=== PATIENT | female | born 1950 | race Caucasian/White ===

== ENCOUNTER 2016-05-30 19:37 | Inpatient (IN) ==
[2016-05-30] MEDS ORDERED: Ketorolac 30 MG/ML VIAL IVP ONE (19:42)
--- NOTE | 2016-05-30 19:42 | Emergency Department Note ---
Disposition Clinical Impression: Tachycardia Sepsis Qualifiers: Sepsis type: sepsis due to unspecified organism Qualified Code(s): A41.9 - Sepsis, unspecified organism UTI (urinary tract infection) Qualifiers: Urinary tract infection type: site unspecified Hematuria presence: without hematuria Qualified Code(s): N39.0 - Urinary tract infection, site not specified Fall Qualifiers: Encounter type: initial encounter Qualified Code(s): W19.XXXA - Unspecified fall, initial encounter Headache Qualifiers: Headache type: unspecified Headache chronicity pattern: acute headache Intractability: not intractable Qualified Code(s): R51 - Headache Leukocytosis Qualifiers: Leukocytosis type: bandemia Qualified Code(s): D72.825 - Bandemia Disposition: Admitted As Inpatient Referrals: NO,PCP [Non-Partnered Physician] - Forms: ED Satisfaction Letter Time of Disposition: 22:00 Fall HPI - General Chief Complaint: ED Fall Stated Complaint: fall Time Seen by Provider: 05/30/16 19:41 Source: patient, EMS Mode of arrival: EMS Limitations: altered mental status, physical limitation Nursing Notes Reviewed: Yes Vital Signs Reviewed: Yes - History of Present Illness HPI Narrative: Patient is a 65-year-old female with past medical history of CHF, COPD, previous MA, hypertension, hyperlipidemia. She presents today from nursing facility via EMS (backboarded but no C collar) due to fall and concern for altered mental status. EMS states the patient was found down in her room, states staff was concerned for altered mental status. The patient is complaining of headache that would not answer any of the review of system questions. EMS does state that the patient was complaining of hip pain in the ambulance. Patient is currently only oriented to person. - Related Data Home Medications Medication Instructions Recorded Confirmed Amiodarone [Cordarone] 200 mg PO DAILY 12/12/14 10/16/15 Baclofen 10 mg PO QID 12/12/14 10/16/15 Budesonide/Formoterol Fumarate 2 puff IH BID 12/12/14 10/16/15 [Symbicort 160-4.5 Mcg Inhaler] Bumetanide 1 mg PO BID 12/12/14 10/16/15 Cholecalciferol (Vitamin D3) 2,000 unit PO DAILY 12/12/14 10/16/15 [Vitamin D3] Clopidogrel [Plavix] 75 mg PO QAM 12/12/14 10/16/15 Duloxetine HCl [Cymbalta] 60 mg PO DAILY 12/12/14 10/16/15 Ezetimibe [Zetia] 10 mg PO HS 12/12/14 10/16/15 Ferrous Sulfate 325 mg PO DAILY 12/12/14 10/16/15 Fluticasone Propionate Nasal 1 spray NS DAILY PRN 12/12/14 10/16/15 [Flonase] Folic Acid 1 mg PO QAM 12/12/14 10/16/15 Hydroxychloroquine Sulfate 200 mg PO BID 12/12/14 10/16/15 [Plaquenil] Insulin DETEMIR [Levemir Flextouch] 60 unit SQ BID 12/12/14 10/16/15 Insulin LISPRO [Humalog Kwikpen 0 unit SQ QID 12/12/14 10/16/15 U-200] Isosorbide MONOnitrate [Isosorbide 120 mg PO DAILY 12/12/14 10/16/15 Mononitrate ER] Loratadine [Loradamed] 10 mg PO DAILY 12/12/14 10/16/15 Metoprolol Succinate 50 mg PO DAILY 12/12/14 10/16/15 Montelukast Sodium [Singulair] 10 mg PO HS 12/12/14 10/16/15 Ranitidine HCl 300 mg PO HS 12/12/14 10/16/15 Ropinirole HCl [Requip] 2 mg PO HS 12/12/14 10/16/15 Sertraline HCl [Zoloft] 50 mg PO HS 12/12/14 10/16/15 Theophylline Anhydrous [Theodur] 300 mg PO BID 12/12/14 10/16/15 Tiotropium [place] [Spiriva] 18 mcg IH DAILY 12/12/14 10/16/15 Trazodone HCl 300 mg PO HS 12/12/14 10/16/15 Verapamil ER (24 HR) [Calan SR] 240 mg PO DAILY 12/12/14 10/16/15 Atropine 1% Opth Oint 2 drop BOTH EYES Q2H PRN 08/26/15 10/16/15 Bisacodyl [Dulcolax] 10 mg RC DAILY PRN 08/26/15 10/16/15 Docusate [Colace] 100 mg PO DAILY 08/26/15 10/16/15 Ipratropium/Albuterol Neb [Duoneb] 3 ml IH Q4HR PRN 08/26/15 10/16/15 Polyethylene Glycol 3350 [Gavilax] 17 gm PO DAILY 08/26/15 10/16/15 Scopolamine Patch [Transderm-Scop] 1.5 mg TD Q72H PRN 08/26/15 10/16/15 Acetaminophen [Tylenol] 650 mg PO Q4HR PRN 10/16/15 10/16/15 Nystatin Cream [Mycostatin Cream] 1 appl TP BID 10/16/15 10/16/15 Pantoprazole Sodium [Protonix] 40 mg PO DAILY 10/16/15 10/16/15 Previous Rx's Medication Instructions Recorded Losartan [Cozaar] 100 mg PO DAILY 28 Days 04/05/15 Meclizine [Antivert] 12.5 mg PO TID PRN 14 Days 04/05/15 Metoclopramide [Reglan] 10 mg PO Q8HR 7 Days 04/05/15 Aspirin Enteric Coated [Aspirin EC] 325 mg PO DAILY #21 tablet. 06/08/15 Alprazolam [Xanax 0.5 MG Tablet] 0.5 mg PO TID PRN 7 Days 10/17/15 FentaNYL PATCH [Duragesic] 50 mcg TD Q72H 7 Days 10/17/15 Gabapentin [Neurontin] 100 mg PO TID 14 Days 10/17/15 Naloxone [Narcan] 0.4 mg IV Q2MIN PRN #0 inj 10/17/15 OxyCODONE Immed Rel [Roxicodone 15 15 mg PO Q8HR PRN 7 Days 10/17/15 MG] OxyCODONE Immed Rel [Roxicodone 5 5 mg PO Q6H PRN 7 Days 10/17/15 MG] Allergies Allergy/AdvReac Type Severity Reaction Status Date / Time tuberculin, purified protein Allergy Mild Hives Verified 12/12/14 11:15 deriva [tuberculin,purif.prot.deriv.] carvedilol [From Coreg] AdvReac Intermediate Anxiety Verified 12/12/14 11:15 ranolazine [From Ranexa] AdvReac Intermediate nausea, Verified 12/12/14 11:15 vomiting Wblnher-Ija-Qmo Reductase AdvReac Intermediate muscle Verified 12/12/14 11:15 Inhibitor dysfunction [Statins] Limitations: ROS unobtainable due to patients medical condition Fall PMH - Past Medical History Medical history: Reports: CHF, COPD, DVT, diabetes, hyperlipidemia, hypertension , myocardial infarction, other Surgical history: Reports: angioplasty/stent, cholecystectomy, coronary bypass ( CABG), hysterectomy, other Psychiatric history: Reports: anxiety, depression 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 Backboarded but no c collar due to neck girth. - General Limitations: altered mental status General appearance: alert - Head Head exam: atraumatic, normocephalic, normal inspection, other (no tenderness to palpation) - Eye Eye exam: Present: normal appearance, PERRL, EOMI - ENT ENT exam: normal exam, normal oropharynx, mucous membranes moist - Neck Neck exam: Present: normal inspection, full ROM, trachea midline, tenderness ( Uncertain, patient would no answer if cervical spine was tender to palpation) - Chest Chest inspection: Present: normal inspection, symmetric chest wall rise - Respiratory Respiratory exam: Present: normal lung sounds bilaterally. Absent: respiratory distress, wheezes, stridor, accessory muscle use, prolonged expiratory phase - Cardiovascular Cardiovascular exam: Present: regular rate, normal rhythm, normal heart sounds - Abdominal Exam Abdominal exam: Present: soft, Non-Tender. Absent: tenderness, distention, guarding, rebound, rigidity - Extremities Exam Extremities exam: Present: pedal edema (Bilateral lower extremity erythema and pitting edema from mid calf down. ), other (Bilateral hips compressed and palpated but patient would not answer if painful) - Back Exam Back exam: Present: normal inspection, full ROM. Absent: tenderness - Neurological Exam Neurological exam: Present: alert, other (oriented x 1 to person) - Psychiatric Psychiatric exam: Present: normal affect, normal mood - Skin Skin exam: Present: warm, dry, intact, normal color Course Course Narrative: O2 low possible due to large abdominal mass effect, currently on venti mask. BP elevated on presentation, possibly due to pain. Will continue to monitor. Patient was complaining of headache but would not answer any other review of system questions. Cervical spine was palpated along with extremities and bilateral hips/pelvis. She denies answer whether or not any of these areas were tender to palpation. Due to concern for altered mental status, we will obtain basic labs, head CT, cervical spine CT. We will also obtain imaging of the pelvis and bilateral hips due to complaint of hip pain in the ambulance. Also obtain UTI, cardiac workup including EKG and troponin. 20:35 Patient positive for UTI, meets sepsis criteria because she had fever 102 prior to arrival at alf, has tachycardia, source of infection. Sepsis protocol ordered including lactic and blood cultures. Patient not given fluid boluses due to hypotension, no signs of hypovolemia, history of CHF. She will be started on ceftriaxone and admitted after imaging workup is complete. Hydralazine 10mg given due to BP 180/90s. 21:20 imaging negative for fracture. Patient was C-spine and backboard cleared. Patient was set up and oxygen saturation is now an upper 90s with 5L NC O2. Will admit for UTI sepsis, fall, headache. 21:59 Dr. Gutierrez accepts. Cervical Spine CT 05/30/16 19:42 IMPRESSION: 1. Suboptimal evaluation due to patient body habitus. 2. No evident acute osseous abnormality of the cervical spine. 3. Moderate multilevel degenerative changes. D/ / Escobar Godfrey MD / Escobar Godfrey MD Interpreting Provider: Escobar Godfrey MD Head CT 05/30/16 19:42 IMPRESSION: No acute intracranial abnormality. D/ / America Stafford MD / America Stafford MD Interpreting Provider: America Stafford MD Hip/Pelvis X-Ray 05/30/16 19:45 IMPRESSION: No acute osseous abnormality. D/ / Shawn Quigley MD / Shawn Quigley MD Interpreting Provider: Shawn Quigley MD Vital Signs Temperature 99.6 F 05/30/16 19:38 Pulse Rate 112 05/30/16 19:38 Respiratory Rate 20 05/30/16 19:38 Blood Pressure 188/163 05/30/16 19:38 O2 Sat by Pulse Oximetry 92 L 05/30/16 19:38 Temperature 99.6 F 05/30/16 19:38 Pulse Rate 95 05/30/16 21:12 Respiratory Rate 16 05/30/16 21:12 Blood Pressure 156/59 05/30/16 21:12 O2 Sat by Pulse Oximetry 91 L 05/30/16 21:12 Oxygen Delivery Oxygen Delivery Simple Mask Fall - MDM Narrative Medical decision making narrative: imaging negative for fracture. Patient was C-spine and backboard cleared. Patient was set up and oxygen saturation is now an upper 90s without oxygen. Will admit for UTI sepsis, fall, headache. - Medical Records Medical records reviewed: Yes I reviewed the patient's medical records. - Lab Data Lab results reviewed: Yes I reviewed the patient's lab results. Result diagrams: 05/30/16 20:47 05/30/16 20:47 Lab Results 05/30/16 05/30/16 05/30/16 Range/Units 19:58 20:47 20:47 WBC 16.8 H (4.3-11.1) K/mcL RBC 4.40 (3.82-4.97) M/mcL Hgb 12.2 (11.5-15.4) g/dL Hct 38.2 (35.3-44.9) % MCV 86.8 (83.0-100.0) fL MCH 27.7 L (28.0-33.3) pg MCHC 31.9 (31.6-35.5) g/dL RDW 16.0 H (11.5-14.5) % Plt Count 215 (140-400) K/mcL MPV 9.2 L (9.4-12.4) fL Immature Gran % 1.1 (0-4) % Seg Neutrophils % 87.5 % Lymphocytes % 2.7 % Monocytes % 8.2 % Eosinophils % 0.3 % Basophils % 0.2 % Neutrophils # 14.7 H (1.6-8.9) K/mcL Lymphocytes # 0.5 L (0.6-4.6) K/mcL Monocytes # 1.4 H (0.0-1.3) K/mcL Eosinophils # 0.1 (0.0-0.6) K/mcL Basophils # 0.0 (0.0-0.2) K/mcL Nucleated RBCs/100 WBC 0.2 H (0) /100 WBC PT (9.4-12.1) Seconds INR APTT (26.0-36.0) Seconds Sodium 135 L (136-145) mEq/L Potassium 4.2 (3.5-4.5) mEq/L Chloride 97 L (98-109) mEq/L Carbon Dioxide 25 (19-29) mEq/L BUN 17 (7-20) mg/dL Creatinine 1.02 (0.57-1.11) mg/dL Est GFR ( Amer) > 60 (> 60) Est GFR (Non-Af Amer) 54 L (> 60) BUN/Creatinine Ratio 17 (6-26) Glucose 260 H (70-99) mg/dL Calculated Osmolality 291 (280-300) Calcium 9.3 (8.6-10.8) mg/dL Total Bilirubin 0.5 (0.2-1.2) mg/dL Direct Bilirubin 0.2 (0.0-0.5) mg/dL Indirect Bilirubin 0.3 (0.0-1.2) mg/dL AST 14 (5-34) Units/L ALT 15 (0-55) Units/L Alkaline Phosphatase 101 (38-126) Units/L Troponin I (0-0.03) ng/mL Serum Total Protein 7.7 (6.0-8.3) g/dL Albumin 3.3 L (3.5-5.0) g/dL Globulin 4.4 H (2.4-3.5) g/dL Albumin/Globulin Ratio 0.8 L (1.1-2.2) Urine Color Yellow (Yellow) Urine Clarity Cloudy A (Clear) Urine pH 7.0 (5.0-8.0) pH Units Ur Specific [place] 1.020 (1.010-1.025) Urine Protein 100 H (Neg-Trace) mg/dL Urine Glucose (UA) Normal (Normal) mg/dL Urine Ketones Negative (Negative) mg/dL Urine Blood Moderate H (Negative) Urine Nitrite Positive A (Negative) Urine Bilirubin Negative (Negative) Urine Urobilinogen Normal (Normal) mg/dL Ur Leukocyte Esterase Large H (Negative) Urine Microscopic RBC Present (0-3) per hpf Urine Microscopic WBC TNTC H (0-3) per hpf Ur Squamous Epith Cells Many H (None-Few) per lpf Ur Renal Epithelial Cell Present (None-Few) per hpf Urine Bacteria Many H (None-Few) per hpf Hyaline Casts Test Not Performed Urine Yeast Test Not Performed Ur Culture Indicated? YES A (NO) Specimen Rejected 05/30/16 05/30/16 05/30/16 Range/Units 20:47 20:47 20:47 WBC (4.3-11.1) K/mcL RBC (3.82-4.97) M/mcL Hgb (11.5-15.4) g/dL Hct (35.3-44.9) % MCV (83.0-100.0) fL MCH (28.0-33.3) pg MCHC (31.6-35.5) g/dL RDW (11.5-14.5) % Plt Count (140-400) K/mcL MPV (9.4-12.4) fL Immature Gran % (0-4) % Seg Neutrophils % % Lymphocytes % % Monocytes % % Eosinophils % % Basophils % % Neutrophils # (1.6-8.9) K/mcL Lymphocytes # (0.6-4.6) K/mcL Monocytes # (0.0-1.3) K/mcL Eosinophils # (0.0-0.6) K/mcL Basophils # (0.0-0.2) K/mcL Nucleated RBCs/100 WBC (0) /100 WBC PT 11.7 (9.4-12.1) Seconds INR 1.1 APTT 20.1 L (26.0-36.0) Seconds Sodium (136-145) mEq/L Potassium (3.5-4.5) mEq/L Chloride (98-109) mEq/L Carbon Dioxide (19-29) mEq/L BUN (7-20) mg/dL Creatinine (0.57-1.11) mg/dL Est GFR ( Amer) (> 60) Est GFR (Non-Af Amer) (> 60) BUN/Creatinine Ratio (6-26) Glucose (70-99) mg/dL Calculated Osmolality (280-300) Calcium (8.6-10.8) mg/dL Total Bilirubin (0.2-1.2) mg/dL Direct Bilirubin (0.0-0.5) mg/dL Indirect Bilirubin (0.0-1.2) mg/dL AST (5-34) Units/L ALT (0-55) Units/L Alkaline Phosphatase (38-126) Units/L Troponin I 0.02 (0-0.03) ng/mL Serum Total Protein (6.0-8.3) g/dL Albumin (3.5-5.0) g/dL Globulin (2.4-3.5) g/dL Albumin/Globulin Ratio (1.1-2.2) Urine Color (Yellow) Urine Clarity (Clear) Urine pH (5.0-8.0) pH Units Ur Specific [place] (1.010-1.025) Urine Protein (Neg-Trace) mg/dL Urine Glucose (UA) (Normal) mg/dL Urine Ketones (Negative) mg/dL Urine Blood (Negative) Urine Nitrite (Negative) Urine Bilirubin (Negative) Urine Urobilinogen (Normal) mg/dL Ur Leukocyte Esterase (Negative) Urine Microscopic RBC (0-3) per hpf Urine Microscopic WBC (0-3) per hpf Ur Squamous Epith Cells (None-Few) per lpf Ur Renal Epithelial Cell (None-Few) per hpf Urine Bacteria (None-Few) per hpf Hyaline Casts Urine Yeast Ur Culture Indicated? (NO) Specimen Rejected Hemolyzed - Radiology Data Radiology results reviewed: Yes I reviewed the patient's radiology results. Cervical Spine CT 05/30/16 19:42 IMPRESSION: 1. Suboptimal evaluation due to patient body habitus. 2. No evident acute osseous abnormality of the cervical spine. 3. Moderate multilevel degenerative changes. D/ / Escobar Godfrey MD / Escobar Godfrey MD Interpreting Provider: Escobar Godfrey MD Head CT 05/30/16 19:42 IMPRESSION: No acute intracranial abnormality. D/ / America Stafford MD / America Stafford MD Interpreting Provider: America Stafford MD Hip/Pelvis X-Ray 05/30/16 19:45 IMPRESSION: No acute osseous abnormality. D/ / Shawn Quigley MD / Shawn Quigley MD Interpreting Provider: Shawn Quigley MD - EKG Data EKG attestation: Yes I reviewed and interpreted this EKG. EKG results narrative: 05/30/16. Sinus tach. Rate 108. QTC 410. No acute ST elevation or depression. Artifact present. Evin.Sachi - Josefina Situation: Demographics, MOA Background: Presenting Complaint, Relevant PMH, Meds, & Allergies Assessment: Vital Signs, Course and respsone to treatment, Exam Concerns, Patient/Family Expectation, Pertinant Lab Results, Outstanding Labs Recommendation: Barrier(s) to disposition, Recommendation based on pending studies, treatments, or consults Josefina Report Given to: Dr. Brenda Rocha Repor Time: 22:00
--- NOTE | 2016-05-30 19:43 | Emergency Department Note ---
Disposition Clinical Impression: Sepsis, UTI (urinary tract infection), Fall, Headache, Leukocytosis, Tachycardia Disposition: Admitted As Inpatient Referrals: NO,PCP [Non-Partnered Physician] - Forms: ED Satisfaction Letter General Adult HPI - General Chief complaint: ED Fall Stated complaint: fall Time Seen by Provider: 05/30/16 19:41 Source: patient, EMS Mode of arrival: EMS Limitations: altered mental status, physical limitation - Related Data Home Medications Medication Instructions Recorded Confirmed Amiodarone [Cordarone] 200 mg PO DAILY 12/12/14 10/16/15 Baclofen 10 mg PO QID 12/12/14 10/16/15 Budesonide/Formoterol Fumarate 2 puff IH BID 12/12/14 10/16/15 [Symbicort 160-4.5 Mcg Inhaler] Bumetanide 1 mg PO BID 12/12/14 10/16/15 Cholecalciferol (Vitamin D3) 2,000 unit PO DAILY 12/12/14 10/16/15 [Vitamin D3] Clopidogrel [Plavix] 75 mg PO QAM 12/12/14 10/16/15 Duloxetine HCl [Cymbalta] 60 mg PO DAILY 12/12/14 10/16/15 Ezetimibe [Zetia] 10 mg PO HS 12/12/14 10/16/15 Ferrous Sulfate 325 mg PO DAILY 12/12/14 10/16/15 Fluticasone Propionate Nasal 1 spray NS DAILY PRN 12/12/14 10/16/15 [Flonase] Folic Acid 1 mg PO QAM 12/12/14 10/16/15 Hydroxychloroquine Sulfate 200 mg PO BID 12/12/14 10/16/15 [Plaquenil] Insulin DETEMIR [Levemir Flextouch] 60 unit SQ BID 12/12/14 10/16/15 Insulin LISPRO [Humalog Kwikpen 0 unit SQ QID 12/12/14 10/16/15 U-200] Isosorbide MONOnitrate [Isosorbide 120 mg PO DAILY 12/12/14 10/16/15 Mononitrate ER] Loratadine [Loradamed] 10 mg PO DAILY 12/12/14 10/16/15 Metoprolol Succinate 50 mg PO DAILY 12/12/14 10/16/15 Montelukast Sodium [Singulair] 10 mg PO HS 12/12/14 10/16/15 Ranitidine HCl 300 mg PO HS 12/12/14 10/16/15 Ropinirole HCl [Requip] 2 mg PO HS 12/12/14 10/16/15 Sertraline HCl [Zoloft] 50 mg PO HS 12/12/14 10/16/15 Theophylline Anhydrous [Theodur] 300 mg PO BID 12/12/14 10/16/15 Tiotropium [place] [Spiriva] 18 mcg IH DAILY 12/12/14 10/16/15 Trazodone HCl 300 mg PO HS 12/12/14 10/16/15 Verapamil ER (24 HR) [Calan SR] 240 mg PO DAILY 12/12/14 10/16/15 Atropine 1% Opth Oint 2 drop BOTH EYES Q2H PRN 08/26/15 10/16/15 Bisacodyl [Dulcolax] 10 mg RC DAILY PRN 08/26/15 10/16/15 Docusate [Colace] 100 mg PO DAILY 08/26/15 10/16/15 Ipratropium/Albuterol Neb [Duoneb] 3 ml IH Q4HR PRN 08/26/15 10/16/15 Polyethylene Glycol 3350 [Gavilax] 17 gm PO DAILY 08/26/15 10/16/15 Scopolamine Patch [Transderm-Scop] 1.5 mg TD Q72H PRN 08/26/15 10/16/15 Acetaminophen [Tylenol] 650 mg PO Q4HR PRN 10/16/15 10/16/15 Nystatin Cream [Mycostatin Cream] 1 appl TP BID 10/16/15 10/16/15 Pantoprazole Sodium [Protonix] 40 mg PO DAILY 10/16/15 10/16/15 Previous Rx's Medication Instructions Recorded Losartan [Cozaar] 100 mg PO DAILY 28 Days 04/05/15 Meclizine [Antivert] 12.5 mg PO TID PRN 14 Days 04/05/15 Metoclopramide [Reglan] 10 mg PO Q8HR 7 Days 04/05/15 Aspirin Enteric Coated [Aspirin EC] 325 mg PO DAILY #21 tablet. 06/08/15 Alprazolam [Xanax 0.5 MG Tablet] 0.5 mg PO TID PRN 7 Days 10/17/15 FentaNYL PATCH [Duragesic] 50 mcg TD Q72H 7 Days 10/17/15 Gabapentin [Neurontin] 100 mg PO TID 14 Days 10/17/15 Naloxone [Narcan] 0.4 mg IV Q2MIN PRN #0 inj 10/17/15 OxyCODONE Immed Rel [Roxicodone 15 15 mg PO Q8HR PRN 7 Days 10/17/15 MG] OxyCODONE Immed Rel [Roxicodone 5 5 mg PO Q6H PRN 7 Days 10/17/15 MG] Allergies Allergy/AdvReac Type Severity Reaction Status Date / Time tuberculin, purified protein Allergy Mild Hives Verified 12/12/14 11:15 deriva [tuberculin,purif.prot.deriv.] carvedilol [From Coreg] AdvReac Intermediate Anxiety Verified 12/12/14 11:15 ranolazine [From Ranexa] AdvReac Intermediate nausea, Verified 12/12/14 11:15 vomiting [id number]-Hpc Reductase AdvReac Intermediate muscle Verified 12/12/14 11:15 Inhibitor dysfunction [Statins] Past Medical History - Past Medical History Medical history: Reports: CHF, COPD, DVT, diabetes, hyperlipidemia, hypertension , myocardial infarction, other Surgical history: Reports: angioplasty/stent, cholecystectomy, coronary bypass ( CABG), hysterectomy, other Psychiatric history: Reports: anxiety, depression 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 - Social History Smoking Status: Former smoker Smokeless Tobacco Status: No Alcohol use: Reports: none Drug use: Reports: none Physical Exam - General Limitations: altered mental status, physical limitation Course Vital Signs Temperature 99.6 F 05/30/16 19:38 Pulse Rate 112 05/30/16 19:38 Respiratory Rate 20 05/30/16 19:38 Blood Pressure 188/163 05/30/16 19:38 O2 Sat by Pulse Oximetry 92 L 05/30/16 19:38 Temperature 99.6 F 05/30/16 19:38 Pulse Rate 95 05/30/16 21:12 Respiratory Rate 16 05/30/16 21:12 Blood Pressure 156/59 05/30/16 21:12 O2 Sat by Pulse Oximetry 91 L 05/30/16 21:12 Oxygen Delivery Oxygen Delivery Simple Mask Medical Decision Making - Lab Data Result diagrams: 05/30/16 20:47 05/30/16 20:47 Lab Results 05/30/16 05/30/16 05/30/16 Range/Units 19:58 20:47 20:47 WBC 16.8 H (4.3-11.1) K/mcL RBC 4.40 (3.82-4.97) M/mcL Hgb 12.2 (11.5-15.4) g/dL Hct 38.2 (35.3-44.9) % MCV 86.8 (83.0-100.0) fL MCH 27.7 L (28.0-33.3) pg MCHC 31.9 (31.6-35.5) g/dL RDW 16.0 H (11.5-14.5) % Plt Count 215 (140-400) K/mcL MPV 9.2 L (9.4-12.4) fL Immature Gran % 1.1 (0-4) % Seg Neutrophils % 87.5 % Lymphocytes % 2.7 % Monocytes % 8.2 % Eosinophils % 0.3 % Basophils % 0.2 % Neutrophils # 14.7 H (1.6-8.9) K/mcL Lymphocytes # 0.5 L (0.6-4.6) K/mcL Monocytes # 1.4 H (0.0-1.3) K/mcL Eosinophils # 0.1 (0.0-0.6) K/mcL Basophils # 0.0 (0.0-0.2) K/mcL Nucleated RBCs/100 WBC 0.2 H (0) /100 WBC PT (9.4-12.1) Seconds INR APTT (26.0-36.0) Seconds Sodium 135 L (136-145) mEq/L Potassium 4.2 (3.5-4.5) mEq/L Chloride 97 L (98-109) mEq/L Carbon Dioxide 25 (19-29) mEq/L BUN 17 (7-20) mg/dL Creatinine 1.02 (0.57-1.11) mg/dL Est GFR ( Amer) > 60 (> 60) Est GFR (Non-Af Amer) 54 L (> 60) BUN/Creatinine Ratio 17 (6-26) Glucose 260 H (70-99) mg/dL Calculated Osmolality 291 (280-300) Calcium 9.3 (8.6-10.8) mg/dL Total Bilirubin 0.5 (0.2-1.2) mg/dL Direct Bilirubin 0.2 (0.0-0.5) mg/dL Indirect Bilirubin 0.3 (0.0-1.2) mg/dL AST 14 (5-34) Units/L ALT 15 (0-55) Units/L Alkaline Phosphatase 101 (38-126) Units/L Troponin I (0-0.03) ng/mL Serum Total Protein 7.7 (6.0-8.3) g/dL Albumin 3.3 L (3.5-5.0) g/dL Globulin 4.4 H (2.4-3.5) g/dL Albumin/Globulin Ratio 0.8 L (1.1-2.2) Urine Color Yellow (Yellow) Urine Clarity Cloudy A (Clear) Urine pH 7.0 (5.0-8.0) pH Units Ur Specific [place] 1.020 (1.010-1.025) Urine Protein 100 H (Neg-Trace) mg/dL Urine Glucose (UA) Normal (Normal) mg/dL Urine Ketones Negative (Negative) mg/dL Urine Blood Moderate H (Negative) Urine Nitrite Positive A (Negative) Urine Bilirubin Negative (Negative) Urine Urobilinogen Normal (Normal) mg/dL Ur Leukocyte Esterase Large H (Negative) Urine Microscopic RBC Present (0-3) per hpf Urine Microscopic WBC TNTC H (0-3) per hpf Ur Squamous Epith Cells Many H (None-Few) per lpf Ur Renal Epithelial Cell Present (None-Few) per hpf Urine Bacteria Many H (None-Few) per hpf Hyaline Casts Test Not Performed Urine Yeast Test Not Performed Ur Culture Indicated? YES A (NO) Specimen Rejected 05/30/16 05/30/16 05/30/16 Range/Units 20:47 20:47 20:47 WBC (4.3-11.1) K/mcL RBC (3.82-4.97) M/mcL Hgb (11.5-15.4) g/dL Hct (35.3-44.9) % MCV (83.0-100.0) fL MCH (28.0-33.3) pg MCHC (31.6-35.5) g/dL RDW (11.5-14.5) % Plt Count (140-400) K/mcL MPV (9.4-12.4) fL Immature Gran % (0-4) % Seg Neutrophils % % Lymphocytes % % Monocytes % % Eosinophils % % Basophils % % Neutrophils # (1.6-8.9) K/mcL Lymphocytes # (0.6-4.6) K/mcL Monocytes # (0.0-1.3) K/mcL Eosinophils # (0.0-0.6) K/mcL Basophils # (0.0-0.2) K/mcL Nucleated RBCs/100 WBC (0) /100 WBC PT 11.7 (9.4-12.1) Seconds INR 1.1 APTT 20.1 L (26.0-36.0) Seconds Sodium (136-145) mEq/L Potassium (3.5-4.5) mEq/L Chloride (98-109) mEq/L Carbon Dioxide (19-29) mEq/L BUN (7-20) mg/dL Creatinine (0.57-1.11) mg/dL Est GFR ( Amer) (> 60) Est GFR (Non-Af Amer) (> 60) BUN/Creatinine Ratio (6-26) Glucose (70-99) mg/dL Calculated Osmolality (280-300) Calcium (8.6-10.8) mg/dL Total Bilirubin (0.2-1.2) mg/dL Direct Bilirubin (0.0-0.5) mg/dL Indirect Bilirubin (0.0-1.2) mg/dL AST (5-34) Units/L ALT (0-55) Units/L Alkaline Phosphatase (38-126) Units/L Troponin I 0.02 (0-0.03) ng/mL Serum Total Protein (6.0-8.3) g/dL Albumin (3.5-5.0) g/dL Globulin (2.4-3.5) g/dL Albumin/Globulin Ratio (1.1-2.2) Urine Color (Yellow) Urine Clarity (Clear) Urine pH (5.0-8.0) pH Units Ur Specific [place] (1.010-1.025) Urine Protein (Neg-Trace) mg/dL Urine Glucose (UA) (Normal) mg/dL Urine Ketones (Negative) mg/dL Urine Blood (Negative) Urine Nitrite (Negative) Urine Bilirubin (Negative) Urine Urobilinogen (Normal) mg/dL Ur Leukocyte Esterase (Negative) Urine Microscopic RBC (0-3) per hpf Urine Microscopic WBC (0-3) per hpf Ur Squamous Epith Cells (None-Few) per lpf Ur Renal Epithelial Cell (None-Few) per hpf Urine Bacteria (None-Few) per hpf Hyaline Casts Urine Yeast Ur Culture Indicated? (NO) Specimen Rejected Hemolyzed Attestation Statement - Attestation Attestation: I examined this patient and my medical decision-making was reviewed with the PARAEDUCATOR/PA/Advanced Practice Nurse/Resident Physician. I agree with the documented findings, disposition and treatment plan as described except to the extent set forth below. [id number] time provided conjunction with the resident physician Patient [facility] via EMS after an unwitnessed fall. Patient found on the floor. She had complained of hip pain but complains of a headache to us. She is oriented to person only. Smells strongly of urine. Home medication list reviewed by me 21:54: Patient meets sepsis criteria. Lactate and cultures ordered. Patient not aggressively fluid resuscitated because she is not hypotensive. She also has a known history of peripheral edema.
[2016-05-30 20:09] LABS: Bilirubin,Urine Negative (Negative); Blood,Urine Moderate (Negative); Clarity,Urine Cloudy (Clear); Color,Urine Yellow (Yellow); Glucose,Urine (UA) Normal (Normal); Ketones,Urine Negative (Negative); Leukocyte Esterase,Urine Large (Negative); Nitrite,Urine Positive (Negative); Protein,Urine 100 mg/dL (Neg-Trace); Urobilinogen,Urine Normal (Normal)
[2016-05-30 20:15] LABS: Bacteria,Urine Many per hpf (None-Few); Squamous Epithelial Cell,Urine Many per lpf (None-Few); WBC,Urine TNTC per hpf (0-3)
[2016-05-30 20:28] LABS: RBC,Urine Present per hpf (0-3); Renal Epithelial Cells,Urine Present per hpf (None-Few)
[2016-05-30 20:59] LABS: Basophils % 0.2 %; Eosinophils # 0.1 K/mcL (0.0-0.6); Eosinophils % 0.3 %; Hematocrit 38.2 % (35.3-44.9); Hemoglobin 12.2 g/dL (11.5-15.4); Immature Granulocytes % 1.1 % (0-4); Lymphocytes # 0.5 K/mcL (0.6-4.6); Lymphocytes % 2.7 %; Mean Corpuscular HGB Conc 31.9 g/dL (31.6-35.5); Mean Corpuscular Hemoglobin 27.7 pg (28.0-33.3); Mean Corpuscular Volume 86.8 fL (83.0-100.0); Mean Platelet Volume 9.2 fL (9.4-12.4); Monocytes # 1.4 K/mcL (0.0-1.3); Monocytes % 8.2 %; Neutrophils # 14.7 K/mcL (1.6-8.9); Nucleated Red Blood Cells 0.2 /100 WBC (0); Platelet Count 215 K/mcL (140-400); Segmented Neutrophils % 87.5 %
[2016-05-30 21:14] LABS: Alanine Aminotransferase 15 Units/L (0-55); Albumin 3.3 g/dL (3.5-5.0); Albumin/Globulin Ratio 0.8 (1.1-2.2); Alkaline Phosphatase 101 Units/L (38-126); Aspartate Amino Transferase 14 Units/L (5-34); BUN/Creatinine Ratio 17 (6-26); Bilirubin,Direct 0.2 mg/dL (0.0-0.5); Bilirubin,Indirect 0.3 mg/dL (0.0-1.2); Bilirubin,Total 0.5 mg/dL (0.2-1.2); Blood Urea Nitrogen 17 mg/dL (7-20); Calcium 9.3 mg/dL (8.6-10.8); Carbon Dioxide 25 mEq/L (19-29); Chloride 97 mEq/L (98-109); Globulin 4.4 g/dL (2.4-3.5); Glucose 260 mg/dL (70-99); Osmolality,Calculated 291 (280-300); Potassium 4.2 mEq/L (3.5-4.5); Sodium 135 mEq/L (136-145); Total Protein 7.7 g/dL (6.0-8.3); eGFR For African Americans > 60 (> 60); eGFR For Non-African Americans 54 (> 60)
[2016-05-30 21:15] LABS: INR 1.1; Prothrombin Time 11.7 Seconds (9.4-12.1)
[2016-05-30 21:18] LABS: Activated Partial Thrombo Time 20.1 Seconds (26.0-36.0)
[2016-05-30] MEDS ORDERED: Naloxone 0.4 MG/ML INJ IVP PRN (23:23)
[2016-05-30] MEDS ORDERED: Fluticasone Propionate Nasal 50 MCG/SPRAY BOTTLE NS PRN (23:26)
[2016-05-30] MEDS ORDERED: Bisacodyl 10 MG RECTAL SUPPOSITORY RC PRN (23:26)
[2016-05-30] MEDS ORDERED: Acetaminophen 325 MG TABLET PO PRN (23:26)
[2016-05-30] MEDS ORDERED: *HR* Dextrose 50 % in Water (Syg) 50 ML SYRINGE IVP PRN (23:33)
[2016-05-30] MEDS ORDERED: Dextrose Gel 15 GM PO PRN ×2 (23:33)
[2016-05-30] MEDS ORDERED: D5% in Water 1,000 ML IV PRN (23:33)
--- NOTE | 2016-05-30 23:57 | Internal Med History&Physical ---
Date of Encounter: 05/31/16 Time of Encounter: 23:54 Assessment and Plan (1) Sepsis Current visit: Yes Status: Acute Patient with UTI (awaiting urine culture), Fever reported by SNF, tachycardia and elevated WBC of 16.8. Blood cultures drawn, awaiting results. Lactate 2.0 , recheck ordered. Antibiotics initiated in the ED with Rocephin, will switch to Cefepime until cultures come back. Patient not hypotensive so fluid boluses not initiated. Will gently hydrate with 0.9NS at 50mL/hr as patient has history of CHF. Will also get a CXR due to increased O2 requirements, history of COPD, HCAP in the past. Qualifiers: Sepsis type: sepsis due to unspecified organism Qualified Code(s): A41.9 - Sepsis, unspecified organism (2) UTI (urinary tract infection) Current visit: Yes Status: Acute Patient with fever, altered mental status and tachycardia. UA consistent with infection, awaiting cultures. Antibiotics initiated in the ED with Rocephin, will switch to Cefepime until cultures come back. Qualifiers: Urinary tract infection type: site unspecified Hematuria presence: without hematuria Qualified Code(s): N39.0 - Urinary tract infection, site not specified (3) DM (diabetes mellitus), type 2 Current visit: No Status: Acute diabetic diet check blood sugar ACHS Continue home dose of basal insulin at 70u BID High dose sliding scale insulin ACHS hypoglycemic protocol Qualifiers: Diabetes mellitus complication status: with unspecified complications Diabetes mellitus buttermaker continuous churn insulin use: with snf use Qualified Code(s) : E11.8 - Type 2 diabetes mellitus with unspecified complications (4) CHF (congestive heart failure) Current visit: No Status: Chronic Patient with history of chronic systolic CHF. Does not appear to have exacerbation at this time. Will use gentle fluid hydration overnight with 50mL/ hr. Qualifiers: Congestive heart failure type: systolic Congestive heart failure chronicity : chronic Qualified Code(s): I50.22 - Chronic systolic (congestive) heart failure (5) COPD (chronic obstructive pulmonary disease) Current visit: No Status: Chronic Patient with history of COPD. No reports or witnessed coughing. Lungs diminished but clear. Continue home doses of spiriva, budesonide/formotorol, theophylline. CXR ordered Duoneb treatments QIDR Titrate O2 to maintain O2 sat > 92% Bipap overnight. Qualifiers: COPD type: unspecified COPD Qualified Code(s): J44.9 - Chronic obstructive pulmonary disease, unspecified (6) Altered mental status Current visit: No Status: Acute Patient is oriented to person, place and year, but slow to respond, answers most questions with yes/no even though they are not yes or no questions. Per SNF staff report, she is altered from her baseline. She is found to have UTI which may be source of AMS. Will treat her infection and monitor for improvement in her mental status. Qualifiers: Altered mental status type: somnolence Qualified Code(s): R40.0 - Somnolence (7) DVT prophylaxis Current visit: No Status: Acute Up to chair BID as tolerated anti-embolic stockings Heparin 5,000u SQ BID Internal Medicine - H&P: HPI Chief complaint: AMS, UTI Admitted From: Emergency Dept Plans for Post Hospital Care: Transfer [facility] Facility History of present illness: Ms. Snyder is a 65 year old female with past medical history of CHF, COPD, previous MS, hypertension, hyperlipidemia, CAD s/p CABG and pacemaker/AICD who presented to the ED today from nursing facility via EMS due to an unwitnessed fall and concern for altered mental status. The patient was reportedly found down in her room and the SNF staff was concerned for altered mental status. The patient reported a headache in the ED and complained of hip pain to EMS, but was unable to complete review of systems otherwise. Evaluation in the ED showed head CT with no acute intracranial abnormality, Hip and pelvic xray showed no acute osseous abnormality, CT of cervical spine showed no evidence of acute osseous abnormality of the cervical spine. WBC was elevated to 16.8 and UA was positive for infection. She reportedly had a fever at the SNF prior to arrival, though she was afebrile here. She was tachycardic with HR in the 110s and meets criteria for sepsis. Blood cultures were drawn, lactate was 2.0. She was given Rocephin for the UTI. On my exam, she is alert and oriented x 3, but only answers the rest of my questions with yes or no answers and does not admit to any pain or symptoms. Lungs sound diminished due to body habitus, but clear. Heart has regular rate and rhythm. BLE are edematous and erythematous, though this appears to be chronic. Past Med Surg Social Fam HX - Past Medical History Source: old records reviewed Medical history: CHF, COPD, DVT, diabetes, hyperlipidemia, hypertension, myocardial infarction, other Psychiatric history: anxiety, depression - Past Surgical History Surgical History: angioplasty/stent, cholecystectomy, coronary bypass (CABG), hysterectomy, pacemaker/AICD, other - Social History Smoking Status: Former smoker Smokeless Tobacco Status: No Alcohol use: none Drug use: none - Family History Mother Adopted: No Living Status: Hx Family Cardiac Disorders: Yes Hx Family Respiratory Disorders: No Hx Family Cancer: No Hx Family GI Disorders: Yes Hx Family Endocrine Disorder: Yes Hx Family Neuromuscular Disorders: No Hx Family Neurologic Disorders: No Hx Family HEENT Disorders: No Hx Family Autoimmune Disorders: No Internal Medicine - H&P: Meds Amiodarone [Cordarone] 200 mg PO DAILY 12/12/14 [History] Baclofen 10 mg PO QID 12/12/14 [History] Budesonide/Formoterol Fumarate [Symbicort 160-4.5 Mcg Inhaler] 2 puff IH BID [History] Bumetanide 1 mg PO BID 12/12/14 [History] Cholecalciferol (Vitamin D3) [Vitamin D3] 2,000 unit PO DAILY 12/12/14 [History] Duloxetine HCl [Cymbalta] 60 mg PO DAILY 12/12/14 [History] Ezetimibe [Zetia] 10 mg PO HS 12/12/14 [History] Ferrous Sulfate 325 mg PO DAILY 12/12/14 [History] Fluticasone Propionate Nasal [Flonase] 1 spray NS DAILY PRN 12/12/14 [History] Folic Acid 1 mg PO QAM 12/12/14 [History] Hydroxychloroquine Sulfate [Plaquenil] 200 mg PO BID 12/12/14 [History] Insulin DETEMIR [Levemir Flextouch] 70 unit SQ BID 12/12/14 [History] Insulin LISPRO [Humalog Kwikpen U-200] 0 unit SQ QID 12/12/14 [History] Isosorbide MONOnitrate [Isosorbide Mononitrate ER] 120 mg PO DAILY 12/12/14 [ History] Loratadine [Loradamed] 10 mg PO DAILY 12/12/14 [History] Metoprolol Succinate 50 mg PO DAILY 12/12/14 [History] Montelukast Sodium [Singulair] 10 mg PO HS 12/12/14 [History] Ropinirole HCl [Requip] 2 mg PO HS 12/12/14 [History] Sertraline HCl [Zoloft] 50 mg PO HS 12/12/14 [History] Theophylline Anhydrous [Theodur] 300 mg PO BID 12/12/14 [History] Tiotropium [place] [Spiriva] 18 mcg IH DAILY 12/12/14 [History] Trazodone HCl 300 mg PO HS 12/12/14 [History] Verapamil ER (24 HR) [Calan SR] 240 mg PO DAILY 12/12/14 [History] Losartan [Cozaar] 100 mg PO DAILY 28 Days 04/05/15 [Rx] Meclizine [Antivert] 12.5 mg PO TID PRN 14 Days 04/05/15 [Rx] Metoclopramide [Reglan] 10 mg PO Q8HR 7 Days 04/05/15 [Rx] Aspirin Enteric Coated [Aspirin EC] 325 mg PO DAILY #21 tablet. 06/08/15 [Rx] Bisacodyl [Dulcolax] 10 mg RC DAILY PRN 08/26/15 [History] Docusate [Colace] 100 mg PO DAILY 08/26/15 [History] Ipratropium/Albuterol Neb [Duoneb] 3 ml IH Q4HR PRN 08/26/15 [History] Polyethylene Glycol 3350 [Gavilax] 17 gm PO DAILY 08/26/15 [History] Acetaminophen [Tylenol] 650 mg PO Q4HR PRN 10/16/15 [History] Nystatin Cream [Mycostatin Cream] 1 appl TP BID 10/16/15 [History] Alprazolam [Xanax 0.5 MG Tablet] 0.5 mg PO TID PRN 7 Days 10/17/15 [Rx] FentaNYL PATCH [Duragesic] 50 mcg TD Q72H 7 Days 10/17/15 [Rx] Gabapentin [Neurontin] 100 mg PO TID 14 Days 10/17/15 [Rx] Naloxone [Narcan] 0.4 mg IV Q2MIN PRN #0 inj 10/17/15 [Rx] Calcium Carbonate/Vitamin D3 [Calcium 600-Vit D3 400 Tablet] 1 each PO BID 05/30 [History] Ibuprofen 600 mg PO BID PRN 05/30/16 [History] Lactulose 20 gm PO DAILY PRN 05/30/16 [History] Menthol [Biofreeze] 118 ml TP BID 05/30/16 [History] Mineral Oil/Petrolatum,White [Hydrocerin Cream] 454 gm TP TID 05/30/16 [History] Omeprazole 20 mg PO DAILY 05/30/16 [History] OxyCODONE Immed Rel [Roxicodone 15 MG] 30 mg PO Q6H PRN 05/30/16 [History] Allergies tuberculin, purified protein deriva [tuberculin,purif.prot.deriv.] Allergy (Mild , Verified 12/12/14 11:15) Hives carvedilol [From Coreg] Adverse Reaction (Intermediate, Verified 12/12/14 11:15) Anxiety ranolazine [From Ranexa] Adverse Reaction (Intermediate, Verified 12/12/14 11:15 ) nausea, vomiting Jzjiewi-Fdc-Pmv Reductase Inhibitor [Statins] Adverse Reaction (Intermediate, Verified 12/12/14 11:15) muscle dysfunction ROS unobtainable: due to mental status All Systems PM: A 10-system review of systems was performed and is negative for pertinent findings except as documented above in the HPI. - Constitutional Vitals: Temp Pulse Resp BP Pulse Ox 99.1 F 81 16 102/59 93 L 05/30/16 23:36 05/30/16 23:36 05/30/16 23:36 05/30/16 23:36 05/30/16 23:36 General appearance: Present: A&O X 3, morbidly obese, no acute distress. Absent : answers questions appropriately - Head Head exam: Present: atraumatic, normocephalic - Eye Eye exam: Present: PERRL, conjuntiva pink, sclera anicteric Pupils: Present: PERRL - Expanded Eye Exam sclera: bilateral: exudate (green) - Neck Neck exam general surgery: Present: supple, trachea midline. Absent: lymphadenopathy - Respiratory Respiratory exam: Present: decreased breath sounds, CTAB. Absent: accessory muscle use, rales, rhonchi, wheezes - Cardiovascular Cardiovascular exam: Present: RRR, +S1, +S2, systolic murmur. Absent: diastolic murmur, gallop, rubs - GI/Abdominal GI/Abdominal exam: Present: normal bowel sounds, soft, no peritoneal signs. Absent: distended, tenderness - Extremities Exam Extremities exam: Present: calf tenderness, pedal edema, warm, radial pulses palpable and symetrical. Absent: cyanotic - Neurological Exam Neurological exam: Present: CN II-XII intact, oriented X3, no focal deficits. Absent: facial droop, speech deficit - Skin Skin exam: Present: dry, intact Internal Med - H&P Results - Labs CBC & Chem 7: 05/30/16 20:47 05/30/16 20:47 Labs: All Lab Results (24 Hours) 05/30/16 05/30/16 05/30/16 Range/Units 19:58 20:47 20:47 WBC 16.8 H (4.3-11.1) K/mcL RBC 4.40 (3.82-4.97) M/mcL Hgb 12.2 (11.5-15.4) g/dL Hct 38.2 (35.3-44.9) % MCV 86.8 (83.0-100.0) fL MCH 27.7 L (28.0-33.3) pg MCHC 31.9 (31.6-35.5) g/dL RDW 16.0 H (11.5-14.5) % Plt Count 215 (140-400) K/mcL MPV 9.2 L (9.4-12.4) fL Immature Gran % 1.1 (0-4) % Seg Neutrophils % 87.5 % Lymphocytes % 2.7 % Monocytes % 8.2 % Eosinophils % 0.3 % Basophils % 0.2 % Neutrophils # 14.7 H (1.6-8.9) K/mcL Lymphocytes # 0.5 L (0.6-4.6) K/mcL Monocytes # 1.4 H (0.0-1.3) K/mcL Eosinophils # 0.1 (0.0-0.6) K/mcL Basophils # 0.0 (0.0-0.2) K/mcL Nucleated RBCs/100 WBC 0.2 H (0) /100 WBC PT (9.4-12.1) Seconds INR APTT (26.0-36.0) Seconds Sodium 135 L (136-145) mEq/L Potassium 4.2 (3.5-4.5) mEq/L Chloride 97 L (98-109) mEq/L Carbon Dioxide 25 (19-29) mEq/L BUN 17 (7-20) mg/dL Creatinine 1.02 (0.57-1.11) mg/dL Est GFR ( Amer) > 60 (> 60) Est GFR (Non-Af Amer) 54 L (> 60) BUN/Creatinine Ratio 17 (6-26) Glucose 260 H (70-99) mg/dL POC Glucose (58-89) Calculated Osmolality 291 (280-300) Lactic Acid (0.5-2.2) mmol/L Calcium 9.3 (8.6-10.8) mg/dL Total Bilirubin 0.5 (0.2-1.2) mg/dL Direct Bilirubin 0.2 (0.0-0.5) mg/dL Indirect Bilirubin 0.3 (0.0-1.2) mg/dL AST 14 (5-34) Units/L ALT 15 (0-55) Units/L Alkaline Phosphatase 101 (38-126) Units/L Troponin I (0-0.03) ng/mL Serum Total Protein 7.7 (6.0-8.3) g/dL Albumin 3.3 L (3.5-5.0) g/dL Globulin 4.4 H (2.4-3.5) g/dL Albumin/Globulin Ratio 0.8 L (1.1-2.2) Urine Color Yellow (Yellow) Urine Clarity Cloudy A (Clear) Urine pH 7.0 (5.0-8.0) pH Units Ur Specific [place] 1.020 (1.010-1.025) Urine Protein 100 H (Neg-Trace) mg/dL Urine Glucose (UA) Normal (Normal) mg/dL Urine Ketones Negative (Negative) mg/dL Urine Blood Moderate H (Negative) Urine Nitrite Positive A (Negative) Urine Bilirubin Negative (Negative) Urine Urobilinogen Normal (Normal) mg/dL Ur Leukocyte Esterase Large H (Negative) Urine Microscopic RBC Present (0-3) per hpf Urine Microscopic WBC TNTC H (0-3) per hpf Ur Squamous Epith Cells Many H (None-Few) per lpf Ur Renal Epithelial Cell Present (None-Few) per hpf Urine Bacteria Many H (None-Few) per hpf Hyaline Casts Test Not Performed Urine Yeast Test Not Performed Ur Culture Indicated? YES A (NO) Specimen Rejected 05/30/16 05/30/16 05/30/16 Range/Units 20:47 20:47 20:47 WBC (4.3-11.1) K/mcL RBC (3.82-4.97) M/mcL Hgb (11.5-15.4) g/dL Hct (35.3-44.9) % MCV (83.0-100.0) fL MCH (28.0-33.3) pg MCHC (31.6-35.5) g/dL RDW (11.5-14.5) % Plt Count (140-400) K/mcL MPV (9.4-12.4) fL Immature Gran % (0-4) % Seg Neutrophils % % Lymphocytes % % Monocytes % % Eosinophils % % Basophils % % Neutrophils # (1.6-8.9) K/mcL Lymphocytes # (0.6-4.6) K/mcL Monocytes # (0.0-1.3) K/mcL Eosinophils # (0.0-0.6) K/mcL Basophils # (0.0-0.2) K/mcL Nucleated RBCs/100 WBC (0) /100 WBC PT 11.7 (9.4-12.1) Seconds INR 1.1 APTT 20.1 L (26.0-36.0) Seconds Sodium (136-145) mEq/L Potassium (3.5-4.5) mEq/L Chloride (98-109) mEq/L Carbon Dioxide (19-29) mEq/L BUN (7-20) mg/dL Creatinine (0.57-1.11) mg/dL Est GFR ( Amer) (> 60) Est GFR (Non-Af Amer) (> 60) BUN/Creatinine Ratio (6-26) Glucose (70-99) mg/dL POC Glucose (58-89) Calculated Osmolality (280-300) Lactic Acid (0.5-2.2) mmol/L Calcium (8.6-10.8) mg/dL Total Bilirubin (0.2-1.2) mg/dL Direct Bilirubin (0.0-0.5) mg/dL Indirect Bilirubin (0.0-1.2) mg/dL AST (5-34) Units/L ALT (0-55) Units/L Alkaline Phosphatase (38-126) Units/L Troponin I 0.02 (0-0.03) ng/mL Serum Total Protein (6.0-8.3) g/dL Albumin (3.5-5.0) g/dL Globulin (2.4-3.5) g/dL Albumin/Globulin Ratio (1.1-2.2) Urine Color (Yellow) Urine Clarity (Clear) Urine pH (5.0-8.0) pH Units Ur Specific [place] (1.010-1.025) Urine Protein (Neg-Trace) mg/dL Urine Glucose (UA) (Normal) mg/dL Urine Ketones (Negative) mg/dL Urine Blood (Negative) Urine Nitrite (Negative) Urine Bilirubin (Negative) Urine Urobilinogen (Normal) mg/dL Ur Leukocyte Esterase (Negative) Urine Microscopic RBC (0-3) per hpf Urine Microscopic WBC (0-3) per hpf Ur Squamous Epith Cells (None-Few) per lpf Ur Renal Epithelial Cell (None-Few) per hpf Urine Bacteria (None-Few) per hpf Hyaline Casts Urine Yeast Ur Culture Indicated? (NO) Specimen Rejected Hemolyzed 05/30/16 05/30/16 Range/Units 21:37 23:38 WBC (4.3-11.1) K/mcL RBC (3.82-4.97) M/mcL Hgb (11.5-15.4) g/dL Hct (35.3-44.9) % MCV (83.0-100.0) fL MCH (28.0-33.3) pg MCHC (31.6-35.5) g/dL RDW (11.5-14.5) % Plt Count (140-400) K/mcL MPV (9.4-12.4) fL Immature Gran % (0-4) % Seg Neutrophils % % Lymphocytes % % Monocytes % % Eosinophils % % Basophils % % Neutrophils # (1.6-8.9) K/mcL Lymphocytes # (0.6-4.6) K/mcL Monocytes # (0.0-1.3) K/mcL Eosinophils # (0.0-0.6) K/mcL Basophils # (0.0-0.2) K/mcL Nucleated RBCs/100 WBC (0) /100 WBC PT (9.4-12.1) Seconds INR APTT (26.0-36.0) Seconds Sodium (136-145) mEq/L Potassium (3.5-4.5) mEq/L Chloride (98-109) mEq/L Carbon Dioxide (19-29) mEq/L BUN (7-20) mg/dL Creatinine (0.57-1.11) mg/dL Est GFR ( Amer) (> 60) Est GFR (Non-Af Amer) (> 60) BUN/Creatinine Ratio (6-26) Glucose (70-99) mg/dL POC Glucose 279 H (58-89) Calculated Osmolality (280-300) Lactic Acid 2.0 (0.5-2.2) mmol/L Calcium (8.6-10.8) mg/dL Total Bilirubin (0.2-1.2) mg/dL Direct Bilirubin (0.0-0.5) mg/dL Indirect Bilirubin (0.0-1.2) mg/dL AST (5-34) Units/L ALT (0-55) Units/L Alkaline Phosphatase (38-126) Units/L Troponin I (0-0.03) ng/mL Serum Total Protein (6.0-8.3) g/dL Albumin (3.5-5.0) g/dL Globulin (2.4-3.5) g/dL Albumin/Globulin Ratio (1.1-2.2) Urine Color (Yellow) Urine Clarity (Clear) Urine pH (5.0-8.0) pH Units Ur Specific [place] (1.010-1.025) Urine Protein (Neg-Trace) mg/dL Urine Glucose (UA) (Normal) mg/dL Urine Ketones (Negative) mg/dL Urine Blood (Negative) Urine Nitrite (Negative) Urine Bilirubin (Negative) Urine Urobilinogen (Normal) mg/dL Ur Leukocyte Esterase (Negative) Urine Microscopic RBC (0-3) per hpf Urine Microscopic WBC (0-3) per hpf Ur Squamous Epith Cells (None-Few) per lpf Ur Renal Epithelial Cell (None-Few) per hpf Urine Bacteria (None-Few) per hpf Hyaline Casts Urine Yeast Ur Culture Indicated? (NO) Specimen Rejected
[2016-05-31] MEDS: Insulin DETEMIR 100 UNIT/ML X5UNITS SQ SCH ×3 (00:35→20:39)
[2016-05-31] MEDS: Insulin LISPRO 300 UNITS/3 ML VIAL SQ SCH ×5 (00:35→17:05)
[2016-05-31] MEDS: 0.9 % Sodium Chloride 1,000 ML IVC SCH ×2 (00:37→20:39)
[2016-05-31 00:45] LABS: Basophils # 0.1 K/mcL (0.0-0.2); Basophils % 0.3 %; Hematocrit 33.4 % (35.3-44.9); Hemoglobin 10.6 g/dL (11.5-15.4); Immature Granulocytes % 2.6 % (0-4); Immature Platelets 2.1 % (1.1-6.1); Lymphocytes # 0.8 K/mcL (0.6-4.6); Lymphocytes % 3.1 %; Mean Corpuscular HGB Conc 31.7 g/dL (31.6-35.5); Mean Corpuscular Hemoglobin 27.8 pg (28.0-33.3); Mean Corpuscular Volume 87.7 fL (83.0-100.0); Mean Platelet Volume 9.4 fL (9.4-12.4); Monocytes # 2.1 K/mcL (0.0-1.3); Monocytes % 8.8 %; Neutrophils # 20.6 K/mcL (1.6-8.9); Nucleated Red Blood Cells 0.1 /100 WBC (0); Platelet Count 254 K/mcL (140-400); Red Blood Count 3.81 M/mcL (3.82-4.97); Segmented Neutrophils % 85.2 %
[2016-05-31 01:44] LABS: Calcium 8.8 mg/dL (8.6-10.8); Potassium 4.6 mEq/L (3.5-4.5)
[2016-05-31] MEDS ORDERED: Ipratropium/Albuterol Neb 3 ML IH SCH (05:00)
[2016-05-31] MEDS: Cefepime HCl 2,000 MG in D5% in Water (Mini-Bag+) 100 ML IVPB SCH ×2 (06:11→16:45)
[2016-05-31 08:30] LABS: Acinetobacter baumannii by PCR Not Detected (Not Detect); Candida albicans by PCR Not Detected (Not Detect); Candida glabrata by PCR Not Detected (Not Detect); Candida krusei by PCR Not Detected (Not Detect); Candida parapsilosis by PCR Not Detected (Not Detect); Candida tropicalis by PCR Not Detected (Not Detect); Enterococcus by PCR Not Detected (Not Detect); Escherichia coli by PCR ***DETECTED*** (Not Detect); Klebsiella oxytoca by PCR Not Detected (Not Detect); Klebsiella pneumoniae by PCR Not Detected (Not Detect); Pseudomonas aeruginosa by PCR Not Detected (Not Detect); Serratia marcescens by PCR Not Detected (Not Detect); Staphylococcus aureus by PCR Not Detected (Not Detect); Streptococcus agalactiae(B)PCR Not Detected (Not Detect); Streptococcus by PCR Not Detected (Not Detect); Streptococcus pneumoniae PCR Not Detected (Not Detect); Streptococcus pyogenes (A) PCR Not Detected (Not Detect); blaKPC Carbapenem-Resist Gene Not Detected (Not Detect); mecA Methicillin-Resist Gene Not Detected (Not Detect); vanA/B Vancomycin-Resist Genes Not Detected (Not Detect)
[2016-05-31] MEDS: Metoprolol XL (24 HR) Succ 50 MG TAB.ER.24H PO SCH (08:48)
[2016-05-31] MEDS: Gabapentin 100 MG CAPSULE PO SCH ×3 (08:48→20:38)
[2016-05-31] MEDS: Loratadine 10 MG TABLET PO SCH (08:49)
[2016-05-31] MEDS: Aspirin Enteric Coated 325 MG Tablet PO SCH (08:49)
[2016-05-31] MEDS: Cholecalciferol (D-3) 1,000 UNIT TABLET PO SCH (08:49)
[2016-05-31] MEDS: Isosorbide MONOnitrate (24 HR) 60 MG TAB.ER.24H PO SCH (08:50)
[2016-05-31] MEDS: Folic Acid 1 MG TABLET PO SCH (08:50)
[2016-05-31] MEDS ORDERED: Tiotropium 18 MCG inhalation IH SCH (09:00)
[2016-05-31] MEDS ORDERED: Bumetanide 1 MG TABLET PO SCH (09:00)
[2016-05-31] MEDS ORDERED: Verapamil ER (24 HR) 240 MG TABLET.ER PO SCH ×2 (09:00)
[2016-05-31] MEDS: *HR* OxyCODONE Immed Rel 15 MG TABLET PO PRN ×2 (09:09→16:52)
[2016-05-31] MEDS: *HR* Amiodarone 200 MG TABLET PO SCH (09:10)
[2016-05-31] MEDS: Nystatin Cream 15 GM TUBE TP SCH ×2 (09:10→20:40)
[2016-05-31] MEDS: Baclofen 10 MG TABLET PO SCH ×4 (09:10→20:38)
[2016-05-31] MEDS: Budesonide/Formoterol 160/4.5 MDI IH SCH ×2 (10:24→22:30)
[2016-05-31] MEDS: Ipratropium/Albuterol Neb 3 ML IH SCH ×3 (10:24→22:30)
[2016-05-31] MEDS: Verapamil ER (24 HR) 240 MG TABLET.ER PO SCH (11:10)
--- NOTE | 2016-05-31 11:33 | Internal Med Progress Note ---
Date of Encounter: 05/31/16 Time of Encounter: 11:15 - Assessment and plan (1) Sepsis Current Visit: Yes Status: Acute Assessment and plan: secondary to GNR bacteremia and UTI 05/30 urine and 2/ blood cultures are growing GNR continue Cefepime for high risk resistant pseudomonas given patient comes from [place]. gentle IVF hydration. repeat blood cultures today. check echocardiogram due to bacteremia. Qualifiers: Sepsis type: sepsis due to unspecified organism Qualified Code(s): A41.9 - Sepsis, unspecified organism (2) UTI (urinary tract infection) Current Visit: Yes Status: Acute Assessment and plan: plan as above. Qualifiers: Urinary tract infection type: site unspecified Hematuria presence: without hematuria Qualified Code(s): N39.0 - Urinary tract infection, site not specified (3) Bacteremia due to Gram-negative bacteria Current Visit: Yes Status: Acute Assessment and plan: plan as above (4) Chronic respiratory failure Current Visit: No Status: Chronic Assessment and plan: multifactorial from COPD, RAZA/OHS, systolic heart failure. cxr showed no acute process. patient uses 4L of oxygen via NC and BIPAP at bedtime. continue nebs, singulair , theodur, and symbicort. Qualifiers: Respiratory failure complication: hypoxia Qualified Code(s): J96.11 - Chronic respiratory failure with hypoxia (5) Systolic heart failure, chronic Current Visit: Yes Status: Acute Assessment and plan: compensated. decrease home dose of bumex to half given sepsis. continue metoprolol. (6) Acute metabolic encephalopathy Current Visit: Yes Status: Acute Assessment and plan: resolved. due to sepsis. treat underlying etiology. (7) CAD (coronary artery disease) Current Visit: No Status: Chronic Assessment and plan: stable. continue aspirin, imdur. Qualifiers: Coronary Disease-Associated Artery/Lesion type: unspecified vessel or lesion type [place] vs. transplanted heart: [place] heart Associated angina: angina presence unspecified Qualified Code(s): I25.10 - Atherosclerotic heart disease of [place] coronary artery without angina pectoris (8) COPD (chronic obstructive pulmonary disease) Current Visit: No Status: Chronic Assessment and plan: continue nebs. at baseline Qualifiers: COPD type: unspecified COPD Qualified Code(s): J44.9 - Chronic obstructive pulmonary disease, unspecified (9) DM (diabetes mellitus), type 2 Current Visit: No Status: Acute Assessment and plan: not yet controlled due to sepsis. continue levemir and sliding scale insulin and diabetic diet. Qualifiers: Diabetes mellitus complication status: with unspecified complications Diabetes mellitus risk management consultant insulin use: with senior care use Qualified Code(s) : E11.8 - Type 2 diabetes mellitus with unspecified complications (10) Obstructive sleep apnea Current Visit: No Status: Chronic Assessment and plan: bipap at bedtime (11) BiPAP (biphasic positive airway pressure) dependence Current Visit: Yes Status: Acute (12) Morbid obesity with BMI of 50.0-59.9, adult Current Visit: Yes Status: Acute Assessment and plan: bmi 50. f/u as outpatient - Subjective Interval history: patient has no complaints. - Constitutional Vitals: Temp Pulse Resp BP Pulse Ox 99.3 F 88 18 148/73 93 L 05/31/16 10:39 05/31/16 10:39 05/31/16 10:39 05/31/16 10:39 05/31/16 10:39 General appearance: Present: cooperative, A&O X 3, morbidly obese, pleasant, no acute distress, answers questions appropriately - Eye Eye exam: Present: PERRL, sclera anicteric - Neck Neck exam general surgery: Present: supple, trachea midline. Absent: lymphadenopathy - Respiratory Respiratory exam: Present: decreased breath sounds. Absent: wheezes, tachypnea - Cardiovascular Cardiovascular exam: Present: RRR - GI/Abdominal GI/Abdominal exam: Present: normal bowel sounds, soft. Absent: distended, tenderness - Extremities Exam Extremities exam: Present: pedal edema - Neurological Exam Neurological exam: Present: alert, oriented X3. Absent: facial droop, speech deficit - Skin Skin exam: Present: dry Internal Medicine: Result - Labs CBC & Chem 7: 05/31/16 00:33 05/31/16 00:33 Labs: Short CBC 05/31/16 Range/Units 00:33 WBC 24.2 H (4.3-11.1) K/mcL Hgb 10.6 L D (11.5-15.4) g/dL Hct 33.4 L (35.3-44.9) % Plt Count 254 (140-400) K/mcL Neutrophils # 20.6 H (1.6-8.9) K/mcL BMP 05/31/16 00:33 Sodium 136 Potassium 4.6 H Chloride 98 Carbon Dioxide 26 BUN 21 H Creatinine 1.16 H Glucose 293 H Calcium 8.8 - ABG Interpretation ABG results: PT/INR, D-dimer PT 11.7 Seconds (9.4-12.1) 05/30/16 20:47 - Impressions Impressions Chest X-Ray 05/31/16 00:23 IMPRESSION: No evidence of acute cardiopulmonary disease. D/ / Deandre Bradford MD / Deandre Bradford MD Interpreting Provider: Deandre Bradford MD Consult Discharge Plan - Plan Referrals: Robb Perry MD [Primary Care Provider] -
--- NOTE | 2016-05-31 16:12 | Electrocardiograph Report ---
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
[2016-05-31] MEDS: Bumetanide 1 MG/4 ML VIAL IVP SCH (16:44)
[2016-05-31] MEDS: rOPINIRole 1 MG TABLET PO SCH (20:37)
[2016-05-31] MEDS: traZODone 50 MG TABLET PO SCH (20:38)
[2016-05-31] MEDS ORDERED: ZETIA 10MG PO SCH (21:00)
[2016-06-01] MEDS: *HR* OxyCODONE Immed Rel 15 MG TABLET PO PRN ×3 (00:11→21:04)
[2016-06-01] MEDS: Ipratropium/Albuterol Neb 3 ML IH SCH ×4 (03:10→21:46)
[2016-06-01 04:56] LABS: Hematocrit 29.2 % (35.3-44.9); Immature Granulocytes % 0.5 % (0-4); Lymphocytes % 14.9 %; Mean Corpuscular HGB Conc 30.1 g/dL (31.6-35.5); Mean Corpuscular Hemoglobin 27.4 pg (28.0-33.3); Mean Platelet Volume 9.5 fL (9.4-12.4); Monocytes % 10.7 %; Platelet Count 175 K/mcL (140-400); Red Blood Count 3.21 M/mcL (3.82-4.97); Red Cell Distribution Width 16.4 % (11.5-14.5); Segmented Neutrophils % 70.8 %
[2016-06-01 04:57] LABS: Basophils # 0.1 K/mcL (0.0-0.2); Basophils % 0.4 %; Eosinophils # 0.3 K/mcL (0.0-0.6); Eosinophils % 2.7 %; Lymphocytes # 1.7 K/mcL (0.6-4.6); Monocytes # 1.3 K/mcL (0.0-1.3); Neutrophils # 8.3 K/mcL (1.6-8.9)
[2016-06-01 05:01] LABS: Hemoglobin 8.8 g/dL (11.5-15.4)
[2016-06-01] MEDS: Cefepime HCl 2,000 MG in D5% in Water (Mini-Bag+) 100 ML IVPB SCH ×2 (05:17→17:25)
[2016-06-01 05:20] LABS: Albumin/Globulin Ratio 0.7 (1.1-2.2); Bilirubin,Total 0.3 mg/dL (0.2-1.2); Calcium 8.6 mg/dL (8.6-10.8); Globulin 3.7 g/dL (2.4-3.5); Magnesium 1.7 mg/dL (1.6-2.6); Potassium 3.8 mEq/L (3.5-4.5); Total Protein 6.3 g/dL (6.0-8.3)
[2016-06-01 05:22] LABS: Albumin 2.6 g/dL (3.5-5.0)
[2016-06-01] MEDS ORDERED: Perflutren Lipid Microsphere 1.3 ML in 0.9 % Sodium Chloride 8.7 ML IVP ONE (07:44)
[2016-06-01] MEDS: Bumetanide 1 MG/4 ML VIAL IVP SCH ×2 (09:41→17:27)
[2016-06-01] MEDS: Cholecalciferol (D-3) 1,000 UNIT TABLET PO SCH (09:42)
[2016-06-01] MEDS: Baclofen 10 MG TABLET PO SCH ×4 (09:42→21:04)
[2016-06-01] MEDS: Gabapentin 100 MG CAPSULE PO SCH ×3 (09:42→21:04)
[2016-06-01] MEDS: Metoprolol XL (24 HR) Succ 50 MG TAB.ER.24H PO SCH (09:43)
[2016-06-01] MEDS: Aspirin Enteric Coated 325 MG Tablet PO SCH (09:43)
[2016-06-01] MEDS: *HR* Amiodarone 200 MG TABLET PO SCH (09:43)
[2016-06-01] MEDS: Loratadine 10 MG TABLET PO SCH (09:43)
[2016-06-01] MEDS: Folic Acid 1 MG TABLET PO SCH (09:43)
[2016-06-01] MEDS: Verapamil ER (24 HR) 240 MG TABLET.ER PO SCH (09:43)
[2016-06-01] MEDS: Isosorbide MONOnitrate (24 HR) 60 MG TAB.ER.24H PO SCH (09:43)
[2016-06-01] MEDS: Insulin LISPRO 300 UNITS/3 ML VIAL SQ SCH ×6 (09:44→21:02)
[2016-06-01] MEDS: Insulin DETEMIR 100 UNIT/ML X5UNITS SQ SCH ×2 (09:47→21:03)
[2016-06-01] MEDS: Nystatin Cream 15 GM TUBE TP SCH ×2 (10:00→21:05)
--- NOTE | 2016-06-01 10:25 | Internal Med Progress Note ---
<Aren Rader - Last Filed: 06/01/16 17:12> Date of Encounter: 06/01/16 Time of Encounter: 10:25 - Assessment and plan (1) Bacteremia due to Gram-negative bacteria Current Visit: Yes Status: Acute Assessment and plan: Two blood culture + for gram negative vita, sensitivity pending, likely source is UTI, echo was suboptimal, sepsis resolved, 2nd set of bld culture pending, if negative for 48 hrs, will place PICC line for longterm IV abxs. (2) Sepsis Current Visit: Yes Status: Acute Assessment and plan: Resolved with iv abx, likely source is bacteremia and uti. Qualifiers: Sepsis type: sepsis due to unspecified organism Qualified Code(s): A41.9 - Sepsis, unspecified organism (3) UTI (urinary tract infection) Current Visit: Yes Status: Acute Assessment and plan: E.coli sensitive to cefepime IV, waiting for sensitivity of bactremia, then will deescalate abx. Qualifiers: Urinary tract infection type: site unspecified Hematuria presence: without hematuria Qualified Code(s): N39.0 - Urinary tract infection, site not specified (4) Morbid obesity with BMI of 50.0-59.9, adult Current Visit: Yes Status: Acute Assessment and plan: diet and lifestyle modifications. (5) DM (diabetes mellitus), type 2 Current Visit: No Status: Acute Assessment and plan: Con't basal and SSI. Qualifiers: Diabetes mellitus complication status: with unspecified complications Diabetes mellitus terminal supervisor insulin use: with terminal supervisor use Qualified Code(s) : E11.8 - Type 2 diabetes mellitus with unspecified complications (6) DVT prophylaxis Current Visit: No Status: Acute Assessment and plan: IPC. - Subjective Interval history: Pt seen and examined, A and Ox3, not confused, answers questions, no pain or complaints this AM. - Constitutional Vitals: Temp Pulse Resp BP Pulse Ox 98.1 F 79 20 142/80 94 L 06/01/16 09:35 06/01/16 09:35 06/01/16 09:35 06/01/16 09:35 06/01/16 09:45 General appearance: Present: cooperative, A&O X 3, morbidly obese, pleasant, no acute distress, answers questions appropriately - Head Head exam: Present: atraumatic, normocephalic - Eye Eye exam: Present: PERRL, conjuntiva pink, sclera anicteric Pupils: Present: PERRL - Neck Neck exam general surgery: Present: supple, trachea midline. Absent: lymphadenopathy - Respiratory Respiratory exam: Present: CTAB. Absent: accessory muscle use, rales, rhonchi, wheezes - Cardiovascular Cardiovascular exam: Present: RRR, +S1, +S2. Absent: diastolic murmur, gallop, rubs, systolic murmur - GI/Abdominal GI/Abdominal exam: Present: normal bowel sounds, soft, no peritoneal signs. Absent: distended, tenderness - Extremities Exam Extremities exam: Present: warm, radial pulses palpable and symetrical. Absent : calf tenderness, cyanotic, pedal edema - Neurological Exam Neurological exam: Present: CN II-XII intact, oriented X3, no focal deficits. Absent: pronater drift, facial droop, speech deficit - Skin Skin exam: Present: dry, intact Internal Medicine: Result - Labs CBC & Chem 7: 06/01/16 12:11 06/01/16 04:24 Labs: Short CBC 06/01/16 Range/Units 04:24 WBC 11.7 H D (4.3-11.1) K/mcL Hgb 8.8 L D (11.5-15.4) g/dL Hct 29.2 L (35.3-44.9) % Plt Count 175 (140-400) K/mcL Neutrophils # 8.3 (1.6-8.9) K/mcL BMP 06/01/16 04:24 Sodium 136 Potassium 3.8 Chloride 98 Carbon Dioxide 26 BUN 33 H D Creatinine 1.24 H Glucose 149 H Calcium 8.6 Liver Function 06/01/16 Range/Units 04:24 Total Bilirubin 0.3 (0.2-1.2) mg/dL AST 9 (5-34) Units/L ALT 9 (0-55) Units/L Alkaline Phosphatase 64 (38-126) Units/L Albumin 2.6 L D (3.5-5.0) g/dL - ABG Interpretation ABG results: PT/INR, D-dimer PT 11.7 Seconds (9.4-12.1) 05/30/16 20:47 Consult Discharge Plan - Plan Referrals: Robb Perry MD [Primary Care Provider] - <Kiet Coyle Lilliana - Last Filed: 06/01/16 17:39> Date of Encounter: 06/01/16 - Constitutional Vitals: Temp Pulse Resp BP Pulse Ox 98.1 F 73 18 103/62 91 L 06/01/16 17:03 06/01/16 17:03 06/01/16 17:03 06/01/16 17:03 06/01/16 17:03 Internal Medicine: Result - Labs CBC & Chem 7: 06/01/16 12:11 06/01/16 04:24 Labs: Short CBC 06/01/16 06/01/16 Range/Units 04:24 12:11 WBC 11.7 H D (4.3-11.1) K/mcL Hgb 8.8 L D 9.3 L (11.5-15.4) g/dL Hct 29.2 L 30.4 L (35.3-44.9) % Plt Count 175 (140-400) K/mcL Neutrophils # 8.3 (1.6-8.9) K/mcL BMP 06/01/16 04:24 Sodium 136 Potassium 3.8 Chloride 98 Carbon Dioxide 26 BUN 33 H D Creatinine 1.24 H Glucose 149 H Calcium 8.6 Liver Function 06/01/16 Range/Units 04:24 Total Bilirubin 0.3 (0.2-1.2) mg/dL AST 9 (5-34) Units/L ALT 9 (0-55) Units/L Alkaline Phosphatase 64 (38-126) Units/L Albumin 2.6 L D (3.5-5.0) g/dL - ABG Interpretation ABG results: PT/INR, D-dimer PT 11.7 Seconds (9.4-12.1) 05/30/16 20:47 - Attending Attestation Ms. Snyder was seen and examined during rounds. I agree with physical examination findings, assessment and plan as documented by the resident and Dr. Aren Rader. Patient with morbid obesity and underlying obstructive sleep apnea has been admitted with bacteremia secondary to a UTI. Blood culture positive for gram negative rods. Currently on IV Maxipime. Additionally there is jump in her kidney function tests, at this point we will stop the losartan and continue monitoring her kidney function tests. We will avoid nephrotoxic agents. Echo was obtained, there was no evidence of vegetations. The patient is afebrile and otherwise stable. We will reevaluate therapy when final results of culture if available. Repeated blood cultures sent, we will follow results. In the proximal dorsal treatment and evaluation has been requested. the patient has a history of obstructive sleep apnea however, is not using noninvasive mechanical ventilation as outpatient.
[2016-06-01] MEDS: Budesonide/Formoterol 160/4.5 MDI IH SCH ×2 (11:26→21:47)
[2016-06-01 12:25] LABS: Hematocrit 30.4 % (35.3-44.9); Hemoglobin 9.3 g/dL (11.5-15.4)
[2016-06-01 14:27] LABS: Hemoglobin A1C 7.8 %
--- NOTE | 2016-06-01 14:34 | ECHO - Doppler Report ---
Echo with Imaging Enhancement Agent Name: Dot Larson Zupp Date of Study: 06/01/2016 Date: 1950 Ht: 67.0 in Medical Record#: [id number] Age: 65 Wt: 321.0 lb Gender: Female BSA: 2.47 Order #: [id number] Location: [facility] Room #: [id number] Reading Physician: Leida Rocha DO Stage Producer: Laquita Ny RVT Ordering Physician: Isaura Mcdonald MD Primary Physician: Robb Perry MD Indications: E. coli bacteremia Impressions: Even with use of Definity, LV systolic function could not be well evaluated. RV is not well evaluated. Valves were not well visualized on this study. No Doppler evidence for abnormality. Increased RA pressure estimated at 15 mmHg. No pulmonary hypertension. Left Ventricular Wall Motion: Rest Echo Findings The basal anterior wall was hyperkinetic. The apex, apical inferior, mid inferior, basal inferior, apical anterior, mid anterior, apical septal, mid inferior septal, basal inferior septal, apical lateral, mid anterior lateral, basal anterior lateral, mid anterior septal, mid inferior lateral, basal anterior septal and basal inferior lateral garcia were not visualized. Findings: Study Quality * Technically sub-optimal due to body habitus. ECG Findings * Normal sinus rhythm. Aortic Valve * No aortic regurgitation. * Aortic valve not well visualized. * No aortic stenosis. Mitral Valve * Trace mitral regurgitation. * Mitral valve not well visualized. Tricuspid Valve * Tricuspid valve not well visualized. * Trace tricuspid regurgitation. * Estimated RA pressure is 15 mmHg. * Estimated RVSP is 31 mmHg. * No pulmonary hypertension. Pulmonic Valve * Pulmonic valve is not well visualized. * No pulmonic stenosis. * No pulmonic regurgitation. Pulmonary Artery * Pulmonary artery not well visualized. Left Ventricle * Unable to evaluate segmental wall motion due to technical quality. * Normal left ventricular diastolic function. Valsalva was not performed. * Definity echo contrast was used. * Even with use of Definity, LV systolic function could not be well evaluated. Right Ventricle * RV is not well visualized. Left Atrium * Left atrium is not well visualized. Right Atrium * Right atrium is not well visualized. Interatrial Septum * No evidence of PFO by color Doppler. IVC * The IVC is dilated. * < 50% respiratory change. Pericardium * There is no pericardial effusion present. Aorta * Not well visualized. History Hypertension Diabetes Hypercholesteremia Family History of CAD History of CAD/PTCA Myocardial Infarction Coronary Artery Bypass Graft Congestive Heart Failure Pacer/ICD Implant 10/10/2014 a Previous Echo was performed. Contrast: Definity 1.3 ml in 8.7 ml of saline 4 ml. Measurements: BP: 121/ 72 2D Normal Values LA volume: Mitral Valve Peak E:1.09 m/sec Peak A:.76 m/sec E/A Ratio:1.4 Peak E' Lat Ozzy:11.9 cm/s Peak E' Med Ozzy:8.1 cm/s E/E' Lat Ratio:9.2 E/E' Med Ratio:13.5 Tricuspid Valve TV Regurg Peak Grad: 16.00mmHg TV Regurg Peak Ozzy: 2.00m/sec Updated by Leida Rocha on 06/01/2016 2:28:40 PM electronically signed on 06/01/2016 2:29:41 PM with status of Final Wall Motion Uriostegui: 1=Normal, 2=Hypokinesis, 3=Akinesis, 4=Dyskinesis, 5=Aneurysmal, 6=Hyperkinetic, X=Not Visualized (Blank)=Missing
[2016-06-01] MEDS ORDERED: Insulin LISPRO 300 UNITS/3 ML VIAL SQ SCH (16:30)
[2016-06-01] MEDS: rOPINIRole 1 MG TABLET PO SCH (21:03)
[2016-06-01] MEDS: traZODone 50 MG TABLET PO SCH (21:04)
[2016-06-02] MEDS: Ipratropium/Albuterol Neb 3 ML IH SCH ×4 (03:51→21:49)
[2016-06-02 04:01] LABS: ABG Base Excess 6.7 mEq/L (-2.0 to 3.0); ABG HCO3 32.3 mEQ/L (21-27); ABG Oxygen Saturation 98 % (95-98); ABG PCO2 51 mmHg (35-45); ABG PH 7.41 pH Units (7.32-7.45); ABG PO2 101 mmHg (85-104); ABG TCO2 33.9 mEq/L (20-26); Blood Gas FiO2 36 %
[2016-06-02 05:30] LABS: Basophils % 0.4 %; Eosinophils # 0.4 K/mcL (0.0-0.6); Eosinophils % 4.8 %; Hemoglobin 9.3 g/dL (11.5-15.4); Immature Granulocytes % 0.5 % (0-4); Lymphocytes # 1.3 K/mcL (0.6-4.6); Lymphocytes % 15.9 %; Mean Corpuscular Hemoglobin 27.6 pg (28.0-33.3); Mean Platelet Volume 9.7 fL (9.4-12.4); Monocytes # 0.8 K/mcL (0.0-1.3); Monocytes % 9.5 %; Neutrophils # 5.7 K/mcL (1.6-8.9); Platelet Count 186 K/mcL (140-400); Red Blood Count 3.37 M/mcL (3.82-4.97); Red Cell Distribution Width 15.9 % (11.5-14.5); Segmented Neutrophils % 68.9 %
[2016-06-02 05:43] LABS: BUN/Creatinine Ratio 32 (6-26); Blood Urea Nitrogen 33 mg/dL (7-20); Carbon Dioxide 28 mEq/L (19-29); Chloride 102 mEq/L (98-109); Glucose 149 mg/dL (70-99); Osmolality,Calculated 298 (280-300); Potassium 4.3 mEq/L (3.5-4.5); Sodium 139 mEq/L (136-145); eGFR For African Americans > 60 (> 60); eGFR For Non-African Americans 54 (> 60)
[2016-06-02] MEDS: Cefepime HCl 2,000 MG in D5% in Water (Mini-Bag+) 100 ML IVPB SCH (05:50)
[2016-06-02] MEDS: Bumetanide 1 MG/4 ML VIAL IVP SCH (08:40)
[2016-06-02] MEDS: Verapamil ER (24 HR) 240 MG TABLET.ER PO SCH (08:41)
[2016-06-02] MEDS: Metoprolol XL (24 HR) Succ 50 MG TAB.ER.24H PO SCH (08:41)
[2016-06-02] MEDS: Gabapentin 100 MG CAPSULE PO SCH ×3 (08:42→20:47)
[2016-06-02] MEDS: *HR* Amiodarone 200 MG TABLET PO SCH (08:42)
[2016-06-02] MEDS: Baclofen 10 MG TABLET PO SCH ×4 (08:42→20:47)
[2016-06-02] MEDS: Isosorbide MONOnitrate (24 HR) 60 MG TAB.ER.24H PO SCH (08:42)
[2016-06-02] MEDS: Aspirin Enteric Coated 325 MG Tablet PO SCH (08:42)
[2016-06-02] MEDS: Cholecalciferol (D-3) 1,000 UNIT TABLET PO SCH (08:42)
[2016-06-02] MEDS: Folic Acid 1 MG TABLET PO SCH (08:43)
[2016-06-02] MEDS: Insulin LISPRO 300 UNITS/3 ML VIAL SQ SCH ×7 (08:44→20:49)
[2016-06-02] MEDS: Loratadine 10 MG TABLET PO SCH (08:44)
[2016-06-02] MEDS: *HR* OxyCODONE Immed Rel 15 MG TABLET PO PRN ×2 (08:47→18:03)
[2016-06-02] MEDS: Insulin DETEMIR 100 UNIT/ML X5UNITS SQ SCH ×2 (08:58→20:48)
[2016-06-02] MEDS ORDERED: *HR* FentaNYL PATCH 50 MCG PATCH TD SCH (09:00)
[2016-06-02] MEDS: Budesonide/Formoterol 160/4.5 MDI IH SCH ×2 (11:27→21:49)
--- NOTE | 2016-06-02 11:31 | Internal Med Progress Note ---
<Aren Rader - Last Filed: 06/02/16 15:14> Date of Encounter: 06/02/16 Time of Encounter: 11:31 - Assessment and plan (1) Bacteremia due to Gram-negative bacteria Current Visit: Yes Status: Acute Assessment and plan: Two blood culture + for e.coli, pansensitive, repeated cultures negative for 24 hrs, will consult PICC team to place powerglide after 48 hrs of negative cultures so she can be on senior living IV abx treatment, echo was suboptimal, sepsis resolved, switched to rocephin from cefepime, clinically improved, likely d/c tmw. (2) Sepsis Current Visit: Yes Status: Acute Assessment and plan: Resolved with iv abx, likely source is bacteremia and uti. Qualifiers: Sepsis type: sepsis due to unspecified organism Qualified Code(s): A41.9 - Sepsis, unspecified organism (3) UTI (urinary tract infection) Current Visit: Yes Status: Acute Assessment and plan: E.coli sensitive to rocephin IV, will con't it for total of two weeks of bacteremia. Qualifiers: Urinary tract infection type: site unspecified Hematuria presence: without hematuria Qualified Code(s): N39.0 - Urinary tract infection, site not specified (4) Morbid obesity with BMI of 50.0-59.9, adult Current Visit: Yes Status: Acute Assessment and plan: diet and lifestyle modifications. (5) DM (diabetes mellitus), type 2 Current Visit: No Status: Acute Assessment and plan: Con't basal, bolus before each meal and SSI. Qualifiers: Diabetes mellitus complication status: with unspecified complications Diabetes mellitus terminal carman insulin use: with terminal carman use Qualified Code(s) : E11.8 - Type 2 diabetes mellitus with unspecified complications (6) DVT prophylaxis Current Visit: No Status: Acute Assessment and plan: IPC. - Subjective Interval history: Pt seen and examined, A and Ox3, not confused, answers questions, no pain or complaints this AM. - Constitutional Vitals: Temp Pulse Resp BP Pulse Ox 98.3 F 76 16 134/62 98 06/02/16 10:48 06/02/16 10:48 06/02/16 11:25 06/02/16 10:48 06/02/16 11:25 General appearance: Present: cooperative, A&O X 3, morbidly obese, pleasant, no acute distress, answers questions appropriately - Head Head exam: Present: atraumatic, normocephalic - Eye Eye exam: Present: PERRL, conjuntiva pink, sclera anicteric Pupils: Present: PERRL - Neck Neck exam general surgery: Present: supple, trachea midline. Absent: lymphadenopathy - Respiratory Respiratory exam: Present: CTAB. Absent: accessory muscle use, rales, rhonchi, wheezes - Cardiovascular Cardiovascular exam: Present: RRR, +S1, +S2. Absent: diastolic murmur, gallop, rubs, systolic murmur - GI/Abdominal GI/Abdominal exam: Present: normal bowel sounds, soft, no peritoneal signs. Absent: distended, tenderness - Extremities Exam Extremities exam: Present: warm, radial pulses palpable and symetrical. Absent : calf tenderness, cyanotic, pedal edema - Neurological Exam Neurological exam: Present: CN II-XII intact, oriented X3, no focal deficits. Absent: pronater drift, facial droop, speech deficit - Skin Skin exam: Present: dry, intact Internal Medicine: Result - Labs CBC & Chem 7: 06/02/16 04:16 06/02/16 04:16 Labs: Short CBC 06/01/16 06/02/16 Range/Units 12:11 04:16 WBC 8.2 (4.3-11.1) K/mcL Hgb 9.3 L 9.3 L (11.5-15.4) g/dL Hct 30.4 L 31.0 L (35.3-44.9) % Plt Count 186 (140-400) K/mcL Neutrophils # 5.7 (1.6-8.9) K/mcL BMP 06/02/16 04:16 Sodium 139 Potassium 4.3 Chloride 102 Carbon Dioxide 28 BUN 33 H Creatinine 1.03 Glucose 149 H Calcium 9.0 - ABG Interpretation ABG results: ABG ABG pH 7.41 pH Units (7.32-7.45) 06/02/16 03:48 ABG pCO2 51 mmHg (35-45) H 06/02/16 03:48 ABG pO2 101 mmHg (85-104) 06/02/16 03:48 ABG O2 Saturation 98 % (95-98) 06/02/16 03:48 PT/INR, D-dimer PT 11.7 Seconds (9.4-12.1) 05/30/16 20:47 Consult Discharge Plan - Plan Referrals: Robb Perry MD [Primary Care Provider] - <Kiet Coyle - Last Filed: 06/02/16 16:36> Date of Encounter: 06/02/16 - Constitutional Vitals: Temp Pulse Resp BP Pulse Ox 98.2 F 72 16 140/60 99 06/02/16 15:39 06/02/16 15:39 06/02/16 15:39 06/02/16 15:39 06/02/16 15:39 Internal Medicine: Result - Labs CBC & Chem 7: 06/02/16 04:16 06/02/16 04:16 Labs: Short CBC 06/02/16 Range/Units 04:16 WBC 8.2 (4.3-11.1) K/mcL Hgb 9.3 L (11.5-15.4) g/dL Hct 31.0 L (35.3-44.9) % Plt Count 186 (140-400) K/mcL Neutrophils # 5.7 (1.6-8.9) K/mcL BMP 06/02/16 04:16 Sodium 139 Potassium 4.3 Chloride 102 Carbon Dioxide 28 BUN 33 H Creatinine 1.03 Glucose 149 H Calcium 9.0 - ABG Interpretation ABG results: ABG ABG pH 7.41 pH Units (7.32-7.45) 06/02/16 03:48 ABG pCO2 51 mmHg (35-45) H 06/02/16 03:48 ABG pO2 101 mmHg (85-104) 06/02/16 03:48 ABG O2 Saturation 98 % (95-98) 06/02/16 03:48 PT/INR, D-dimer PT 11.7 Seconds (9.4-12.1) 05/30/16 20:47 - Attending Attestation Ms. Snyder was seen and examined during rounds. I agree with physical examination findings, assessment and plan as documented by the resident and Dr. Aren Rader. Patient with morbid obesity and underlying obstructive sleep apnea has been admitted with bacteremia secondary to a UTI. Blood culture positive for gram negative rods. Currently on IV Maxipime, will switch to rocephin. Echo was obtained, there was no evidence of vegetations. The patient is afebrile and otherwise stable. Possible D/C tomorrow.
[2016-06-02] MEDS: Nystatin Cream 15 GM TUBE TP SCH ×2 (12:41→20:48)
[2016-06-02] MEDS: Bumetanide 1 MG TABLET PO SCH (17:49)
[2016-06-02] MEDS: traZODone 50 MG TABLET PO SCH (20:47)
[2016-06-02] MEDS: rOPINIRole 1 MG TABLET PO SCH (20:47)
[2016-06-03] MEDS: Ipratropium/Albuterol Neb 3 ML IH SCH ×2 (04:54→10:56)
[2016-06-03] MEDS: *HR* OxyCODONE Immed Rel 15 MG TABLET PO PRN ×2 (05:11→13:52)
--- NOTE | 2016-06-03 08:36 | Discharge Summary ---
<Aren Rader - Last Filed: 06/03/16 13:22> Date of Encounter: 06/03/16 Time of Encounter: 08:29 - Discharge Diagnosis (1) Bacteremia due to Gram-negative bacteria Priority: Primary Status: Acute (2) Sepsis Priority: Secondary Status: Acute Qualifiers: Sepsis type: sepsis due to unspecified organism Qualified Code(s): A41.9 - Sepsis, unspecified organism (3) UTI (urinary tract infection) Priority: Secondary Status: Acute Qualifiers: Urinary tract infection type: site unspecified Hematuria presence: without hematuria Qualified Code(s): N39.0 - Urinary tract infection, site not specified (4) Morbid obesity with BMI of 50.0-59.9, adult Priority: Secondary Status: Acute (5) DM (diabetes mellitus), type 2 Priority: Secondary Status: Acute Qualifiers: Diabetes mellitus complication status: with unspecified complications Diabetes mellitus metal hanging supervisor insulin use: with metal hanging supervisor use Qualified Code(s) : E11.8 - Type 2 diabetes mellitus with unspecified complications (6) DVT prophylaxis Priority: Secondary Status: Acute - Discharge Medications Prescriptions: Alprazolam [Xanax 0.5 MG Tablet] 0.5 mg PO TID PRN 7 Days PRN Reason: Anxiety CefTRIAXone [Rocephin] 1,000 mg IVPB DAILY 10 Days FentaNYL PATCH [Duragesic] 50 mcg TD Q72H 7 Days OxyCODONE Immed Rel [Roxicodone 15 MG] 30 mg PO Q6H PRN #20 tablet PRN Reason: Pain Home Medications: Amiodarone [Cordarone] 200 mg PO DAILY 12/12/14 [History] Baclofen 10 mg PO QID 12/12/14 [History] Budesonide/Formoterol Fumarate [Symbicort 160-4.5 Mcg Inhaler] 2 puff IH BID [History] Bumetanide 1 mg PO BID 12/12/14 [History] Cholecalciferol (Vitamin D3) [Vitamin D3] 2,000 unit PO DAILY 12/12/14 [History] Duloxetine HCl [Cymbalta] 60 mg PO DAILY 12/12/14 [History] Ezetimibe [Zetia] 10 mg PO HS 12/12/14 [History] Ferrous Sulfate 325 mg PO DAILY 12/12/14 [History] Fluticasone Propionate Nasal [Flonase] 50 mcg NS DAILY PRN 12/12/14 [History] Folic Acid 1 mg PO QAM 12/12/14 [History] Hydroxychloroquine Sulfate [Plaquenil] 200 mg PO BID 12/12/14 [History] Insulin DETEMIR [Levemir Flextouch] 70 unit SQ BID 12/12/14 [History] Insulin LISPRO [Humalog Kwikpen U-200] 2 - 12 unit SQ QID 12/12/14 [History] Isosorbide MONOnitrate [Isosorbide Mononitrate ER] 120 mg PO DAILY 12/12/14 [ History] Loratadine [Loradamed] 10 mg PO DAILY 12/12/14 [History] Metoprolol Succinate 50 mg PO DAILY 12/12/14 [History] Montelukast Sodium [Singulair] 10 mg PO HS 12/12/14 [History] Ropinirole HCl [Requip] 2 mg PO HS 12/12/14 [History] Sertraline HCl [Zoloft] 50 mg PO HS 12/12/14 [History] Theophylline Anhydrous [Theodur] 300 mg PO BID 12/12/14 [History] Tiotropium [place] [Spiriva] 18 mcg IH DAILY 12/12/14 [History] Trazodone HCl 300 mg PO HS 12/12/14 [History] Verapamil ER (24 HR) [Calan SR] 240 mg PO DAILY 12/12/14 [History] Losartan [Cozaar] 100 mg PO DAILY 28 Days 04/05/15 [Rx] Meclizine [Antivert] 12.5 mg PO TID PRN 14 Days 04/05/15 [Rx] Metoclopramide [Reglan] 10 mg PO Q8HR 7 Days 04/05/15 [Rx] Aspirin Enteric Coated [Aspirin EC] 325 mg PO DAILY #21 tablet. 06/08/15 [Rx] Bisacodyl [Dulcolax] 10 mg RC DAILY PRN 08/26/15 [History] Docusate [Colace] 100 mg PO DAILY 08/26/15 [History] Ipratropium/Albuterol Neb [Duoneb] 3 ml IH Q4HR PRN 08/26/15 [History] Polyethylene Glycol 3350 [Gavilax] 17 gm PO DAILY 08/26/15 [History] Acetaminophen [Tylenol] 650 mg PO Q4HR PRN 10/16/15 [History] Nystatin Cream [Mycostatin Cream] 1 appl TP BID 10/16/15 [History] Gabapentin [Neurontin] 100 mg PO TID 14 Days 10/17/15 [Rx] Naloxone [Narcan] 0.4 mg IV Q2MIN PRN #0 inj 10/17/15 [Rx] Calcium Carbonate/Vitamin D3 [Calcium 600-Vit D3 400 Tablet] 1 tab PO BID [History] Ibuprofen 600 mg PO BID PRN 05/30/16 [History] Lactulose 20 gm PO DAILY PRN 05/30/16 [History] Menthol [Biofreeze] 1 appl TP BID 05/30/16 [History] Mineral Oil/Petrolatum,White [Hydrocerin Cream] 1 appl TP TID 05/30/16 [History] Omeprazole 20 mg PO DAILY 05/30/16 [History] Alprazolam [Xanax 0.5 MG Tablet] 0.5 mg PO TID PRN 7 Days 06/03/16 [Rx] CefTRIAXone [Rocephin] 1,000 mg IVPB DAILY 10 Days 06/03/16 [Rx] FentaNYL PATCH [Duragesic] 50 mcg TD Q72H 7 Days 06/03/16 [Rx] OxyCODONE Immed Rel [Roxicodone 15 MG] 30 mg PO Q6H PRN #20 tablet 06/03/16 [Rx] Allergies/Adverse Reactions: Allergies tuberculin, purified protein deriva [tuberculin,purif.prot.deriv.] Allergy (Mild , Verified 12/12/14 11:15) Hives carvedilol [From Coreg] Adverse Reaction (Intermediate, Verified 12/12/14 11:15) Anxiety ranolazine [From Ranexa] Adverse Reaction (Intermediate, Verified 12/12/14 11:15 ) nausea, vomiting Dkuvjyi-Rvt-Vfg Reductase Inhibitor [Statins] Adverse Reaction (Intermediate, Verified 12/12/14 11:15) muscle dysfunction Date of admission: 05/31/16 14:28 Primary care physician: Robb Perry MD Consults: 06/01/16 11:42 Consult to Respiratory Therapy [CONS] Routine Reason for Consult: cpap Call Completed: No 06/02/16 12:30 Consult to Invasive Line Access Team [CONS] Routine Reason for Consult: D/C with IV rocephin Line Type: EPIV Discharging clinician: Aren Rader Anticipated date of discharge: 06/03/16 - Patient Status Disposition: Transfer SNF Condition: Fair Functional capacity at discharge: uses cane/walker Overall status at discharge: patient is progressing back to baseline - Discharge Instructions Instructions: Urinary Tract Infection in Women (DC), Sepsis (DC), Fall Prevention (DC) Follow Up With: Robb Perry MD [Primary Care Provider] - (F/u with her PCP in a week for hospital d/c f/u.) - Diet and Activity Activity: resume usual activities as tolerated, wear oxygen at night Diet: diabetic diet Hospital course: Ms. Snyder is a 65 year old female from detention, had unwitnessed fall and came in with change in mental status from her baseline, workup revealed that she has UTI and blood culture came back positive for pansensitive e.coli, she was initially on cefepime and it was subsequently switched to rocephin, repeated bld culture was negative for 2 days and PICC team placed powerglide, plan is to give her rocephin IV for total of 2 weeks, her mental status improved , sepsis resolved, therefore she is stable to be d/c to [facility] today. - Time Spent with Patient Total time spent providing and/or coordinating discharge services: - Constitutional Vitals: Temp Pulse Resp BP Pulse Ox 98.7 F 77 16 173/84 98 06/03/16 05:09 06/03/16 05:09 06/03/16 05:09 06/03/16 05:09 06/03/16 05:09 General appearance: Present: cooperative, A&O X 3, morbidly obese, pleasant, no acute distress, answers questions appropriately - Head Head exam: Present: atraumatic, normocephalic - Eye Eye exam: Present: PERRL, conjuntiva pink, sclera anicteric Pupils: Present: PERRL - Neck Neck exam general surgery: Present: supple, trachea midline. Absent: lymphadenopathy - Respiratory Respiratory exam: Present: CTAB. Absent: accessory muscle use, rales, rhonchi, wheezes - Cardiovascular Cardiovascular exam: Present: RRR, +S1, +S2. Absent: diastolic murmur, gallop, rubs, systolic murmur - GI/Abdominal GI/Abdominal exam: Present: normal bowel sounds, soft, no peritoneal signs. Absent: distended, tenderness - Extremities Exam Extremities exam: Present: warm, radial pulses palpable and symetrical. Absent : calf tenderness, cyanotic, pedal edema - Neurological Exam Neurological exam: Present: CN II-XII intact, oriented X3, no focal deficits. Absent: pronater drift, facial droop, speech deficit - Skin Skin exam: Present: dry, intact <Kiet Coyle R - Last Filed: 06/03/16 16:02> Date of Encounter: 06/03/16 Date of admission: 05/31/16 14:28 Primary care physician: Robb Perry MD Consults: 06/01/16 11:42 Consult to Respiratory Therapy [CONS] Routine Reason for Consult: cpap Call Completed: No 06/02/16 12:30 Consult to Invasive Line Access Team [CONS] Routine Reason for Consult: D/C with IV rocephin Line Type: EPIV Hospital course: Ms. Snyder is a 65 year old female - Time Spent with Patient Total time spent providing and/or coordinating discharge services: - Constitutional Vitals: Temp Pulse Resp BP Pulse Ox 98.1 F 80 12 149/68 95 06/03/16 11:37 06/03/16 11:37 06/03/16 11:37 06/03/16 11:37 06/03/16 11:37 - Attending Attestation I examined this patient and my medical decision-making was reviewed with the SUPERVISOR DEHYDROGENATION/PA/Advanced Practice Nurse/Resident Physician. I agree with the documented findings, disposition and treatment plan as described except to the extent set forth below. The patient was seen and examined in rounds, I agree with the physical examination findings, assessment and plan as documented by the resident Dr. Aren Rader. Briefly, patient with bacteremia due to Escherichia coli pansensitive to antibiotics, we will discharge the patient with IV Rocephin. Plan of care was discussed in detail with the patient, she expresses understanding. Patient will be discharged to SNF.
[2016-06-03] MEDS: Bumetanide 1 MG TABLET PO SCH (08:50)
[2016-06-03] MEDS: *HR* Amiodarone 200 MG TABLET PO SCH (08:51)
[2016-06-03] MEDS: Verapamil ER (24 HR) 240 MG TABLET.ER PO SCH (08:51)
[2016-06-03] MEDS: Isosorbide MONOnitrate (24 HR) 60 MG TAB.ER.24H PO SCH (08:51)
[2016-06-03] MEDS: Metoprolol XL (24 HR) Succ 50 MG TAB.ER.24H PO SCH (08:51)
[2016-06-03] MEDS: Aspirin Enteric Coated 325 MG Tablet PO SCH (08:52)
[2016-06-03] MEDS: Gabapentin 100 MG CAPSULE PO SCH ×2 (08:53→13:53)
[2016-06-03] MEDS: Folic Acid 1 MG TABLET PO SCH (08:53)
[2016-06-03] MEDS: Loratadine 10 MG TABLET PO SCH (08:54)
[2016-06-03] MEDS: Baclofen 10 MG TABLET PO SCH ×2 (08:54→13:52)
[2016-06-03] MEDS: Cholecalciferol (D-3) 1,000 UNIT TABLET PO SCH (08:54)
[2016-06-03] MEDS: Nystatin Cream 15 GM TUBE TP SCH (08:55)
[2016-06-03] MEDS: Insulin LISPRO 300 UNITS/3 ML VIAL SQ SCH ×3 (08:57→13:54)
[2016-06-03] MEDS: Insulin DETEMIR 100 UNIT/ML X5UNITS SQ SCH (09:03)
[2016-06-03] MEDS: Budesonide/Formoterol 160/4.5 MDI IH SCH (10:56)
[2016-06-03 11:38] VITALS: BP 149/68
--- NOTE | 2016-06-03 13:41 | Physician Discharge Referral ---
ExtendedCare Referral Info Transfer To: SNF Provider in Charge: Dr. Coyle Provider in Charge after Transfer: PCP Institutional Level of Care: Skilled - Diagnosis (1) Bacteremia due to Gram-negative bacteria Priority: Primary Status: Acute (2) Sepsis Status: Acute (3) UTI (urinary tract infection) Status: Acute (4) Morbid obesity with BMI of 50.0-59.9, adult Status: Acute (5) DM (diabetes mellitus), type 2 Status: Acute (6) DVT prophylaxis Status: Acute - Transfer Medications Prescriptions: Alprazolam [Xanax 0.5 MG Tablet] 0.5 mg PO TID PRN 7 Days PRN Reason: Anxiety CefTRIAXone [Rocephin] 1,000 mg IVPB DAILY 10 Days FentaNYL PATCH [Duragesic] 50 mcg TD Q72H 7 Days OxyCODONE Immed Rel [Roxicodone 15 MG] 30 mg PO Q6H PRN #20 tablet PRN Reason: Pain Home Medications: Amiodarone [Cordarone] 200 mg PO DAILY 12/12/14 [History] Baclofen 10 mg PO QID 12/12/14 [History] Budesonide/Formoterol Fumarate [Symbicort 160-4.5 Mcg Inhaler] 2 puff IH BID [History] Bumetanide 1 mg PO BID 12/12/14 [History] Cholecalciferol (Vitamin D3) [Vitamin D3] 2,000 unit PO DAILY 12/12/14 [History] Duloxetine HCl [Cymbalta] 60 mg PO DAILY 12/12/14 [History] Ezetimibe [Zetia] 10 mg PO HS 12/12/14 [History] Ferrous Sulfate 325 mg PO DAILY 12/12/14 [History] Fluticasone Propionate Nasal [Flonase] 50 mcg NS DAILY PRN 12/12/14 [History] Folic Acid 1 mg PO QAM 12/12/14 [History] Hydroxychloroquine Sulfate [Plaquenil] 200 mg PO BID 12/12/14 [History] Insulin DETEMIR [Levemir Flextouch] 70 unit SQ BID 12/12/14 [History] Insulin LISPRO [Humalog Kwikpen U-200] 2 - 12 unit SQ QID 12/12/14 [History] Isosorbide MONOnitrate [Isosorbide Mononitrate ER] 120 mg PO DAILY 12/12/14 [ History] Loratadine [Loradamed] 10 mg PO DAILY 12/12/14 [History] Metoprolol Succinate 50 mg PO DAILY 12/12/14 [History] Montelukast Sodium [Singulair] 10 mg PO HS 12/12/14 [History] Ropinirole HCl [Requip] 2 mg PO HS 12/12/14 [History] Sertraline HCl [Zoloft] 50 mg PO HS 12/12/14 [History] Theophylline Anhydrous [Theodur] 300 mg PO BID 12/12/14 [History] Tiotropium [place] [Spiriva] 18 mcg IH DAILY 12/12/14 [History] Trazodone HCl 300 mg PO HS 12/12/14 [History] Verapamil ER (24 HR) [Calan SR] 240 mg PO DAILY 12/12/14 [History] Losartan [Cozaar] 100 mg PO DAILY 28 Days 04/05/15 [Rx] Meclizine [Antivert] 12.5 mg PO TID PRN 14 Days 04/05/15 [Rx] Metoclopramide [Reglan] 10 mg PO Q8HR 7 Days 04/05/15 [Rx] Aspirin Enteric Coated [Aspirin EC] 325 mg PO DAILY #21 tablet. 06/08/15 [Rx] Bisacodyl [Dulcolax] 10 mg RC DAILY PRN 08/26/15 [History] Docusate [Colace] 100 mg PO DAILY 08/26/15 [History] Ipratropium/Albuterol Neb [Duoneb] 3 ml IH Q4HR PRN 08/26/15 [History] Polyethylene Glycol 3350 [Gavilax] 17 gm PO DAILY 08/26/15 [History] Acetaminophen [Tylenol] 650 mg PO Q4HR PRN 10/16/15 [History] Nystatin Cream [Mycostatin Cream] 1 appl TP BID 10/16/15 [History] Gabapentin [Neurontin] 100 mg PO TID 14 Days 10/17/15 [Rx] Naloxone [Narcan] 0.4 mg IV Q2MIN PRN #0 inj 10/17/15 [Rx] Calcium Carbonate/Vitamin D3 [Calcium 600-Vit D3 400 Tablet] 1 tab PO BID [History] Ibuprofen 600 mg PO BID PRN 05/30/16 [History] Lactulose 20 gm PO DAILY PRN 05/30/16 [History] Menthol [Biofreeze] 1 appl TP BID 05/30/16 [History] Mineral Oil/Petrolatum,White [Hydrocerin Cream] 1 appl TP TID 05/30/16 [History] Omeprazole 20 mg PO DAILY 05/30/16 [History] Alprazolam [Xanax 0.5 MG Tablet] 0.5 mg PO TID PRN 7 Days 06/03/16 [Rx] CefTRIAXone [Rocephin] 1,000 mg IVPB DAILY 10 Days 06/03/16 [Rx] FentaNYL PATCH [Duragesic] 50 mcg TD Q72H 7 Days 06/03/16 [Rx] OxyCODONE Immed Rel [Roxicodone 15 MG] 30 mg PO Q6H PRN #20 tablet 06/03/16 [Rx] Allergies/Adverse Reactions: Allergies tuberculin, purified protein deriva [tuberculin,purif.prot.deriv.] Allergy (Mild , Verified 12/12/14 11:15) Hives carvedilol [From Coreg] Adverse Reaction (Intermediate, Verified 12/12/14 11:15) Anxiety ranolazine [From Ranexa] Adverse Reaction (Intermediate, Verified 12/12/14 11:15 ) nausea, vomiting Ejlxnkh-Kiq-Odf Reductase Inhibitor [Statins] Adverse Reaction (Intermediate, Verified 12/12/14 11:15) muscle dysfunction - Respiratory Orders Oxygen / L per min (3) Smoking Cessation: Smoking cessation has been advised. For more information, call the [place] Tobacco Quit Line at 3-371-BBAQ-NOW. - Ancillary Orders May use pressure relief devices daily prn, May go on ANASTASIA w/family/respon libertarian w /meds at nurse discretion PRN, May consult with Dentist, Garden Center Manager, Women'S Studies Lecturer PRN - Advance Directives Code Status: DNR-Comfort Care - Mobility Orders Chair (up with assistance, fall precaution) - Rehabiliation Orders Rehab Potential: Fair Rehab Orders: ROM Exercises, Evaluation for Physical Therapy, Evaluation for Occupational Therapy - Treatments Skin tear care topically daily PRN per policy, May check for fecal impaction rectally daily PRN, Fleet enema rectally every other day PRN cleansing purposes - Diet Orders No Added Salt (GABINO) (diabetic) CERTIFICATION: I certify that the transfer of the above named patient to an Extended Care Facility is necessary for the continuing treatment of the diagnosis listed. The above information is true and accurate reflection of patient's current condition. Confidential - Redisclosure prohibited without a patient's written consent.
== END 2016-06-03 15:10 | DRG 871 ==
LOC: 3ANU 19:37 → EMEROO 19:37 → SUATTDRO 22:05 → 3ANU 23:11 → SUATTDRO 05-31 14:28
PROVIDERS: ADMIT Internal Medicine; ATTEND Internal Medicine

== ENCOUNTER 2016-06-08 10:52 | Observation (INO) ==
--- NOTE | 2016-06-08 10:57 | Emergency Department Note ---
Disposition Clinical Impression: Congestive heart failure Qualifiers: Congestive heart failure type: unspecified congestive heart failure type Congestive heart failure chronicity: acute on chronic Qualified Code(s): I50.9 - Heart failure, unspecified Obesity Qualifiers: Obesity type: due to excess calories Obesity severity: morbid Qualified Code(s) : E66.01 - Morbid (severe) obesity due to excess calories Dyspnea Qualifiers: Dyspnea type: other forms of dyspnea Qualified Code(s): R06.09 - Other forms of dyspnea Disposition: Admitted As Inpatient Referrals: Nir Fraga MD [Primary Care Provider] - Forms: ED Satisfaction Letter SOB HPI - General Chief Complaint: ED Shortness of Breath/Dyspnea Stated Complaint: shortness of breath Time Seen by Provider: 06/08/16 10:54 Source: patient, EMS Mode of arrival: EMS Limitations: no limitations Nursing Notes Reviewed: Yes Vital Signs Reviewed: Yes - History of Present Illness Pt Subjective Complaint: shortness of breath Onset (ago): day(s) (2) Severity: mild Consistency/Duration: constant, gradually worsening Improves with: oxygen Worsens with: nothing Known history of: congestive heart failure Associated symptoms: Reports: other (She states she is unable to ambulate due to shortness of breath). Denies: chest pain, pain with inspiration Treatment prior to arrival: oxygen (Running 2 L nasal cannula) Cough present: No - Related Data Home Medications Medication Instructions Recorded Confirmed Amiodarone [Cordarone] 200 mg PO DAILY 12/12/14 05/31/16 Baclofen 10 mg PO QID 12/12/14 05/31/16 Budesonide/Formoterol Fumarate 2 puff IH BID 12/12/14 05/31/16 [Symbicort 160-4.5 Mcg Inhaler] Bumetanide 1 mg PO BID 12/12/14 05/31/16 Cholecalciferol (Vitamin D3) 2,000 unit PO DAILY 12/12/14 05/31/16 [Vitamin D3] Duloxetine HCl [Cymbalta] 60 mg PO DAILY 12/12/14 05/31/16 Ezetimibe [Zetia] 10 mg PO HS 12/12/14 05/31/16 Ferrous Sulfate 325 mg PO DAILY 12/12/14 05/31/16 Fluticasone Propionate Nasal 50 mcg NS DAILY PRN 12/12/14 05/31/16 [Flonase] Folic Acid 1 mg PO QAM 12/12/14 05/31/16 Hydroxychloroquine Sulfate 200 mg PO BID 12/12/14 05/31/16 [Plaquenil] Insulin DETEMIR [Levemir Flextouch] 70 unit SQ BID 12/12/14 05/31/16 Insulin LISPRO [Humalog Kwikpen 2 - 12 unit SQ QID 12/12/14 05/31/16 U-200] Isosorbide MONOnitrate [Isosorbide 120 mg PO DAILY 12/12/14 05/31/16 Mononitrate ER] Loratadine [Loradamed] 10 mg PO DAILY 12/12/14 05/31/16 Metoprolol Succinate 50 mg PO DAILY 12/12/14 05/31/16 Montelukast Sodium [Singulair] 10 mg PO HS 12/12/14 05/31/16 Ropinirole HCl [Requip] 2 mg PO HS 12/12/14 05/31/16 Sertraline HCl [Zoloft] 50 mg PO HS 12/12/14 05/31/16 Theophylline Anhydrous [Theodur] 300 mg PO BID 12/12/14 05/31/16 Tiotropium [place] [Spiriva] 18 mcg IH DAILY 12/12/14 05/31/16 Trazodone HCl 300 mg PO HS 12/12/14 05/31/16 Verapamil ER (24 HR) [Calan SR] 240 mg PO DAILY 12/12/14 05/31/16 Bisacodyl [Dulcolax] 10 mg RC DAILY PRN 08/26/15 05/31/16 Docusate [Colace] 100 mg PO DAILY 08/26/15 05/31/16 Ipratropium/Albuterol Neb [Duoneb] 3 ml IH Q4HR PRN 08/26/15 05/31/16 Polyethylene Glycol 3350 [Gavilax] 17 gm PO DAILY 08/26/15 05/31/16 Acetaminophen [Tylenol] 650 mg PO Q4HR PRN 10/16/15 05/31/16 Nystatin Cream [Mycostatin Cream] 1 appl TP BID 10/16/15 05/31/16 Calcium Carbonate/Vitamin D3 1 tab PO BID 05/30/16 05/31/16 [Calcium 600-Vit D3 400 Tablet] Ibuprofen 600 mg PO BID PRN 05/30/16 05/31/16 Lactulose 20 gm PO DAILY PRN 05/30/16 05/31/16 Menthol [Biofreeze] 1 appl TP BID 05/30/16 05/31/16 Mineral Oil/Petrolatum,White 1 appl TP TID 05/30/16 05/31/16 [Hydrocerin Cream] Omeprazole 20 mg PO DAILY 05/30/16 05/31/16 Previous Rx's Medication Instructions Recorded Losartan [Cozaar] 100 mg PO DAILY 28 Days 04/05/15 Meclizine [Antivert] 12.5 mg PO TID PRN 14 Days 04/05/15 Metoclopramide [Reglan] 10 mg PO Q8HR 7 Days 04/05/15 Aspirin Enteric Coated [Aspirin EC] 325 mg PO DAILY #21 tablet. 06/08/15 Gabapentin [Neurontin] 100 mg PO TID 14 Days 10/17/15 Naloxone [Narcan] 0.4 mg IV Q2MIN PRN #0 inj 10/17/15 Alprazolam [Xanax 0.5 MG Tablet] 0.5 mg PO TID PRN 7 Days 06/03/16 CefTRIAXone [Rocephin] 1,000 mg IVPB DAILY 10 Days 06/03/16 FentaNYL PATCH [Duragesic] 50 mcg TD Q72H 7 Days 06/03/16 OxyCODONE Immed Rel [Roxicodone 15 30 mg PO Q6H PRN #20 tablet 06/03/16 MG] Allergies Allergy/AdvReac Type Severity Reaction Status Date / Time tuberculin, purified protein Allergy Mild Hives Verified 12/12/14 11:15 deriva [tuberculin,purif.prot.deriv.] carvedilol [From Coreg] AdvReac Intermediate Anxiety Verified 12/12/14 11:15 ranolazine [From Ranexa] AdvReac Intermediate nausea, Verified 12/12/14 11:15 vomiting Hqagpep-Til-Has Reductase AdvReac Intermediate muscle Verified 12/12/14 11:15 Inhibitor dysfunction [Statins] All systems ED: reviewed and negative except as stated. Constitutional: Denies: fever, chills, weakness Cardiovascular: Denies: chest pain, palpitations Gastrointestinal: Denies: nausea, vomiting Past Medical History - Past Medical History Source: patient, old records reviewed, nursing notes reviewed Medical history: Reports: CHF, COPD, DVT, diabetes, hyperlipidemia, hypertension , myocardial infarction, other Surgical history: Reports: angioplasty/stent, cholecystectomy, coronary bypass ( CABG), hysterectomy, pacemaker/AICD, other Psychiatric history: Reports: anxiety, depression MACHINE ICER history: Reports: no MACHINE ICER history - Social History Smoking Status: Former smoker Smokeless Tobacco Status: No Alcohol use: Reports: none Drug use: Reports: none Physical Exam - General Limitations: no limitations General appearance: alert, in no apparent distress - Head Head exam: atraumatic, normocephalic, normal inspection - Eye Eye exam: Present: normal appearance, PERRL, EOMI - ENT ENT exam: normal exam, normal oropharynx, mucous membranes moist - Neck Neck exam: Present: normal inspection, full ROM, trachea midline - Chest Chest inspection: Present: normal inspection, symmetric chest wall rise - Respiratory Respiratory exam: Present: normal lung sounds bilaterally - Cardiovascular Cardiovascular exam: Present: regular rate, normal rhythm, normal heart sounds - Abdominal Exam Abdominal exam: Present: soft, Non-Tender. Absent: tenderness, distention, guarding, rebound, rigidity - Expanded Lower Extremity Exam Ankle exam: Present: other (BILAT PITTING EDEMA) - Neurological Exam Neurological exam: Present: alert, oriented X3 - Psychiatric Psychiatric exam: Present: normal affect, normal mood - Skin Skin exam: Present: warm, dry, intact, normal color Course Vital Signs Temperature 99.2 F 06/08/16 10:54 Pulse Rate 79 06/08/16 10:54 Respiratory Rate 14 06/08/16 10:54 Blood Pressure 145/61 06/08/16 10:54 O2 Sat by Pulse Oximetry 94 L 06/08/16 10:54 Temperature 99.2 F 06/08/16 10:54 Pulse Rate 78 06/08/16 14:51 Respiratory Rate 20 06/08/16 14:51 Blood Pressure 163/66 06/08/16 14:51 O2 Sat by Pulse Oximetry 93 L 06/08/16 14:51 Oxygen Delivery Oxygen Delivery Nasal Cannula Shortness of Breath/Dyspnea - MDM Narrative Medical decision making narrative: Patient states she is too short of breath and is unable to walk she feels she is unable to go back to the alf. - Differential Diagnosis Likely: acute exacerbation of chronic obstructive airways disease, congestive heart failure, pneumonia, asthma with exacerbation, pulmonary embolism, pneumothorax, arrhythmia - Medical Records Medical records reviewed: Yes I reviewed the patient's medical records. - Lab Data Lab results reviewed: Yes I reviewed the patient's lab results. Result diagrams: 06/08/16 12:17 06/08/16 12:17 Lab Results 06/08/16 06/08/16 06/08/16 Range/Units 12:17 12:17 12:17 WBC 6.0 (4.3-11.1) K/mcL RBC 3.81 L (3.82-4.97) M/mcL Hgb 10.5 L (11.5-15.4) g/dL Hct 34.3 L (35.3-44.9) % MCV 90.0 (83.0-100.0) fL MCH 27.6 L (28.0-33.3) pg MCHC 30.6 L (31.6-35.5) g/dL RDW 15.9 H (11.5-14.5) % Plt Count 167 (140-400) K/mcL MPV 9.4 (9.4-12.4) fL Immature Gran % 1.8 (0-4) % Seg Neutrophils % 66.7 % Lymphocytes % 15.1 % Monocytes % 12.2 % Eosinophils % 3.7 % Basophils % 0.5 % Neutrophils # 4.0 (1.6-8.9) K/mcL Lymphocytes # 0.9 (0.6-4.6) K/mcL Monocytes # 0.7 (0.0-1.3) K/mcL Eosinophils # 0.2 (0.0-0.6) K/mcL Basophils # 0.0 (0.0-0.2) K/mcL Platelet Estimate Normal (Normal) PT 12.1 (9.4-12.1) Seconds INR 1.1 APTT 30.2 (26.0-36.0) Seconds Sodium 134 L (136-145) mEq/L Potassium 4.5 (3.5-4.5) mEq/L Chloride 97 L (98-109) mEq/L Carbon Dioxide 28 (19-29) mEq/L BUN 12 (7-20) mg/dL Creatinine 0.85 (0.57-1.11) mg/dL Est GFR ( Amer) > 60 (> 60) Est GFR (Non-Af Amer) > 60 (> 60) BUN/Creatinine Ratio 14 (6-26) Glucose 196 H (70-99) mg/dL Calculated Osmolality 283 (280-300) Calcium 9.1 (8.6-10.8) mg/dL Troponin I (0-0.03) ng/mL B-Natriuretic Peptide (0-100) pg/mL 06/08/16 06/08/16 Range/Units 12:17 12:17 WBC (4.3-11.1) K/mcL RBC (3.82-4.97) M/mcL Hgb (11.5-15.4) g/dL Hct (35.3-44.9) % MCV (83.0-100.0) fL MCH (28.0-33.3) pg MCHC (31.6-35.5) g/dL RDW (11.5-14.5) % Plt Count (140-400) K/mcL MPV (9.4-12.4) fL Immature Gran % (0-4) % Seg Neutrophils % % Lymphocytes % % Monocytes % % Eosinophils % % Basophils % % Neutrophils # (1.6-8.9) K/mcL Lymphocytes # (0.6-4.6) K/mcL Monocytes # (0.0-1.3) K/mcL Eosinophils # (0.0-0.6) K/mcL Basophils # (0.0-0.2) K/mcL Platelet Estimate (Normal) PT (9.4-12.1) Seconds INR APTT (26.0-36.0) Seconds Sodium (136-145) mEq/L Potassium (3.5-4.5) mEq/L Chloride (98-109) mEq/L Carbon Dioxide (19-29) mEq/L BUN (7-20) mg/dL Creatinine (0.57-1.11) mg/dL Est GFR ( Amer) (> 60) Est GFR (Non-Af Amer) (> 60) BUN/Creatinine Ratio (6-26) Glucose (70-99) mg/dL Calculated Osmolality (280-300) Calcium (8.6-10.8) mg/dL Troponin I 0.01 (0-0.03) ng/mL B-Natriuretic Peptide 159 H (0-100) pg/mL - Radiology Data Radiology results reviewed: Yes I reviewed the patient's radiology results. - EKG Data EKG attestation: Yes I reviewed and interpreted this EKG. EKG shows normal: Reports: sinus rhythm Rate: Reports: normal (74) Rhythm: Reports: NSR [place]/QRS: Reports: normal Interpretation: Reports: nonspecific ST-T wave changes
[2016-06-08] MEDS ORDERED: *HR* HYDROcodone/Acet 5/325 mg TABLET PO ONE (12:21)
[2016-06-08 12:24] LABS: Basophils % 0.5 %; Eosinophils # 0.2 K/mcL (0.0-0.6); Eosinophils % 3.7 %; Hematocrit 34.3 % (35.3-44.9); Hemoglobin 10.5 g/dL (11.5-15.4); Immature Granulocytes % 1.8 % (0-4); Lymphocytes # 0.9 K/mcL (0.6-4.6); Lymphocytes % 15.1 %; Mean Corpuscular HGB Conc 30.6 g/dL (31.6-35.5); Mean Corpuscular Hemoglobin 27.6 pg (28.0-33.3); Mean Platelet Volume 9.4 fL (9.4-12.4); Monocytes # 0.7 K/mcL (0.0-1.3); Monocytes % 12.2 %; Platelet Count 167 K/mcL (140-400); Red Blood Count 3.81 M/mcL (3.82-4.97); Red Cell Distribution Width 15.9 % (11.5-14.5); Segmented Neutrophils % 66.7 %
[2016-06-08 12:28] LABS: INR 1.1; Prothrombin Time 12.1 Seconds (9.4-12.1)
[2016-06-08 12:31] LABS: Activated Partial Thrombo Time 30.2 Seconds (26.0-36.0)
[2016-06-08 12:37] LABS: BUN/Creatinine Ratio 14 (6-26); Blood Urea Nitrogen 12 mg/dL (7-20); Calcium 9.1 mg/dL (8.6-10.8); Carbon Dioxide 28 mEq/L (19-29); Chloride 97 mEq/L (98-109); Glucose 196 mg/dL (70-99); Osmolality,Calculated 283 (280-300); Sodium 134 mEq/L (136-145); eGFR For African Americans > 60 (> 60); eGFR For Non-African Americans > 60 (> 60)
[2016-06-08 12:38] LABS: Potassium 4.5 mEq/L (3.5-4.5)
[2016-06-08 12:48] LABS: Platelet Estimate Normal (Normal)
[2016-06-08] MEDS ORDERED: Furosemide 40 MG/4 ML VIAL IVP ONE (15:27)
[2016-06-08] MEDS ORDERED: *HR* OxyCODONE Immed Rel 5 MG TABLET PO ONE (15:51)
[2016-06-08] MEDS ORDERED: Acetaminophen 325 MG TABLET PO PRN (18:09)
--- NOTE | 2016-06-08 18:29 | Internal Med History&Physical ---
Date of Encounter: 06/08/16 Time of Encounter: 18:00 Assessment and Plan (1) Acute and chronic respiratory failure with hypoxia Current visit: No Status: Acute 1 patient is on chronic oxygen use at 3 L nasal cannula requiring increased oxygen at 4 L nasal cannula-SPO2 is 94% on presentation. She was given breathing treatments as well as Lasix SPO2 improved. We will continue with breathing treatments will continue home dose of bumex as IV . Will titrate oxygen back down to home level maintain SPO2 greater than 92% (2) Congestive heart failure Current visit: Yes Status: Acute 1 patient has hx of CHF unknown EF at this time . BNP is 159 chest x-ray is clear at this time. She is on bumex at home will continue as IV and switch back to oral upon discharge 2 Will monitor intake and output daily weights 3 fluid restrictions 1500 mL daily Qualifiers: Congestive heart failure type: unspecified congestive heart failure type Congestive heart failure chronicity: acute on chronic Qualified Code(s): I50.9 - Heart failure, unspecified (3) COPD (chronic obstructive pulmonary disease) Current visit: No Status: Acute 1 presently no wheezing noted to continue with breathing treatments and oxygen titrated to maintain SPO2 greater 92% Qualifiers: COPD type: chronic bronchitis Chronic bronchitis type: simple Qualified Code(s): J41.0 - Simple chronic bronchitis (4) DM (diabetes mellitus), type 2 Current visit: Yes Status: Chronic 1 Accu-Cheks before meals and at bedtime with sliding scale as well as basal insulin goal is postprandial less than 180 2 diabetic diet Qualifiers: Diabetes mellitus complication status: with unspecified complications Diabetes mellitus snf insulin use: with long term care phlebotomist use Qualified Code(s) : E11.8 - Type 2 diabetes mellitus with unspecified complications (5) DVT prophylaxis Current visit: No Status: Acute 1 heparin subcutaneous (6) Hypertension Current visit: No Status: Acute 1 presently controlled we will continue with home medications Qualifiers: Hypertension type: essential hypertension Qualified Code(s): I10 - Essential (primary) hypertension Internal Medicine - H&P: HPI Chief complaint: SOB Admitted From: Emergency Dept Plans for Post Hospital Care: [facility] History of present illness: Ms. Snyder is a 65 year old female with past history of CHF COPD DVT diabetes hyperlipidemia hypertension and [place] ICD placement. According to the patient she has been experiencing increasing shortness of breath fullness in her chest with a productive cough with yellow sputum since yesterday. She has felt weak and not been able participate in her normal ADLs. She denies any fevers chills nausea vomiting diarrhea abdominal pain or chest pain. She resides at a long-term and she has been requiring increased use of her oxygen. She was transferred to the emergency department for further evaluation. According to ER notes upon arrival patient's SPO2 94%. Chest x-ray revealed no acute process CTA was obtained which was negative for PE lab work was unremarkable with no leukocytosis and troponin was 0.01 BNP was 159. She was given breathing treatments as well IV Lasix. She was admitted for further workup and evaluation. Upon assessment patient appears to be in no respiratory distress she denies any chest pain or shortness of breath at this time. She is hemodynamically stable at this time. I reviewed the case with Dr Gutierrez who agrees with the plan Past Med Surg Social Fam HX - Past Medical History Medical history: CHF, COPD, DVT, diabetes, hyperlipidemia, hypertension, myocardial infarction, other Psychiatric history: anxiety, depression - Past Surgical History Surgical History: angioplasty/stent, cholecystectomy, coronary bypass (CABG), hysterectomy, pacemaker/AICD, other - Social History Smoking Status: Former smoker Smokeless Tobacco Status: No Alcohol use: none Drug use: none - Family History Mother Adopted: No Living Status: Hx Family Cardiac Disorders: Yes Hx Family Respiratory Disorders: No Hx Family Cancer: No Hx Family GI Disorders: Yes Hx Family Endocrine Disorder: Yes Hx Family Neuromuscular Disorders: No Hx Family Neurologic Disorders: No Hx Family HEENT Disorders: No Hx Family Autoimmune Disorders: No Internal Medicine - H&P: Meds Amiodarone [Cordarone] 200 mg PO DAILY 12/12/14 [History] Baclofen 10 mg PO QID 12/12/14 [History] Budesonide/Formoterol Fumarate [Symbicort 160-4.5 Mcg Inhaler] 2 puff IH BID [History] Bumetanide 1 mg PO BID 12/12/14 [History] Cholecalciferol (Vitamin D3) [Vitamin D3] 2,000 unit PO DAILY 12/12/14 [History] Duloxetine HCl [Cymbalta] 60 mg PO DAILY 12/12/14 [History] Ezetimibe [Zetia] 10 mg PO DAILY 12/12/14 [History] Ferrous Sulfate 325 mg PO DAILY 12/12/14 [History] Fluticasone Propionate Nasal [Flonase] 50 mcg NS DAILY PRN 12/12/14 [History] Folic Acid 1 mg PO QAM 12/12/14 [History] Hydroxychloroquine Sulfate [Plaquenil] 200 mg PO BID 12/12/14 [History] Insulin DETEMIR [Levemir Flextouch] 70 unit SQ BID 12/12/14 [History] Isosorbide MONOnitrate [Isosorbide Mononitrate ER] 120 mg PO DAILY 12/12/14 [ History] Loratadine [Loradamed] 10 mg PO DAILY 12/12/14 [History] Metoprolol Succinate 50 mg PO DAILY 12/12/14 [History] Montelukast Sodium [Singulair] 10 mg PO DAILY 12/12/14 [History] Sertraline HCl [Zoloft] 50 mg PO HS 12/12/14 [History] Theophylline Anhydrous [Theodur] 300 mg PO BID 12/12/14 [History] Tiotropium [place] [Spiriva] 18 mcg IH DAILY 12/12/14 [History] Trazodone HCl 300 mg PO HS 12/12/14 [History] Verapamil ER (24 HR) [Calan SR] 240 mg PO DAILY 12/12/14 [History] Meclizine [Antivert] 12.5 mg PO TID PRN 14 Days 04/05/15 [Rx] Metoclopramide [Reglan] 10 mg PO Q8HR 7 Days 04/05/15 [Rx] Aspirin Enteric Coated [Aspirin EC] 325 mg PO DAILY #21 tablet. 06/08/15 [Rx] Bisacodyl [Dulcolax] 10 mg RC DAILY PRN 08/26/15 [History] Docusate [Colace] 100 mg PO DAILY 08/26/15 [History] Ipratropium/Albuterol Neb [Duoneb] 3 ml IH Q4HR PRN 08/26/15 [History] Polyethylene Glycol 3350 [Gavilax] 17 gm PO DAILY 08/26/15 [History] Acetaminophen [Tylenol] 650 mg PO Q4HR PRN 10/16/15 [History] Gabapentin [Neurontin] 100 mg PO TID 14 Days 10/17/15 [Rx] Naloxone [Narcan] 0.4 mg IV Q2MIN PRN #0 inj 10/17/15 [Rx] Calcium Carbonate/Vitamin D3 [Calcium 600-Vit D3 400 Tablet] 1 tab PO BID [History] Omeprazole 20 mg PO DAILY 05/30/16 [History] Alprazolam [Xanax 0.5 MG Tablet] 0.5 mg PO TID PRN 7 Days 06/03/16 [Rx] FentaNYL PATCH [Duragesic] 50 mcg TD Q72H 7 Days 06/03/16 [Rx] Ibuprofen [Motrin] 600 mg PO BID PRN 06/08/16 [History] Insulin LISPRO [HumaLOG] 0 units SQ TIDWM 06/08/16 [History] Lactulose 20 gm PO DAILY PRN 06/08/16 [History] Losartan Potassium [Cozaar] 100 mg PO DAILY 06/08/16 [History] Morphine Sulfate SR (12 HR) [MS Contin] 60 mg PO Q12HR 06/08/16 [History] OxyCODONE Immed Rel [Roxicodone 15 MG] 30 mg PO Q6H 06/08/16 [History] OxyCODONE Immed Rel [Roxicodone 15 MG] 30 mg PO Q6HR PRN 06/08/16 [History] Ropinirole HCl [Requip] 2 mg PO HS 06/08/16 [History] Allergies tuberculin, purified protein deriva [tuberculin,purif.prot.deriv.] Allergy (Mild , Verified 12/12/14 11:15) Hives carvedilol [From Coreg] Adverse Reaction (Intermediate, Verified 12/12/14 11:15) Anxiety ranolazine [From Ranexa] Adverse Reaction (Intermediate, Verified 12/12/14 11:15 ) nausea, vomiting Lqnymqu-Iai-Bcc Reductase Inhibitor [Statins] Adverse Reaction (Intermediate, Verified 12/12/14 11:15) muscle dysfunction All Systems PM: A 10-system review of systems was performed and is negative for pertinent findings except as documented above in the HPI. - Constitutional Constitutional: weakness, no chills, no fever(s), no night sweats - Cardiovascular Cardiovascular ROS IM: edema, no chest pain, no diaphoresis, no dyspnea, no lightheadedness, no palpitations, no syncope - Respiratory Respiratory: cough, dyspnea, chest congestion - Gastrointestinal Gastrointestinal: no abdominal pain, no diarrhea, no hematemesis, no hematochezia, no melena, no nausea, no vomiting - Genitourinary Genitourinary: no change in urinary stream, no dysuria, no flank pain, no hematuria - Musculoskeletal Musculoskeletal ROS IM: no numbness, no tingling - Neurological Neurological ROS: no confusion, no convulsions, no focal weakness, no numbness, no tingling, no tremor(s) - Constitutional Vitals: Temp Pulse Resp BP Pulse Ox 97.9 F 69 15 168/68 94 L 06/08/16 17:05 06/08/16 17:05 06/08/16 17:05 06/08/16 17:05 06/08/16 17:05 General appearance: Present: A&O X 3, morbidly obese - Head Head exam: Present: atraumatic, normocephalic - Neck Neck exam general surgery: Present: supple, trachea midline. Absent: lymphadenopathy - Respiratory Respiratory exam: Present: rhonchi. Absent: accessory muscle use, rales, wheezes Additional comments: Faint scattered rhonchi which cleared with cough - Cardiovascular Cardiovascular exam: Present: RRR, +S1, +S2. Absent: diastolic murmur, gallop, rubs, systolic murmur - GI/Abdominal GI/Abdominal exam: Present: normal bowel sounds, soft, no peritoneal signs. Absent: distended, tenderness - Extremities Exam Extremities exam: Present: pedal edema, warm, radial pulses palpable and symetrical. Absent: calf tenderness, cyanotic Additional comments: +1 pitting edema bilaterally - Neurological Exam Neurological exam: Present: CN II-XII intact, oriented X3, no focal deficits. Absent: pronater drift, facial droop, speech deficit - Skin Skin exam: Present: dry, intact Internal Med - H&P Results - Labs CBC & Chem 7: 06/08/16 12:17 06/08/16 12:17 - Diagnostic Studies Chest x-ray Additional comments: Her radiology read no acute process CT scan - chest Additional comments: CTA chest per radiology read no PE
[2016-06-08] MEDS ORDERED: D5% in Water 1,000 ML IV PRN (18:47)
[2016-06-08] MEDS ORDERED: *HR* Dextrose 50 % in Water (Syg) 50 ML SYRINGE IVP PRN (18:47)
[2016-06-08] MEDS ORDERED: Dextrose Gel 15 GM PO PRN ×2 (18:47)
[2016-06-08] MEDS ORDERED: ALPRAZolam 0.5 MG TABLET PO PRN (19:08)
[2016-06-08] MEDS ORDERED: Bisacodyl 10 MG RECTAL SUPPOSITORY RC PRN (19:08)
[2016-06-08] MEDS ORDERED: Fluticasone Propionate Nasal 50 MCG/SPRAY BOTTLE NS PRN (19:08)
[2016-06-08] MEDS ORDERED: Ipratropium/Albuterol Neb 3 ML IH PRN (19:08)
[2016-06-08] MEDS: traZODone 50 MG TABLET PO SCH (20:36)
[2016-06-08] MEDS: Gabapentin 100 MG CAPSULE PO SCH (20:36)
[2016-06-08] MEDS: Baclofen 10 MG TABLET PO SCH (20:36)
[2016-06-08] MEDS: rOPINIRole 1 MG TABLET PO SCH (20:36)
[2016-06-08] MEDS: CALCIUM CARBONATE PO SCH (20:37)
[2016-06-08] MEDS: VITAMIN D3 PO SCH (20:37)
[2016-06-08] MEDS: Insulin DETEMIR 100 UNIT/ML X5UNITS SQ SCH (20:37)
[2016-06-08] MEDS: Insulin LISPRO 300 UNITS/3 ML VIAL SQ SCH (20:46)
[2016-06-08] MEDS: Budesonide/Formoterol 160/4.5 MDI IH SCH (21:31)
[2016-06-09] MEDS ORDERED: *HR* Morphine Sulfate SR (12 HR) 30 MG TABLET.ER PO SCH (06:00)
[2016-06-09 06:03] LABS: Basophils % 0.6 %; Eosinophils # 0.3 K/mcL (0.0-0.6); Eosinophils % 4.3 %; Hematocrit 34.4 % (35.3-44.9); Hemoglobin 10.5 g/dL (11.5-15.4); Immature Granulocytes % 1.8 % (0-4); Lymphocytes # 0.7 K/mcL (0.6-4.6); Lymphocytes % 11.9 %; Mean Corpuscular HGB Conc 30.5 g/dL (31.6-35.5); Mean Corpuscular Hemoglobin 27.3 pg (28.0-33.3); Mean Corpuscular Volume 89.4 fL (83.0-100.0); Mean Platelet Volume 9.1 fL (9.4-12.4); Monocytes # 0.6 K/mcL (0.0-1.3); Monocytes % 9.1 %; Neutrophils # 4.5 K/mcL (1.6-8.9); Platelet Count 204 K/mcL (140-400); Red Blood Count 3.85 M/mcL (3.82-4.97); Segmented Neutrophils % 72.3 %
[2016-06-09 06:16] LABS: BUN/Creatinine Ratio 18 (6-26); Blood Urea Nitrogen 14 mg/dL (7-20); Calcium 9.3 mg/dL (8.6-10.8); Carbon Dioxide 32 mEq/L (19-29); Chloride 98 mEq/L (98-109); Glucose 181 mg/dL (70-99); Osmolality,Calculated 295 (280-300); Potassium 4.1 mEq/L (3.5-4.5); Sodium 140 mEq/L (136-145); eGFR For African Americans > 60 (> 60); eGFR For Non-African Americans > 60 (> 60)
[2016-06-09] MEDS: Ipratropium/Albuterol Neb 3 ML IH SCH ×5 (08:12→23:54)
[2016-06-09] MEDS: Tiotropium 18 MCG inhalation IH SCH (08:13)
[2016-06-09] MEDS: Budesonide/Formoterol 160/4.5 MDI IH SCH ×2 (08:13→20:05)
[2016-06-09] MEDS: Aspirin Enteric Coated 325 MG Tablet PO SCH (10:28)
[2016-06-09] MEDS: Verapamil ER (24 HR) 240 MG TABLET.ER PO SCH (10:29)
[2016-06-09] MEDS: Loratadine 10 MG TABLET PO SCH (10:29)
[2016-06-09] MEDS: *HR* Amiodarone 200 MG TABLET PO SCH (10:29)
[2016-06-09] MEDS: Bumetanide 1 MG/4 ML VIAL IVP SCH ×2 (10:31→17:33)
[2016-06-09] MEDS: Folic Acid 1 MG TABLET PO SCH (10:32)
[2016-06-09] MEDS: Gabapentin 100 MG CAPSULE PO SCH ×3 (10:32→21:21)
[2016-06-09] MEDS: Baclofen 10 MG TABLET PO SCH ×4 (10:32→21:21)
[2016-06-09] MEDS: Isosorbide MONOnitrate (24 HR) 60 MG TAB.ER.24H PO SCH (10:32)
[2016-06-09] MEDS: Cholecalciferol (D-3) 1,000 UNIT TABLET PO SCH (10:33)
[2016-06-09] MEDS: Metoprolol XL (24 HR) Succ 50 MG TAB.ER.24H PO SCH (10:33)
[2016-06-09] MEDS: Insulin LISPRO 300 UNITS/3 ML VIAL SQ SCH ×4 (10:34→21:22)
[2016-06-09] MEDS: Insulin DETEMIR 100 UNIT/ML X5UNITS SQ SCH ×2 (10:35→21:22)
[2016-06-09] MEDS: CALCIUM CARBONATE PO SCH ×2 (10:35→21:34)
[2016-06-09] MEDS: ZETIA 10 MG PO SCH (10:35)
[2016-06-09] MEDS: VITAMIN D3 PO SCH ×2 (10:35→21:34)
--- NOTE | 2016-06-09 10:45 | Internal Med Progress Note ---
Date of Encounter: 06/09/16 Time of Encounter: 09:00 - Assessment and plan (1) Pneumonia due to Pseudomonas Current Visit: Yes Status: Acute Assessment and plan: Chest CT consistent with left lower lobe pneumonia. Patient is a skilled nursing resident with a recent admission last week. Treating for pseudomonal etiology- Vanc and Zosyn added. Sputum culture pending. In review of her chart, patient has been admitted for sepsis several times. No indication of sepsis at this time thus far. No leukocytosis. Vital signs are stable, we will continue to trend. We will de-escalate antibiotics as indicated. ITS Impressions Chest CTA 06/08/16 13:00 IMPRESSION: No evidence of pulmonary embolism on limited exam. Mild airspace disease within the left lung which may be related to atelectasis versus pneumonia. D/ / Libby Infante MD / Libby Infante MD Interpreting Provider: Libby Infante MD (2) Congestive heart failure Current Visit: Yes Status: Chronic Assessment and plan: Pacemaker placed 08/26/15. Cardiology attempted to obtain an echocardiogram on but were unable to obtain LV systolic function estimated even with Definity use due to body habitus. Unclear as to the type of her heart failure however strongly suspect combined systolic and diastolic. Pacemaker placement and on Bumex at home. No overt signs of fluid overload on imaging or on examination of difficult to ascertain given her body habitus. She denies swelling in her legs more than usual. She states her shortness of breath is improving. Qualifiers: Congestive heart failure type: combined Congestive heart failure chronicity : acute on chronic Qualified Code(s): I50.43 - Acute on chronic combined systolic (congestive) and diastolic (congestive) heart failure (3) DM (diabetes mellitus), type 2 Current Visit: Yes Status: Chronic Assessment and plan: Moderately controlled at home with an A1c of 7.8%, continue sliding scale while admitted Qualifiers: Diabetes mellitus complication status: with unspecified complications Diabetes mellitus exterminator insulin use: with exterminator use Qualified Code(s) : E11.8 - Type 2 diabetes mellitus with unspecified complications (4) AICD (automatic cardioverter/defibrillator) present Current Visit: No Status: Chronic (5) Acute and chronic respiratory failure with hypoxia Current Visit: No Status: Chronic Assessment and plan: Patient stating she is on 3.5 L normally, she is currently tolerating 3 L and states her shortness of breath has improved. (6) Anemia Current Visit: No Status: Chronic Assessment and plan: Stable and consistent with her baseline. No signs of active bleeding, we will continue to trend. Qualifiers: Anemia type: unspecified type Qualified Code(s): D64.9 - Anemia, unspecified (7) BiPAP (biphasic positive airway pressure) dependence Current Visit: No Status: Chronic (8) COPD (chronic obstructive pulmonary disease) Current Visit: No Status: Chronic Assessment and plan: No acute exacerbation. Clinical picture more consistent with pneumonia. Qualifiers: COPD type: unspecified COPD Qualified Code(s): J44.9 - Chronic obstructive pulmonary disease, unspecified (9) DVT prophylaxis Current Visit: No Status: Acute Assessment and plan: Subcutaneous heparin (10) Hypertension Current Visit: No Status: Chronic Assessment and plan: Borderline hypertensive at times, will continue to trend and adjust medications as indicated. Qualifiers: Hypertension type: essential hypertension Qualified Code(s): I10 - Essential (primary) hypertension (11) Polypharmacy Current Visit: No Status: Chronic (12) CAD (coronary artery disease) Current Visit: No Status: Chronic Assessment and plan: Patient denies chest pain, troponin negative Qualifiers: Coronary Disease-Associated Artery/Lesion type: unspecified vessel or lesion type [place] vs. transplanted heart: [place] heart Associated angina: angina presence unspecified Qualified Code(s): I25.10 - Atherosclerotic heart disease of [place] coronary artery without angina pectoris (13) Generalized weakness Current Visit: No Status: Chronic Assessment and plan: Patient is a long-term resident at [facility], will likely return upon disposition (14) Obstructive sleep apnea Current Visit: No Status: Chronic (15) Morbid obesity with BMI of 45.0-49.9, adult Current Visit: No Status: Chronic - Subjective Interval history: Patient seen and examined. On examination, patient sitting upright in bed eating her breakfast. Patient stating her shortness of breath is improving. She complains of her normal chronic pain that has not changed. She is also endorsing a productive cough. - Constitutional Vitals: Temp Pulse Resp BP Pulse Ox 98.0 F 87 17 164/69 93 L 06/09/16 07:35 06/09/16 07:35 06/09/16 07:35 06/09/16 07:35 06/09/16 07:35 General appearance: Present: A&O X 3, morbidly obese, pleasant, no acute distress, answers questions appropriately - Head Head exam: Present: atraumatic, normocephalic - Eye Eye exam: Present: PERRL, conjuntiva pink, sclera anicteric Pupils: Present: PERRL - Neck Neck exam general surgery: Present: supple, trachea midline. Absent: lymphadenopathy - Respiratory Respiratory exam: Present: decreased breath sounds, prolonged expiratory phase, rhonchi, wheezes. Absent: accessory muscle use, rales, respiratory distress - Cardiovascular Cardiovascular exam: Present: RRR, +S1, +S2. Absent: diastolic murmur, gallop, rubs, systolic murmur - GI/Abdominal GI/Abdominal exam: Present: distended, normal bowel sounds, soft, no peritoneal signs. Absent: tenderness - Extremities Exam Extremities exam: Present: warm, radial pulses palpable and symetrical. Absent : calf tenderness, cyanotic, pedal edema - Neurological Exam Neurological exam: Present: alert, CN II-XII intact, oriented X3, no focal deficits, strengths equal and symetr throughout. Absent: pronater drift, facial droop, speech deficit - Skin Skin exam: Present: dry, intact, normal color, warm Internal Medicine: Result - Labs CBC & Chem 7: 06/09/16 05:45 06/09/16 05:45 Labs: Short CBC 06/09/16 Range/Units 05:45 WBC 6.2 (4.3-11.1) K/mcL Hgb 10.5 L (11.5-15.4) g/dL Hct 34.4 L (35.3-44.9) % Plt Count 204 (140-400) K/mcL Neutrophils # 4.5 (1.6-8.9) K/mcL BMP 06/09/16 05:45 Sodium 140 Potassium 4.1 Chloride 98 Carbon Dioxide 32 H BUN 14 Creatinine 0.77 Glucose 181 H Calcium 9.3 - ABG Interpretation ABG results: PT/INR, D-dimer PT 12.1 Seconds (9.4-12.1) 06/08/16 12:17 Consult Discharge Plan - Plan Referrals: Nir Fraga MD [Primary Care Provider] -
[2016-06-09] MEDS ORDERED: Vancomycin 2,000 MG in D5% in Water 250 ML IVPB SCH (12:00)
[2016-06-09] MEDS: Vancomycin 2,000 MG in D5% in Water 500 ML IVPB SCH (12:41)
[2016-06-09] MEDS: Piperacillin/Tazobactam 3.375 GM in D5% in Water (Mini-Bag+) 100 ML IVPB SCH ×2 (12:42→21:23)
[2016-06-09] MEDS ORDERED: *HR* OxyCODONE Immed Rel 15 MG TABLET PO PRN (14:41)
[2016-06-09] MEDS ORDERED: Lactulose Oral Soln 20 GM/30 ML UDC RC PRN (14:41)
[2016-06-09] MEDS ORDERED: *HR* FentaNYL PATCH 50 MCG PATCH TD SCH (14:45)
--- NOTE | 2016-06-09 15:12 | Electrocardiograph Report ---
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
[2016-06-09] MEDS: *HR* OxyCODONE Immed Rel 15 MG TABLET PO SCH ×2 (16:01→21:22)
[2016-06-09] MEDS: *HR* Heparin 5,000 UNIT/ML VIAL SQ SCH ×2 (17:34→18:05)
[2016-06-09] MEDS: rOPINIRole 1 MG TABLET PO SCH (21:21)
[2016-06-09] MEDS: traZODone 50 MG TABLET PO SCH (21:21)
[2016-06-10] MEDS: Vancomycin 2,000 MG in D5% in Water 500 ML IVPB SCH (00:08)
[2016-06-10] MEDS: *HR* OxyCODONE Immed Rel 15 MG TABLET PO SCH ×2 (02:57→08:55)
[2016-06-10 03:55] LABS: Basophils % 0.4 %; Eosinophils # 0.4 K/mcL (0.0-0.6); Eosinophils % 7.6 %; Hematocrit 31.5 % (35.3-44.9); Hemoglobin 9.4 g/dL (11.5-15.4); Immature Granulocytes % 1.1 % (0-4); Lymphocytes # 0.9 K/mcL (0.6-4.6); Lymphocytes % 15.4 %; Mean Corpuscular HGB Conc 29.8 g/dL (31.6-35.5); Mean Corpuscular Hemoglobin 27.3 pg (28.0-33.3); Mean Corpuscular Volume 91.6 fL (83.0-100.0); Mean Platelet Volume 8.7 fL (9.4-12.4); Monocytes # 0.6 K/mcL (0.0-1.3); Monocytes % 10.5 %; Neutrophils # 3.7 K/mcL (1.6-8.9); Platelet Count 157 K/mcL (140-400); Red Blood Count 3.44 M/mcL (3.82-4.97); Red Cell Distribution Width 16.4 % (11.5-14.5)
[2016-06-10] MEDS: Piperacillin/Tazobactam 3.375 GM in D5% in Water (Mini-Bag+) 100 ML IVPB SCH (04:04)
[2016-06-10 04:05] LABS: Calcium 8.6 mg/dL (8.6-10.8); Potassium 4.3 mEq/L (3.5-4.5)
[2016-06-10] MEDS ORDERED: D5% in Water (Mini-Bag+) 100 ML IVPB ONE (04:07)
[2016-06-10] MEDS: Ipratropium/Albuterol Neb 3 ML IH SCH ×3 (04:14→11:16)
[2016-06-10] MEDS: *HR* Heparin 5,000 UNIT/ML VIAL SQ SCH (06:29)
[2016-06-10] MEDS: Budesonide/Formoterol 160/4.5 MDI IH SCH (07:53)
[2016-06-10] MEDS: Tiotropium 18 MCG inhalation IH SCH (07:53)
[2016-06-10] MEDS: Verapamil ER (24 HR) 240 MG TABLET.ER PO SCH (08:57)
[2016-06-10] MEDS: Aspirin Enteric Coated 325 MG Tablet PO SCH (08:57)
[2016-06-10] MEDS: Loratadine 10 MG TABLET PO SCH (08:57)
[2016-06-10] MEDS: *HR* Amiodarone 200 MG TABLET PO SCH (08:58)
[2016-06-10] MEDS: Bumetanide 1 MG/4 ML VIAL IVP SCH (08:59)
[2016-06-10] MEDS: Isosorbide MONOnitrate (24 HR) 60 MG TAB.ER.24H PO SCH (09:00)
[2016-06-10] MEDS: Gabapentin 100 MG CAPSULE PO SCH (09:00)
[2016-06-10] MEDS: Folic Acid 1 MG TABLET PO SCH (09:00)
[2016-06-10] MEDS: Cholecalciferol (D-3) 1,000 UNIT TABLET PO SCH (09:01)
[2016-06-10] MEDS: Metoprolol XL (24 HR) Succ 50 MG TAB.ER.24H PO SCH (09:01)
[2016-06-10] MEDS: Baclofen 10 MG TABLET PO SCH ×2 (09:01→11:51)
[2016-06-10] MEDS: Insulin DETEMIR 100 UNIT/ML X5UNITS SQ SCH (09:02)
[2016-06-10] MEDS: Insulin LISPRO 300 UNITS/3 ML VIAL SQ SCH ×2 (09:02→11:52)
[2016-06-10] MEDS: VITAMIN D3 PO SCH (09:03)
[2016-06-10] MEDS: ZETIA 10 MG PO SCH (09:03)
[2016-06-10] MEDS: CALCIUM CARBONATE PO SCH (09:03)
[2016-06-10] MEDS ORDERED: Linezolid 600 MG TABLET PO SCH (10:00)
[2016-06-10] MEDS ORDERED: levoFLOXacin 750 MG TABLET PO SCH ×2 (10:00→10:30)
[2016-06-10 11:34] VITALS: BP 137/70
[2016-06-10] MEDS ORDERED: Vancomycin 1,500 MG in D5% in Water 250 ML IVPB SCH (12:00)
--- NOTE | 2016-06-10 12:30 | Discharge Summary ---
Date of Encounter: 06/10/16 Time of Encounter: 10:30 - Discharge Diagnosis (1) Pneumonia due to Pseudomonas Priority: Primary Status: Acute Comments: Suspected as she is a snf resident and has been admitted recently. Chest CT consistent with left lower lobe pneumonia. Treated for pseudomonal etiology with Vanc and Zosyn while admitted. Sending back to [facility] on PO Zyvox and Levofloxacin. Sputum culture pending at time of discharge. In review of her chart, patient has been admitted for sepsis several times. No indication of sepsis during this admission. No leukocytosis. Vital signs remained stable. Patient denied shortness of breath above her normal day of discharge, no increased need for oxygen. ITS Impressions Chest CTA 06/08/16 13:00 IMPRESSION: No evidence of pulmonary embolism on limited exam. Mild airspace disease within the left lung which may be related to atelectasis versus pneumonia. D/ / Libby Infante MD / Libby Infante MD Interpreting Provider: Libby Infante MD (2) Congestive heart failure Priority: Secondary Status: Chronic Comments: Pacemaker placed 08/26/15. Cardiology attempted to obtain an echocardiogram on but were unable to obtain LV systolic function estimation even with Definity use due to body habitus. Unclear as to the type of her heart failure however strongly suspect combined systolic and diastolic. Pacemaker placement and on Bumex at home. No overt signs of fluid overload on imaging or on examination of difficult to ascertain given her body habitus. She denies swelling in her legs more than usual. She states her shortness of breath is now back to her baseline. Follow-up outpatient (3) DM (diabetes mellitus), type 2 Priority: Secondary Status: Chronic Comments: Moderately controlled at home with an A1c of 7.8%, recommend continued follow- up outpatient Qualifiers: Diabetes mellitus complication status: with unspecified complications Diabetes mellitus custodial insulin use: with custodial use Qualified Code(s) : E11.8 - Type 2 diabetes mellitus with unspecified complications (4) AICD (automatic cardioverter/defibrillator) present Priority: Secondary Status: Chronic (5) Acute and chronic respiratory failure with hypoxia Priority: Secondary Status: Chronic (6) Anemia Priority: Secondary Status: Chronic Comments: Stable and consistent with her baseline. No signs of active bleeding. Follow up outpatient (7) BiPAP (biphasic positive airway pressure) dependence Priority: Secondary Status: Chronic (8) COPD (chronic obstructive pulmonary disease) Priority: Secondary Status: Chronic (9) DVT prophylaxis Priority: Primary Status: Acute Comments: Subcutaneous heparin while admitted (10) Hypertension Priority: Secondary Status: Chronic Comments: Borderline hypertensive at times during this admission however normotensive at time of discharge, recommend continued follow-up outpatient Qualifiers: Hypertension type: essential hypertension Qualified Code(s): I10 - Essential (primary) hypertension (11) Polypharmacy Priority: Secondary Status: Chronic Comments: Patient attempted to tell [facility] staff that she was on MS Contin, 30 mg of OxyContin every 3 hours, and fentanyl patch. This was not corroborated by the snf. (12) CAD (coronary artery disease) Priority: Secondary Status: Chronic Qualifiers: Coronary Disease-Associated Artery/Lesion type: unspecified vessel or lesion type [place] vs. transplanted heart: [place] heart Associated angina: angina presence unspecified Qualified Code(s): I25.10 - Atherosclerotic heart disease of [place] coronary artery without angina pectoris (13) Generalized weakness Priority: Secondary Status: Chronic Comments: Sending back to [facility]. Recommend daily physical therapy. Patient highly unmotivated to improve her strength or to get out of bed. (14) Obstructive sleep apnea Priority: Secondary Status: Chronic Comments: Noncompliant with CPAP (15) Morbid obesity with BMI of 45.0-49.9, adult Priority: Secondary Status: Chronic - Discharge Medications Prescriptions: Oxycodone HCl [Roxicodone 30 MG Immed Release] 30 mg PO Q6HR #25 tab Alprazolam [Xanax 0.5 MG Tablet] 0.5 mg PO TID PRN #15 tablet PRN Reason: Anxiety FentaNYL PATCH [Duragesic] 50 mcg TD Q72H #1 patch.td72 Levofloxacin 750 mg PO Q24H #6 tablet Linezolid [Zyvox] 600 mg PO BID #12 tablet Home Medications: Amiodarone [Cordarone] 200 mg PO DAILY 12/12/14 [History] Baclofen 10 mg PO QID 12/12/14 [History] Budesonide/Formoterol Fumarate [Symbicort 160-4.5 Mcg Inhaler] 2 puff IH BID [History] Bumetanide 1 mg PO BID 12/12/14 [History] Cholecalciferol (Vitamin D3) [Vitamin D3] 2,000 unit PO DAILY 12/12/14 [History] Duloxetine HCl [Cymbalta] 60 mg PO DAILY 12/12/14 [History] Ezetimibe [Zetia] 10 mg PO DAILY 12/12/14 [History] Ferrous Sulfate 325 mg PO DAILY 12/12/14 [History] Fluticasone Propionate Nasal [Flonase] 50 mcg NS DAILY PRN 12/12/14 [History] Folic Acid 1 mg PO QAM 12/12/14 [History] Hydroxychloroquine Sulfate [Plaquenil] 200 mg PO BID 12/12/14 [History] Insulin DETEMIR [Levemir Flextouch] 70 unit SQ BID 12/12/14 [History] Isosorbide MONOnitrate [Isosorbide Mononitrate ER] 120 mg PO DAILY 12/12/14 [ History] Loratadine [Loradamed] 10 mg PO DAILY 12/12/14 [History] Metoprolol Succinate 50 mg PO DAILY 12/12/14 [History] Montelukast Sodium [Singulair] 10 mg PO DAILY 12/12/14 [History] Sertraline HCl [Zoloft] 50 mg PO HS 12/12/14 [History] Theophylline Anhydrous [Theodur] 300 mg PO BID 12/12/14 [History] Tiotropium [place] [Spiriva] 18 mcg IH DAILY 12/12/14 [History] Trazodone HCl 300 mg PO HS 12/12/14 [History] Verapamil ER (24 HR) [Calan SR] 240 mg PO DAILY 12/12/14 [History] Meclizine [Antivert] 12.5 mg PO TID PRN 14 Days 04/05/15 [Rx] Metoclopramide [Reglan] 10 mg PO Q8HR 7 Days 04/05/15 [Rx] Aspirin Enteric Coated [Aspirin EC] 325 mg PO DAILY #21 tablet. 06/08/15 [Rx] Bisacodyl [Dulcolax] 10 mg RC DAILY PRN 08/26/15 [History] Docusate [Colace] 100 mg PO DAILY 08/26/15 [History] Ipratropium/Albuterol Neb [Duoneb] 3 ml IH Q4HR PRN 08/26/15 [History] Polyethylene Glycol 3350 [Gavilax] 17 gm PO DAILY 08/26/15 [History] Acetaminophen [Tylenol] 650 mg PO Q4HR PRN 10/16/15 [History] Gabapentin [Neurontin] 100 mg PO TID 14 Days 10/17/15 [Rx] Naloxone [Narcan] 0.4 mg IV Q2MIN PRN #0 inj 10/17/15 [Rx] Calcium Carbonate/Vitamin D3 [Calcium 600-Vit D3 400 Tablet] 1 tab PO BID [History] Omeprazole 20 mg PO DAILY 05/30/16 [History] Ibuprofen [Motrin] 600 mg PO BID PRN 06/08/16 [History] Insulin LISPRO [HumaLOG] 0 units SQ TIDWM 06/08/16 [History] Lactulose 20 gm PO DAILY PRN 06/08/16 [History] Losartan Potassium [Cozaar] 100 mg PO DAILY 06/08/16 [History] Ropinirole HCl [Requip] 2 mg PO HS 06/08/16 [History] Alprazolam [Xanax 0.5 MG Tablet] 0.5 mg PO TID PRN #15 tablet 06/10/16 [Rx] FentaNYL PATCH [Duragesic] 50 mcg TD Q72H #1 patch.td72 06/10/16 [Rx] Levofloxacin 750 mg PO Q24H #6 tablet 06/10/16 [Rx] Linezolid [Zyvox] 600 mg PO BID #12 tablet 06/10/16 [Rx] Oxycodone HCl [Roxicodone 30 MG Immed Release] 30 mg PO Q6HR #25 tab 06/10/16 [ Rx] Allergies/Adverse Reactions: Allergies tuberculin, purified protein deriva [tuberculin,purif.prot.deriv.] Allergy (Mild , Verified 12/12/14 11:15) Hives carvedilol [From Coreg] Adverse Reaction (Intermediate, Verified 12/12/14 11:15) Anxiety ranolazine [From Ranexa] Adverse Reaction (Intermediate, Verified 12/12/14 11:15 ) nausea, vomiting Slobcwl-Aud-Uoz Reductase Inhibitor [Statins] Adverse Reaction (Intermediate, Verified 12/12/14 11:15) muscle dysfunction Date of admission: 06/08/16 16:06 Primary care physician: Nir Fraga MD Discharging clinician: Jo Pink Anticipated date of discharge: 06/10/16 (bedhold at [facility]) - Patient Status Disposition: Transfer SNF Condition: Fair Functional capacity at discharge: uses cane/walker Overall status at discharge: patient is back to baseline - Discharge Instructions Follow Up With: Nir Fraga MD [Primary Care Provider] - Additional Instructions: Follow-up with primary care provider in one to 2 weeks - Diet and Activity Activity: as per physical therapy, increase activity as tolerated, wear oxygen at all times Diet: diabetic diet, low fat, low cholesterol, low salt diet, other (fluid restriction 1500ml/day) Hospital course: Ms. Snyder is a 65 year old female with extensive past medical history including combined heart failure, COPD, chronic respiratory failure on oxygen, DVT, diabetes, hyperlipidemia, hypertension, pacemaker placement, morbid obesity, CAD status post CABG and stent. Patient was sent to the emergency department from her long-term nursing care facility with a chief complaint of increasing shortness of breath and fullness in her chest associated with a productive cough 1 day. Patient also endorsing generalized weakness and stating that she was not able to participate in her normal ADLs. Patient denied any fever, chills, nausea vomiting or diarrhea. She denied any chest pain. Workup in the emergency department unremarkable. Chest x-ray negative. Chest CTA ruled out a PE. Chest CTA also revealed possible pneumonia to left lower lobe. The patient was then admitted to the hospitalist service for further evaluation and management. Given that she is a snf resident and has had recent admissions, she was treated for pseudomonal pneumonia. No leukocytosis or signs of sepsis during this admission. No increased need for oxygen. Vital signs remained stable. Patient was treated with vancomycin and Zosyn while admitted and sent back to the snf on Zyvox and levofloxacin. She remained euvolemic on examination and that she stated her pedal edema was consistent with her baseline. Regarding her generalized weakness, she is a long -term resident at [facility], recommended daily physical therapy. Of note, during this admission, patient was extremely unmotivated to get out of bed or participate or to increase her strength. She did attempt to tell staff that she is on MS Contin twice a day, oxycodone 30 mg every 3 hours as well as a fentanyl patch. This was not verified by the snf as she is not on MS Contin and she takes oxycodone every 6 hours. Unable to check OARRS report due to her being a resident. She remained hemodynamically stable. She did not have increased need for oxygen. She was back to her baseline and she was discharged back to [facility] in stable condition with close outpatient follow- up recommended. As far as the risk of readmission is concerned, the patient was completely unwilling to get out of bed and participate in her care. Thus, the patient continues to become more weak, risk of readmission unfortunately would be elevated. ITS Impressions Chest X-Ray 06/08/16 11:04 IMPRESSION: No acute abnormality. D/ / 06/08/2016 11:59:14 Bello Kirk MD / wily Interpreting Provider: Bello Kirk MD Chest CTA 06/08/16 13:00 IMPRESSION: No evidence of pulmonary embolism on limited exam. Mild airspace disease within the left lung which may be related to atelectasis versus pneumonia. D/ / Libby Infante MD / Libby Infante MD Interpreting Provider: Libby Infante MD - Time Spent with Patient Total time spent providing and/or coordinating discharge services: - Constitutional Vitals: Temp Pulse Resp BP Pulse Ox 97.9 F 68 15 137/70 96 06/10/16 11:33 06/10/16 11:33 06/10/16 11:33 06/10/16 11:33 06/10/16 11:33 General appearance: Present: A&O X 3, morbidly obese, pleasant, no acute distress, answers questions appropriately - Head Head exam: Present: atraumatic, normocephalic - Eye Eye exam: Present: PERRL, conjuntiva pink, sclera anicteric Pupils: Present: PERRL - Neck Neck exam general surgery: Present: supple, trachea midline. Absent: lymphadenopathy - Respiratory Respiratory exam: Present: accessory muscle use, decreased breath sounds, prolonged expiratory phase, rhonchi, wheezes. Absent: rales, respiratory distress - Cardiovascular Cardiovascular exam: Present: distant heart sounds (2/2 body habitus), RRR, +S1 , +S2. Absent: diastolic murmur, gallop, rubs, systolic murmur - GI/Abdominal GI/Abdominal exam: Present: normal bowel sounds, soft, no peritoneal signs. Absent: distended, tenderness - Extremities Exam Extremities exam: Present: pedal edema, warm, radial pulses palpable and symetrical. Absent: calf tenderness, cyanotic - Neurological Exam Neurological exam: Present: alert, CN II-XII intact, oriented X3, no focal deficits, strengths equal and symetr throughout. Absent: pronater drift, facial droop, speech deficit - Skin Skin exam: Present: dry, intact, pallor, warm
--- NOTE | 2016-06-10 13:03 | Physician Discharge Referral ---
ExtendedCare Referral Info Transfer To: [facility] Provider in Charge: Victor Manuel Pink CNP Provider in Charge after Transfer: PCP Institutional Level of Care: Skilled - Diagnosis (1) Pneumonia due to Pseudomonas Priority: Primary Status: Acute (2) Congestive heart failure Priority: Secondary Status: Chronic (3) DM (diabetes mellitus), type 2 Priority: Secondary Status: Chronic (4) AICD (automatic cardioverter/defibrillator) present Priority: Secondary Status: Chronic (5) Acute and chronic respiratory failure with hypoxia Priority: Secondary Status: Chronic (6) Anemia Priority: Secondary Status: Chronic (7) BiPAP (biphasic positive airway pressure) dependence Priority: Secondary Status: Chronic (8) COPD (chronic obstructive pulmonary disease) Priority: Secondary Status: Chronic (9) DVT prophylaxis Priority: Primary Status: Acute (10) Hypertension Priority: Secondary Status: Chronic (11) Polypharmacy Priority: Secondary Status: Chronic (12) CAD (coronary artery disease) Priority: Secondary Status: Chronic (13) Generalized weakness Priority: Secondary Status: Chronic (14) Obstructive sleep apnea Priority: Secondary Status: Chronic (15) Morbid obesity with BMI of 45.0-49.9, adult Priority: Secondary Status: Chronic Prognosis: Fair Aware of Diagnosis: Patient Aware of Prognosis: Patient - Transfer Medications Prescriptions: Oxycodone HCl [Roxicodone 30 MG Immed Release] 30 mg PO Q6HR #25 tab Alprazolam [Xanax 0.5 MG Tablet] 0.5 mg PO TID PRN #15 tablet PRN Reason: Anxiety FentaNYL PATCH [Duragesic] 50 mcg TD Q72H #1 patch.td72 Levofloxacin 750 mg PO Q24H #6 tablet Linezolid [Zyvox] 600 mg PO BID #12 tablet Home Medications: Amiodarone [Cordarone] 200 mg PO DAILY 12/12/14 [History] Baclofen 10 mg PO QID 12/12/14 [History] Budesonide/Formoterol Fumarate [Symbicort 160-4.5 Mcg Inhaler] 2 puff IH BID [History] Bumetanide 1 mg PO BID 12/12/14 [History] Cholecalciferol (Vitamin D3) [Vitamin D3] 2,000 unit PO DAILY 12/12/14 [History] Duloxetine HCl [Cymbalta] 60 mg PO DAILY 12/12/14 [History] Ezetimibe [Zetia] 10 mg PO DAILY 12/12/14 [History] Ferrous Sulfate 325 mg PO DAILY 12/12/14 [History] Fluticasone Propionate Nasal [Flonase] 50 mcg NS DAILY PRN 12/12/14 [History] Folic Acid 1 mg PO QAM 12/12/14 [History] Hydroxychloroquine Sulfate [Plaquenil] 200 mg PO BID 12/12/14 [History] Insulin DETEMIR [Levemir Flextouch] 70 unit SQ BID 12/12/14 [History] Isosorbide MONOnitrate [Isosorbide Mononitrate ER] 120 mg PO DAILY 12/12/14 [ History] Loratadine [Loradamed] 10 mg PO DAILY 12/12/14 [History] Metoprolol Succinate 50 mg PO DAILY 12/12/14 [History] Montelukast Sodium [Singulair] 10 mg PO DAILY 12/12/14 [History] Sertraline HCl [Zoloft] 50 mg PO HS 12/12/14 [History] Theophylline Anhydrous [Theodur] 300 mg PO BID 12/12/14 [History] Tiotropium [place] [Spiriva] 18 mcg IH DAILY 12/12/14 [History] Trazodone HCl 300 mg PO HS 12/12/14 [History] Verapamil ER (24 HR) [Calan SR] 240 mg PO DAILY 12/12/14 [History] Meclizine [Antivert] 12.5 mg PO TID PRN 14 Days 04/05/15 [Rx] Metoclopramide [Reglan] 10 mg PO Q8HR 7 Days 04/05/15 [Rx] Aspirin Enteric Coated [Aspirin EC] 325 mg PO DAILY #21 tablet. 06/08/15 [Rx] Bisacodyl [Dulcolax] 10 mg RC DAILY PRN 08/26/15 [History] Docusate [Colace] 100 mg PO DAILY 08/26/15 [History] Ipratropium/Albuterol Neb [Duoneb] 3 ml IH Q4HR PRN 08/26/15 [History] Polyethylene Glycol 3350 [Gavilax] 17 gm PO DAILY 08/26/15 [History] Acetaminophen [Tylenol] 650 mg PO Q4HR PRN 10/16/15 [History] Gabapentin [Neurontin] 100 mg PO TID 14 Days 10/17/15 [Rx] Naloxone [Narcan] 0.4 mg IV Q2MIN PRN #0 inj 10/17/15 [Rx] Calcium Carbonate/Vitamin D3 [Calcium 600-Vit D3 400 Tablet] 1 tab PO BID [History] Omeprazole 20 mg PO DAILY 05/30/16 [History] Ibuprofen [Motrin] 600 mg PO BID PRN 06/08/16 [History] Insulin LISPRO [HumaLOG] 0 units SQ TIDWM 06/08/16 [History] Lactulose 20 gm PO DAILY PRN 06/08/16 [History] Losartan Potassium [Cozaar] 100 mg PO DAILY 06/08/16 [History] Ropinirole HCl [Requip] 2 mg PO HS 06/08/16 [History] Alprazolam [Xanax 0.5 MG Tablet] 0.5 mg PO TID PRN #15 tablet 06/10/16 [Rx] FentaNYL PATCH [Duragesic] 50 mcg TD Q72H #1 patch.td72 06/10/16 [Rx] Levofloxacin 750 mg PO Q24H #6 tablet 06/10/16 [Rx] Linezolid [Zyvox] 600 mg PO BID #12 tablet 06/10/16 [Rx] Oxycodone HCl [Roxicodone 30 MG Immed Release] 30 mg PO Q6HR #25 tab 06/10/16 [ Rx] Allergies/Adverse Reactions: Allergies tuberculin, purified protein deriva [tuberculin,purif.prot.deriv.] Allergy (Mild , Verified 12/12/14 11:15) Hives carvedilol [From Coreg] Adverse Reaction (Intermediate, Verified 12/12/14 11:15) Anxiety ranolazine [From Ranexa] Adverse Reaction (Intermediate, Verified 12/12/14 11:15 ) nausea, vomiting Ujmzvsx-Fwr-Qbm Reductase Inhibitor [Statins] Adverse Reaction (Intermediate, Verified 12/12/14 11:15) muscle dysfunction - Respiratory Orders Oxygen / L per min (3-4) Smoking Cessation: Smoking cessation has been advised. For more information, call the [place] Tobacco Quit Line at 2-452-HEDP-NOW. - Ancillary Orders May use pressure relief devices daily prn, May go on ANASTASIA w/family/respon constitution party w /meds at nurse discretion PRN, May have alcoholic beverages, May consult with Dentist, Handle Bender, Sales Research Analyst PRN - Advance Directives Living Will: Yes Power of Lithostripper: Yes Code Status: Full Code - Mobility Orders Ambulate (per PT) - Rehabiliation Orders Rehab Potential: Fair Rehab Orders: ROM Exercises, Evaluation for Physical Therapy, Evaluation for Occupational Therapy - Treatments Skin tear care topically daily PRN per policy, May check for fecal impaction rectally daily PRN, Fleet enema rectally every other day PRN cleansing purposes - Diet Orders No Added Salt (GABINO), No Concentrated Sweets, Cardiac (fluid [id number]/ day) CERTIFICATION: I certify that the transfer of the above named patient to an Extended Care Facility is necessary for the continuing treatment of the diagnosis listed. The above information is true and accurate reflection of patient's current condition. Confidential - Redisclosure prohibited without a patient's written consent.
[2016-06-10] MEDS ORDERED: Aminoglycoside Consult 1 EACH MC ONE (13:54)
[2016-06-10] MEDS ORDERED: Bumetanide 1 MG TABLET PO SCH (17:00)
== END 2016-06-10 13:55 ==
LOC: 3BNU 10:52 → EMEROO 10:52 → 3BNU 16:42
PROVIDERS: ADMIT Family Medicine; ATTEND Nurse Practitioner Family

== ENCOUNTER 2017-08-01 22:32 | Inpatient (IN) ==
--- NOTE | 2017-08-01 22:54 | Emergency Department Note ---
Disposition Clinical Impression: HCAP (healthcare-associated pneumonia), Hypoxia UTI (urinary tract infection) Qualifiers: Urinary tract infection type: site unspecified Hematuria presence: without hematuria Qualified Code(s): N39.0 - Urinary tract infection, site not specified Cellulitis Qualifiers: Site of cellulitis: trunk Site of cellulitis of trunk: abdominal wall Qualified Code(s): L03.311 - Cellulitis of abdominal wall Sepsis Qualifiers: Sepsis type: sepsis due to unspecified organism Qualified Code(s): A41.9 - Sepsis, unspecified organism Disposition: Admitted As Inpatient Condition: Fair General Adult HPI - General Stated complaint: fever, SOB Time Seen by Provider: 08/01/17 22:35 Source: patient, EMS Mode of arrival: EMS Nursing Notes Reviewed: Yes Vital Signs Reviewed: Yes - History of Present Illness HPI Narrative: 66-year-old female with significant past medical history of CAD, COPD and diabetes presenting to the emergency Department chief complaint of hypoxia and fever. Patient is a [facility] at a [facility]. According to the nursing facility the patient has not been feeling well for approximately one week. Today when they checked on her she was hypoxic in the low 80s and called EMS. Patient is a and O 2 in the room. She responds to questions but minimally. Majority of the history of present illness obtained from EMS and nursing Notes. Upon presentation patient states her only complaint is pain in her bottom. Patient denies chest pain or shortness of breath. - Related Data Home Medications Medication Instructions Recorded Confirmed Amiodarone [Cordarone] 200 mg PO DAILY 12/12/14 08/02/17 Baclofen 10 mg PO QID 12/12/14 08/02/17 Budesonide/Formoterol Fumarate 2 puff IH BID 12/12/14 08/02/17 [Symbicort 160-4.5 Mcg Inhaler] Bumetanide 1 mg PO BID 12/12/14 08/02/17 Cholecalciferol (Vitamin D3) 2,000 unit PO DAILY 12/12/14 08/02/17 [Vitamin D3] Duloxetine HCl [Cymbalta] 60 mg PO DAILY 12/12/14 08/02/17 Ezetimibe [Zetia] 10 mg PO DAILY 12/12/14 08/02/17 Ferrous Sulfate 325 mg PO DAILY 12/12/14 08/02/17 Fluticasone Propionate Nasal 50 mcg NS DAILY PRN 12/12/14 08/02/17 [Flonase] Folic Acid 1 mg PO QAM 12/12/14 08/02/17 Hydroxychloroquine Sulfate 200 mg PO BID 12/12/14 08/02/17 [Plaquenil] Insulin DETEMIR [Levemir Flextouch] 70 unit SQ BID 12/12/14 08/02/17 Isosorbide MONOnitrate [Isosorbide 120 mg PO DAILY 12/12/14 08/02/17 Mononitrate ER] Loratadine [Loradamed] 10 mg PO DAILY 12/12/14 08/02/17 Metoprolol Succinate 50 mg PO DAILY 12/12/14 08/02/17 Montelukast Sodium [Singulair] 10 mg PO DAILY 12/12/14 08/02/17 Sertraline HCl [Zoloft] 50 mg PO HS 12/12/14 08/02/17 Theophylline Anhydrous [Theodur] 300 mg PO BID 12/12/14 08/02/17 Trazodone HCl 300 mg PO HS 12/12/14 08/02/17 Verapamil ER (24 HR) [Calan SR] 240 mg PO DAILY 12/12/14 08/02/17 Bisacodyl [Dulcolax] 10 mg RC DAILY PRN 08/26/15 08/02/17 Docusate [Colace] 100 mg PO DAILY 08/26/15 08/02/17 Ipratropium/Albuterol Neb [Duoneb] 3 ml IH Q4HR PRN 08/26/15 08/02/17 Polyethylene Glycol 3350 [Gavilax] 17 gm PO DAILY 08/26/15 08/02/17 Acetaminophen [Tylenol] 650 mg PO Q4HR PRN 10/16/15 08/02/17 Calcium Carbonate/Vitamin D3 1 tab PO BID 05/30/16 08/02/17 [Calcium 600-Vit D3 400 Tablet] Omeprazole 20 mg PO DAILY 05/30/16 08/02/17 Ibuprofen [Motrin] 600 mg PO BID PRN 06/08/16 08/02/17 Losartan Potassium [Cozaar] 100 mg PO DAILY 06/08/16 08/02/17 Ropinirole HCl [Requip] 2 mg PO HS 06/08/16 08/02/17 Previous Rx's Medication Instructions Recorded Meclizine [Antivert] 12.5 mg PO TID PRN 14 Days tablet 04/05/15 Aspirin Enteric Coated [Aspirin EC] 325 mg PO DAILY #21 tablet. 06/08/15 Naloxone [Narcan] 0.4 mg IV Q2MIN PRN #0 inj 10/17/15 FentaNYL PATCH [Duragesic] 50 mcg TD Q72H #1 patch.td72 06/10/16 Oxycodone HCl [Roxicodone 30] 30 mg PO Q6HR #25 tab 06/10/16 Allergies Allergy/AdvReac Type Severity Reaction Status Date / Time tuberculin, purified protein Allergy Mild Hives Verified 12/12/14 11:15 deriva [tuberculin,purif.prot.deriv.] carvedilol [From Coreg] AdvReac Intermediate Anxiety Verified 12/12/14 11:15 ranolazine [From Ranexa] AdvReac Intermediate nausea, Verified 12/12/14 11:15 vomiting [id number] Reductase AdvReac Intermediate muscle Verified 12/12/14 11:15 Inhibitor dysfunction [Statins] All systems ED: reviewed and negative except as stated. Constitutional: Reports: fever Musculoskeletal: Reports: arthralgia Past Medical History - Past Medical History Attestation: Yes The following information was validated with the patient. Medical history: Reports: CHF, COPD, DVT, diabetes, hyperlipidemia, hypertension , myocardial infarction, other Surgical history: Reports: angioplasty/stent, cholecystectomy, coronary bypass ( CABG), hysterectomy, pacemaker/AICD, other Psychiatric history: Reports: anxiety, depression [employer] history: Reports: no [employer] history - Social History Smoking Status: Former smoker Smokeless Tobacco Status: No Alcohol use: Reports: none Drug use: Reports: none Physical Exam - General General appearance: alert - Head Head exam: atraumatic, normocephalic, normal inspection - Eye Eye exam: Present: normal appearance. Absent: scleral icterus, conjunctival injection - ENT ENT exam: mucous membranes dry - Neck Neck exam: Present: normal inspection, full ROM. Absent: tenderness, meningismus - Chest Chest inspection: Present: normal inspection, symmetric chest wall rise. Absent : tenderness, rash - Respiratory Respiratory exam: Present: other (Decreased breath sounds throughout) - Cardiovascular Cardiovascular exam: Present: normal rhythm, tachycardia - Abdominal Exam Abdominal exam: Present: soft, Non-Tender. Absent: distention, guarding, rebound - Extremities Exam Extremities exam: Present: normal inspection, full ROM - Neurological Exam Neurological exam: Present: alert - Psychiatric Psychiatric exam: Present: normal affect, normal mood - Skin Skin exam: Present: warm, intact Course Course Narrative: 66-year-old female presenting to the emergency department for fever and hypoxia. Upon presentation patient's oxygen saturation 80% on room air. Patient was placed on 6 L nasal cannula and oxygen saturation elevated to upper 90s. During examination patient has coarse breath sounds throughout. Patient also has pus filled urine coming out of her Cristobal. Patient is alert in the room. Patient also tachycardic on exam. We will obtain a sepsis workup at this time. We will also had a CT of the chest and abdomen. Disposition most likely admission but pending results. - Reevaluation(s) Reevaluation #1: Patient's laboratory analysis shows a elevated white blood cell count at 38.7. Also has elevated troponin at 1.65. Patient denies chest pain. Urine analysis shows urinary tract infection. CT of the chest shows pneumonia. CT of the abdomen shows abdominal wall cellulitis. At this time we we will provide the patient will 4 L of fluid per sepsis protocol. We will also provide her with vanc, Levaquin and Zosyn. We will also provide the patient with aspirin and ACS dosing heparin for her elevated troponin. Patient is alert in the room. Vital signs stable. I spoke with the hospitalist on-call Dr. Kearns who agrees to accept the patient at this time. Vital Signs Temperature 98.7 F 08/01/17 22:47 Pulse Rate 118 08/01/17 22:47 Respiratory Rate 20 08/01/17 22:47 Blood Pressure 134/73 08/01/17 22:47 O2 Sat by Pulse Oximetry 93 08/01/17 22:47 Temperature 99.8 F H 08/02/17 04:15 Pulse Rate 112 08/02/17 04:15 Respiratory Rate 20 08/02/17 04:15 Blood Pressure 129/70 08/02/17 04:15 O2 Sat by Pulse Oximetry 93 08/02/17 04:25 Oxygen Delivery Oxygen Delivery Nasal Cannula Medical Decision Making - Lab Data Result diagrams: 08/01/17 23:39 08/01/17 23:39 Lab Results 08/01/17 08/01/17 08/01/17 Range/Units 23:39 23:39 23:39 WBC 38.7 H* (4.3-11.1) K/mcL RBC 4.51 (3.82-4.97) M/mcL Hgb 10.9 L (11.5-15.4) g/dL Hct 34.3 L (35.3-44.9) % MCV 76.1 L (83.0-100.0) fL MCH 24.2 L (28.0-33.3) pg MCHC 31.8 (31.6-35.5) g/dL RDW 17.4 H (11.5-14.5) % Plt Count 296 (140-400) K/mcL MPV 8.4 L (9.4-12.4) fL Immature Gran % 8.7 H (0-4) % Seg Neutrophils % 87.7 % Lymphocytes % 1.5 % Monocytes % 1.9 % Eosinophils % 0.0 % Basophils % 0.2 % Neutrophils # 33.9 H (1.6-8.9) K/mcL Lymphocytes # 0.6 (0.6-4.6) K/mcL Monocytes # 0.7 (0.0-1.3) K/mcL Eosinophils # 0.0 (0.0-0.6) K/mcL Basophils # 0.1 (0.0-0.2) K/mcL Platelet Estimate Normal (Normal) PT 16.7 H (9.4-12.1) Seconds INR 1.5 APTT 33.0 (26.0-36.0) Seconds Sample Site ABG pH (7.32-7.45) pH Units ABG pCO2 (35-45) mmHg ABG pO2 (85-104) mmHg ABG HCO3 (21-27) mEq/L ABG Total CO2 (20-26) mEq/L ABG O2 Saturation (95-98) % ABG Base Excess (-2 to 3) mEq/L Maged Test O2 Delivery Device Inspired O2 (1-15=lpm [id number]=%) Sodium 134 L (136-145) mEq/L Potassium 3.0 L (3.5-5.1) mEq/L Chloride 97 L (98-107) mEq/L Carbon Dioxide 27 (23-29) mEq/L BUN 20 (8-23) mg/dL Creatinine 0.78 (0.60-1.20) mg/dL Est GFR ( Amer) > 60 (> 60) Est GFR (Non-Af Amer) > 60 (> 60) BUN/Creatinine Ratio 26 (6-26) Glucose 124 H (70-105) mg/dL Calculated Osmolality 282 (280-300) Lactic Acid (0.5-2.2) mmol/L Calcium 8.9 (8.6-10.3) mg/dL Total Bilirubin 0.9 (0.3-1.0) mg/dL Direct Bilirubin 0.5 H (0.0-0.2) mg/dL Indirect Bilirubin 0.4 (0.0-1.2) mg/dL AST 15 (13-39) Units/L ALT 7 (7-52) Units/L Alkaline Phosphatase 118 H (34-104) Units/L Troponin I 1.65 H* (< 0.04) ng/mL Serum Total Protein 6.3 L (6.4-8.9) g/dL Albumin 2.9 L (3.5-5.7) g/dL Globulin 3.4 (2.4-3.5) g/dL Albumin/Globulin Ratio 0.9 L (1.1-2.2) Urine Color (Yellow) Urine Clarity (Clear) Urine pH (5.0-8.0) pH Units Ur Specific [place] (1.010-1.025) Urine Protein (Neg-Trace) mg/dL Urine Glucose (UA) (Normal) mg/dL Urine Ketones (Negative) mg/dL Urine Blood (Negative) Urine Nitrite (Negative) Urine Bilirubin (Negative) Urine Urobilinogen (Normal) mg/dL Ur Leukocyte Esterase (Negative) Urine Microscopic RBC (0-3) per hpf Urine Microscopic WBC (0-3) per hpf Ur Squamous Epith Cells (None-Few) per lpf Urine Bacteria (None-Few) per hpf Hyaline Casts (None-Few) per lpf Ur Culture Indicated? (NO) 08/01/17 08/02/17 08/02/17 Range/Units 23:39 00:32 02:39 WBC (4.3-11.1) K/mcL RBC (3.82-4.97) M/mcL Hgb (11.5-15.4) g/dL Hct (35.3-44.9) % MCV (83.0-100.0) fL MCH (28.0-33.3) pg MCHC (31.6-35.5) g/dL RDW (11.5-14.5) % Plt Count (140-400) K/mcL MPV (9.4-12.4) fL Immature Gran % (0-4) % Seg Neutrophils % % Lymphocytes % % Monocytes % % Eosinophils % % Basophils % % Neutrophils # (1.6-8.9) K/mcL Lymphocytes # (0.6-4.6) K/mcL Monocytes # (0.0-1.3) K/mcL Eosinophils # (0.0-0.6) K/mcL Basophils # (0.0-0.2) K/mcL Platelet Estimate (Normal) PT (9.4-12.1) Seconds INR APTT (26.0-36.0) Seconds Sample Site R Radial ABG pH 7.50 H (7.32-7.45) pH Units ABG pCO2 35 (35-45) mmHg ABG pO2 72 L (85-104) mmHg ABG HCO3 27 (21-27) mEq/L ABG Total CO2 28 H (20-26) mEq/L ABG O2 Saturation 96 (95-98) % ABG Base Excess 4 H (-2 to 3) mEq/L Maged Test Positive O2 Delivery Device Cannula Inspired O2 5.0 (1-15=lpm [id number]=%) Sodium (136-145) mEq/L Potassium (3.5-5.1) mEq/L Chloride (98-107) mEq/L Carbon Dioxide (23-29) mEq/L BUN (8-23) mg/dL Creatinine (0.60-1.20) mg/dL Est GFR ( Amer) (> 60) Est GFR (Non-Af Amer) (> 60) BUN/Creatinine Ratio (6-26) Glucose (70-105) mg/dL Calculated Osmolality (280-300) Lactic Acid 1.2 (0.5-2.2) mmol/L Calcium (8.6-10.3) mg/dL Total Bilirubin (0.3-1.0) mg/dL Direct Bilirubin (0.0-0.2) mg/dL Indirect Bilirubin (0.0-1.2) mg/dL AST (13-39) Units/L ALT (7-52) Units/L Alkaline Phosphatase (34-104) Units/L Troponin I (< 0.04) ng/mL Serum Total Protein (6.4-8.9) g/dL Albumin (3.5-5.7) g/dL Globulin (2.4-3.5) g/dL Albumin/Globulin Ratio (1.1-2.2) Urine Color Dark Yellow (Yellow) Urine Clarity Cloudy A (Clear) Urine pH 5.5 (5.0-8.0) pH Units Ur Specific [place] 1.024 (1.010-1.025) Urine Protein 100 H (Neg-Trace) mg/dL Urine Glucose (UA) Normal (Normal) mg/dL Urine Ketones 15 H (Negative) mg/dL Urine Blood Moderate H (Negative) Urine Nitrite Positive A (Negative) Urine Bilirubin Small H (Negative) Urine Urobilinogen Normal (Normal) mg/dL Ur Leukocyte Esterase Moderate H (Negative) Urine Microscopic RBC 5-15 H (0-3) per hpf Urine Microscopic WBC TNTC H (0-3) per hpf Ur Squamous Epith Cells Many H (None-Few) per lpf Urine Bacteria Many H (None-Few) per hpf Hyaline Casts None Seen (None-Few) per lpf Ur Culture Indicated? NO. (NO) - EKG Data EKG #1 EKG attestation: Yes I reviewed and interpreted this EKG. EKG results narrative: Sinus tachycardia with PVCs. 120 beats for minute. WI interval 155, QRS 117, QTc 386. No signs of acute ST segment elevation or ischemia. Attestation Statement - Attestation Attestation: I examined this patient and my medical decision-making was reviewed with the Resident Physician. I agree with the documented findings, disposition and treatment plan as described except to the extent set forth below. Findings consistent with sepsis from various sources including abdominal cellulitis, urinary tract infection, pneumonia. There is possible lung mass. The patient has a baseline confusion which is intermittent. She arrives with systemic inflammatory response syndrome. She was responsive to a 30 mL per kilogram fluid bolus. She was covered with broad-spectrum antibiotics. CT scan confirms pneumonia and urinalysis is still suggesting underlying urinary tract infection which is consistent with physical examination's with a pus coming from the Cristobal catheter. The patient will be admitted to the intensive care unit due to ongoing hypoxia and for treatment of sepsis. I spent greater than 60 minutes of critical care time resuscitating this acutely ill patient suffering from sepsis requiring multiple antibiotics and hemodynamic support. This is excluding billable procedures.
[2017-08-01 23:58] LABS: Basophils # 0.1 K/mcL (0.0-0.2); Basophils % 0.2 %; Hematocrit 34.3 % (35.3-44.9); Hemoglobin 10.9 g/dL (11.5-15.4); Immature Granulocytes % 8.7 % (0-4); Lymphocytes # 0.6 K/mcL (0.6-4.6); Lymphocytes % 1.5 %; Mean Corpuscular HGB Conc 31.8 g/dL (31.6-35.5); Mean Corpuscular Hemoglobin 24.2 pg (28.0-33.3); Mean Corpuscular Volume 76.1 fL (83.0-100.0); Mean Platelet Volume 8.4 fL (9.4-12.4); Monocytes # 0.7 K/mcL (0.0-1.3); Monocytes % 1.9 %; Neutrophils # 33.9 K/mcL (1.6-8.9); Platelet Count 296 K/mcL (140-400); Red Blood Count 4.51 M/mcL (3.82-4.97); Red Cell Distribution Width 17.4 % (11.5-14.5); Segmented Neutrophils % 87.7 %
[2017-08-02 00:03] LABS: INR 1.5; Prothrombin Time 16.7 Seconds (9.4-12.1)
[2017-08-02 00:20] LABS: Alanine Aminotransferase 7 Units/L (7-52); Albumin 2.9 g/dL (3.5-5.7); Albumin/Globulin Ratio 0.9 (1.1-2.2); Alkaline Phosphatase 118 Units/L (34-104); Aspartate Amino Transferase 15 Units/L (13-39); BUN/Creatinine Ratio 26 (6-26); Bilirubin,Direct 0.5 mg/dL (0.0-0.2); Bilirubin,Indirect 0.4 mg/dL (0.0-1.2); Bilirubin,Total 0.9 mg/dL (0.3-1.0); Blood Urea Nitrogen 20 mg/dL (8-23); Calcium 8.9 mg/dL (8.6-10.3); Carbon Dioxide 27 mEq/L (23-29); Chloride 97 mEq/L (98-107); Globulin 3.4 g/dL (2.4-3.5); Glucose 124 mg/dL (70-105); Osmolality,Calculated 282 (280-300); Sodium 134 mEq/L (136-145); Total Protein 6.3 g/dL (6.4-8.9); eGFR For African Americans > 60 (> 60); eGFR For Non-African Americans > 60 (> 60)
[2017-08-02 00:29] LABS: Troponin I 1.65 ng/mL (< 0.04)
[2017-08-02 00:30] LABS: Platelet Estimate Normal (Normal)
[2017-08-02 00:39] LABS: Bilirubin,Urine Small (Negative); Blood,Urine Moderate (Negative); Clarity,Urine Cloudy (Clear); Color,Urine Dark Yellow (Yellow); Glucose,Urine (UA) Normal (Normal); Ketones,Urine 15 mg/dL (Negative); Leukocyte Esterase,Urine Moderate (Negative); Nitrite,Urine Positive (Negative); PH,Urine 5.5 pH Units (5.0-8.0); Protein,Urine 100 mg/dL (Neg-Trace); Specific Gravity,Urine 1.024 (1.010-1.025); Urobilinogen,Urine Normal (Normal)
[2017-08-02 00:41] LABS: Bacteria,Urine Many per hpf (None-Few); Squamous Epithelial Cell,Urine Many per lpf (None-Few); WBC,Urine TNTC per hpf (0-3)
[2017-08-02 00:55] LABS: Hyaline Casts,Urine None Seen per lpf (None-Few)
[2017-08-02] MEDS: 0.9 % Sodium Chloride 1,000 ML IVC SCH ×5 (01:13→07:45)
[2017-08-02] MEDS ORDERED: Piperacillin/Tazobactam 3.375 GM in 0.9 % Sodium Chloride Mini Bag 100 ML IVPB ONE (01:31)
[2017-08-02] MEDS ORDERED: Levofloxacin 750 MG/150 ML 750 MG/150 ML BAG IVPB ONE (01:31)
[2017-08-02] MEDS ORDERED: *HR* Heparin 5,000 UNIT/ML VIAL IVP PRN ×2 (01:32)
[2017-08-02] MEDS ORDERED: *HR* Heparin 5,000 UNIT/ML VIAL IVP ONE (01:32)
[2017-08-02] MEDS ORDERED: Aspirin 81 MG TAB.CHEW PO ONE (01:34)
[2017-08-02] MEDS ORDERED: Naloxone 0.4 MG/ML INJ IVP PRN (01:57)
[2017-08-02] MEDS ORDERED: Acetaminophen 325 MG TABLET PO PRN (01:57)
[2017-08-02] MEDS ORDERED: Fluticasone Propionate Nasal 50 MCG/SPRAY BOTTLE NS PRN (02:03)
--- NOTE | 2017-08-02 02:09 | Internal Med History&Physical ---
Date of Encounter: 08/02/17 Time of Encounter: 02:06 Assessment and Plan (1) Sepsis Current visit: Yes Status: Acute Meets criteria with leukocytosis, tachycardia, tachypnea and a source of pneumonia and urinary tract infection. Normal lactic acid. Follow up on blood cultures. Was given IV fluids per sepsis protocol. Was given about 4 L. We will have to be careful with IV fluids given history of CHF. Treat underlying sources as below. Qualifiers: Sepsis type: sepsis due to unspecified organism Qualified Code(s): A41.9 - Sepsis, unspecified organism (2) HCAP (healthcare-associated pneumonia) Current visit: Yes Status: Acute Patient was given vancomycin, Zosyn, vancomycin. We will continue vancomycin and Zosyn. Follow up on culture. Check sputum cultures. Check urine strep and Legionella. Continue nebs. O2 support and wean down as tolerated. (3) UTI (urinary tract infection) Current visit: Yes Status: Acute Follow up on cultures. Zosyn should cover. Qualifiers: Urinary tract infection type: site unspecified Hematuria presence: without hematuria Qualified Code(s): N39.0 - Urinary tract infection, site not specified (4) NSTEMI (non-ST elevated myocardial infarction) Current visit: Yes Status: Acute Possibly demand ischemia. We will trend cardiac enzymes. EKG with no ST or T- wave changes. Started on a heparin drip which I will continue. Check echocardiogram. Consult cardiology. Resume previous cardiac meds. Telemetry (5) Abnormal CT of the chest Current visit: Yes Status: Acute Ms. a mention of a possible underlying obstructing mass on the CT chest. The CAT scan may just need to be repeated down the road after treatment for pneumonia. We will have pulmonary evaluate the patient. (6) Liver lesion Current visit: Yes Status: Acute Multiple foci noted on the CT abdomen and pelvis. With findings noted on the CT of suspected mass, this could be metastasis. Would recommend an MRI liver protocol once patient acute illness is resolved. (7) Transaminitis Current visit: Yes Status: Acute Alkaline phosphatase and direct bilirubin are elevated area and likely from sepsis. But also there is a few lesions noted on the liver. (8) Abdominal wall cellulitis Current visit: Yes Status: Acute This was commented on on the CT abdomen and pelvis. Not really very impressive on exam. Zosyn and vancomycin should cover. Continue to monitor. (9) CAD (coronary artery disease) Current visit: No Status: Chronic Resume home cardiac meds. Qualifiers: Coronary Disease-Associated Artery/Lesion type: bypass graft [place] vs. transplanted heart: [place] heart Associated angina: without angina Qualified Code(s): I25.810 - Atherosclerosis of coronary artery bypass graft(s) without angina pectoris (10) CKD (chronic kidney disease), stage III Current visit: No Status: Chronic Kidney function is stable. Continue to monitor. (11) COPD (chronic obstructive pulmonary disease) Current visit: No Status: Chronic Is not in exacerbation. No wheezes on exam. Resume previous inhalers. Qualifiers: COPD type: emphysema Emphysema type: unspecified Qualified Code(s): J43.9 - Emphysema, unspecified (12) History of atrial fibrillation Current visit: No Status: Chronic Not on anticoagulation. Continue beta clarissa and amiodarone. Continue aspirin. (13) Insulin dependent diabetes mellitus Current visit: No Status: Chronic We will put the patient on insulin sliding scale for now. Patient is going to be nothing by mouth for now until evaluated by cardiology and pulmonary. Patient is on basal insulin from the nursing facility. Monitor glucose with Accu-Cheks. (14) Hypertension Current visit: No Status: Chronic Resume previous antihypertensives Qualifiers: Hypertension type: essential hypertension Qualified Code(s): I10 - Essential (primary) hypertension (15) DVT prophylaxis Current visit: Yes Status: Acute The patient is started on heparin drip. Internal Medicine - H&P: HPI Chief complaint: Shortness of breath Admitted From: Emergency Dept Plans for Post Hospital Care: Transfer [facility] History of present illness: Ms. Snyder is a 66 year old female with extensive past medical history including combined heart failure, COPD, chronic respiratory failure on oxygen, DVT, diabetes, hyperlipidemia, hypertension, pacemaker placement, morbid obesity, CAD status post CABG and stent was sent from her nursing facility with shortness of breath, decreased responsiveness, lethargy, fever. Apparently the patient was 82% on room air upon arrival and was put on about 5 L of nasal cannula oxygen with a sats coming up to the mid 90s. The patient does not really answer much of any questions other than yes and no questions. She is able to say her name and knows that she is in [facility]. According to the ED staff this is her baseline. On initial presentation as mentioned above the patient was hypoxic. She was tachycardic. She was afebrile. Initial workup in the ED showed a white count of 38,000's. Hemoglobin of 10.9 consistent with baseline. Potassium was 3.0 with normal kidney function. Troponin I was checked and was 1.65. EKG with sinus tachycardia with no ST or T-wave abnormalities. Alkaline phosphatase was elevated at 2018 and previously normal. Direct bilirubin was elevated at 0.5 with previous to be normal. Normal AST and ALT. UA was positive. Lactic acid was 1.2. A CT abdomen and pelvis was done as well as a CT chest. CT abdomen and pelvis showed right lateral abdominal wall cellulitis. There was an indeterminate low attenuation foci throughout the liver and a CT scan or MRI liver protocol was recommended. A CT chest showed right lower lobe pneumonia with underlying obstructing mass unable to be excluded. Past Med Surg Social Fam HX - Past Medical History Medical history: CHF, COPD, DVT, diabetes, hyperlipidemia, hypertension, myocardial infarction, other Psychiatric history: anxiety, depression - Past Surgical History Surgical History: angioplasty/stent, cholecystectomy, coronary bypass (CABG), hysterectomy, pacemaker/AICD, other - Social History Smoking Status: Former smoker Smokeless Tobacco Status: No Alcohol use: none Drug use: none - Family History Mother Adopted: No Living Status: Hx Family Cardiac Disorders: Yes Hx Family Respiratory Disorders: No Hx Family Cancer: No Hx Family GI Disorders: Yes Hx Family Endocrine Disorder: Yes Hx Family Neuromuscular Disorders: No Hx Family Neurologic Disorders: No Hx Family HEENT Disorders: No Hx Family Autoimmune Disorders: No Internal Medicine - H&P: Meds Amiodarone [Cordarone] 200 mg PO DAILY 12/12/14 [History] Baclofen 10 mg PO QID 12/12/14 [History] Budesonide/Formoterol Fumarate [Symbicort 160-4.5 Mcg Inhaler] 2 puff IH BID [History] Bumetanide 1 mg PO BID 12/12/14 [History] Cholecalciferol (Vitamin D3) [Vitamin D3] 2,000 unit PO DAILY 12/12/14 [History] Duloxetine HCl [Cymbalta] 60 mg PO DAILY 12/12/14 [History] Ezetimibe [Zetia] 10 mg PO DAILY 12/12/14 [History] Ferrous Sulfate 325 mg PO DAILY 12/12/14 [History] Fluticasone Propionate Nasal [Flonase] 50 mcg NS DAILY PRN 12/12/14 [History] Folic Acid 1 mg PO QAM 12/12/14 [History] Hydroxychloroquine Sulfate [Plaquenil] 200 mg PO BID 12/12/14 [History] Insulin DETEMIR [Levemir Flextouch] 70 unit SQ BID 12/12/14 [History] Isosorbide MONOnitrate [Isosorbide Mononitrate ER] 120 mg PO DAILY 12/12/14 [ History] Loratadine [Loradamed] 10 mg PO DAILY 12/12/14 [History] Metoprolol Succinate 50 mg PO DAILY 12/12/14 [History] Montelukast Sodium [Singulair] 10 mg PO DAILY 12/12/14 [History] Sertraline HCl [Zoloft] 50 mg PO HS 12/12/14 [History] Theophylline Anhydrous [Theodur] 300 mg PO BID 12/12/14 [History] Trazodone HCl 300 mg PO HS 12/12/14 [History] Verapamil ER (24 HR) [Calan SR] 240 mg PO DAILY 12/12/14 [History] Meclizine [Antivert] 12.5 mg PO TID PRN 14 Days tablet 04/05/15 [Rx] Aspirin Enteric Coated [Aspirin EC] 325 mg PO DAILY #21 tablet. 06/08/15 [Rx] Bisacodyl [Dulcolax] 10 mg RC DAILY PRN 08/26/15 [History] Docusate [Colace] 100 mg PO DAILY 08/26/15 [History] Ipratropium/Albuterol Neb [Duoneb] 3 ml IH Q4HR PRN 08/26/15 [History] Polyethylene Glycol 3350 [Gavilax] 17 gm PO DAILY 08/26/15 [History] Acetaminophen [Tylenol] 650 mg PO Q4HR PRN 10/16/15 [History] Naloxone [Narcan] 0.4 mg IV Q2MIN PRN #0 inj 10/17/15 [Rx] Calcium Carbonate/Vitamin D3 [Calcium 600-Vit D3 400 Tablet] 1 tab PO BID [History] Omeprazole 20 mg PO DAILY 05/30/16 [History] Ibuprofen [Motrin] 600 mg PO BID PRN 06/08/16 [History] Losartan Potassium [Cozaar] 100 mg PO DAILY 06/08/16 [History] Ropinirole HCl [Requip] 2 mg PO HS 06/08/16 [History] FentaNYL PATCH [Duragesic] 50 mcg TD Q72H #1 patch.td72 06/10/16 [Rx] Oxycodone HCl [Roxicodone 30] 30 mg PO Q6HR #25 tab 06/10/16 [Rx] 3 Allergy/AdvReac Type Severity Reaction Status Date / Time tuberculin, purified protein Allergy Mild Hives Verified 12/12/14 11:15 deriva [tuberculin,purif.prot.deriv.] carvedilol [From Coreg] AdvReac Intermediate Anxiety Verified 12/12/14 11:15 ranolazine [From Ranexa] AdvReac Intermediate nausea, Verified 12/12/14 11:15 vomiting [id number] Reductase AdvReac Intermediate muscle Verified 12/12/14 11:15 Inhibitor dysfunction [Statins] ROS unobtainable: due to mental status All Systems PM: A 10-system review of systems was performed and is negative for pertinent findings except as documented above in the HPI. - Constitutional Vitals: Temp Pulse Resp BP Pulse Ox 98.7 F 119 20 113/71 95 08/01/17 22:47 08/01/17 23:55 08/01/17 23:55 08/01/17 23:55 08/02/17 00:02 Exam: GEN: NAD, lethargic HEENT: AT, NC, No cyanosis, oral mucosa is moist, No JVD Lymphatics: No lymphadenoapthy Eyes: Extrocular muscles intact, anicteric CVS: Tachycardic. S1, S2, No m/r/g RESP: Diminished at the bases with coarse breath sounds bilaterally ABD: Soft, NT, ND, +BS, obese EXT: No edema, No rashes, 2+ DP NEURO: Nonfocal, CN II-XII intact, No focal motor or sensory deficits Psych: Cooperative, Not anxious or depressed Internal Med - H&P Results - Labs CBC & Chem 7: 08/01/17 23:39 08/01/17 23:39 Labs: Short CBC 08/01/17 Range/Units 23:39 WBC 38.7 H* (4.3-11.1) K/mcL Hgb 10.9 L (11.5-15.4) g/dL Hct 34.3 L (35.3-44.9) % Plt Count 296 (140-400) K/mcL Neutrophils # 33.9 H (1.6-8.9) K/mcL BMP 08/01/17 23:39 Sodium 134 L Potassium 3.0 L Chloride 97 L Carbon Dioxide 27 BUN 20 Creatinine 0.78 Glucose 124 H Calcium 8.9 Cardiac Enzymes 08/01/17 Range/Units 23:39 Troponin I 1.65 H* (< 0.04) ng/mL Liver Function 08/01/17 Range/Units 23:39 Total Bilirubin 0.9 (0.3-1.0) mg/dL Direct Bilirubin 0.5 H (0.0-0.2) mg/dL AST 15 (13-39) Units/L ALT 7 (7-52) Units/L Alkaline Phosphatase 118 H (34-104) Units/L Albumin 2.9 L (3.5-5.7) g/dL Urine 08/02/17 Range/Units 00:32 Urine Color Dark Yellow (Yellow) Urine Clarity Cloudy A (Clear) Urine pH 5.5 (5.0-8.0) pH Units Ur Specific [place] 1.024 (1.010-1.025) Urine Protein 100 H (Neg-Trace) mg/dL Urine Glucose (UA) Normal (Normal) mg/dL - Impressions ITS Impressions Chest X-Ray 08/01/17 22:51 IMPRESSION: 1. No acute cardiopulmonary abnormality. 2. Stable cardiomegaly. D/ / Escobar Godfrey / Escobar Godfrey Interpreting Provider: Escobar Godfrye Abdomen/Pelvis CT 08/02/17 00:13 IMPRESSION: 1. Right lateral abdominal wall cellulitis. 2. Indeterminate low-attenuation foci throughout the liver. Liver protocol CT scan or MRI is recommended for further evaluation. Given the interval change metastatic disease should be considered. D/ / Cristhian Herrera MD / Cristhian Herrera MD Interpreting Provider: Cristhian Herrera MD Chest CT 08/02/17 00:13 IMPRESSION: 1. Right lower lobe pneumonia. Underlying obstructing mass cannot be excluded. 2. Persistent mediastinal adenopathy. D/ / Cristhian Herrera MD / Cristhian Herrera MD Interpreting Provider: Cristhian Herrera MD
[2017-08-02] MEDS ORDERED: *HR* Dextrose 50 % in Water (Syg) 50 ML SYRINGE IVP PRN (02:14)
[2017-08-02] MEDS ORDERED: Dextrose Gel 15 GM/37.5 ML TUBE PO PRN ×2 (02:14)
[2017-08-02] MEDS ORDERED: D5% in Water 1,000 ML IVC PRN ×2 (02:14→18:58)
[2017-08-02] MEDS: Heparin 25,000 UNIT/500 ML D5W 25,000 UNIT/500 ML BAG IVC SCH ×3 (02:32→21:15)
[2017-08-02 02:44] LABS: ABG Base Excess 4 mEq/L (-2 to 3); ABG HCO3 27 mEq/L (21-27); ABG Oxygen Saturation 96 % (95-98); ABG PCO2 35 mmHg (35-45); ABG PO2 72 mmHg (85-104); ABG TCO2 28 mEq/L (20-26)
[2017-08-02] MEDS: Ipratropium/Albuterol Neb 3 ML IH SCH ×4 (03:37→21:06)
[2017-08-02] MEDS: *HR* OxyCODONE Immed Rel 15 MG TABLET PO SCH ×4 (05:28→23:28)
[2017-08-02] MEDS: Insulin LISPRO 300 UNITS/3 ML VIAL SQ SCH ×3 (06:04→17:34)
[2017-08-02 06:21] LABS: Basophils % 0.2 %; Monocytes % 1.6 %
[2017-08-02 06:22] LABS: Basophils # 0.1 K/mcL (0.0-0.2); Hematocrit 32.7 % (35.3-44.9); Hemoglobin 10.2 g/dL (11.5-15.4); Immature Granulocytes % 12.9 % (0-4); Lymphocytes % 1.6 %; Mean Corpuscular HGB Conc 31.2 g/dL (31.6-35.5); Mean Corpuscular Volume 76.9 fL (83.0-100.0); Mean Platelet Volume 8.5 fL (9.4-12.4); Neutrophils # 28.6 K/mcL (1.6-8.9); Platelet Count 266 K/mcL (140-400); Red Blood Count 4.25 M/mcL (3.82-4.97); Red Cell Distribution Width 17.5 % (11.5-14.5); Segmented Neutrophils % 83.7 %
[2017-08-02 06:38] LABS: BUN/Creatinine Ratio 25 (6-26); Blood Urea Nitrogen 18 mg/dL (8-23); Calcium 8.1 mg/dL (8.6-10.3); Carbon Dioxide 24 mEq/L (23-29); Chloride 100 mEq/L (98-107); Glucose 185 mg/dL (70-105); Magnesium 1.4 mg/dL (1.6-2.6); Osmolality,Calculated 287 (280-300); Potassium 2.8 mEq/L (3.5-5.1); Sodium 135 mEq/L (136-145); eGFR For African Americans > 60 (> 60); eGFR For Non-African Americans > 60 (> 60)
[2017-08-02 06:41] LABS: Lymphocytes # 0.6 K/mcL (0.6-4.6); Monocytes # 0.6 K/mcL (0.0-1.3)
[2017-08-02] MEDS ORDERED: Potassium Phosphate 44 MEQ in 0.9 % Sodium Chloride 250 ML IVPB PRN (06:45)
[2017-08-02 07:03] LABS: Chol/HDL Ratio 3.8 (0-4.9); Cholesterol 68 mg/dL (< 200); HDL Cholesterol 18 mg/dL (40-59); LDL Cholesterol,Calculated 34 mg/dL (0-99); Triglycerides 81 mg/dL (< 150)
[2017-08-02 07:41] LABS: Anisocytosis 1+ (Not Present); Platelet Estimate Normal (Normal)
--- NOTE | 2017-08-02 07:41 | Pulmonology Consult Note ---
<George Garcia - Last Filed: 08/02/17 11:50> Date of Encounter: 08/02/17 Time of Encounter: 07:34 Assessment and Plan (1) HCAP (healthcare-associated pneumonia) Current Visit: Yes Status: Acute COPD with baseline O2 dependence and worsening respiratory status -- RLL consolidation on CT; possible underlying obstructive mass which will require follow up CT in 4-6 weeks -- positive urine Strep. pneumo -- On Vanco and Cefepime; will discontinue Vanco as of 08/03/17 -- Continuing bronchodilators -- Added 5-day course of prednisone PO 40mg -- Respiratory infection panel negative; negative for Legionella antigen -- BiPAP at night and as needed during daytime (2) NSTEMI (non-ST elevated myocardial infarction) Current Visit: Yes Status: Acute Elevated troponins noted on initial labs with EKG absent ischemic findings; cardiology consulted on case -- patient does not have any ACS equivalent symptoms apart from shortness of air; denies chest pain, nausea, vomiting, diaphoresis, syncope -- more likely demand ischemia -- On heparin infusion; APTT 40.5 this AM -- cont daily ASA and heparin infusion per cardiology -- initial tropoins 1.65 --> 2.70; will continue to trend troponin until we can demonstrate static or decreasing trend -- cardio does not recommend cath at this point in time -- ECHO pending; most recent ECHO was habitus-limited failing to demonstrate EF -- needs to stay on telemetry (3) Altered mental state Current Visit: No Status: Resolved Qualifiers: Altered mental status type: disorientation Qualified Code(s): R41.0 - Disorientation, unspecified (4) COPD (chronic obstructive pulmonary disease) Current Visit: Yes Status: Acute As above Qualifiers: COPD type: unspecified COPD Qualified Code(s): J44.9 - Chronic obstructive pulmonary disease, unspecified (5) UTI (urinary tract infection) Current Visit: No Status: Acute Initial specimen contaminated; does have indwelling chronic Cristobal catheter -- cont on Cefepime for now -- will recollect specimen from Cristobal port for C&S Qualifiers: Urinary tract infection type: acute cystitis Hematuria presence: without hematuria Qualified Code(s): N30.00 - Acute cystitis without hematuria (6) Abdominal wall cellulitis Current Visit: Yes Status: Acute antibiotic coverage as above -- exam fails to reveal superficial signs of infection or any tenderness (7) CHF (congestive heart failure) Current Visit: Yes Status: Acute Pt does have rhonchi on exam and acute respiratory failure; previous ECHO limited due to habitus -- new ECHO pending, BNP elevated -- giving interval IV Lasix and will closely monitor volume/respiratory status (8) DM (diabetes mellitus), type 2 Current Visit: No Status: Chronic We are beginning ADA/Cardiac diet and will need to monitor FSBG closely -- of note, patient does have high basal insulin -- adjust hospital insulins as warranted Qualifiers: Diabetes mellitus usp insulin use: with usp use Diabetes mellitus complication status: with unspecified complications Qualified Code(s) : E11.8 - Type 2 diabetes mellitus with unspecified complications (9) Liver lesion Current Visit: Yes Status: Acute (10) DVT prophylaxis Current Visit: No Status: Acute History of Present Illness Consult date: 08/02/17 Reason for consult: dyspnea, COPD, pneumonia Chief complaint: AMS, shortness of breath History of present illness: History obtained by chart review and from patient. This is is a 66-year-old female from [facility] who was transported to [place] for altered mentation. Notable medical history includes combined heart failure, COPD, oxygen dependence, diabetes, history of DVT, hypertension, pacemaker placement, obesity, coronary artery disease S/P CABG. Patient centered for usp for shortness of breath, lethargy, stated fever, and decreased responsiveness. Patient was noted throughout transport and arrival to have increased oxygen demand. On initial evaluation here, patient was poorly responsive with a normal baseline mentation. Patient has been tachycardic throughout. Patient was found to have a leukocytosis of 38,000 , baseline hemoglobin, normal renal function, mild hypokalemia, elevated troponin's (1.65, then 1.70), EKG without any acute ischemic changes, contaminated UA which was still quite concerning for UTI, CT abdomen demonstrating right abdominal wall cellulitis as well as multiple intrahepatic nodules, CTA of the chest without any evidence of PE but positive indications of right lower lobe pneumonia (mass could not be excluded underlying consolidated process), head CT without any intracranial abnormalities. Patient admitted to ICU via hospital service with heat treat operator consult for diagnosis of sepsis due to pneumonia/COPD exacerbation/UTI, NSTEMI/troponin elevation, and altered mentation. M labs demonstrated improving leukocytosis at 34.2 thousand, a PTT of 40.5 ( slightly sub therapeutic for heparin infusion for instantly), mildly alkaline ionic ABG, slightly worse hypokalemia and hypomanic glycemia, and elevated BNP. Repeat troponin pending, re-collected urine from Cristobal port for culture, and respiratory panel resulted as negative. Of note, patient did have positive strep urine antigen. This AM, patient appears to be and states she is much more comfortable than yesterday. She does not elaborate much beyond stating she just didn't feel well. Patient is fully alert and oriented able to describe identity, place, situational context, and time. Denies any overt symptoms at this time including chest pain, shortness of breath, nausea, vomiting, subjective fever, or any other sources of pain/discomfort. Patient did later become dyspneic. Reinstated home meds, gave patient 1 time dose of IV Lasix, placed patient on BiPAP with head of bed reclined resolving patient's shortness of air. Pt does not seem to have a critical care need, so will sign off to hospitalist service and seek transfer to telemetry unit. Past Med Surg Social Fam HX - Past Medical History Attestation: Yes The following information was validated with the patient. Source: patient, old records reviewed Medical history: CHF, COPD, DVT, diabetes, hyperlipidemia, hypertension, myocardial infarction, other Psychiatric history: anxiety, depression - Past Surgical History Surgical History: angioplasty/stent, cholecystectomy, coronary bypass (CABG), hysterectomy, pacemaker/AICD, other - Social History Smoking Status: Former smoker Smokeless Tobacco Status: No Alcohol use: none Drug use: none - Family History Mother Adopted: No Living Status: Hx Family Cardiac Disorders: Yes Hx Family Respiratory Disorders: No Hx Family Cancer: No Hx Family GI Disorders: Yes Hx Family Endocrine Disorder: Yes Hx Family Neuromuscular Disorders: No Hx Family Neurologic Disorders: No Hx Family HEENT Disorders: No Hx Family Autoimmune Disorders: No Medications and Allergies Baclofen 10 mg PO QID 12/12/14 [History] Budesonide/Formoterol Fumarate [Symbicort 160-4.5 Mcg Inhaler] 2 puff IH BID [History] Cholecalciferol (Vitamin D3) [Vitamin D3] 2,000 unit PO DAILY 12/12/14 [History] Duloxetine HCl [Cymbalta] 60 mg PO DAILY 12/12/14 [History] Ferrous Sulfate 325 mg PO DAILY 12/12/14 [History] Fluticasone Propionate Nasal [Flonase] 1 spr NS DAILY PRN 12/12/14 [History] Folic Acid 1 mg PO QAM 12/12/14 [History] Isosorbide MONOnitrate [Isosorbide Mononitrate ER] 120 mg PO DAILY 12/12/14 [ History] Loratadine [Loradamed] 10 mg PO DAILY 12/12/14 [History] Montelukast Sodium [Singulair] 10 mg PO DAILY 12/12/14 [History] Sertraline HCl [Zoloft] 50 mg PO HS 12/12/14 [History] Theophylline Anhydrous [Theodur] 300 mg PO BID 12/12/14 [History] Trazodone HCl 300 mg PO HS 12/12/14 [History] Verapamil ER (24 HR) [Calan SR] 240 mg PO DAILY 12/12/14 [History] Meclizine [Antivert] 12.5 mg PO TID PRN 14 Days tablet 04/05/15 [Rx] Aspirin Enteric Coated [Aspirin EC] 325 mg PO DAILY #21 tablet. 06/08/15 [Rx] Bisacodyl [Dulcolax] 10 mg RC DAILY PRN 08/26/15 [History] Docusate [Colace] 100 mg PO DAILY 08/26/15 [History] Ipratropium/Albuterol Neb [Duoneb] 3 ml IH Q4HR PRN 08/26/15 [History] Polyethylene Glycol 3350 [Gavilax] 17 gm PO DAILY 08/26/15 [History] Acetaminophen [Tylenol] 650 mg PO Q4HR PRN 10/16/15 [History] Naloxone [Narcan] 0.4 mg IV Q2MIN PRN #0 inj 10/17/15 [Rx] Calcium Carbonate/Vitamin D3 [Calcium 600-Vit D3 400 Tablet] 1 tab PO BID [History] Losartan Potassium [Cozaar] 100 mg PO DAILY 06/08/16 [History] Ropinirole HCl [Requip] 2 mg PO HS 06/08/16 [History] 3 Allergy/AdvReac Type Severity Reaction Status Date / Time tuberculin, purified protein Allergy Mild Hives Verified 12/12/14 11:15 deriva [tuberculin,purif.prot.deriv.] carvedilol [From Coreg] AdvReac Intermediate Anxiety Verified 12/12/14 11:15 ranolazine [From Ranexa] AdvReac Intermediate nausea, Verified 12/12/14 11:15 vomiting [id number]-[id number]-Gfv Reductase AdvReac Intermediate muscle Verified 12/12/14 11:15 Inhibitor dysfunction [Statins] All Systems: The remainder of the systems were reviewed and are negative Physical Examination Vital Signs: Vital Signs, Last 4 Hours Temp Pulse Resp BP Pulse Ox 08/02/17 06:00 112 22 160/76 95 08/02/17 05:00 112 23 151/69 94 08/02/17 04:40 115 08/02/17 04:25 93 08/02/17 04:15 99.8 F H 112 20 129/70 94 08/02/17 04:00 99.8 F H 112 25 129/70 93 General appearance: alert Eyes: nonicteric ENT: oropharynx moist Neck: supple, no JVD Effort: normal Auscultation: bilateral: rhonchi Cardiovascular: other (regular & tachycardic without murmurs or gallops) Gastrointestinal: normoactive bowel sounds, soft, non-tender, non-distended Integumentary: normal Extremities: no cyanosis, pulses normal, other (1+ pitting edema bilaterally) normal mental status, non-focal exam mood appropriate, affect normal Results - Laboratory Findings CBC and BMP: 08/02/17 05:59 08/02/17 05:59 ABG ABG pH 7.50 pH Units (7.32-7.45) H 08/02/17 02:39 ABG pCO2 35 mmHg (35-45) 08/02/17 02:39 ABG pO2 72 mmHg (85-104) L 08/02/17 02:39 ABG O2 Saturation 96 % (95-98) 08/02/17 02:39 PT/INR, D-dimer PT 16.7 Seconds (9.4-12.1) H 08/01/17 23:39 Abnormal lab findings: Abnormal lab results WBC 34.2 K/mcL (4.3-11.1) H* 08/02/17 05:59 Hgb 10.2 g/dL (11.5-15.4) L 08/02/17 05:59 Hct 32.7 % (35.3-44.9) L 08/02/17 05:59 MCV 76.9 fL (83.0-100.0) L 08/02/17 05:59 MCH 24.0 pg (28.0-33.3) L 08/02/17 05:59 MCHC 31.2 g/dL (31.6-35.5) L 08/02/17 05:59 RDW 17.5 % (11.5-14.5) H 08/02/17 05:59 MPV 8.5 fL (9.4-12.4) L 08/02/17 05:59 Immature Gran % 8.7 % (0-4) H 08/01/17 23:39 Neutrophils # 33.9 K/mcL (1.6-8.9) H 08/01/17 23:39 PT 16.7 Seconds (9.4-12.1) H 08/01/17 23:39 ABG pH 7.50 pH Units (7.32-7.45) H 08/02/17 02:39 ABG pO2 72 mmHg (85-104) L 08/02/17 02:39 ABG Total CO2 28 mEq/L (20-26) H 08/02/17 02:39 ABG Base Excess 4 mEq/L (-2 to 3) H 08/02/17 02:39 Sodium 135 mEq/L (136-145) L 08/02/17 05:59 Potassium 2.8 mEq/L (3.5-5.1) L 08/02/17 05:59 Glucose 185 mg/dL (70-105) H 08/02/17 05:59 POC Glucose 188 mg/dL (58-89) H 08/02/17 06:00 Calcium 8.1 mg/dL (8.6-10.3) L 08/02/17 05:59 Magnesium 1.4 mg/dL (1.6-2.6) L 08/02/17 05:59 Direct Bilirubin 0.5 mg/dL (0.0-0.2) H 08/01/17 23:39 Alkaline Phosphatase 118 Units/L (34-104) H 08/01/17 23:39 Troponin I 2.70 ng/mL (< 0.04) H* 08/02/17 05:59 Serum Total Protein 6.3 g/dL (6.4-8.9) L 08/01/17 23:39 Albumin 2.9 g/dL (3.5-5.7) L 08/01/17 23:39 Albumin/Globulin Ratio 0.9 (1.1-2.2) L 08/01/17 23:39 HDL Cholesterol 18 mg/dL (40-59) L 08/02/17 05:59 Urine Clarity Cloudy (Clear) A 08/02/17 00:32 Urine Protein 100 mg/dL (Neg-Trace) H 08/02/17 00:32 Urine Ketones 15 mg/dL (Negative) H 08/02/17 00:32 Urine Blood Moderate (Negative) H 08/02/17 00:32 Urine Nitrite Positive (Negative) A 08/02/17 00:32 Urine Bilirubin Small (Negative) H 08/02/17 00:32 Ur Leukocyte Esterase Moderate (Negative) H 08/02/17 00:32 Urine Microscopic RBC 5-15 per hpf (0-3) H 08/02/17 00:32 Urine Microscopic WBC TNTC per hpf (0-3) H 08/02/17 00:32 Ur Squamous Epith Cells Many per lpf (None-Few) H 08/02/17 00:32 Urine Bacteria Many per hpf (None-Few) H 08/02/17 00:32 - Microbiology Findings Microbiology Findings: Microbiology, Last 48 Hours 08/02/17 04:56 Legionella Antigen - Final Urine,Clean Catch Streptococcus pneumoniae Antigen (M - Final - Clinical Findings Intake & Output: Intake & Output 08/01/17 08/01/17 08/02/17 15:59 23:59 07:59 Intake Total 1650 / 3650 Output Total 205 / 205 Balance 1445 / 3445 Weight 131.1 kg Consult Discharge Plan - Plan Referrals: Robb Perry MD [Primary Care Provider] - <Jese Ashley - Last Filed: 08/02/17 14:38> Date of Encounter: 08/02/17 All Systems: The remainder of the systems were reviewed and are negative Physical Examination Vital Signs: Vital Signs, Last 4 Hours Temp Pulse Resp BP Pulse Ox 08/02/17 09:00 110 25 189/92 94 08/02/17 08:14 107 08/02/17 08:00 112 19 167/83 96 08/02/17 07:10 98.8 F 08/02/17 07:00 114 23 154/94 95 08/02/17 06:00 112 22 160/76 95 Results - Laboratory Findings CBC and BMP: 08/02/17 05:59 08/02/17 05:59 ABG ABG pH 7.50 pH Units (7.32-7.45) H 08/02/17 02:39 ABG pCO2 35 mmHg (35-45) 08/02/17 02:39 ABG pO2 72 mmHg (85-104) L 08/02/17 02:39 ABG O2 Saturation 96 % (95-98) 08/02/17 02:39 PT/INR, D-dimer PT 16.7 Seconds (9.4-12.1) H 08/01/17 23:39 Abnormal lab findings: Abnormal lab results WBC 34.2 K/mcL (4.3-11.1) H* 08/02/17 05:59 Hgb 10.2 g/dL (11.5-15.4) L 08/02/17 05:59 Hct 32.7 % (35.3-44.9) L 08/02/17 05:59 MCV 76.9 fL (83.0-100.0) L 08/02/17 05:59 MCH 24.0 pg (28.0-33.3) L 08/02/17 05:59 MCHC 31.2 g/dL (31.6-35.5) L 08/02/17 05:59 RDW 17.5 % (11.5-14.5) H 08/02/17 05:59 MPV 8.5 fL (9.4-12.4) L 08/02/17 05:59 Immature Gran % 12.9 % (0-4) H 08/02/17 05:59 Neutrophils # 28.6 K/mcL (1.6-8.9) H 08/02/17 05:59 Polychromasia 1+ (Not Present) A 08/02/17 05:59 Poikilocytosis 1+ (Not Present) A 08/02/17 05:59 Anisocytosis 1+ (Not Present) A 08/02/17 05:59 PT 16.7 Seconds (9.4-12.1) H 08/01/17 23:39 ABG pH 7.50 pH Units (7.32-7.45) H 08/02/17 02:39 ABG pO2 72 mmHg (85-104) L 08/02/17 02:39 ABG Total CO2 28 mEq/L (20-26) H 08/02/17 02:39 ABG Base Excess 4 mEq/L (-2 to 3) H 08/02/17 02:39 Sodium 135 mEq/L (136-145) L 08/02/17 05:59 Potassium 2.8 mEq/L (3.5-5.1) L 08/02/17 05:59 Glucose 185 mg/dL (70-105) H 08/02/17 05:59 POC Glucose 176 mg/dL (58-89) H 08/02/17 09:40 Hemoglobin A1c 7.1 % (-5.6) H 08/02/17 05:59 Calcium 8.1 mg/dL (8.6-10.3) L 08/02/17 05:59 Magnesium 1.4 mg/dL (1.6-2.6) L 08/02/17 05:59 Direct Bilirubin 0.5 mg/dL (0.0-0.2) H 08/01/17 23:39 Alkaline Phosphatase 118 Units/L (34-104) H 08/01/17 23:39 Troponin I 2.70 ng/mL (< 0.04) H* 08/02/17 05:59 B-Natriuretic Peptide 762 pg/mL (Less than 100) H 08/02/17 09:06 Serum Total Protein 6.3 g/dL (6.4-8.9) L 08/01/17 23:39 Albumin 2.9 g/dL (3.5-5.7) L 08/01/17 23:39 Albumin/Globulin Ratio 0.9 (1.1-2.2) L 08/01/17 23:39 HDL Cholesterol 18 mg/dL (40-59) L 08/02/17 05:59 Urine Clarity Cloudy (Clear) A 08/02/17 00:32 Urine Protein 100 mg/dL (Neg-Trace) H 08/02/17 00:32 Urine Ketones 15 mg/dL (Negative) H 08/02/17 00:32 Urine Blood Moderate (Negative) H 08/02/17 00:32 Urine Nitrite Positive (Negative) A 08/02/17 00:32 Urine Bilirubin Small (Negative) H 08/02/17 00:32 Ur Leukocyte Esterase Moderate (Negative) H 08/02/17 00:32 Urine Microscopic RBC 5-15 per hpf (0-3) H 08/02/17 00:32 Urine Microscopic WBC TNTC per hpf (0-3) H 08/02/17 00:32 Ur Squamous Epith Cells Many per lpf (None-Few) H 08/02/17 00:32 Urine Bacteria Many per hpf (None-Few) H 08/02/17 00:32 - Microbiology Findings Microbiology Findings: Microbiology, Last 48 Hours 08/02/17 04:56 Legionella Antigen - Final Urine,Clean Catch Streptococcus pneumoniae Antigen (M - Final - Clinical Findings Intake & Output: Intake & Output 08/01/17 08/02/17 08/02/17 23:59 07:59 15:59 Intake Total 1650 / 3650 Output Total 505 / 505 Balance 1145 / 3145 Weight 131.1 kg - Attending Attestation I examined this patient and my medical decision-making was reviewed with the Resident Physician. I agree with the documented findings, disposition and treatment plan as described except to the extent set forth below. We independently had [id number] contact with the patient Patient seen and examined at bedside Labs, radiology, chart personally reviewed. Management was reviewed during multidisciplinary critical care rounds. 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 high risk for delirium which we will monitor Pulm: Acute on chronic respiratory failure s/t to PNA with underlying COPD. start BDs and Steroids for 5 days. Morbidly obese With history of RAZA ok for PAP at night here in house with pulmonary f/u. Needs f/u CT in 4-6 weeks for RLL opacity (likely PNA) Cards: NSTEMI on ACS protocl Cardiology consulted ECHO pending. Restart Home BP meds and Diuretic for CHF. FEN-GI: ADAT after cleared by cardiology Renal: UOP monitored along with electrolytes ID: Strep PNA + on cefepime deescalate VANCO in 24 hours for possible cellulitis of abdominal wall.. Heme/Onc: on Heparin for ACS. Monitor H/H Endo: Glucose Monitored Integ/MSK: Skin Care per routine ICU Nursing Protocol to prevent ulcers. Lines: All lines examined without evidence of infection : Dispo: Stable for transfer to [facility]. CODE: Full Code
[2017-08-02 07:42] LABS: Poikilocytosis 1+ (Not Present); Polychromasia 1+ (Not Present)
[2017-08-02 07:55] LABS: Adenovirus Not Detected (Not Detect); Bordetella Pertussis Not Detected (Not Detect); Chlamydophila pneumoniae Not Detected (Not Detect); Coronavirus 229E Not Detected (Not Detect); Coronavirus HKU1 Not Detected (Not Detect); Coronavirus NL63 Not Detected (Not Detect); Coronavirus OC43 Not Detected (Not Detect); Human Metapneumovirus Not Detected (Not Detect); Human Rhinovirus/Enterovirus Not Detected (Not Detect); Influenza A Subtype 2009 H1 Not Detected (Not Detect); Influenza A Untypeable Not Detected (Not Detect); Influenza B Not Detected (Not Detect); Mycoplasma pneumoniae Not Detected (Not Detect); Parainfluenza Virus 1 Not Detected (Not Detect); Parainfluenza Virus 2 Not Detected (Not Detect); Parainfluenza Virus 3 Not Detected (Not Detect); Parainfluenza Virus 4 Not Detected (Not Detect); Respiratory Syncytial Virus Not Detected (Not Detect)
[2017-08-02] MEDS ORDERED: Piperacillin/Tazobactam 3.375 GM in 0.9 % Sodium Chloride Mini Bag 100 ML IVPB SCH (08:00)
[2017-08-02] MEDS ORDERED: Aminoglycoside Consult 1 EACH MC ONE (08:51)
--- NOTE | 2017-08-02 08:53 | Cardiology Consult Note ---
Date of Encounter: 08/02/17 Time of Encounter: 08:47 Assessment and Plan (1) NSTEMI (non-ST elevated myocardial infarction) Current Visit: Yes Status: Acute 66-year-old female presents due to sepsis with multiple sources including abdominal cellulitis and pneumonia found to have metastases in the liver potentially. Possible demand ischemia due to the above recommend ACS IV heparin and aspirin daily. Would also continue to trend cardiac enzymes until they downtrend. Echo also to evaluate for regional wall motion abnormalities and to guide further recommendations in regards to invasive versus noninvasive risk stratification Discussion w patient/family: The assessment and plan as outlined above was discussed with the patient and/or family members who expressed understanding and agreement. All questions were answered. Thank you for involving us in the care of your patient. Please call with any questions. History of Present Illness Consult date: 08/02/17 Consult reason: NSTEMI Chief complaint: Weakness History of present illness: Ms. Snyder is a 66 year old female with extensive history of cardiac risk factors including diabetes, hypertension, hyperlipidemia, status post permanent pacemaker, coronary artery disease status post CABG and PCI remotely presents from a nursing facility with shortness of breath and lethargy. She is noted to have abdominal cellulitis a UTI sepsis with community-acquired pneumonia and an elevated white blood count of 38,000. Her last echo May 2016 was not well visualized due to poor image quality and hence no ejection fraction was documented. Her hemoglobin is 10.9 and she currently has a troponin peak of 2.7 up from 1.6. She denies any chest pain, dyspnea on exertion [not physically active], orthopnea, PND, presyncope or syncope. Her symptoms are likely related to her underlying sepsis with multiple possible sources. She is also a poor historian at this time. EKG is unremarkable with no significant ischemic changes at this time. She is mildly tachycardic on initial presentation currently on antibiotics. Incidentally a CT of the abdomen and pelvis revealed possible metastases in the liver and right lower lobe pneumonia. Medical management at this time seems ideal with heparin IV and aspirin daily. An echocardiogram is pending to rule out regional wall motion abnormalities and guide further management. Although her troponins are elevated she is asymptomatic and with her significant comorbidities I do believe conservative medical management is best. Further recommendations pending her echocardiogram. Past Med Surg Social Fam HX - Past Medical History Medical history: CHF, COPD, DVT, diabetes, hyperlipidemia, hypertension, myocardial infarction, other Psychiatric history: anxiety, depression - Past Surgical History Surgical History: angioplasty/stent, cholecystectomy, coronary bypass (CABG), hysterectomy, pacemaker/AICD, other - Social History Smoking Status: Former smoker Smokeless Tobacco Status: No Alcohol use: none Drug use: none - Family History Mother Adopted: No Living Status: Hx Family Cardiac Disorders: Yes Hx Family Respiratory Disorders: No Hx Family Cancer: No Hx Family GI Disorders: Yes Hx Family Endocrine Disorder: Yes Hx Family Neuromuscular Disorders: No Hx Family Neurologic Disorders: No Hx Family HEENT Disorders: No Hx Family Autoimmune Disorders: No Medications and Allergies Amiodarone [Cordarone] 200 mg PO DAILY 12/12/14 [History] Baclofen 10 mg PO QID 12/12/14 [History] Budesonide/Formoterol Fumarate [Symbicort 160-4.5 Mcg Inhaler] 2 puff IH BID [History] Bumetanide 1 mg PO BID 12/12/14 [History] Cholecalciferol (Vitamin D3) [Vitamin D3] 2,000 unit PO DAILY 12/12/14 [History] Duloxetine HCl [Cymbalta] 60 mg PO DAILY 12/12/14 [History] Ezetimibe [Zetia] 10 mg PO DAILY 12/12/14 [History] Ferrous Sulfate 325 mg PO DAILY 12/12/14 [History] Fluticasone Propionate Nasal [Flonase] 50 mcg NS DAILY PRN 12/12/14 [History] Folic Acid 1 mg PO QAM 12/12/14 [History] Hydroxychloroquine Sulfate [Plaquenil] 200 mg PO BID 12/12/14 [History] Insulin DETEMIR [Levemir Flextouch] 70 unit SQ BID 12/12/14 [History] Isosorbide MONOnitrate [Isosorbide Mononitrate ER] 120 mg PO DAILY 12/12/14 [ History] Loratadine [Loradamed] 10 mg PO DAILY 12/12/14 [History] Metoprolol Succinate 50 mg PO DAILY 12/12/14 [History] Montelukast Sodium [Singulair] 10 mg PO DAILY 12/12/14 [History] Sertraline HCl [Zoloft] 50 mg PO HS 12/12/14 [History] Theophylline Anhydrous [Theodur] 300 mg PO BID 12/12/14 [History] Trazodone HCl 300 mg PO HS 12/12/14 [History] Verapamil ER (24 HR) [Calan SR] 240 mg PO DAILY 12/12/14 [History] Meclizine [Antivert] 12.5 mg PO TID PRN 14 Days tablet 04/05/15 [Rx] Aspirin Enteric Coated [Aspirin EC] 325 mg PO DAILY #21 tablet. 06/08/15 [Rx] Bisacodyl [Dulcolax] 10 mg RC DAILY PRN 08/26/15 [History] Docusate [Colace] 100 mg PO DAILY 08/26/15 [History] Ipratropium/Albuterol Neb [Duoneb] 3 ml IH Q4HR PRN 08/26/15 [History] Polyethylene Glycol 3350 [Gavilax] 17 gm PO DAILY 08/26/15 [History] Acetaminophen [Tylenol] 650 mg PO Q4HR PRN 10/16/15 [History] Naloxone [Narcan] 0.4 mg IV Q2MIN PRN #0 inj 10/17/15 [Rx] Calcium Carbonate/Vitamin D3 [Calcium 600-Vit D3 400 Tablet] 1 tab PO BID [History] Omeprazole 20 mg PO DAILY 05/30/16 [History] Ibuprofen [Motrin] 600 mg PO BID PRN 06/08/16 [History] Losartan Potassium [Cozaar] 100 mg PO DAILY 06/08/16 [History] Ropinirole HCl [Requip] 2 mg PO HS 06/08/16 [History] FentaNYL PATCH [Duragesic] 50 mcg TD Q72H #1 patch.td72 06/10/16 [Rx] Oxycodone HCl [Roxicodone 30] 30 mg PO Q6HR #25 tab 06/10/16 [Rx] 3 Allergy/AdvReac Type Severity Reaction Status Date / Time tuberculin, purified protein Allergy Mild Hives Verified 12/12/14 11:15 deriva [tuberculin,purif.prot.deriv.] carvedilol [From Coreg] AdvReac Intermediate Anxiety Verified 12/12/14 11:15 ranolazine [From Ranexa] AdvReac Intermediate nausea, Verified 12/12/14 11:15 vomiting Mcyumgu-Jab-Sry Reductase AdvReac Intermediate muscle Verified 12/12/14 11:15 Inhibitor dysfunction [Statins] All Systems Review: The remainder of the systems were reviewed and are negative Physical Examination Vital Signs, Last 4 Hours Temp Pulse Resp BP Pulse Ox 08/02/17 07:10 98.8 F 08/02/17 07:00 114 23 154/94 95 08/02/17 06:00 112 22 160/76 95 08/02/17 05:00 112 23 151/69 94 General: Conversant, No Apparent Distress HEENT: Atraumatic, Normocephaly, Mucus Membranes Moist Neck: No JVD, Normal carotid pulses Cardiac: Reg Rate and Rhythm, Normal S1 and S2, No Murmur Lungs: Normal Breath Sounds, No Wheeze, Rales, Rhonchi Neuro: Alert and responsive, No focal deficits noted Abdomen: Soft, Non-Tender Skin: No rashes noted on visualized skin Musculoskeletal: No Chest Wall Tenderness Extremities: No Clubbing, No Cyanosis, No Edema, Normal Pulses Results 08/02/17 05:59 08/02/17 05:59 Lab Results 08/02/17 08/02/17 05:59 05:59 WBC 34.2 H* Hgb 10.2 L Hct 32.7 L Plt Count 266 Sodium 135 L Potassium 2.8 L Chloride 100 Carbon Dioxide 24 BUN 18 Creatinine 0.71 Glucose 185 H Calcium 8.1 L Magnesium 1.4 L Troponin I 2.70 H* Consult Discharge Plan - Plan Referrals: Robb Perry MD [Primary Care Provider] -
[2017-08-02] MEDS ORDERED: (Ezetimibe [Zetia] 10 MG) PO SCH (09:00)
[2017-08-02] MEDS ORDERED: Isosorbide MONOnitrate (24 HR) 60 MG TAB.ER.24H PO SCH ×2 (09:00)
[2017-08-02] MEDS ORDERED: Bumetanide 1 MG TABLET PO SCH (09:00)
[2017-08-02] MEDS ORDERED: Verapamil ER (24 HR) 240 MG TABLET.ER PO SCH (09:00)
[2017-08-02 09:09] LABS: Estimated Average Glucose 157 mg/dl; Hemoglobin A1C 7.1 %
[2017-08-02] MEDS ORDERED: Albuterol 2.5 MG/3 ML NEBULIZER IH PRN (09:13)
[2017-08-02] MEDS: Baclofen 10 MG TABLET PO SCH ×4 (09:42→20:47)
[2017-08-02] MEDS: Folic Acid 1 MG TABLET PO SCH (09:42)
[2017-08-02] MEDS: Cholecalciferol (D-3) 1,000 UNIT TABLET PO SCH (09:43)
[2017-08-02] MEDS: Aspirin Enteric Coated 325 MG Tablet PO SCH (09:43)
[2017-08-02] MEDS: *HR* Amiodarone 200 MG TABLET PO SCH (09:43)
[2017-08-02] MEDS: Metoprolol XL (24 HR) Succ 50 MG TAB.ER.24H PO SCH (09:43)
[2017-08-02] MEDS: Loratadine 10 MG TABLET PO SCH (09:44)
[2017-08-02] MEDS: Budesonide/Formoterol 160/4.5 MDI IH SCH ×2 (11:04→21:06)
[2017-08-02] MEDS ORDERED: Furosemide 40 MG/4 ML VIAL IVP ONE (11:10)
[2017-08-02] MEDS ORDERED: *HR* Labetalol 20 MG/4 ML SYRINGE IVP ONE (11:11)
[2017-08-02] MEDS ORDERED: Isosorbide MONOnitrate (24 HR) 60 MG TAB.ER.24H PO ONE (11:15)
[2017-08-02] MEDS: Furosemide 40 MG/4 ML VIAL IVP ONE (11:23)
[2017-08-02] MEDS: Verapamil ER (24 HR) 240 MG TABLET.ER PO SCH (11:34)
[2017-08-02] MEDS ORDERED: Perflutren Lipid Microsphere 1.3 ML in 0.9 % Sodium Chloride 8.7 ML IVP ONE (12:17)
[2017-08-02 16:39] LABS: Acinetobacter baumannii by PCR Not Detected (Not Detect); Candida albicans by PCR Not Detected (Not Detect); Candida glabrata by PCR Not Detected (Not Detect); Candida krusei by PCR Not Detected (Not Detect); Candida parapsilosis by PCR Not Detected (Not Detect); Candida tropicalis by PCR Not Detected (Not Detect); Enterococcus by PCR Not Detected (Not Detect); Escherichia coli by PCR Not Detected (Not Detect); Klebsiella oxytoca by PCR Not Detected (Not Detect); Klebsiella pneumoniae by PCR Not Detected (Not Detect); Pseudomonas aeruginosa by PCR Not Detected (Not Detect); Serratia marcescens by PCR Not Detected (Not Detect); Staphylococcus aureus by PCR Not Detected (Not Detect); Streptococcus agalactiae(B)PCR Not Detected (Not Detect); Streptococcus by PCR ***DETECTED*** (Not Detect); Streptococcus pneumoniae PCR ***DETECTED*** (Not Detect); Streptococcus pyogenes (A) PCR Not Detected (Not Detect); blaKPC Carbapenem-Resist Gene Not Detected (Not Detect); mecA Methicillin-Resist Gene Not Detected (Not Detect); vanA/B Vancomycin-Resist Genes Not Detected (Not Detect)
[2017-08-02] MEDS: Bumetanide 1 MG TABLET PO SCH (17:24)
[2017-08-02] MEDS: Cefepime HCl 1,000 MG in Water for inj. (sterile) 20 ML 10 ML IVP SCH (17:48)
--- NOTE | 2017-08-02 19:42 | Electrocardiograph Report ---
[place] [id number] Test Date: 2017-08-01 Pat Name: Dot Snyder Department: 103 Room: 2A Gender: F [employer]: [place] : 1950 Requested By: Augusta Garcia Order Number: [id number] Reading MD: Deniz Collins Measurements Intervals [place] Rate: 120 P: 34 NH: 155 QRS: 75 QRSD: 117 T: 51 QT: 315 QTc: 386 Interpretive Statements SINUS TACHYCARDIA WITH OCCASIONAL SUPRAVENTRICULAR PREMATURE COMPLEXES BASELINE ARTIFACT Electronically Signed On 08-02-2017 19:40:54 EDT by Deniz Collins
[2017-08-02] MEDS: rOPINIRole 1 MG TABLET PO SCH (20:46)
[2017-08-02] MEDS: traZODone 50 MG TABLET PO SCH (20:56)
[2017-08-02] MEDS ORDERED: Insulin LISPRO 300 UNITS/3 ML VIAL SQ SCH (21:00)
[2017-08-02] MEDS ORDERED: traZODone 50 MG TABLET PO SCH (21:00)
[2017-08-03 00:30] LABS: Basophils % 0.2 %; Mean Platelet Volume 8.9 fL (9.4-12.4); Red Blood Count 4.04 M/mcL (3.82-4.97)
[2017-08-03 00:31] LABS: Basophils # 0.1 K/mcL (0.0-0.2); Hemoglobin 9.6 g/dL (11.5-15.4); Immature Granulocytes % 1.8 % (0-4); Lymphocytes # 0.9 K/mcL (0.6-4.6); Mean Corpuscular Hemoglobin 23.8 pg (28.0-33.3); Mean Corpuscular Volume 76.7 fL (83.0-100.0); Monocytes # 0.6 K/mcL (0.0-1.3); Monocytes % 1.9 %; Neutrophils # 27.8 K/mcL (1.6-8.9); Platelet Count 262 K/mcL (140-400); Red Cell Distribution Width 17.6 % (11.5-14.5); Segmented Neutrophils % 93.1 %
[2017-08-03] MEDS: Insulin LISPRO 300 UNITS/3 ML VIAL SQ SCH ×4 (00:33→16:35)
[2017-08-03 00:51] LABS: BUN/Creatinine Ratio 25 (6-26); Blood Urea Nitrogen 18 mg/dL (8-23); Calcium 8.1 mg/dL (8.6-10.3); Carbon Dioxide 27 mEq/L (23-29); Chloride 94 mEq/L (98-107); Glucose 331 mg/dL (70-105); Osmolality,Calculated 287 (280-300); Potassium 2.5 mEq/L (3.5-5.1); Sodium 131 mEq/L (136-145); eGFR For African Americans > 60 (> 60); eGFR For Non-African Americans > 60 (> 60)
[2017-08-03 01:10] LABS: Activated Partial Thrombo Time > 360.0 Seconds (26.0-36.0)
[2017-08-03 01:15] LABS: Platelet Estimate Normal (Normal); Reactive Lymphocytes Present (Not Present); Toxic Granulation Present (Not Present)
[2017-08-03 01:16] LABS: Anisocytosis 1+ (Not Present); Heparin anti-factor XA UFH 0.95 IU/mL (0.30-0.70); Hypochromasia Present (Not Present); Microcytosis Present (Not Present)
[2017-08-03 01:46] LABS: Magnesium 1.6 mg/dL (1.6-2.6)
[2017-08-03] MEDS: Ipratropium/Albuterol Neb 3 ML IH SCH ×4 (04:09→22:21)
[2017-08-03] MEDS: *HR* OxyCODONE Immed Rel 15 MG TABLET PO SCH ×3 (05:35→17:50)
[2017-08-03] MEDS: Cefepime HCl 1,000 MG in Water for inj. (sterile) 20 ML 10 ML IVP SCH (05:35)
[2017-08-03 08:33] LABS: Basophils % 0.1 %; Eosinophils % 0.1 %; Hematocrit 31.4 % (35.3-44.9); Hemoglobin 9.7 g/dL (11.5-15.4); Immature Granulocytes % 0.5 % (0-4); Lymphocytes # 0.8 K/mcL (0.6-4.6); Lymphocytes % 3.5 %; Mean Corpuscular HGB Conc 30.9 g/dL (31.6-35.5); Mean Corpuscular Volume 77.7 fL (83.0-100.0); Mean Platelet Volume 8.6 fL (9.4-12.4); Monocytes # 0.6 K/mcL (0.0-1.3); Monocytes % 2.5 %; Neutrophils # 22.3 K/mcL (1.6-8.9); Platelet Count 254 K/mcL (140-400); Red Blood Count 4.04 M/mcL (3.82-4.97); Red Cell Distribution Width 17.4 % (11.5-14.5); Segmented Neutrophils % 93.3 %
[2017-08-03] MEDS: Bumetanide 1 MG TABLET PO SCH ×2 (08:41→16:34)
[2017-08-03] MEDS: Baclofen 10 MG TABLET PO SCH ×4 (08:42→21:03)
[2017-08-03] MEDS: Loratadine 10 MG TABLET PO SCH (08:42)
[2017-08-03] MEDS: *HR* Amiodarone 200 MG TABLET PO SCH (08:42)
[2017-08-03] MEDS: predniSONE 20 MG TABLET PO SCH (08:42)
[2017-08-03] MEDS: Metoprolol XL (24 HR) Succ 50 MG TAB.ER.24H PO SCH (08:42)
[2017-08-03] MEDS: Folic Acid 1 MG TABLET PO SCH (08:42)
[2017-08-03] MEDS: Isosorbide MONOnitrate (24 HR) 60 MG TAB.ER.24H PO SCH (08:42)
[2017-08-03] MEDS: Cholecalciferol (D-3) 1,000 UNIT TABLET PO SCH (08:43)
[2017-08-03] MEDS: Verapamil ER (24 HR) 240 MG TABLET.ER PO SCH (08:46)
[2017-08-03] MEDS: Aspirin Enteric Coated 325 MG Tablet PO SCH (08:46)
[2017-08-03] MEDS ORDERED: Cefepime HCl 2,000 MG in Water for inj. (sterile) 20 ML IVP SCH (09:00)
[2017-08-03 09:22] LABS: BUN/Creatinine Ratio 29 (6-26); Blood Urea Nitrogen 20 mg/dL (8-23); Calcium 8.3 mg/dL (8.6-10.3); Carbon Dioxide 27 mEq/L (23-29); Chloride 98 mEq/L (98-107); Glucose 212 mg/dL (70-105); Magnesium 1.6 mg/dL (1.6-2.6); Osmolality,Calculated 285 (280-300); Phosphorous 3.3 mg/dL (2.7-4.5); Potassium 3.1 mEq/L (3.5-5.1); Sodium 133 mEq/L (136-145); eGFR For African Americans > 60 (> 60); eGFR For Non-African Americans > 60 (> 60)
[2017-08-03] MEDS: 0.9 % Sodium Chloride 1,000 ML IVC SCH (10:23)
[2017-08-03] MEDS: Heparin 25,000 UNIT/500 ML D5W 25,000 UNIT/500 ML BAG IVC SCH ×2 (10:24→22:19)
[2017-08-03] MEDS: Cefepime HCl 2,000 MG in Water for inj. (sterile) 20 ML 20 ML IVP SCH ×2 (10:25→21:02)
[2017-08-03] MEDS: Budesonide/Formoterol 160/4.5 MDI IH SCH ×2 (10:57→22:22)
--- NOTE | 2017-08-03 11:12 | Cardiology Progress Note ---
Date of Encounter: 08/03/17 Time of Encounter: 11:11 Assessment and Plan (1) NSTEMI (non-ST elevated myocardial infarction) Current Visit: Yes Status: Acute Troponins 1.65, 2.70, 1.74 in setting of sepsis with multiple sources including abdominal cellulitis and pneumonia, found to have metastases in the liver potentially. Demand ischemia vs. NSTEMI. Troponin now downtrending. Pt denies chest pain. Endorses intermittent dyspnea, but in setting of PNA. Given the above ongoing issues, recommend medical management, not a candidate for cardiac rehab--continue heparin gtt x 24-48 hours. Continue ASA, BB. Intolerant to statins. TTE EF is preserved--55-60%. Not all garcia visualized. Cardiology signing off. Reconsult PRN. Please reconsult if pt begins experiencing chest pain. Otherwise, will coordinate close outpt follow-up in 2 weeks. (2) CAD (coronary artery disease) Current Visit: Yes Status: Chronic Hx CABG. Continue ASA, BB. Intolerant to statin drugs. Qualifiers: Coronary Disease-Associated Artery/Lesion type: bypass graft [place] vs. transplanted heart: [place] heart Associated angina: without angina Qualified Code(s): I25.810 - Atherosclerosis of coronary artery bypass graft(s) without angina pectoris Discussion w patient/family: The assessment and plan as outlined above was discussed with the patient and/or family members who expressed understanding and agreement. All questions were answered. Thank you for involving us in the care of your patient. Please call with any questions. I will discuss all the above with Dr. Vaz and make changes as necessary. Subjective Principal diagnosis: elevated troponin Interval history: Pt denies chest pain, reports intermittent dyspnea. TTE resulted--EF 55-60%. Objective Vital Signs, Last 4 Hours Temp Pulse Resp BP Pulse Ox 08/03/17 09:03 94 08/03/17 07:28 98.0 F 98 15 137/75 94 Vital Signs Temp Pulse Resp BP Pulse Ox 08/03/17 09:03 94 08/03/17 07:28 98.0 F 98 15 137/75 94 08/03/17 04:10 20 08/03/17 03:37 98.2 F 93 17 127/73 93 08/02/17 22:53 98.4 F 96 17 138/77 93 08/02/17 21:06 16 94 08/02/17 20:38 98.5 F 68 17 146/82 94 08/02/17 20:04 98.8 F 91 16 146/69 93 08/02/17 16:31 16 94 08/02/17 14:26 98.6 F 79 17 119/58 92 Intake and Output 08/02/17 08/03/17 08/03/17 23:59 07:59 15:59 Intake Total 370 / 370 489 / 489 481.9 / 481.9 Output Total 1875 / 1875 300 / 300 300 / 300 Balance -1505 / -1505 189 / 189 181.9 / 181.9 Intake: IV Fluids 370 / 370 489 / 489 321.9 / 321.9 Heparin 25,000 UNIT/500 ML D5W 360 / 360 189 / 189 301.9 / 301.9 25,000 unit In 500 ml @ 6.9 UNIT/KG/HR 20.031 mls/hr IVC . Q24H RYDER Rx#:[id number] Maxipime 1,000 MG In Water for 10 / 10 inj. (sterile) 10 ML @ 150 mls/ hr IVP Q12HR RYDER Rx#:[id number] Maxipime 2,000 MG In Water for 20 / 20 inj. (sterile) 20 ML @ 300 mls/ hr IVP Q12H RYDER Rx#:[id number] Potassium Chloride 10 mEq/100mL 300 / 300 10 meq In 100 ml @ 100 mls/hr IVPB Q1H RYDER Rx#:[id number] Oral 160 / 160 Output: Catheter 1875 / 1875 300 / 300 300 / 300 Other: Meal Breakfast Percent of Meal Consumed 10% Weight 132.5 kg Blood Glucose* 224 212 Patient Weight 08/03/17 23:59 Weight 132.5 kg General: Conversant, No Apparent Distress HEENT: Atraumatic, Normocephaly, Mucus Membranes Moist Neck: No JVD, Normal carotid pulses Cardiac: Reg Rate and Rhythm, Normal S1 and S2, No Murmur Lungs: Other (rhonchi) Neuro: Alert and responsive, No focal deficits noted Abdomen: Soft, Non-Tender Skin: No rashes noted on visualized skin Musculoskeletal: No Chest Wall Tenderness Extremities: Other (mild LE edema) Results 08/03/17 08:16 08/03/17 08:16 Lab Results 08/02/17 08/02/17 08/02/17 12:48 12:48 16:10 WBC Hgb Hct Plt Count APTT 51.5 H Sodium Potassium Chloride Carbon Dioxide BUN Creatinine Glucose Calcium Magnesium 1.9 Troponin I 1.74 H* 08/03/17 08/03/17 08/03/17 00:08 00:08 00:08 WBC 29.9 H Hgb 9.6 L Hct 31.0 L Plt Count 262 APTT > 360.0 H* D Sodium 131 L Potassium 2.5 L* Chloride 94 L Carbon Dioxide 27 BUN 18 Creatinine 0.71 Glucose 331 H Calcium 8.1 L Magnesium 1.6 Troponin I 08/03/17 08/03/17 08/03/17 01:26 06:34 07:59 WBC Hgb Hct Plt Count APTT 62.1 H D 33.2 Sodium Potassium Chloride Carbon Dioxide BUN Creatinine Glucose Calcium Magnesium Troponin I 1.01 H* 08/03/17 08/03/17 08:16 08:16 WBC 23.9 H Hgb 9.7 L Hct 31.4 L Plt Count 254 APTT Sodium 133 L Potassium 3.1 L Chloride 98 Carbon Dioxide 27 BUN 20 Creatinine 0.69 Glucose 212 H Calcium 8.3 L Magnesium 1.6 Troponin I Short CBC 08/03/17 08/03/17 Range/Units 08:16 00:08 WBC 23.9 H 29.9 H (4.3-11.1) K/mcL Hgb 9.7 L 9.6 L (11.5-15.4) g/dL Hct 31.4 L 31.0 L (35.3-44.9) % Plt Count 254 262 (140-400) K/mcL Neutrophils # 22.3 H 27.8 H (1.6-8.9) K/mcL BMP 08/03/17 08/03/17 Range/Units 08:16 00:08 Sodium 133 L 131 L (136-145) mEq/L Potassium 3.1 L 2.5 L* (3.5-5.1) mEq/L Chloride 98 94 L (98-107) mEq/L Carbon Dioxide 27 27 (23-29) mEq/L BUN 20 18 (8-23) mg/dL Creatinine 0.69 0.71 (0.60-1.20) mg/dL Glucose 212 H 331 H (70-105) mg/dL Calcium 8.3 L 8.1 L (8.6-10.3) mg/dL Cardiac Enzymes 08/03/17 08/02/17 Range/Units 06:34 12:48 Troponin I 1.01 H* 1.74 H* (< 0.04) ng/mL Impressions Echocardiogram 08/02/17 02:03 Impressions: Technically challenging due to body habitus and clinical status. LVEF 55-60%. Despite use of Definity, not all LV wall segments were well visualized. Indeterminate diastolic function. RV is not well evaluated. Mild tricuspid regurgitation. No pulmonary hypertension by TR gradient. IVC is not well visualized. Left Ventricular Wall Motion: Rest Echo Findings The mid inferior, basal inferior, mid anterior and basal anterior garcia were not visualized. All other wall segments showed normal motion. Findings: Study Quality * Technically sub-optimal due to body habitus and clinical status. ECG Findings * Normal sinus rhythm. Left Ventricle * LVEF 55-60%. * Despite use of Definity, not all LV wall segments were well visualized. * Indeterminate diastolic function. Right Ventricle * RV is not well evaluated. Left Atrium * Normal left atrial size. Right Atrium * Normal right atrial size. Aortic Valve * Aortic valve not well visualized. * No aortic regurgitation. * Doppler not optimal. Mitral Valve * Mitral valve not optimally visualized. * Trace mitral regurgitation. * No mitral stenosis. Pulmonic Valve * Pulmonic valve is not well visualized. * No pulmonic stenosis. * No pulmonic regurgitation. Pulmonary Artery * Pulmonary artery not well visualized. Tricuspid Valve * Tricuspid valve not well visualized. * Mild tricuspid regurgitation. Aorta * Not well visualized. Interatrial Septum * Interatrial septum not well evaluated. Pericardium * There is no pericardial effusion present. IVC * The IVC is not well evaluated. Active Medications Acetaminophen (Tylenol) 650 mg PO Q6HR PRN PRN Reason: Mild Pain/Fever Stop: 02/01/18 01:58 Last Admin: 08/02/17 09:42 Dose: 650 mg Albuterol Sulfate (Proventil Neb) 2.5 mg IH Q2H PRN; Protocol PRN Reason: Shortness Of Breath/Wheezing Stop: 02/01/18 09:14 Albuterol/Ipratropium (Duoneb) 3 ml IH [id number] RYDER Stop: 02/01/18 04:01 Last Admin: 08/03/17 10:57 Dose: 3 ml Amiodarone HCl (Cordarone) 200 mg PO DAILY RYDER Stop: 02/01/18 09:01 Last Admin: 08/03/17 08:42 Dose: 200 mg Aspirin (Aspirin Ec) 325 mg PO DAILY RYDER Stop: 02/01/18 09:01 Last Admin: 08/03/17 08:46 Dose: 325 mg Baclofen (Lioresal) 10 mg PO QID RYDER Stop: 02/01/18 09:01 Last Admin: 08/03/17 08:42 Dose: 10 mg Budesonide/Formoterol Fumarate (Symbicort) 2 puff IH BIDRESP RYDER PRN Reason: Protocol Stop: 02/01/18 10:01 Last Admin: 08/03/17 10:57 Dose: Not Given Bumetanide (Bumex) 1 mg PO BIDDIURETIC RYDER Stop: 02/01/18 17:01 Last Admin: 08/03/17 08:41 Dose: 1 mg Calcium Carbonate (Tums) 500 mg PO BID RYDER Stop: 02/01/18 09:01 Last Admin: 08/03/17 08:42 Dose: 500 mg Dextrose/Water (Dextrose 50% (Syg)) 25 ml IVP AD PRN PRN Reason: Hypoglycemia Stop: 02/01/18 02:15 Docusate Sodium (Colace) 100 mg PO DAILY RYDER PRN Reason: Protocol Stop: 02/01/18 09:01 Last Admin: 08/03/17 08:43 Dose: 100 mg Duloxetine HCl (Cymbalta) 60 mg PO DAILY RYDER Stop: 02/01/18 09:01 Last Admin: 08/03/17 08:43 Dose: 60 mg Ferrous Sulfate (Ferrous Sulfate) 325 mg PO DAILY RYDER Stop: 02/01/18 09:01 Last Admin: 08/03/17 08:42 Dose: 325 mg Fluticasone Propionate (Flonase) 50 mcg NS DAILY PRN; Protocol PRN Reason: Allergic Symptoms Stop: 02/01/18 02:04 Folic Acid (Folic Acid) 1 mg PO QAM RYDER Stop: 02/01/18 09:01 Last Admin: 08/03/17 08:42 Dose: 1 mg Glucagon (Glucagen) 1 mg IM ONCE PRN PRN Reason: Hypoglycemia Stop: 02/01/18 02:15 Glucose (Gluctose) 15 gm PO ONCE PRN PRN Reason: Hypoglycemia Stop: 02/01/18 02:15 Glucose (Gluctose) 30 gm PO ONCE PRN PRN Reason: Hypoglycemia Stop: 02/01/18 02:15 Guaifenesin (Mucinex) 600 mg PO BID RYDER Stop: 02/01/18 09:16 Last Admin: 08/03/17 08:43 Dose: 600 mg Heparin Sodium (Porcine) (Heparin) 4,000 unit IVP Q6HR PRN PRN Reason: SEE COMMENTS Stop: 02/01/18 01:33 Last Admin: 08/03/17 08:47 Dose: 4,000 unit Heparin Sodium (Porcine) (Heparin) 2,000 unit IVP Q6H PRN PRN Reason: SEE COMMENTS Stop: 02/01/18 01:33 Last Admin: 08/02/17 18:11 Dose: 2,000 unit Hydroxychloroquine Sulfate (Plaquenuil) 200 mg PO BID RYDER Stop: 02/01/18 09:01 Last Admin: 08/03/17 08:43 Dose: 200 mg Heparin Sodium/Dextrose (Heparin 25,000 Unit/500 Ml D5w) 25,000 unit in 500 mls @ 20.031 mls/hr IVC .Q24H RYDER; 6.9 UNIT/KG/HR PRN Reason: Protocol Stop: 02/01/18 01:46 Last Admin: 08/03/17 10:24 Dose: 16.9 unit/kg/hr, 49.061 mls/hr Dextrose (Dextrose 5%) 1,000 mls @ 100 mls/hr IVC .Q10H PRN PRN Reason: HYPOGLYCEMIA Stop: 02/01/18 18:59 Cefepime HCl 2,000 mg/ Sterile (Water) 20 mls @ 300 mls/hr IVP Q12H RYDER Stop: 02/02/18 09:01 Last Infusion: 08/03/17 10:36 Dose: Infused Insulin Human Lispro (Humalog) 0 units SQ TIDAC RYDER PRN Reason: Protocol Stop: 02/02/18 07:31 Last Admin: 08/03/17 08:44 Dose: 4 units Insulin Human Lispro (Humalog) 0 units SQ HS RYDER PRN Reason: Protocol Stop: 02/01/18 21:01 Last Admin: 08/02/17 20:47 Dose: 5 units Isosorbide Mononitrate (Imdur) 120 mg PO DAILY RYDER Stop: 02/02/18 09:01 Last Admin: 08/03/17 08:42 Dose: 120 mg Loratadine (Claritin) 10 mg PO DAILY RYDER PRN Reason: Protocol Stop: 02/01/18 09:01 Last Admin: 08/03/17 08:42 Dose: 10 mg Meclizine HCl (Antivert) 12.5 mg PO TID PRN PRN Reason: DIZZINESS Stop: 02/01/18 02:04 Metoprolol Succinate (Toprol Xl) 50 mg PO DAILY RYDER Stop: 02/01/18 09:01 Last Admin: 08/03/17 08:42 Dose: 50 mg Montelukast Sodium (Singulair) 10 mg PO DAILY RYDER Stop: 02/01/18 09:01 Last Admin: 08/03/17 08:43 Dose: 10 mg Naloxone HCl (Narcan) 0.4 mg IVP Q2MIN PRN PRN Reason: SEE COMMENTS Stop: 02/01/18 01:58 Omeprazole (Prilosec) 20 mg PO DAILY RYDER Stop: 02/01/18 09:01 Last Admin: 08/03/17 08:42 Dose: 20 mg Oxycodone HCl (Roxicodone) 30 mg PO Q6HR RYDER Stop: 02/01/18 06:01 Last Admin: 08/03/17 05:35 Dose: 30 mg Prednisone (Prednisone) 40 mg PO DAILY RYDER Stop: 08/08/17 09:01 Last Admin: 08/03/17 08:42 Dose: 40 mg Ropinirole HCl (Requip) 2 mg PO HS RYDER Stop: 02/01/18 21:01 Last Admin: 08/02/17 20:46 Dose: 2 mg Sertraline HCl (Zoloft) 50 mg PO HS [facility] Stop: 02/01/18 21:01 Last Admin: 08/02/17 20:47 Dose: 50 mg Trazodone HCl (Trazodone) 300 mg PO HS RYDER Stop: 02/01/18 21:01 Last Admin: 08/02/17 20:56 Dose: 300 mg Verapamil HCl (Calan Sr) 240 mg PO DAILY RYDER Stop: 02/01/18 11:16 Last Admin: 08/03/17 08:46 Dose: 240 mg Vitamin D (Vitamin D) 1,000 unit PO DAILY RYDER Stop: 02/01/18 09:01 Last Admin: 08/03/17 08:43 Dose: 1,000 unit - Imaging and Cardiology Echo: report reviewed - EKG Interpretation EKG results cardiology: other (12 hr tele AVG HR 94, SR, no significant pauses or arrhythmias) Consult Discharge Plan - Plan Referrals: Robb Perry MD [Primary Care Provider] -
[2017-08-03] MEDS ORDERED: Potassium Chloride Elixir 20 MEQ/15 ML UDC PO ONE (12:49)
[2017-08-03] MEDS ORDERED: Insulin LISPRO 300 UNITS/3 ML VIAL SQ SCH ×2 (16:48→16:49)
--- NOTE | 2017-08-03 16:52 | Internal Med Progress Note ---
Date of Encounter: 08/03/17 Time of Encounter: 13:15 - Assessment and plan (1) CAD (coronary artery disease) Current Visit: Yes Status: Chronic Qualifiers: Coronary Disease-Associated Artery/Lesion type: bypass graft [place] vs. transplanted heart: [place] heart Associated angina: without angina Qualified Code(s): I25.810 - Atherosclerosis of coronary artery bypass graft(s) without angina pectoris (2) Insulin dependent diabetes mellitus Current Visit: No Status: Chronic (3) History of atrial fibrillation Current Visit: No Status: Chronic (4) CKD (chronic kidney disease), stage III Current Visit: No Status: Chronic (5) Hypertension Current Visit: No Status: Chronic Qualifiers: Hypertension type: essential hypertension Qualified Code(s): I10 - Essential (primary) hypertension (6) COPD (chronic obstructive pulmonary disease) Current Visit: No Status: Chronic Qualifiers: COPD type: emphysema Emphysema type: unspecified Qualified Code(s): J43.9 - Emphysema, unspecified (7) Sepsis Current Visit: Yes Status: Acute Qualifiers: Sepsis type: sepsis due to unspecified organism Qualified Code(s): A41.9 - Sepsis, unspecified organism (8) HCAP (healthcare-associated pneumonia) Current Visit: Yes Status: Acute (9) NSTEMI (non-ST elevated myocardial infarction) Current Visit: Yes Status: Acute (10) UTI (urinary tract infection) Current Visit: Yes Status: Acute Qualifiers: Urinary tract infection type: site unspecified Hematuria presence: without hematuria Qualified Code(s): N39.0 - Urinary tract infection, site not specified (11) Abnormal CT of the chest Current Visit: Yes Status: Acute (12) DVT prophylaxis Current Visit: Yes Status: Acute (13) Liver lesion Current Visit: Yes Status: Acute (14) Transaminitis Current Visit: Yes Status: Acute (15) Abdominal wall cellulitis Current Visit: Yes Status: Acute - Time Spent With Patient Total time spent is greater than 50% in coordination of care (as documented) at patient's floor/unit and/or counseling patient: - Subjective Interval history: Patient seen and examined at bedside. Resting comfortably in bed and eating lunch, does not appear to be in any distress. Denies any chest pain at this time. Assessment and Plan (1) HCAP (healthcare-associated pneumonia) Current Visit: Yes Status: Acute clinically improving will continue Cefepime, dose adjusted continue systemic steroids and bronchodilator support for underlying COPD exacerbation bipap at bedtime and during naps in the day will closely monitor respiratory status blood cultures positive for Strep Pneumo (2) NSTEMI (non-ST elevated myocardial infarction) Current Visit: Yes Status: Acute Cardiology evaluation appreciated, cardiology signed off Troponins trending down, likely demand ischemia vs. NSTEMI continue heparin gtt for 48 hours continue ASA, BB Echo reviewed no chest pain reported at this time will closely monitor (3) Altered mental state Current Visit: No Status: Resolved Qualifiers: Altered mental status type: disorientation Qualified Code(s): R41.0 - Disorientation, unspecified (4) COPD (chronic obstructive pulmonary disease) Current Visit: Yes Status: Acute As above Qualifiers: COPD type: unspecified COPD Qualified Code(s): J44.9 - Chronic obstructive pulmonary disease, unspecified (5) UTI (urinary tract infection) Current Visit: No Status: Acute continue abx as listed above f/u urine cultures Qualifiers: Urinary tract infection type: acute cystitis Hematuria presence: without hematuria Qualified Code(s): N30.00 - Acute cystitis without hematuria (6) Abdominal wall cellulitis Current Visit: Yes Status: Acute antibiotic coverage as above Exam fails to reveal superficial signs of infection or any tenderness, pt remains clinically asymptomatic (7) CHF (congestive heart failure) Current Visit: Yes Status: Acute continue home medications (8) DM (diabetes mellitus), type 2 Current Visit: No Status: Chronic increased to medium dose insulin algorithm monitor FS and BG ADA diet will adjust insulin dosing as per insulin requirements Qualifiers: Diabetes 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 Diabetes mellitus complication status: with unspecified complications Qualified Code(s) : E11.8 - Type 2 diabetes mellitus with unspecified complications (9) Liver lesion Current Visit: Yes Status: Acute f/u liver protocol MRI abd (10) DVT prophylaxis Current Visit: No Status: Acute on heparin gtt - Constitutional Vitals: Temp Pulse Resp BP Pulse Ox 98.0 F 90 16 107/66 94 08/03/17 15:15 08/03/17 15:15 08/03/17 15:15 08/03/17 15:15 08/03/17 15:15 General appearance: Present: A&O X 3, morbidly obese, no acute distress - Head Head exam: Present: atraumatic, normocephalic - Eye Eye exam: Present: conjuntiva pink, sclera anicteric - Respiratory Respiratory exam: Present: decreased breath sounds. Absent: respiratory distress, wheezes - Cardiovascular Cardiovascular exam: Present: RRR, +S1, +S2. Absent: diastolic murmur, gallop, rubs, systolic murmur - GI/Abdominal GI/Abdominal exam: Present: distended (abd pannus), normal bowel sounds, soft, no peritoneal signs. Absent: tenderness - Extremities Exam Extremities exam: Present: warm, radial pulses palpable and symmetrical. Absent : calf tenderness - Neurological Exam Neurological exam: Present: oriented X3 Internal Medicine: Result - Labs CBC & Chem 7: 08/03/17 08:16 08/03/17 08:16 Labs: Short CBC 08/03/17 08/03/17 Range/Units 00:08 08:16 WBC 29.9 H 23.9 H (4.3-11.1) K/mcL Hgb 9.6 L 9.7 L (11.5-15.4) g/dL Hct 31.0 L 31.4 L (35.3-44.9) % Plt Count 262 254 (140-400) K/mcL Neutrophils # 27.8 H 22.3 H (1.6-8.9) K/mcL BMP 08/03/17 08/03/17 00:08 08:16 Sodium 131 L 133 L Potassium 2.5 L* 3.1 L Chloride 94 L 98 Carbon Dioxide 27 27 BUN 18 20 Creatinine 0.71 0.69 Glucose 331 H 212 H Calcium 8.1 L 8.3 L Cardiac Enzymes 08/03/17 Range/Units 06:34 Troponin I 1.01 H* (< 0.04) ng/mL - ABG Interpretation ABG results: ABG ABG pH 7.50 pH Units (7.32-7.45) H 08/02/17 02:39 ABG pCO2 35 mmHg (35-45) 08/02/17 02:39 ABG pO2 72 mmHg (85-104) L 08/02/17 02:39 ABG O2 Saturation 96 % (95-98) 08/02/17 02:39 PT/INR, D-dimer PT 16.7 Seconds (9.4-12.1) H 08/01/17 23:39 Consult Discharge Plan - Plan Referrals: Robb Perry MD [Primary Care Provider] -
[2017-08-03] MEDS: rOPINIRole 1 MG TABLET PO SCH (21:02)
[2017-08-03] MEDS: traZODone 50 MG TABLET PO SCH (21:03)
[2017-08-04] MEDS: *HR* OxyCODONE Immed Rel 15 MG TABLET PO SCH ×2 (01:11→06:26)
[2017-08-04] MEDS: Ipratropium/Albuterol Neb 3 ML IH SCH ×4 (03:37→22:51)
[2017-08-04 07:27] LABS: BUN/Creatinine Ratio 36 (6-26); Blood Urea Nitrogen 23 mg/dL (8-23); Calcium 8.9 mg/dL (8.6-10.3); Carbon Dioxide 27 mEq/L (23-29); Chloride 98 mEq/L (98-107); Glucose 339 mg/dL (70-105); Magnesium 1.7 mg/dL (1.6-2.6); Osmolality,Calculated 291 (280-300); Phosphorous 3.9 mg/dL (2.7-4.5); Potassium 3.2 mEq/L (3.5-5.1); Sodium 132 mEq/L (136-145); eGFR For African Americans > 60 (> 60); eGFR For Non-African Americans > 60 (> 60)
[2017-08-04 07:53] LABS: Basophils % 0.1 %; Eosinophils % 0.2 %; Hematocrit 29.5 % (35.3-44.9); Hemoglobin 9.1 g/dL (11.5-15.4); Lymphocytes # 1.1 K/mcL (0.6-4.6); Lymphocytes % 7.4 %; Mean Corpuscular HGB Conc 30.8 g/dL (31.6-35.5); Mean Corpuscular Hemoglobin 23.9 pg (28.0-33.3); Mean Corpuscular Volume 77.6 fL (83.0-100.0); Mean Platelet Volume 8.9 fL (9.4-12.4); Monocytes # 0.6 K/mcL (0.0-1.3); Monocytes % 4.4 %; Neutrophils # 12.8 K/mcL (1.6-8.9); Platelet Count 225 K/mcL (140-400); Red Cell Distribution Width 17.7 % (11.5-14.5); Segmented Neutrophils % 86.9 %
[2017-08-04] MEDS: predniSONE 20 MG TABLET PO SCH (07:57)
[2017-08-04] MEDS: Loratadine 10 MG TABLET PO SCH (07:57)
[2017-08-04] MEDS: Bumetanide 1 MG TABLET PO SCH ×2 (07:57→16:57)
[2017-08-04] MEDS: Aspirin 81 MG TAB.CHEW PO SCH (07:59)
[2017-08-04] MEDS: Baclofen 10 MG TABLET PO SCH ×4 (07:59→21:37)
[2017-08-04] MEDS: Folic Acid 1 MG TABLET PO SCH (07:59)
[2017-08-04] MEDS: Cholecalciferol (D-3) 1,000 UNIT TABLET PO SCH (07:59)
[2017-08-04] MEDS: Isosorbide MONOnitrate (24 HR) 60 MG TAB.ER.24H PO SCH (07:59)
[2017-08-04] MEDS: Metoprolol XL (24 HR) Succ 50 MG TAB.ER.24H PO SCH (07:59)
[2017-08-04] MEDS: *HR* Amiodarone 200 MG TABLET PO SCH (07:59)
[2017-08-04] MEDS: Cefepime HCl 2,000 MG in Water for inj. (sterile) 20 ML 20 ML IVP SCH ×2 (07:59→21:38)
[2017-08-04] MEDS: Verapamil ER (24 HR) 240 MG TABLET.ER PO SCH (08:18)
[2017-08-04] MEDS: Budesonide/Formoterol 160/4.5 MDI IH SCH ×2 (10:59→22:51)
[2017-08-04] MEDS ORDERED: *HR* OxyCODONE Immed Rel 15 MG TABLET PO PRN (11:07)
[2017-08-04] MEDS: Insulin LISPRO 300 UNITS/3 ML VIAL SQ SCH ×2 (11:46→16:57)
[2017-08-04] MEDS: Insulin DETEMIR 100 UNIT/ML X5UNITS SQ SCH (12:05)
--- NOTE | 2017-08-04 16:33 | Internal Med Progress Note ---
Date of Encounter: 08/04/17 Time of Encounter: 16:27 - Assessment and plan (1) CAD (coronary artery disease) Current Visit: Yes Status: Chronic Qualifiers: Coronary Disease-Associated Artery/Lesion type: bypass graft [place] vs. transplanted heart: [place] heart Associated angina: without angina Qualified Code(s): I25.810 - Atherosclerosis of coronary artery bypass graft(s) without angina pectoris (2) Insulin dependent diabetes mellitus Current Visit: No Status: Chronic (3) History of atrial fibrillation Current Visit: No Status: Chronic (4) CKD (chronic kidney disease), stage III Current Visit: No Status: Chronic (5) Hypertension Current Visit: No Status: Chronic Qualifiers: Hypertension type: essential hypertension Qualified Code(s): I10 - Essential (primary) hypertension (6) COPD (chronic obstructive pulmonary disease) Current Visit: No Status: Chronic Qualifiers: COPD type: emphysema Emphysema type: unspecified Qualified Code(s): J43.9 - Emphysema, unspecified (7) Sepsis Current Visit: Yes Status: Acute Qualifiers: Sepsis type: sepsis due to unspecified organism Qualified Code(s): A41.9 - Sepsis, unspecified organism (8) HCAP (healthcare-associated pneumonia) Current Visit: Yes Status: Acute (9) NSTEMI (non-ST elevated myocardial infarction) Current Visit: Yes Status: Acute (10) UTI (urinary tract infection) Current Visit: Yes Status: Acute Qualifiers: Urinary tract infection type: site unspecified Hematuria presence: without hematuria Qualified Code(s): N39.0 - Urinary tract infection, site not specified (11) Abnormal CT of the chest Current Visit: Yes Status: Acute (12) DVT prophylaxis Current Visit: Yes Status: Acute (13) Liver lesion Current Visit: Yes Status: Acute (14) Transaminitis Current Visit: Yes Status: Acute (15) Abdominal wall cellulitis Current Visit: Yes Status: Acute - Time Spent With Patient Total time spent is greater than 50% in coordination of care (as documented) at patient's floor/unit and/or counseling patient: - Subjective Interval history: Patient seen and examined at bedside. Resting comfortably in bed and denies any discomfort at this time. MR abd results noted, oncology evaluation requested Assessment and Plan (1) HCAP (healthcare-associated pneumonia) Current Visit: Yes Status: Acute clinically improving will continue Cefepime continue systemic steroids and bronchodilator support for underlying COPD exacerbation bipap at bedtime and during naps in the day will closely monitor respiratory status blood cultures positive for Strep Pneumo (2) NSTEMI (non-ST elevated myocardial infarction) Current Visit: Yes Status: Acute Cardiology evaluation appreciated, cardiology signed off Troponins trending down, likely demand ischemia vs. NSTEMI discontinued heparin gtt continue ASA, BB Echo reviewed no chest pain reported at this time will closely monitor (3) Altered mental state Current Visit: No Status: Resolved Qualifiers: Altered mental status type: disorientation Qualified Code(s): R41.0 - Disorientation, unspecified (4) COPD (chronic obstructive pulmonary disease) Current Visit: Yes Status: Acute As above Qualifiers: COPD type: unspecified COPD Qualified Code(s): J44.9 - Chronic obstructive pulmonary disease, unspecified (5) UTI (urinary tract infection) Current Visit: No Status: Acute continue abx as listed above urine cultures noted Qualifiers: Urinary tract infection type: acute cystitis Hematuria presence: without hematuria Qualified Code(s): N30.00 - Acute cystitis without hematuria (6) Abdominal wall cellulitis Current Visit: Yes Status: Acute antibiotic coverage as above Exam fails to reveal superficial signs of infection or any tenderness, pt remains clinically asymptomatic (7) CHF (congestive heart failure) Current Visit: Yes Status: Acute continue home medications (8) DM (diabetes mellitus), type 2 Current Visit: No Status: Chronic medium dose insulin algorithm monitor FS and BG ADA diet will adjust insulin dosing as per insulin requirements Qualifiers: 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 Diabetes mellitus complication status: with unspecified complications Qualified Code(s) : E11.8 - Type 2 diabetes mellitus with unspecified complications (9) Liver lesion Current Visit: Yes Status: Acute MRI abd reported findings suspicious for infiltrative hepatic malignancy, either cholangiocarcinoma or hepatocellular carcinoma Oncology evaluation requested (10) DVT prophylaxis Current Visit: No Status: Acute heparin SQ (11) Hypertension Current Visit: No Status: Chronic continue home meds hydralazine 10mg IV q6h prn SBP>160 - Constitutional Vitals: Temp Pulse Resp BP Pulse Ox 98.5 F 86 18 181/97 94 08/04/17 15:44 08/04/17 15:44 08/04/17 16:15 08/04/17 15:44 08/04/17 16:15 General appearance: Present: A&O X 3, morbidly obese, no acute distress - Head Head exam: Present: atraumatic, normocephalic - Eye Eye exam: Present: conjuntiva pink, sclera anicteric - Respiratory Respiratory exam: Absent: rales, respiratory distress, wheezes - Cardiovascular Cardiovascular exam: Present: RRR, +S1, +S2. Absent: diastolic murmur, gallop, rubs, systolic murmur - GI/Abdominal GI/Abdominal exam: Present: distended (abd pannus), normal bowel sounds, soft. Absent: tenderness - Extremities Exam Extremities exam: Present: warm, radial pulses palpable and symmetrical. Absent : calf tenderness - Neurological Exam Neurological exam: Present: oriented X3 Internal Medicine: Result - Labs CBC & Chem 7: 08/04/17 06:23 08/04/17 06:23 Labs: Short CBC 08/04/17 Range/Units 06:23 WBC 14.7 H (4.3-11.1) K/mcL Hgb 9.1 L (11.5-15.4) g/dL Hct 29.5 L (35.3-44.9) % Plt Count 225 (140-400) K/mcL Neutrophils # 12.8 H (1.6-8.9) K/mcL BMP 08/04/17 06:23 Sodium 132 L Potassium 3.2 L Chloride 98 Carbon Dioxide 27 BUN 23 Creatinine 0.64 Glucose 339 H Calcium 8.9 - ABG Interpretation ABG results: ABG ABG pH 7.50 pH Units (7.32-7.45) H 08/02/17 02:39 ABG pCO2 35 mmHg (35-45) 08/02/17 02:39 ABG pO2 72 mmHg (85-104) L 08/02/17 02:39 ABG O2 Saturation 96 % (95-98) 08/02/17 02:39 PT/INR, D-dimer PT 16.7 Seconds (9.4-12.1) H 08/01/17 23:39 - Impressions Impressions Abdomen MRI 08/04/17 11:07 IMPRESSION: Extensive signal abnormality and enhancement and probable restricted diffusion within the liver predominantly involving the left hepatic lobe but also within the posterior right hepatic lobe. Marked motion artifact limits evaluation. However findings are suspicious for infiltrative hepatic malignancy, either cholangiocarcinoma or hepatocellular carcinoma. Please correlate with tumor markers and biopsy. The findings were sent to the Radiology Results [facility] at 2:25 pm on 08/04/2017 to be communicated to a licensed caregiver. D/ / Martinez Bush MD / Martinez Bush MD Interpreting Provider: Martinez Bush MD Consult Discharge Plan - Plan Referrals: Robb Perry MD [Primary Care Provider] - ([facility])
[2017-08-04] MEDS: *HR* Heparin 5,000 UNIT/ML VIAL SQ SCH (16:56)
[2017-08-04] MEDS ORDERED: *HR* LORazepam 2 MG/ML VIAL IVP ONE (18:53)
[2017-08-04] MEDS ORDERED: *HR* LORazepam 2 MG/ML VIAL ONE (18:55)
[2017-08-04] MEDS ORDERED: *HR* FentaNYL PATCH 50 MCG PATCH TD SCH (19:00)
[2017-08-04] MEDS ORDERED: Insulin LISPRO 300 UNITS/3 ML VIAL SQ SCH (21:00)
[2017-08-04] MEDS ORDERED: ALPRAZolam 0.5 MG TABLET PO SCH (21:15)
[2017-08-04] MEDS: traZODone 50 MG TABLET PO SCH (21:37)
[2017-08-04] MEDS: rOPINIRole 1 MG TABLET PO SCH (21:37)
[2017-08-04] MEDS: *HR* LORazepam 2 MG/ML VIAL IVP PRN (22:37)
[2017-08-05] MEDS ORDERED: Ipratropium/Albuterol Neb 3 ML IH ONE (00:36)
[2017-08-05] MEDS ORDERED: Furosemide 40 MG/4 ML VIAL IVP ONE (01:11)
[2017-08-05] MEDS ORDERED: *HR* LORazepam 2 MG/ML VIAL IVP ONE ×4 (01:11→11:55)
[2017-08-05] MEDS ORDERED: *HR* LORazepam 2 MG/ML VIAL ONE ×2 (01:20→10:52)
[2017-08-05] MEDS ORDERED: Furosemide 40 MG/4 ML VIAL ONE ×2 (01:20→10:11)
[2017-08-05] MEDS ORDERED: methylPREDNISolone 125 MG/2 ML VIAL IVP ONE (01:39)
--- NOTE | 2017-08-05 01:51 | Event Note ---
Date of Encounter: 08/05/17 Time of Encounter: 00:30 Notified by RN the patient has been anxious all night and stating that she felt like she cannot breathe. Also reporting concerning vitals with BP 164/95, HR 108, RR 28-38, and O2 is 91% on 5 L. Earlier she had been given both Xanax and Ativan with very short-term relief. RN reports that she felt like her lungs were sounding more coarse. I went to evaluate the patient, who is reporting that she feels short of breath and is having some right-sided chest pain. Pain is nonradiating, not associated with diaphoresis, nausea, or vomiting. Lung exam does reveal rhonchi. There is bilateral pitting edema. EKG obtained concerning for A. fib/flutter (hx of a. fib), as there appears to be P waves present. There is a conduction delay, consistent with prior EKG. No acute ST abnormalities. Chest x-ray shows diffuse multifocal bilateral airspace disease and right pleural effusion, with the airspace disease increasing in density and extent compared to chest x-ray upon admission. Concerning for edema or worsening pneumonia. BMP shows mild K 3.4, CO2 19, and normal renal function. Troponin 0.40, which continues to decrease (last was 1.01 two days ago). Patient was placed on BiPAP. Given Lasix 40 IV for worsening pulmonary edema. Likely will need further diuresis. Also given Ativan 1 mg IV to decrease work of breathing and allow for tolerance of BiPAP. Upon repeat evaluation the patient's RR remains in 20-30's and O2 sat is 95-100%.
[2017-08-05 01:58] LABS: BUN/Creatinine Ratio 30 (6-26); Blood Urea Nitrogen 19 mg/dL (8-23); Calcium 8.9 mg/dL (8.6-10.3); Carbon Dioxide 27 mEq/L (23-29); Chloride 94 mEq/L (98-107); Glucose 338 mg/dL (70-105); Osmolality,Calculated 294 (280-300); Potassium 3.4 mEq/L (3.5-5.1); Sodium 134 mEq/L (136-145); eGFR For African Americans > 60 (> 60); eGFR For Non-African Americans > 60 (> 60)
[2017-08-05] MEDS: Ipratropium/Albuterol Neb 3 ML IH SCH ×5 (04:45→23:41)
[2017-08-05 05:51] LABS: Basophils # 0.1 K/mcL (0.0-0.2); Basophils % 0.4 %; Hematocrit 31.8 % (35.3-44.9); Hemoglobin 10.1 g/dL (11.5-15.4); Immature Granulocytes % 3.5 % (0-4); Lymphocytes # 0.6 K/mcL (0.6-4.6); Lymphocytes % 4.5 %; Mean Corpuscular HGB Conc 31.8 g/dL (31.6-35.5); Mean Corpuscular Hemoglobin 24.1 pg (28.0-33.3); Mean Corpuscular Volume 75.9 fL (83.0-100.0); Mean Platelet Volume 8.9 fL (9.4-12.4); Monocytes # 0.7 K/mcL (0.0-1.3); Monocytes % 5.3 %; Neutrophils # 11.3 K/mcL (1.6-8.9); Platelet Count 261 K/mcL (140-400); Red Blood Count 4.19 M/mcL (3.82-4.97); Red Cell Distribution Width 17.7 % (11.5-14.5); Segmented Neutrophils % 86.3 %
[2017-08-05 06:03] LABS: BUN/Creatinine Ratio 34 (6-26); Blood Urea Nitrogen 19 mg/dL (8-23); Calcium 8.8 mg/dL (8.6-10.3); Carbon Dioxide 30 mEq/L (23-29); Chloride 93 mEq/L (98-107); Glucose 328 mg/dL (70-105); Magnesium 1.5 mg/dL (1.6-2.6); Osmolality,Calculated 299 (280-300); Phosphorous 2.6 mg/dL (2.7-4.5); Potassium 3.1 mEq/L (3.5-5.1); Sodium 137 mEq/L (136-145); eGFR For African Americans > 60 (> 60); eGFR For Non-African Americans > 60 (> 60)
[2017-08-05] MEDS: *HR* Heparin 5,000 UNIT/ML VIAL SQ SCH ×2 (06:43→18:00)
[2017-08-05] MEDS: *HR* LORazepam 2 MG/ML VIAL IVP PRN ×2 (07:52→10:06)
[2017-08-05] MEDS: Cefepime HCl 2,000 MG in Water for inj. (sterile) 20 ML 20 ML IVP SCH ×2 (07:53→16:01)
[2017-08-05] MEDS: Verapamil ER (24 HR) 240 MG TABLET.ER PO SCH (07:54)
[2017-08-05] MEDS: predniSONE 20 MG TABLET PO SCH (07:54)
[2017-08-05] MEDS: Cholecalciferol (D-3) 1,000 UNIT TABLET PO SCH (07:55)
[2017-08-05] MEDS: Bumetanide 1 MG TABLET PO SCH (07:55)
[2017-08-05] MEDS: Loratadine 10 MG TABLET PO SCH (07:55)
[2017-08-05] MEDS: *HR* Amiodarone 200 MG TABLET PO SCH (07:55)
[2017-08-05] MEDS: Metoprolol XL (24 HR) Succ 50 MG TAB.ER.24H PO SCH (07:55)
[2017-08-05] MEDS: Folic Acid 1 MG TABLET PO SCH (07:55)
[2017-08-05] MEDS: Baclofen 10 MG TABLET PO SCH ×5 (07:55→20:57)
[2017-08-05] MEDS: Isosorbide MONOnitrate (24 HR) 60 MG TAB.ER.24H PO SCH (07:56)
[2017-08-05] MEDS: Aspirin 81 MG TAB.CHEW PO SCH (07:56)
[2017-08-05] MEDS: Insulin LISPRO 300 UNITS/3 ML VIAL SQ SCH ×4 (08:04→21:34)
[2017-08-05] MEDS: Insulin DETEMIR 100 UNIT/ML X5UNITS SQ SCH (08:09)
[2017-08-05] MEDS ORDERED: Metoprolol XL (24 HR) Succ 50 MG TAB.ER.24H PO ONE (09:03)
[2017-08-05] MEDS: Budesonide/Formoterol 160/4.5 MDI IH SCH ×2 (09:55→21:28)
[2017-08-05 10:06] LABS: ABG Base Excess 5 mEq/L (-2 to 3); ABG HCO3 28 mEq/L (21-27); ABG Oxygen Saturation 98 % (95-98); ABG PCO2 35 mmHg (35-45); ABG PH 7.52 pH Units (7.32-7.45); ABG PO2 101 mmHg (85-104); ABG TCO2 29 mEq/L (20-26); Blood Gas PEEP 6 cm H2O; Blood Gas Pressure Support 12 cm H2O
[2017-08-05] MEDS ORDERED: *HR* LORazepam 2 MG/ML VIAL IVP PRN (10:09)
[2017-08-05] MEDS ORDERED: Furosemide 40 MG/4 ML VIAL IVP SCH (10:15)
[2017-08-05] MEDS ORDERED: *HR* Morphine 2 MG/ML SYRINGE IVP ONE (10:46)
[2017-08-05] MEDS ORDERED: Bumetanide 1 MG/4 ML VIAL IVP ONE (11:06)
[2017-08-05] MEDS ORDERED: Ringers Solution, Lactated 1,000 ML ONE (11:18)
[2017-08-05] MEDS ORDERED: *HR* FentaNYL (PF) 100 MCG/2 ML VIAL ONE (11:24)
[2017-08-05 11:29] LABS: BUN/Creatinine Ratio 31 (6-26); Blood Urea Nitrogen 23 mg/dL (8-23); Calcium 9.2 mg/dL (8.6-10.3); Carbon Dioxide 29 mEq/L (23-29); Chloride 94 mEq/L (98-107); Glucose 364 mg/dL (70-105); Osmolality,Calculated 300 (280-300); Potassium 3.7 mEq/L (3.5-5.1); Sodium 136 mEq/L (136-145); eGFR For African Americans > 60 (> 60); eGFR For Non-African Americans > 60 (> 60)
[2017-08-05] MEDS ORDERED: Albuterol 2.5 MG/3 ML NEBULIZER IH PRN (11:55)
[2017-08-05] MEDS ORDERED: *HR* Dextrose 50 % in Water (Syg) 50 ML SYRINGE IVP PRN (11:55)
[2017-08-05] MEDS ORDERED: *HR* OxyCODONE Immed Rel 15 MG TABLET PO PRN (11:55)
[2017-08-05] MEDS ORDERED: Naloxone 0.4 MG/ML INJ IVP PRN (11:55)
[2017-08-05] MEDS ORDERED: Dextrose Gel 15 GM/37.5 ML TUBE PO PRN ×2 (11:55)
[2017-08-05] MEDS ORDERED: D5% in Water 1,000 ML IVC PRN (11:55)
[2017-08-05] MEDS ORDERED: Fluticasone Propionate Nasal 50 MCG/SPRAY BOTTLE NS PRN (11:55)
--- NOTE | 2017-08-05 11:57 | Internal Med Progress Note ---
Date of Encounter: 08/05/17 Time of Encounter: 10:55 - Assessment and plan (1) CAD (coronary artery disease) Current Visit: Yes Status: Chronic Qualifiers: Coronary Disease-Associated Artery/Lesion type: bypass graft [place] vs. transplanted heart: [place] heart Associated angina: without angina Qualified Code(s): I25.810 - Atherosclerosis of coronary artery bypass graft(s) without angina pectoris (2) Insulin dependent diabetes mellitus Current Visit: No Status: Chronic (3) History of atrial fibrillation Current Visit: No Status: Chronic (4) CKD (chronic kidney disease), stage III Current Visit: No Status: Chronic (5) Hypertension Current Visit: No Status: Chronic Qualifiers: Hypertension type: essential hypertension Qualified Code(s): I10 - Essential (primary) hypertension (6) COPD (chronic obstructive pulmonary disease) Current Visit: No Status: Chronic Qualifiers: COPD type: emphysema Emphysema type: unspecified Qualified Code(s): J43.9 - Emphysema, unspecified (7) Sepsis Current Visit: Yes Status: Acute Qualifiers: Sepsis type: sepsis due to unspecified organism Qualified Code(s): A41.9 - Sepsis, unspecified organism (8) HCAP (healthcare-associated pneumonia) Current Visit: Yes Status: Acute (9) NSTEMI (non-ST elevated myocardial infarction) Current Visit: Yes Status: Acute (10) UTI (urinary tract infection) Current Visit: Yes Status: Acute Qualifiers: Urinary tract infection type: site unspecified Hematuria presence: without hematuria Qualified Code(s): N39.0 - Urinary tract infection, site not specified (11) Abnormal CT of the chest Current Visit: Yes Status: Acute (12) DVT prophylaxis Current Visit: Yes Status: Acute (13) Liver lesion Current Visit: Yes Status: Acute (14) Transaminitis Current Visit: Yes Status: Acute (15) Abdominal wall cellulitis Current Visit: Yes Status: Acute (16) Acute respiratory failure Current Visit: Yes Status: Acute Qualifiers: Respiratory failure complication: unspecified whether with hypoxia or hypercapnia Qualified Code(s): J96.00 - Acute respiratory failure, unspecified whether with hypoxia or hypercapnia - Time Spent With Patient Total time spent is greater than 50% in coordination of care (as documented) at patient's floor/unit and/or counseling patient: - Subjective Interval history: Patient seen and examined at bedside. Pt was noted to be in acute respiratory distress with increased work of breathing and tachypneia, respiratory rate in 40-50s. Overnight pt reported to be anxious and reported of difficulty breathing, CXR concerning for pulmonary congestion. She received Lasix overnight with good urine output and ativan for anxiety. This morning pt received another dose of IV lasix with no urine output, breath sounds diminished. received ativan for anxiety without any relief. Repeat Xray consistent with pulmonary edema. Given worsening respiratory status, critical care evaluation was called. Pt was evaluated by wallpaper scraper and decision to transfer the patient to the ICU was made followed by intubation. Oncology was consulted yesterday for new findings of liver mass concerning for hepatocellular carcinoma. Pt transferred to the ICU under critical care service. - Constitutional Vitals: Temp Pulse Resp BP Pulse Ox 99.4 F 123 45 161/90 98 08/05/17 08:27 08/05/17 08:27 08/05/17 11:05 08/05/17 08:27 08/05/17 11:05 General appearance: Present: A&O X 3, morbidly obese, severe distress ( respiratory distress) - Respiratory Respiratory exam: Present: decreased breath sounds, rales, tachypnea - Cardiovascular Cardiovascular exam: Present: +S1, +S2, tachycardia - GI/Abdominal GI/Abdominal exam: Present: normal bowel sounds, soft. Absent: tenderness - Extremities Exam Extremities exam: Present: pedal edema, warm, radial pulses palpable and symmetrical. Absent: calf tenderness Internal Medicine: Result - Labs CBC & Chem 7: 08/05/17 05:29 08/05/17 10:58 Labs: Short CBC 08/05/17 Range/Units 05:29 WBC 13.0 H (4.3-11.1) K/mcL Hgb 10.1 L (11.5-15.4) g/dL Hct 31.8 L (35.3-44.9) % Plt Count 261 (140-400) K/mcL Neutrophils # 11.3 H (1.6-8.9) K/mcL BMP 08/05/17 08/05/17 08/05/17 01:09 05:29 10:58 Sodium 134 L 137 136 Potassium 3.4 L 3.1 L 3.7 Chloride 94 L 93 L 94 L Carbon Dioxide 27 30 H 29 BUN 19 19 23 Creatinine 0.64 0.56 L 0.74 Glucose 338 H 328 H 364 H Calcium 8.9 8.8 9.2 Cardiac Enzymes 08/05/17 Range/Units 01:09 Troponin I 0.40 H* (< 0.04) ng/mL - ABG Interpretation ABG results: ABG ABG pH 7.52 pH Units (7.32-7.45) H 08/05/17 09:57 ABG pCO2 35 mmHg (35-45) 08/05/17 09:57 ABG pO2 101 mmHg (85-104) 08/05/17 09:57 ABG O2 Saturation 98 % (95-98) 08/05/17 09:57 PT/INR, D-dimer PT 16.7 Seconds (9.4-12.1) H 08/01/17 23:39 - Impressions Impressions Abdomen MRI 08/04/17 11:07 IMPRESSION: Extensive signal abnormality and enhancement and probable restricted diffusion within the liver predominantly involving the left hepatic lobe but also within the posterior right hepatic lobe. Marked motion artifact limits evaluation. However findings are suspicious for infiltrative hepatic malignancy, either cholangiocarcinoma or hepatocellular carcinoma. Please correlate with tumor markers and biopsy. The findings were sent to the Radiology Results Communication Center at 2:25 pm on 08/04/2017 to be communicated to a licensed caregiver. D/ / Martinez Bush MD / Martinez Bush MD Interpreting Provider: Martinez Bush MD Chest X-Ray 08/05/17 00:35 IMPRESSION: Diffuse multifocal bilateral airspace disease and right pleural effusion. Airspace disease has increased in density and extent since the prior studies. Findings could represent edema and/or pneumonia. D/ / Mary Ruiz Cha, MD / Mary Ruiz Cha, MD Interpreting Provider: Mary Ruiz Cha, MD Chest X-Ray 08/05/17 10:43 IMPRESSION: No interval change of bilateral multifocal airspace opacities. D/ / Mamie German MD / Mamie German MD Interpreting Provider: Mamie German MD Consult Discharge Plan - Plan Referrals: Robb Perry MD [Primary Care Provider] - ([facility])
--- NOTE | 2017-08-05 12:10 | Pulmonology Progress Note ---
<GabiJese W - Last Filed: 08/05/17 13:46> Date of Encounter: 08/05/17 Objective PUL Vital signs: Last Vital Signs Temp 99.4 F 08/05/17 08:27 Pulse 105 08/05/17 12:00 Resp 45 08/05/17 11:05 BP 161/90 08/05/17 08:27 Pulse Ox 98 08/05/17 11:05 Results - Laboratory Findings CBC and BMP: 08/05/17 12:32 08/05/17 10:58 ABG ABG pH 7.51 pH Units (7.32-7.45) H 08/05/17 13:31 ABG pCO2 43 mmHg (35-45) 08/05/17 13:31 ABG pO2 97 mmHg (85-104) 08/05/17 13:31 ABG O2 Saturation 98 % (95-98) 08/05/17 13:31 PT/INR, D-dimer PT 16.7 Seconds (9.4-12.1) H 08/01/17 23:39 Abnormal lab findings: Abnormal lab results WBC 14.9 K/mcL (4.3-11.1) H 08/05/17 12:32 Hgb 9.9 g/dL (11.5-15.4) L 08/05/17 12:32 Hct 31.4 % (35.3-44.9) L 08/05/17 12:32 MCV 76.2 fL (83.0-100.0) L 08/05/17 12:32 MCH 24.0 pg (28.0-33.3) L 08/05/17 12:32 MCHC 31.5 g/dL (31.6-35.5) L 08/05/17 12:32 RDW 17.8 % (11.5-14.5) H 08/05/17 12:32 MPV 9.1 fL (9.4-12.4) L 08/05/17 12:32 Neutrophils # 13.9 K/mcL (1.6-8.9) H 08/05/17 12:32 Reactive Lymphocytes Present (Not Present) A 08/03/17 00:08 Toxic Granulation Present (Not Present) A 08/03/17 00:08 Polychromasia 1+ (Not Present) A 08/02/17 05:59 Hypochromasia Present (Not Present) A 08/05/17 12:32 Poikilocytosis 1+ (Not Present) A 08/02/17 05:59 Anisocytosis 1+ (Not Present) A 08/05/17 12:32 Microcytosis Present (Not Present) A 08/03/17 00:08 PT 16.7 Seconds (9.4-12.1) H 08/01/17 23:39 APTT 88.5 Seconds (26.0-36.0) H 08/03/17 21:01 Heparin Anti-Xa, Unfract 0.95 IU/mL (0.30-0.70) H 08/03/17 00:08 ABG pH 7.51 pH Units (7.32-7.45) H 08/05/17 13:31 ABG HCO3 34 mEq/L (21-27) H 08/05/17 13:31 ABG Total CO2 35 mEq/L (20-26) H 08/05/17 13:31 ABG Base Excess 10 mEq/L (-2 to 3) H 08/05/17 13:31 Chloride 94 mEq/L (98-107) L 08/05/17 10:58 BUN/Creatinine Ratio 31 (6-26) H 08/05/17 10:58 Glucose 364 mg/dL (70-105) H 08/05/17 10:58 POC Glucose 358 mg/dL (70-99) H 08/05/17 11:24 Hemoglobin A1c 7.1 % (-5.6) H 08/02/17 05:59 Lactic Acid 4.4 mmol/L (0.5-2.2) H* 08/05/17 10:58 Phosphorus 2.6 mg/dL (2.7-4.5) L 08/05/17 05:29 Magnesium 1.5 mg/dL (1.6-2.6) L 08/05/17 05:29 Direct Bilirubin 0.5 mg/dL (0.0-0.2) H 08/01/17 23:39 Alkaline Phosphatase 118 Units/L (34-104) H 08/01/17 23:39 Troponin I 0.40 ng/mL (< 0.04) H* 08/05/17 01:09 B-Natriuretic Peptide 1560 pg/mL (Less than 100) H 08/05/17 10:58 Serum Total Protein 6.3 g/dL (6.4-8.9) L 08/01/17 23:39 Albumin 2.9 g/dL (3.5-5.7) L 08/01/17 23:39 Albumin/Globulin Ratio 0.9 (1.1-2.2) L 08/01/17 23:39 HDL Cholesterol 18 mg/dL (40-59) L 08/02/17 05:59 Urine Clarity Cloudy (Clear) A 08/02/17 00:32 Urine Protein 100 mg/dL (Neg-Trace) H 08/02/17 00:32 Urine Ketones 15 mg/dL (Negative) H 08/02/17 00:32 Urine Blood Moderate (Negative) H 08/02/17 00:32 Urine Nitrite Positive (Negative) A 08/02/17 00:32 Urine Bilirubin Small (Negative) H 08/02/17 00:32 Ur Leukocyte Esterase Moderate (Negative) H 08/02/17 00:32 Urine Microscopic RBC 5-15 per hpf (0-3) H 08/02/17 00:32 Urine Microscopic WBC TNTC per hpf (0-3) H 08/02/17 00:32 Ur Squamous Epith Cells Many per lpf (None-Few) H 08/02/17 00:32 Urine Bacteria Many per hpf (None-Few) H 08/02/17 00:32 Streptococcus sp PCR DETECTED (Not Detect) A 08/02/17 00:08 Strep pneumoniae (PCR) DETECTED (Not Detect) A 08/02/17 00:08 - Microbiology Findings Microbiology Findings: Microbiology, Last 48 Hours 08/02/17 09:07 Urine Culture - Final Urine,[place] Culture is grossly mixed, unable to properly interpret. Please repeat if indicated. - Clinical Findings Intake & Output: Intake & Output 08/04/17 08/05/17 08/05/17 23:59 07:59 15:59 Intake Total 20 / 20 0 / 0 Output Total 850 / 850 2800 / 2800 500 / 500 Balance -830 / -830 -2800 / -2800 -500 / -500 Weight 135.6 kg Consult Discharge Plan - Plan Referrals: Robb Perry MD [Primary Care Provider] - ([facility]) - Attending Attestation I examined this patient and my medical decision-making was reviewed with the Resident Physician. I agree with the documented findings, disposition and treatment plan as described except to the extent set forth below. We independently had [id number] contact with the patient I spent 36min of Critical Care time with this patient. It involved decision making of high complexity to assess, manipulate, and support vital organ system failure and/or to prevent further life threatening deterioration of the patient' s condition. The time involved in the performance of separately reportable procedures was not counted toward critical care time. Patient seen and examined at bedside Labs, radiology, chart personally reviewed. SAWMILL HAND: Worsening encephalopathy likely related benzodiazepine use given for increased work of breathing. Continue sedation for ventilator very patient able to move all extremities although not to command without clear focal deficit Pulm: Acute hypoxic respiratory failure requiring emergent intubation. This is secondary to hydrostatic pulmonary edema from heart failure. She is now on the ventilator using low tidal volume ventilatory strategy repeat ABG notable for worsening respiratory alkalosis that was further adjusted including decreasing minute ventilation and increasing sedation to treat this. Cards: Patient has worsening evidence of hydrostatic pulmonary edema secondary to decompensated heart failure. Cardiology been following the patient she had troponin elevation on admission which was thought secondary to demand ischemia and they have signed off may need reconsultation for heart failure based upon clinical course. Continue diuresis and will institute strict blood pressure control. EKG pending troponin will be resent FEN-GI: Nothing by mouth for now GI prophylaxis given Renal: Urine output monitored no evidence of a chaotic continue diuresis with monitoring of serum creatinine and electrolytes ID: Patient has been treated for community acquired pneumonia secondary to strep pneumoniae on presentation. White count has been trending down since her hospitalization and she has been on broad-spectrum antibiotics. I do not feel that her current decompensation is necessarily related to a new infection and white count has remained stable no fever etc. Although her lactate is elevated I suspect this is more related to heart failure then infection. Clearly aggressive fluid resuscitation in this patient with known heart failure and evidence of volume overload on chest x-ray would be deleterious. She remains on cefepime for treatment of strep pneumoniae pneumonia. We have recultured the patient Heme/Onc: DVT prophylaxis given Endo: Glucose Monitored Integ/MSK: Skin Care per routine ICU Nursing Protocol to prevent ulcers. Lines: All lines examined without evidence of infection : Dispo: Primary ICU for critical illness CODE: Full family notified of emergent intubation <Berenice Cordon - Last Filed: 08/05/17 15:40> Date of Encounter: 08/05/17 Time of Encounter: 12:00 Assessment and Plan (1) Acute respiratory failure with hypoxia and hypercapnia Current Visit: Yes Status: Acute Acute respiratory failure secondary to worsening decompensation of systolic and diastolic CHF with coexisting bacteremia 2/2 to strep pneumonia, HCAP, COPD. Patient was in the ICU previously this admission but did not require intubation. Patient was transferred to the floor on 08/02 and was tolerating NC and BIPAP well until this morning when patient's mental status declined as her respiratory distress increased. BMP= 1650. Therefore most likely primariliy due to secondary to CHF exacerbation. CXR shows stable right pleural effusion and multifocial consolidation. Echo on 08/04 showed EF 50-60%, indeterminate diastolic function and wall segments unable to be visualized. Plan: - Continue respiratory support with ventilation - Sedation: Fentanyl, Precedex -Continue cefepime day 3 -Prednisone 40 daily scheduled - ABG in the AM - Bumex given once (2) Diastolic congestive heart failure Current Visit: Yes Status: Acute Acute diastolic congestive heart failure . Echo on 08/04 showed EF 55-60%, unable to see diastolic function or wall segments due to body habitus. BNP 1650. Will continue to diereses. Most likely primary cause of Acute respiratory failure. See plan above. Qualifiers: Heart failure chronicity: acute Qualified Code(s): I50.31 - Acute diastolic (congestive) heart failure (3) COPD (chronic obstructive pulmonary disease) Current Visit: Yes Status: Acute See plan above. Continue duo nebs and prednisone treatment. Qualifiers: COPD type: unspecified COPD Qualified Code(s): J44.9 - Chronic obstructive pulmonary disease, unspecified (4) Liver lesion Current Visit: Yes Status: Acute MRI of abdomen shows predominantly involving the left hepatic lobe, there is extensive abnormal T2 signal and enhancement with suspected restricted diffusionsuspicious for infiltrative hepatic malignancy, either cholangiocarcinoma or hepatocellular carcinoma. Oncology was consulted, appreciate recommendations. (5) CKD (chronic kidney disease), stage III Current Visit: Yes Status: Acute Currently creatinine is within normal limits. We will continue to hold nephrotoxic medications. (6) Elevated lactic acid level Current Visit: Yes Status: Acute After rapid response lactic acid elevated to 4.4. Will trend and repeat every 6 hrs. Currently patient is treated on cefepime for bacteremia and pneumonia. Do not believe this is severe sepsis currently and attribute vitals to CHF exacerbation. (7) Elevated troponin Current Visit: Yes Status: Acute TTE EF is preserved--55-60%. Cardiology was consulted and recommended medical management, not a candidate for cardiac rehab--continue heparin gtt x 24-48 hours. Continue ASA, BB. Intolerant to statins. Cardiology signed off. New event will begin to trend Troponin again. (8) CAD (coronary artery disease) Current Visit: Yes Status: Chronic Status post CABG. Continue calcium channel clarissa, aspirin. Troponin trending. Qualifiers: Coronary Disease-Associated Artery/Lesion type: bypass graft [place] vs. transplanted heart: [place] heart Associated angina: without angina Qualified Code(s): I25.810 - Atherosclerosis of coronary artery bypass graft(s) without angina pectoris (9) HCAP (healthcare-associated pneumonia) Current Visit: No Status: Suspected Continue cefepime. (10) Insulin dependent diabetes mellitus Current Visit: No Status: Chronic Patient has had elevated glucoses for the last 24 it is in the 300s. Patient is currently in metabolic alkalosis with respiratory compensation. Plan: - High SSI - Levemine 10 units daily, will need to consider increasing tomorrow (11) UTI (urinary tract infection) Current Visit: No Status: Acute culture unable to be interpreted. Continuing to treat with cefepime. Qualifiers: Urinary tract infection type: acute cystitis Hematuria presence: without hematuria Qualified Code(s): N30.00 - Acute cystitis without hematuria (12) DVT prophylaxis Current Visit: No Status: Acute Heparin subcutaneous Subjective Principal diagnosis: acute respiratory failure Interval history: This is is a 66-year-old female from [facility] with a past medical history of systolic and diastolic congestive heart failure, COPD, diabetes, history of DVT, CAD status post CABG, hypertension and pacemaker who presented to the ED for altered mental status. Rapid response was called on patient today around noon as she has AMS and increase work of breathing on BiPAP. Patient was originally admitted to the ICU with the diagnosis of sepsis 2/2 pneumonia and UTI. Patient was transferred out of the ICU on 4/3. Currently patient is intubated and sedated on Fentanyl. Unable to obtain ROS as patient is intubated. Objective PUL Vital signs: Last Vital Signs Temp 99.4 F 08/05/17 08:27 Pulse 123 08/05/17 08:27 Resp 45 08/05/17 11:05 BP 161/90 08/05/17 08:27 Pulse Ox 98 08/05/17 11:05 Constitutional: intubated resting calmly Head: Normocephalic, atraumatic Heart: Normal, regular rate and rhythm, no murmurs Lungs: rhonchi and rales, on mechanical ventilation Abdomen: Soft, nondistended, nontender, bowel sounds present, no guarding or rigidity. Extremities: LE skin dry with venous stasis changes, +2pitting edema, No clubbing capillary refill <2sec. Skin: Skin warm and dry,, no jaundice Neurologic: unable to follow commands, not withdrawling from painful stimuli lines: PIV x 2 Results - Laboratory Findings CBC and BMP: 08/05/17 12:32 08/05/17 14:08 ABG ABG pH 7.52 pH Units (7.32-7.45) H 08/05/17 09:57 ABG pCO2 35 mmHg (35-45) 08/05/17 09:57 ABG pO2 101 mmHg (85-104) 08/05/17 09:57 ABG O2 Saturation 98 % (95-98) 08/05/17 09:57 PT/INR, D-dimer PT 16.7 Seconds (9.4-12.1) H 08/01/17 23:39 Abnormal lab findings: Abnormal lab results WBC 13.0 K/mcL (4.3-11.1) H 08/05/17 05:29 Hgb 10.1 g/dL (11.5-15.4) L 08/05/17 05:29 Hct 31.8 % (35.3-44.9) L 08/05/17 05:29 MCV 75.9 fL (83.0-100.0) L 08/05/17 05:29 MCH 24.1 pg (28.0-33.3) L 08/05/17 05:29 RDW 17.7 % (11.5-14.5) H 08/05/17 05:29 MPV 8.9 fL (9.4-12.4) L 08/05/17 05:29 Neutrophils # 11.3 K/mcL (1.6-8.9) H 08/05/17 05:29 Reactive Lymphocytes Present (Not Present) A 08/03/17 00:08 Toxic Granulation Present (Not Present) A 08/03/17 00:08 Polychromasia 1+ (Not Present) A 08/02/17 05:59 Hypochromasia Present (Not Present) A 08/03/17 00:08 Poikilocytosis 1+ (Not Present) A 08/02/17 05:59 Anisocytosis 1+ (Not Present) A 08/03/17 00:08 Microcytosis Present (Not Present) A 08/03/17 00:08 PT 16.7 Seconds (9.4-12.1) H 08/01/17 23:39 APTT 88.5 Seconds (26.0-36.0) H 08/03/17 21:01 Heparin Anti-Xa, Unfract 0.95 IU/mL (0.30-0.70) H 08/03/17 00:08 ABG pH 7.52 pH Units (7.32-7.45) H 08/05/17 09:57 ABG HCO3 28 mEq/L (21-27) H 08/05/17 09:57 ABG Total CO2 29 mEq/L (20-26) H 08/05/17 09:57 ABG Base Excess 5 mEq/L (-2 to 3) H 08/05/17 09:57 Chloride 94 mEq/L (98-107) L 08/05/17 10:58 BUN/Creatinine Ratio 31 (6-26) H 08/05/17 10:58 Glucose 364 mg/dL (70-105) H 08/05/17 10:58 POC Glucose 358 mg/dL (70-99) H 08/05/17 11:24 Hemoglobin A1c 7.1 % (-5.6) H 08/02/17 05:59 Lactic Acid 4.4 mmol/L (0.5-2.2) H* 08/05/17 10:58 Phosphorus 2.6 mg/dL (2.7-4.5) L 08/05/17 05:29 Magnesium 1.5 mg/dL (1.6-2.6) L 08/05/17 05:29 Direct Bilirubin 0.5 mg/dL (0.0-0.2) H 08/01/17 23:39 Alkaline Phosphatase 118 Units/L (34-104) H 08/01/17 23:39 Troponin I 0.40 ng/mL (< 0.04) H* 08/05/17 01:09 B-Natriuretic Peptide 1560 pg/mL (Less than 100) H 08/05/17 10:58 Serum Total Protein 6.3 g/dL (6.4-8.9) L 08/01/17 23:39 Albumin 2.9 g/dL (3.5-5.7) L 08/01/17 23:39 Albumin/Globulin Ratio 0.9 (1.1-2.2) L 08/01/17 23:39 HDL Cholesterol 18 mg/dL (40-59) L 08/02/17 05:59 Urine Clarity Cloudy (Clear) A 08/02/17 00:32 Urine Protein 100 mg/dL (Neg-Trace) H 08/02/17 00:32 Urine Ketones 15 mg/dL (Negative) H 08/02/17 00:32 Urine Blood Moderate (Negative) H 08/02/17 00:32 Urine Nitrite Positive (Negative) A 08/02/17 00:32 Urine Bilirubin Small (Negative) H 08/02/17 00:32 Ur Leukocyte Esterase Moderate (Negative) H 08/02/17 00:32 Urine Microscopic RBC 5-15 per hpf (0-3) H 08/02/17 00:32 Urine Microscopic WBC TNTC per hpf (0-3) H 08/02/17 00:32 Ur Squamous Epith Cells Many per lpf (None-Few) H 08/02/17 00:32 Urine Bacteria Many per hpf (None-Few) H 08/02/17 00:32 Streptococcus sp PCR DETECTED (Not Detect) A 08/02/17 00:08 Strep pneumoniae (PCR) DETECTED (Not Detect) A 08/02/17 00:08 - Microbiology Findings Microbiology Findings: Microbiology, Last 48 Hours 08/02/17 09:07 Urine Culture - Final Urine,[place] Culture is grossly mixed, unable to properly interpret. Please repeat if indicated. - Clinical Findings Intake & Output: Intake & Output 08/04/17 08/05/17 08/05/17 23:59 07:59 15:59 Intake Total 0 / 0 Output Total 850 / 850 2800 / 2800 500 / 500 Balance -830 / -830 -2800 / -2800 -500 / -500 Weight 135.6 kg
[2017-08-05] MEDS ORDERED: Lacri-Lube 3.5 GM TUBE BOTH EYES PRN (12:40)
--- NOTE | 2017-08-05 12:46 | Procedure Note ---
Date of procedure: 08/05/17 Pre-op diagnosis: Respiratory Failure Post-op diagnosis: same Procedure: Endotracheal Intubation Was there an employment assistant present: No Estimated blood loss (cc): 0 Specimen: None Disposition: no change (ICU) Procedures: Internal Med - Intubation Time out performed: No (emergent procecure consent was implied patient was encephalopathic) Sedative: propofol (75) Laryngoscope: glidescope ET tube size: 7.5 Tube secured depth (cm): 20 Tube secured location: lips Tube placement confirmation: visualized tube passing through cords, equal breath sounds bilaterally, no breath sounds over epigastrium, confirmation by capnometry Patient tolerated procedure: well Intubation complications: none
[2017-08-05 12:50] LABS: Hematocrit 31.4 % (35.3-44.9); Hemoglobin 9.9 g/dL (11.5-15.4); Mean Corpuscular HGB Conc 31.5 g/dL (31.6-35.5); Mean Corpuscular Volume 76.2 fL (83.0-100.0); Mean Platelet Volume 9.1 fL (9.4-12.4); Platelet Count 277 K/mcL (140-400); Red Blood Count 4.12 M/mcL (3.82-4.97); Red Cell Distribution Width 17.8 % (11.5-14.5)
[2017-08-05] MEDS: FentaNYL (PF) 1,000 MCG in 0.9 % Sodium Chloride 80 ML IVC SCH (13:11)
[2017-08-05 13:14] LABS: Lymphocytes # 0.6 K/mcL (0.6-4.6); Monocytes # 0.5 K/mcL (0.0-1.3); Neutrophils # 13.9 K/mcL (1.6-8.9)
[2017-08-05 13:15] LABS: Anisocytosis 1+ (Not Present); Hypochromasia Present (Not Present); Platelet Estimate Normal (Normal)
[2017-08-05 13:34] LABS: ABG Base Excess 10 mEq/L (-2 to 3); ABG HCO3 34 mEq/L (21-27); ABG Oxygen Saturation 98 % (95-98); ABG PCO2 43 mmHg (35-45); ABG PH 7.51 pH Units (7.32-7.45); ABG PO2 97 mmHg (85-104); ABG TCO2 35 mEq/L (20-26); Blood Gas Modality PRVC; Blood Gas PEEP 5 cm H2O; Blood Gas Respiration Rate 14; Blood Gas VT 400 cc
[2017-08-05] MEDS ORDERED: Dexmedetomidine HCl 400 MCG/100 ML MLS IVC SCH (14:15)
--- NOTE | 2017-08-05 14:33 | Oncology Inp Consult Note ---
<Annette Colon L - Last Filed: 08/08/17 10:11> Date of Encounter: 08/05/17 Time of Encounter: 10:30 Assessment and Plan (1) Liver lesion Status: Acute Assessment and plan: MRI abdomen reveals extensive signal abnormality and enhancement and probable restricted diffusion within the liver predominantly involving the left hepatic lobe but also within the posterior right hepatic lobe. Serology from 2015 nonreactive for hepatitis B/C. PT 16.7, INR 1.5, Direct bili 0.5, AST 15, ALT 7. Check AFP, along with updated iron, B12 and folate studies. Microytic, hypochromic anemia with hgb 9.9, WBC 14, platelet count 277. Given patients rapid respiratory decline over the night will hold off on further workup or potential biopsy for now, pending AFP. Differentials may include cholangiocarcinoma or hepatocellular carcinoma, or metastatic lesion from potential GI primary given her anemia pending updated iron studies. Please refer to Dr. Villegas's attestation below - Data of Consult Patient: new to practice Consult date: 08/05/17 Requesting Physician: Wilder Kearns Primary Care Provider: Robb Perry MD - Consult Narrative Reason for consult: Hepatic lesions History of present illness: Ms. Snyder is a 66 year old female with past medical history significant for combined heart failure, COPD, chronic respiratory failure on oxygen, DVT, diabetes, hyperlipidemia, hypertension, pacemaker placement, morbid obesity, CAD status post CABG and stent was sent from her nursing facility on 08/01/2017 with shortness of breath, decreased responsiveness, lethargy, fever. Ms. Snyder was oriented to person/place and is a poor historian, mostly communicates with yes/no answers and according to ER record they were informed that this is her baseline. CT abdomen and pelvis obtained in ER revealed right lateral abdominal wall cellulitis along with an indeterminate low attenuation foci throughout the liver. CT chest showed right lower lobe pneumonia with underlying obstructing mass unable to be excluded. MRI abdomen reveals extensive signal abnormality and enhancement and probable restricted diffusion within the liver predominantly involving the left hepatic lobe but also within the posterior right hepatic lobe. According to chart review, Ms. Snyder is a former smoker and resident [facility]. She has no history of known cancer. She had a serology/ immunology workup in 2015 which was nonreactive for hepatitis B and C. No reported history of alcohol abuse. Prior CT abdomen from 10/16/2015 notes a complex cyst in liver. She was admitted with sepsis, HCAP, UTI and NSTEMI. Past Med Surg Social Fam HX - Past Medical History Medical history: CHF, COPD, DVT, diabetes, hyperlipidemia, hypertension, myocardial infarction, other Psychiatric history: anxiety, depression - Past Surgical History Surgical History: angioplasty/stent, cholecystectomy, coronary bypass (CABG), hysterectomy, pacemaker/AICD, other - Social History Smoking Status: Former smoker Smokeless Tobacco Status: No Alcohol use: none Drug use: none - Family History Mother Adopted: No Living Status: Hx Family Cardiac Disorders: Yes Hx Family Respiratory Disorders: No Hx Family Cancer: No Hx Family GI Disorders: Yes Hx Family Endocrine Disorder: Yes Hx Family Neuromuscular Disorders: No Hx Family Neurologic Disorders: No Hx Family HEENT Disorders: No Hx Family Autoimmune Disorders: No Medications and Allergies Baclofen 10 mg PO QID 12/12/14 [History] Budesonide/Formoterol Fumarate [Symbicort 160-4.5 Mcg Inhaler] 2 puff IH BID [History] Cholecalciferol (Vitamin D3) [Vitamin D3] 2,000 unit PO DAILY 12/12/14 [History] Duloxetine HCl [Cymbalta] 60 mg PO DAILY 12/12/14 [History] Ferrous Sulfate 325 mg PO DAILY 12/12/14 [History] Fluticasone Propionate Nasal [Flonase] 1 spr NS DAILY PRN 12/12/14 [History] Folic Acid 1 mg PO QAM 12/12/14 [History] Isosorbide MONOnitrate [Isosorbide Mononitrate ER] 120 mg PO DAILY 12/12/14 [ History] Loratadine [Loradamed] 10 mg PO DAILY 12/12/14 [History] Montelukast Sodium [Singulair] 10 mg PO DAILY 12/12/14 [History] Sertraline HCl [Zoloft] 50 mg PO HS 12/12/14 [History] Theophylline Anhydrous [Theodur] 300 mg PO BID 12/12/14 [History] Trazodone HCl 300 mg PO HS 12/12/14 [History] Verapamil ER (24 HR) [Calan SR] 240 mg PO DAILY 12/12/14 [History] Meclizine [Antivert] 12.5 mg PO TID PRN 14 Days tablet 04/05/15 [Rx] Aspirin Enteric Coated [Aspirin EC] 325 mg PO DAILY #21 tablet. 06/08/15 [Rx] Bisacodyl [Dulcolax] 10 mg RC DAILY PRN 08/26/15 [History] Docusate [Colace] 100 mg PO DAILY 08/26/15 [History] Ipratropium/Albuterol Neb [Duoneb] 3 ml IH Q4HR PRN 08/26/15 [History] Polyethylene Glycol 3350 [Gavilax] 17 gm PO DAILY 08/26/15 [History] Acetaminophen [Tylenol] 650 mg PO Q4HR PRN 10/16/15 [History] Naloxone [Narcan] 0.4 mg IV Q2MIN PRN #0 inj 10/17/15 [Rx] Calcium Carbonate/Vitamin D3 [Calcium 600-Vit D3 400 Tablet] 1 tab PO BID [History] Losartan Potassium [Cozaar] 100 mg PO DAILY 06/08/16 [History] Ropinirole HCl [Requip] 2 mg PO HS 06/08/16 [History] Amiodarone [Cordarone] 100 mg PO DAILY 08/08/17 [History] Bumetanide [Bumetanide] 2 mg PO BID 08/08/17 [History] Ezetimibe [Ezetimibe] 10 mg PO DAILY 08/08/17 [History] Glucagon,Human Recombinant [Glucagen] 1 mg IM PRN PRN 08/08/17 [History] Hydroxychloroquine [Plaquenuil] 200 mg PO BID 08/08/17 [History] Ibuprofen [Motrin Ib] 600 mg PO BID 08/08/17 [History] Insulin DETEMIR [Levemir] 70 units SQ BID 08/08/17 [History] Insulin LISPRO [HumaLOG] 4 - 12 units SQ AD 08/08/17 [History] Lactulose 20 gm PO DAILY PRN 08/08/17 [History] Mag Hydrox/Al Hydrox/Simeth [Maalox] 30 ml PO TIDAC 08/08/17 [History] Metoprolol Succinate [Toprol Xl] 50 mg PO DAILY 08/08/17 [History] Mucinex Dm 1 tab PO BID 08/08/17 [History] OxyCODONE Immed Rel [Roxicodone 10 MG] 10 mg PO Q6H 08/08/17 [History] OxyCODONE Immed Rel [Roxicodone 30 MG] 30 mg PO Q6H 08/08/17 [History] Oxybutynin Chloride [Ditropan Xl] 15 mg PO DAILY 08/08/17 [History] Pantoprazole Sodium 40 mg PO BID 08/08/17 [History] Ranitidine HCl [Zantac] 150 mg PO HS 08/08/17 [History] cloNIDine HCl [CloNIDine HCl] 0.1 mg PO BID PRN 08/08/17 [History] fentaNYL [Fentanyl] 50 mcg TD Q72H 08/08/17 [History] hydrOXYzine pamoate [HydrOXYzine Pamoate] 25 mg PO TID 08/08/17 [History] 3 Allergy/AdvReac Type Severity Reaction Status Date / Time tuberculin, purified protein Allergy Mild Hives Verified 12/12/14 11:15 deriva [tuberculin,purif.prot.deriv.] carvedilol [From Coreg] AdvReac Intermediate Anxiety Verified 12/12/14 11:15 ranolazine [From Ranexa] AdvReac Intermediate nausea, Verified 12/12/14 11:15 vomiting Duavqyo-Oyw-Kxw Reductase AdvReac Intermediate muscle Verified 12/12/14 11:15 Inhibitor dysfunction [Statins] ROS unobtainable: due to mental status, other Review of systems: Currently on BiPap Oncology - Exam - Constitutional Vitals: Temp Pulse Resp BP Pulse Ox 99.4 F 102 31 138/69 98 08/05/17 08:27 08/05/17 13:00 08/05/17 13:00 08/05/17 13:00 08/05/17 13:00 General appearance: mild distress, obese, no febrile Exam: BiPap, O2 sat 95%, RR 40-primary nurse has obtained ABG, condition guarded and may need transfer to ICU, primary team managing at this time - Head Head exam: Present: atraumatic - Respiratory Respiratory exam: Present: wheezes - Cardiovascular Cardiovascular exam: Present: RRR, +S1, +S2, tachycardia - GI/Abdominal GI/Abdominal exam: Present: normal bowel sounds, soft. Absent: tenderness - Extremities Exam Extremities exam: Present: pedal edema - Neurological Exam Neurological exam: Present: alert Additional comments: unable to full assess while on bipap - Psychiatric Psychiatric exam: Present: anxious - Skin Skin exam: Present: dry, pallor, warm Oncology - Results Labs: Short CBC 08/05/17 08/05/17 Range/Units 05:29 12:32 WBC 13.0 H 14.9 H (4.3-11.1) K/mcL Hgb 10.1 L 9.9 L (11.5-15.4) g/dL Hct 31.8 L 31.4 L (35.3-44.9) % Plt Count 261 277 (140-400) K/mcL Neutrophils # 11.3 H 13.9 H (1.6-8.9) K/mcL BMP 08/05/17 08/05/17 08/05/17 01:09 05:29 10:58 Sodium 134 L 137 136 Potassium 3.4 L 3.1 L 3.7 Chloride 94 L 93 L 94 L Carbon Dioxide 27 30 H 29 BUN 19 19 23 Creatinine 0.64 0.56 L 0.74 Glucose 338 H 328 H 364 H Calcium 8.9 8.8 9.2 Cardiac Enzymes 08/05/17 Range/Units 01:09 Troponin I 0.40 H* (< 0.04) ng/mL Consult Discharge Plan - Plan Referrals: Robb Perry MD [Primary Care Provider] - (F) <Dickson Villegas - Last Filed: 08/15/17 13:53> Date of Encounter: 08/05/17 - Data of Consult Requesting Physician: Lauro Jerez Primary Care Provider: Robb Perry MD - Consult Narrative History of present illness: Ms. Snyder is a 66 year old female Oncology - Exam - Constitutional Vitals: Temp Pulse Resp BP Pulse Ox 97.8 F 80 18 112/55 97 08/15/17 10:54 08/15/17 10:54 08/15/17 10:54 08/15/17 10:54 08/15/17 10:54 Oncology - Results Labs: Short CBC 08/15/17 Range/Units 00:14 WBC 13.9 H (4.3-11.1) K/mcL Hgb 10.1 L (11.5-15.4) g/dL Hct 32.4 L (35.3-44.9) % Plt Count 415 H (140-400) K/mcL Neutrophils # 10.3 H (1.6-8.9) K/mcL BMP 08/15/17 00:14 Sodium 132 L Potassium 3.5 Chloride 93 L Carbon Dioxide 34 H BUN 17 Creatinine 0.59 L Glucose 214 H Calcium 8.5 L - Attending Attestation Seen and examined patient and agree with above. Patient likely has a neoplastic process involving her liver. However, she is currently experiencing significant respiratory distress currently and thus I was not able to explore her oncologic issues given her acute respiratory issues. We can f/u further as outpatient when she is stable.
[2017-08-05 14:59] LABS: BUN/Creatinine Ratio 42 (6-26); Blood Urea Nitrogen 25 mg/dL (8-23); Calcium 8.7 mg/dL (8.6-10.3); Carbon Dioxide 30 mEq/L (23-29); Chloride 96 mEq/L (98-107); Glucose 339 mg/dL (70-105); Osmolality,Calculated 302 (280-300); Sodium 137 mEq/L (136-145); eGFR For African Americans > 60 (> 60); eGFR For Non-African Americans > 60 (> 60)
[2017-08-05] MEDS ORDERED: Cefepime HCl 2,000 MG in Water for inj. (sterile) 20 ML 20 ML IVP SCH (16:00)
[2017-08-05] MEDS ORDERED: Ipratropium/Albuterol Neb 3 ML IH SCH (16:00)
[2017-08-05] MEDS: Lacri-Lube 3.5 GM TUBE BOTH EYES SCH ×2 (16:01→20:56)
[2017-08-05] MEDS: Famotidine 20 MG/2 ML VIAL IVP SCH (17:59)
[2017-08-05] MEDS ORDERED: Potassium Chloride 10 MEQ in 0.9 % Sodium Chloride 100 ML IVPB PRN ×2 (18:11→19:00)
[2017-08-05] MEDS ORDERED: Potassium Phosphate 44 MEQ in 0.9 % Sodium Chloride 250 ML IVPB PRN (18:11)
[2017-08-05] MEDS ORDERED: Potassium Chloride Elixir 20 MEQ/15 ML UDC GTUBE ONE (18:54)
[2017-08-05] MEDS: Chlorhexidine Rinse 15 ML MOUTHWASH MM SCH (20:56)
[2017-08-05] MEDS ORDERED: Insulin LISPRO 300 UNITS/3 ML VIAL SQ SCH (21:00)
[2017-08-05] MEDS: rOPINIRole 1 MG TABLET PO SCH (21:11)
[2017-08-06] MEDS: Cefepime HCl 2,000 MG in Water for inj. (sterile) 20 ML 20 ML IVP SCH ×4 (01:26→23:53)
[2017-08-06] MEDS: Lacri-Lube 3.5 GM TUBE BOTH EYES SCH ×6 (01:27→20:14)
[2017-08-06] MEDS: FentaNYL (PF) 1,000 MCG in 0.9 % Sodium Chloride 80 ML IVC SCH ×3 (02:10→23:55)
[2017-08-06] MEDS: Ipratropium/Albuterol Neb 3 ML IH SCH ×6 (03:32→23:25)
[2017-08-06 04:05] LABS: Basophils % 0.2 %; Eosinophils # 0.1 K/mcL (0.0-0.6); Eosinophils % 0.4 %; Hematocrit 29.6 % (35.3-44.9); Hemoglobin 9.1 g/dL (11.5-15.4); Immature Granulocytes % 5.6 % (0-4); Lymphocytes # 1.6 K/mcL (0.6-4.6); Lymphocytes % 12.6 %; Mean Corpuscular HGB Conc 30.7 g/dL (31.6-35.5); Mean Corpuscular Volume 78.1 fL (83.0-100.0); Mean Platelet Volume 9.5 fL (9.4-12.4); Monocytes # 0.9 K/mcL (0.0-1.3); Monocytes % 6.7 %; Neutrophils # 9.5 K/mcL (1.6-8.9); Nucleated Red Blood Cells 0.5 /100 WBC (0); Platelet Count 293 K/mcL (140-400); Red Blood Count 3.79 M/mcL (3.82-4.97); Red Cell Distribution Width 17.6 % (11.5-14.5); Segmented Neutrophils % 74.5 %
[2017-08-06 04:26] LABS: BUN/Creatinine Ratio 41 (6-26); Blood Urea Nitrogen 26 mg/dL (8-23); Calcium 8.7 mg/dL (8.6-10.3); Carbon Dioxide 32 mEq/L (23-29); Chloride 99 mEq/L (98-107); Glucose 161 mg/dL (70-105); Magnesium 1.7 mg/dL (1.6-2.6); Osmolality,Calculated 296 (280-300); Phosphorous 3.5 mg/dL (2.7-4.5); Potassium 3.4 mEq/L (3.5-5.1); Sodium 139 mEq/L (136-145); eGFR For African Americans > 60 (> 60); eGFR For Non-African Americans > 60 (> 60)
[2017-08-06 04:39] LABS: ABG Base Excess 11 mEq/L (-2 to 3); ABG HCO3 37 mEq/L (21-27); ABG Oxygen Saturation 94 % (95-98); ABG PCO2 52 mmHg (35-45); ABG PH 7.45 pH Units (7.32-7.45); ABG PO2 67 mmHg (85-104); ABG TCO2 38 mEq/L (20-26); Blood Gas Modality PRVC; Blood Gas PEEP 5 cm H2O; Blood Gas Respiration Rate 14; Blood Gas VT 400 cc
[2017-08-06 05:08] LABS: Anisocytosis 1+ (Not Present)
[2017-08-06 05:09] LABS: Platelet Estimate Normal (Normal)
[2017-08-06] MEDS ORDERED: Potassium Chloride Elixir 20 MEQ/15 ML UDC GTUBE PRN ×2 (05:09→20:55)
[2017-08-06] MEDS: *HR* Heparin 5,000 UNIT/ML VIAL SQ SCH ×2 (06:07→18:49)
[2017-08-06] MEDS: Famotidine 20 MG/2 ML VIAL IVP SCH ×2 (06:08→18:49)
--- NOTE | 2017-08-06 07:21 | Pulmonology Progress Note ---
<GabiJese W - Last Filed: 08/06/17 10:03> Date of Encounter: 08/06/17 Objective PUL Vital signs: Last Vital Signs Temp 98.0 F 08/06/17 07:35 Pulse 96 08/06/17 09:00 Resp 28 08/06/17 09:45 BP 118/63 08/06/17 09:45 Pulse Ox 93 08/06/17 09:45 Ventilator Settings Ventilator Settings: Ventilator Settings, Last 8 Hours Ventilator Mode VC+ Ventilator Mode VC+ Ventilator Mode VC+ Ventilator Mode VC+ Ventilator Mode VC+ Ventilator Mode VC+ Ventilator Mode VC+ Ventilator Mode VC+ Ventilator Mode VC+ Ventilator Mode VC+ Ventilator Mode VC+ Ventilator Tidal Volume 400 Setting Ventilator Tidal Volume 400 Setting Ventilator Tidal Volume 400 Setting Ventilator Tidal Volume 400 Setting Ventilator Tidal Volume 400 Setting Ventilator Tidal Volume 400 Setting Ventilator Tidal Volume 400 Setting Ventilator Tidal Volume 400 Setting Ventilator Tidal Volume 400 Setting Ventilator Tidal Volume 400 Setting Ventilator Tidal Volume 400 Setting Ventilator Respiratory Rate 14 Setting Ventilator Respiratory Rate 14 Setting Ventilator Respiratory Rate 14 Setting Ventilator Respiratory Rate 14 Setting Ventilator Respiratory Rate 14 Setting Ventilator Respiratory Rate 14 Setting Ventilator Respiratory Rate 14 Setting Ventilator Respiratory Rate 14 Setting Ventilator Respiratory Rate 14 Setting Ventilator Respiratory Rate 14 Setting Ventilator Respiratory Rate 14 Setting Actual Respiratory Rate 27 Actual Respiratory Rate 27 Actual Respiratory Rate 27 Actual Respiratory Rate 27 Actual Respiratory Rate 26 Actual Respiratory Rate 24 Actual Respiratory Rate 16 Actual Respiratory Rate 19 Actual Respiratory Rate 21 Actual Respiratory Rate 21 Positive End Expiratory 5 Pressure Positive End Expiratory 5 Pressure Positive End Expiratory 5 Pressure Positive End Expiratory 5 Pressure Positive End Expiratory 5 Pressure Positive End Expiratory 5 Pressure Positive End Expiratory 5 Pressure Positive End Expiratory 5 Pressure Positive End Expiratory 5 Pressure Positive End Expiratory 5 Pressure Positive End Expiratory 5 Pressure Peak Inspiratory Airway 16 Pressure Peak Inspiratory Airway 14 Pressure Peak Inspiratory Airway 14 Pressure Peak Inspiratory Airway 14 Pressure Peak Inspiratory Airway 14 Pressure Peak Inspiratory Airway 12 Pressure Peak Inspiratory Airway 14 Pressure Peak Inspiratory Airway 14 Pressure Peak Inspiratory Airway 17 Pressure Peak Inspiratory Airway 16 Pressure Results - Laboratory Findings CBC and BMP: 08/06/17 03:41 08/06/17 03:41 ABG ABG pH 7.45 pH Units (7.32-7.45) 08/06/17 04:35 ABG pCO2 52 mmHg (35-45) H 08/06/17 04:35 ABG pO2 67 mmHg (85-104) L 08/06/17 04:35 ABG O2 Saturation 94 % (95-98) L 08/06/17 04:35 PT/INR, D-dimer PT 16.7 Seconds (9.4-12.1) H 08/01/17 23:39 Abnormal lab findings: Abnormal lab results WBC 12.8 K/mcL (4.3-11.1) H 08/06/17 03:41 RBC 3.79 M/mcL (3.82-4.97) L 08/06/17 03:41 Hgb 9.1 g/dL (11.5-15.4) L 08/06/17 03:41 Hct 29.6 % (35.3-44.9) L 08/06/17 03:41 MCV 78.1 fL (83.0-100.0) L 08/06/17 03:41 MCH 24.0 pg (28.0-33.3) L 08/06/17 03:41 MCHC 30.7 g/dL (31.6-35.5) L 08/06/17 03:41 RDW 17.6 % (11.5-14.5) H 08/06/17 03:41 Immature Gran % 5.6 % (0-4) H 08/06/17 03:41 Neutrophils # 9.5 K/mcL (1.6-8.9) H 08/06/17 03:41 Nucleated RBCs/100 WBC 0.5 /100 WBC (0) H 08/06/17 03:41 Reactive Lymphocytes Present (Not Present) A 08/03/17 00:08 Toxic Granulation Present (Not Present) A 08/03/17 00:08 Polychromasia 1+ (Not Present) A 08/02/17 05:59 Hypochromasia Present (Not Present) A 08/05/17 12:32 Poikilocytosis 1+ (Not Present) A 08/02/17 05:59 Anisocytosis 1+ (Not Present) A 08/06/17 03:41 Microcytosis Present (Not Present) A 08/03/17 00:08 PT 16.7 Seconds (9.4-12.1) H 08/01/17 23:39 APTT 88.5 Seconds (26.0-36.0) H 08/03/17 21:01 Heparin Anti-Xa, Unfract 0.95 IU/mL (0.30-0.70) H 08/03/17 00:08 ABG pCO2 52 mmHg (35-45) H 08/06/17 04:35 ABG pO2 67 mmHg (85-104) L 08/06/17 04:35 ABG HCO3 37 mEq/L (21-27) H 08/06/17 04:35 ABG Total CO2 38 mEq/L (20-26) H 08/06/17 04:35 ABG O2 Saturation 94 % (95-98) L 08/06/17 04:35 ABG Base Excess 11 mEq/L (-2 to 3) H 08/06/17 04:35 Potassium 3.4 mEq/L (3.5-5.1) L 08/06/17 03:41 Carbon Dioxide 32 mEq/L (23-29) H 08/06/17 03:41 BUN 26 mg/dL (8-23) H 08/06/17 03:41 BUN/Creatinine Ratio 41 (6-26) H 08/06/17 03:41 Glucose 161 mg/dL (70-105) H 08/06/17 03:41 POC Glucose 180 mg/dL (70-99) H 08/06/17 07:20 Hemoglobin A1c 7.1 % (-5.6) H 08/02/17 05:59 Direct Bilirubin 0.5 mg/dL (0.0-0.2) H 08/01/17 23:39 Alkaline Phosphatase 118 Units/L (34-104) H 08/01/17 23:39 Troponin I 0.40 ng/mL (< 0.04) H* 08/05/17 01:09 B-Natriuretic Peptide 1560 pg/mL (Less than 100) H 08/05/17 10:58 Serum Total Protein 6.3 g/dL (6.4-8.9) L 08/01/17 23:39 Albumin 2.9 g/dL (3.5-5.7) L 08/01/17 23:39 Albumin/Globulin Ratio 0.9 (1.1-2.2) L 08/01/17 23:39 HDL Cholesterol 18 mg/dL (40-59) L 08/02/17 05:59 Urine Clarity Cloudy (Clear) A 08/02/17 00:32 Urine Protein 100 mg/dL (Neg-Trace) H 08/02/17 00:32 Urine Ketones 15 mg/dL (Negative) H 08/02/17 00:32 Urine Blood Moderate (Negative) H 08/02/17 00:32 Urine Nitrite Positive (Negative) A 08/02/17 00:32 Urine Bilirubin Small (Negative) H 08/02/17 00:32 Ur Leukocyte Esterase Moderate (Negative) H 08/02/17 00:32 Urine Microscopic RBC 5-15 per hpf (0-3) H 08/02/17 00:32 Urine Microscopic WBC TNTC per hpf (0-3) H 08/02/17 00:32 Ur Squamous Epith Cells Many per lpf (None-Few) H 08/02/17 00:32 Urine Bacteria Many per hpf (None-Few) H 08/02/17 00:32 Streptococcus sp PCR DETECTED (Not Detect) A 08/02/17 00:08 Strep pneumoniae (PCR) DETECTED (Not Detect) A 08/02/17 00:08 - Microbiology Findings Microbiology Findings: Microbiology, Last 48 Hours 08/06/17 02:00 Sputum Culture - Final Sputum 08/02/17 09:07 Urine Culture - Final Urine,[place] Culture is grossly mixed, unable to properly interpret. Please repeat if indicated. - Clinical Findings Intake & Output: Intake & Output 08/05/17 08/06/17 08/06/17 23:59 07:59 15:59 Intake Total 120 / 120 320 / 320 20 / 20 Output Total 300 / 300 750 / 750 Balance -180 / -180 -430 / -430 20 / 20 Weight 130.8 kg Consult Discharge Plan - Plan Referrals: Robb Perry MD [Primary Care Provider] - ([facility]) - Attending Attestation I examined this patient and my medical decision-making was reviewed with the Resident Physician. I agree with the documented findings, disposition and treatment plan as described except to the extent set forth below. We independently had [id number] contact with the patient Patient seen and examined at bedside Labs, radiology, chart personally reviewed. Management was reviewed during multidisciplinary critical care rounds. RADIOGRAPHER CARDIAC CATHETERIZATION: Spontaneously weeks trial today patient was able to gently follow commands but remains delirious related to sedative effect. We will transitioned to fentanyl and Precedex with plan to decrease continuous infusion of fentanyl as able. Pulm: Respirations standpoint felt that the patient is not ready for extubation but we will perform CPAP trial today. She has decompensated heart failure causing hydrostatic pulmonary edema requiring emergent intubation overall acceptable gas exchange today. Cards: Patient has known heart failure which is acutely decompensated warm aggressively diuresing well continue strict blood pressure control. FEN-GI: Start enteral nutrition per dietary recommendations Renal: Urine output monitored serum creatinine stable continue to monitor electrolytes ID: Treating for strep pneumoniae pneumonia with cefepime plan treat for 7-10 days based upon clinical response repeat blood cultures from yesterday pending Heme/Onc: DVT prophylaxis given; patient has a liver lesion was concern for hepatocellular carcinoma oncology is following likely need biopsy the timing of this to be determined Endo: Glucose Monitored Integ/MSK: Skin Care per routine ICU Nursing Protocol to prevent ulcers. Lines: All lines examined without evidence of infection : Dispo: [facility] ICU for vent management CODE: Full daughter updated at bedside all questions answered <George Garcia - Last Filed: 08/06/17 11:24> Date of Encounter: 08/06/17 Time of Encounter: 08:00 Assessment and Plan (1) Acute respiratory failure with hypoxia and hypercapnia Current Visit: Yes Status: Acute Acute respiratory failure secondary to worsening decompensation of diastolic CHF with coexisting bacteremia 2/2 to strep pneumoniae, HCAP, COPD. Patient was transferred to the floor on 08/02 and required ET placement for decompensating respiratory status. BNP= 1650. CXR shows stable right pleural effusion and multifocial consolidation. Echo on 08/04 showed EF 50-60%, indeterminate diastolic function. Plan: - Continue respiratory support with ventilation, bronchodilators, and steroids - Sedation: Fentanyl, Precedex - Continue cefepime day 4 - Prednisone 40 daily scheduled - ABG qAM; compensated respiratory acidosis - Started Metolazone once followed by Bumex 1mg daily - Strict monitoring of I/O's; significant negative fluid balance over last 24h (2) Acute exacerbation of CHF (congestive heart failure) Current Visit: Yes Status: Acute Pt did have elevated troponins on initial admission which have consistently downtrended; was initially on heparin GTT which has since been discontinued. -Will check one more troponin this afternoon to ensure that she is truly stable or downtrending as troponin was not checked on 08/04/17. -Per cardio, no interventional modalities indicated and they have signed off. -May need to reconsult cardio if acute CHF course does not show signs of improvement -Monitoring BPs closely and will titrate control as needed -All other plans as above Qualifiers: Heart failure type: diastolic Qualified Code(s): I50.33 - Acute on chronic diastolic (congestive) heart failure (3) HCAP (healthcare-associated pneumonia) Current Visit: Yes Status: Acute S. pneumoniae positive; on cefepime day 4 (4) COPD (chronic obstructive pulmonary disease) Current Visit: Yes Status: Acute as above Qualifiers: COPD type: unspecified COPD Qualified Code(s): J44.9 - Chronic obstructive pulmonary disease, unspecified (5) UTI (urinary tract infection) Current Visit: Yes Status: Suspected Inconclusive workup/culture -- currently on cefepime which will be continued for time being Qualifiers: Urinary tract infection type: acute cystitis Hematuria presence: without hematuria Qualified Code(s): N30.00 - Acute cystitis without hematuria (6) DM (diabetes mellitus), type 2 Current Visit: Yes Status: Chronic Beginning OG tube feeds, so will change glucometer checks to q4h Qualifiers: Diabetes mellitus terminal block assembler insulin use: with nursing home use Diabetes mellitus complication status: with unspecified complications Qualified Code(s) : E11.8 - Type 2 diabetes mellitus with unspecified complications (7) Liver lesion Current Visit: Yes Status: Acute MRI of abdomen shows predominantly involving the left hepatic lobe, there is extensive abnormal T2 signal and enhancement with suspected restricted diffusion suspicious for infiltrative hepatic malignancy, either cholangiocarcinoma or hepatocellular carcinoma. Oncology was consulted; awaiting and appreciate recommendations. (8) DVT prophylaxis Current Visit: No Status: Acute Subjective Principal diagnosis: acute respiratory failure Interval history: Pt remains ventilator dependent. Adjusting diuretic therapy to include single dose of metolazone followed by Bumex 1mg daily. Pt deeply sedated; opens eyes to commands but doesn't explicitly cooperate with instructions. No current concerns per RN. Objective PUL Vital signs: Last Vital Signs Temp 98.3 F 08/06/17 04:30 Pulse 90 08/06/17 06:00 Resp 24 08/06/17 06:00 BP 127/80 08/06/17 06:00 Pulse Ox 96 08/06/17 06:00 General appearance: no acute distress (sedated) Eyes: nonicteric ENT: other (ET tube in place) Effort: normal Auscultation: bilateral: diminished breath sounds Cardiovascular: regular rate and rhythm Gastrointestinal: soft (no wincing with palpation), non-distended Extremities: no cyanosis, pulses normal, edema (2-3+ pitting edema to b/l LE) unable to assess due to mental status Ventilator Settings Ventilator Settings: Ventilator Settings, Last 8 Hours Ventilator Mode VC+ Ventilator Mode VC+ Ventilator Mode VC+ Ventilator Mode VC+ Ventilator Mode VC+ Ventilator Mode VC+ Ventilator Mode VC+ Ventilator Mode VC+ Ventilator Mode VC+ Ventilator Mode VC+ Ventilator Tidal Volume 400 Setting Ventilator Tidal Volume 400 Setting Ventilator Tidal Volume 400 Setting Ventilator Tidal Volume 400 Setting Ventilator Tidal Volume 400 Setting Ventilator Tidal Volume 400 Setting Ventilator Tidal Volume 400 Setting Ventilator Tidal Volume 400 Setting Ventilator Tidal Volume 400 Setting Ventilator Tidal Volume 400 Setting Ventilator Respiratory Rate 14 Setting Ventilator Respiratory Rate 14 Setting Ventilator Respiratory Rate 14 Setting Ventilator Respiratory Rate 14 Setting Ventilator Respiratory Rate 14 Setting Ventilator Respiratory Rate 14 Setting Ventilator Respiratory Rate 14 Setting Ventilator Respiratory Rate 14 Setting Ventilator Respiratory Rate 14 Setting Ventilator Respiratory Rate 14 Setting Actual Respiratory Rate 24 Actual Respiratory Rate 16 Actual Respiratory Rate 19 Actual Respiratory Rate 21 Actual Respiratory Rate 21 Actual Respiratory Rate 20 Actual Respiratory Rate 20 Actual Respiratory Rate 21 Actual Respiratory Rate 17 Positive End Expiratory 5 Pressure Positive End Expiratory 5 Pressure Positive End Expiratory 5 Pressure Positive End Expiratory 5 Pressure Positive End Expiratory 5 Pressure Positive End Expiratory 5 Pressure Positive End Expiratory 5 Pressure Positive End Expiratory 5 Pressure Positive End Expiratory 5 Pressure Positive End Expiratory 5 Pressure Peak Inspiratory Airway 12 Pressure Peak Inspiratory Airway 14 Pressure Peak Inspiratory Airway 14 Pressure Peak Inspiratory Airway 17 Pressure Peak Inspiratory Airway 16 Pressure Peak Inspiratory Airway 12 Pressure Peak Inspiratory Airway 12 Pressure Peak Inspiratory Airway 12 Pressure Peak Inspiratory Airway 12 Pressure Results - Laboratory Findings CBC and BMP: 08/06/17 03:41 08/06/17 03:41 ABG ABG pH 7.45 pH Units (7.32-7.45) 08/06/17 04:35 ABG pCO2 52 mmHg (35-45) H 08/06/17 04:35 ABG pO2 67 mmHg (85-104) L 08/06/17 04:35 ABG O2 Saturation 94 % (95-98) L 08/06/17 04:35 PT/INR, D-dimer PT 16.7 Seconds (9.4-12.1) H 08/01/17 23:39 Abnormal lab findings: Abnormal lab results WBC 12.8 K/mcL (4.3-11.1) H 08/06/17 03:41 RBC 3.79 M/mcL (3.82-4.97) L 08/06/17 03:41 Hgb 9.1 g/dL (11.5-15.4) L 08/06/17 03:41 Hct 29.6 % (35.3-44.9) L 08/06/17 03:41 MCV 78.1 fL (83.0-100.0) L 08/06/17 03:41 MCH 24.0 pg (28.0-33.3) L 08/06/17 03:41 MCHC 30.7 g/dL (31.6-35.5) L 08/06/17 03:41 RDW 17.6 % (11.5-14.5) H 08/06/17 03:41 Immature Gran % 5.6 % (0-4) H 08/06/17 03:41 Neutrophils # 9.5 K/mcL (1.6-8.9) H 08/06/17 03:41 Nucleated RBCs/100 WBC 0.5 /100 WBC (0) H 08/06/17 03:41 Reactive Lymphocytes Present (Not Present) A 08/03/17 00:08 Toxic Granulation Present (Not Present) A 08/03/17 00:08 Polychromasia 1+ (Not Present) A 08/02/17 05:59 Hypochromasia Present (Not Present) A 08/05/17 12:32 Poikilocytosis 1+ (Not Present) A 08/02/17 05:59 Anisocytosis 1+ (Not Present) A 08/06/17 03:41 Microcytosis Present (Not Present) A 08/03/17 00:08 PT 16.7 Seconds (9.4-12.1) H 08/01/17 23:39 APTT 88.5 Seconds (26.0-36.0) H 08/03/17 21:01 Heparin Anti-Xa, Unfract 0.95 IU/mL (0.30-0.70) H 08/03/17 00:08 ABG pCO2 52 mmHg (35-45) H 08/06/17 04:35 ABG pO2 67 mmHg (85-104) L 08/06/17 04:35 ABG HCO3 37 mEq/L (21-27) H 08/06/17 04:35 ABG Total CO2 38 mEq/L (20-26) H 08/06/17 04:35 ABG O2 Saturation 94 % (95-98) L 08/06/17 04:35 ABG Base Excess 11 mEq/L (-2 to 3) H 08/06/17 04:35 Potassium 3.4 mEq/L (3.5-5.1) L 08/06/17 03:41 Carbon Dioxide 32 mEq/L (23-29) H 08/06/17 03:41 BUN 26 mg/dL (8-23) H 08/06/17 03:41 BUN/Creatinine Ratio 41 (6-26) H 08/06/17 03:41 Glucose 161 mg/dL (70-105) H 08/06/17 03:41 POC Glucose 188 mg/dL (70-99) H 08/06/17 00:01 Hemoglobin A1c 7.1 % (-5.6) H 08/02/17 05:59 Direct Bilirubin 0.5 mg/dL (0.0-0.2) H 08/01/17 23:39 Alkaline Phosphatase 118 Units/L (34-104) H 08/01/17 23:39 Troponin I 0.40 ng/mL (< 0.04) H* 08/05/17 01:09 B-Natriuretic Peptide 1560 pg/mL (Less than 100) H 08/05/17 10:58 Serum Total Protein 6.3 g/dL (6.4-8.9) L 08/01/17 23:39 Albumin 2.9 g/dL (3.5-5.7) L 08/01/17 23:39 Albumin/Globulin Ratio 0.9 (1.1-2.2) L 08/01/17 23:39 HDL Cholesterol 18 mg/dL (40-59) L 08/02/17 05:59 Urine Clarity Cloudy (Clear) A 08/02/17 00:32 Urine Protein 100 mg/dL (Neg-Trace) H 08/02/17 00:32 Urine Ketones 15 mg/dL (Negative) H 08/02/17 00:32 Urine Blood Moderate (Negative) H 08/02/17 00:32 Urine Nitrite Positive (Negative) A 08/02/17 00:32 Urine Bilirubin Small (Negative) H 08/02/17 00:32 Ur Leukocyte Esterase Moderate (Negative) H 08/02/17 00:32 Urine Microscopic RBC 5-15 per hpf (0-3) H 08/02/17 00:32 Urine Microscopic WBC TNTC per hpf (0-3) H 08/02/17 00:32 Ur Squamous Epith Cells Many per lpf (None-Few) H 08/02/17 00:32 Urine Bacteria Many per hpf (None-Few) H 08/02/17 00:32 Streptococcus sp PCR DETECTED (Not Detect) A 08/02/17 00:08 Strep pneumoniae (PCR) DETECTED (Not Detect) A 08/02/17 00:08 - Microbiology Findings Microbiology Findings: Microbiology, Last 48 Hours 08/06/17 02:00 Sputum Culture - Final Sputum 08/02/17 09:07 Urine Culture - Final Urine,[place] Culture is grossly mixed, unable to properly interpret. Please repeat if indicated. - Clinical Findings Intake & Output: Intake & Output 08/05/17 08/05/17 08/06/17 15:59 23:59 07:59 Intake Total 0 / 0 120 / 120 320 / 320 Output Total 1250 / 1250 300 / 300 650 / 650 Balance -1250 / -1250 -180 / -180 -330 / -330 Weight 130.8 kg
[2017-08-06] MEDS: Budesonide/Formoterol 160/4.5 MDI IH SCH ×2 (07:25→20:38)
[2017-08-06] MEDS ORDERED: metOLazone 5 MG TABLET PO ONE (07:41)
[2017-08-06] MEDS: Insulin DETEMIR 100 UNIT/ML X5UNITS SQ SCH (08:11)
[2017-08-06] MEDS: Chlorhexidine Rinse 15 ML MOUTHWASH MM SCH ×2 (08:12→20:14)
[2017-08-06] MEDS: Folic Acid 1 MG TABLET PO SCH (08:18)
[2017-08-06] MEDS: *HR* Amiodarone 200 MG TABLET PO SCH (08:18)
[2017-08-06] MEDS: Baclofen 10 MG TABLET PO SCH ×4 (08:18→20:15)
[2017-08-06] MEDS: Loratadine 10 MG TABLET PO SCH (08:18)
[2017-08-06] MEDS: Isosorbide MONOnitrate (24 HR) 60 MG TAB.ER.24H PO SCH (08:19)
[2017-08-06] MEDS: Verapamil ER (24 HR) 240 MG TABLET.ER PO SCH (08:20)
[2017-08-06] MEDS: Cholecalciferol (D-3) 1,000 UNIT TABLET PO SCH (08:20)
[2017-08-06] MEDS: predniSONE 20 MG TABLET PO SCH (08:20)
[2017-08-06] MEDS ORDERED: Metoprolol XL (24 HR) Succ 50 MG TAB.ER.24H PO SCH (09:00)
[2017-08-06] MEDS ORDERED: Bumetanide 1 MG/4 ML VIAL IVP SCH (09:00)
[2017-08-06] MEDS: Dexmedetomidine HCl 400 MCG/100 ML MLS IVC SCH ×4 (11:40→23:52)
[2017-08-06] MEDS: Insulin LISPRO 300 UNITS/3 ML VIAL SQ SCH ×3 (11:41→20:17)
--- NOTE | 2017-08-06 13:04 | Electrocardiograph Report ---
[address] [place] [address] Test Date: 2017-08-05 Pat Name: Dot Ascenciodustin Department: 109 Room: [facility] Gender: F Clarifier: : 1950 Requested By: Fanny Islas Order Number: [id number] Reading MD: Leida Rocha Measurements Intervals [place] Rate: 106 P: 20 [place]: 157 QRS: 107 QRSD: 126 T: 122 QT: 361 QTc: 423 Interpretive Statements SINUS TACHYCARDIA RIGHT AXIS DEVIATION INTRAVENTRICULAR CONDUCTION DELAY Electronically Signed On 08-06-2017 13:02:43 EDT by Leida Rocha
--- NOTE | 2017-08-06 13:07 | Electrocardiograph Report ---
[address] [place] [address] Test Date: 2017-08-05 Pat Name: Dot Ascenciodustin Department: 112 Room: [facility] Gender: F Technical Support Representative: TANK : 1950 Requested By: Nehemiah Rivera Order Number: [id number] Reading MD: Leida Rocha Measurements Intervals [place] Rate: 106 P: [place]: 0 QRS: 14 QRSD: 136 T: 97 QT: 367 QTc: 429 Interpretive Statements SINUS RHYTHM WITH PAC'S VENTRICULAR ECTOPY INTRAVENTRICULAR CONDUCTION DELAY Electronically Signed On 08-06-2017 13:05:35 EDT by Leida Rocha
[2017-08-06 13:31] LABS: BUN/Creatinine Ratio 41 (6-26); Blood Urea Nitrogen 26 mg/dL (8-23); Calcium 8.9 mg/dL (8.6-10.3); Carbon Dioxide 32 mEq/L (23-29); Chloride 95 mEq/L (98-107); Glucose 269 mg/dL (70-105); Magnesium 1.8 mg/dL (1.6-2.6); Osmolality,Calculated 298 (280-300); Potassium 3.7 mEq/L (3.5-5.1); Sodium 137 mEq/L (136-145); eGFR For African Americans > 60 (> 60); eGFR For Non-African Americans > 60 (> 60)
[2017-08-06] MEDS: rOPINIRole 1 MG TABLET PO SCH (20:15)
[2017-08-07] MEDS: Insulin LISPRO 300 UNITS/3 ML VIAL SQ SCH ×6 (00:21→20:14)
[2017-08-07] MEDS: Lacri-Lube 3.5 GM TUBE BOTH EYES SCH ×6 (01:50→20:08)
[2017-08-07] MEDS: Dexmedetomidine HCl 400 MCG/100 ML MLS IVC SCH ×3 (02:15→20:29)
[2017-08-07] MEDS: Ipratropium/Albuterol Neb 3 ML IH SCH ×5 (03:24→20:53)
[2017-08-07 03:46] LABS: Hematocrit 31.5 % (35.3-44.9); Hemoglobin 9.6 g/dL (11.5-15.4); Mean Corpuscular HGB Conc 30.5 g/dL (31.6-35.5); Mean Corpuscular Hemoglobin 23.7 pg (28.0-33.3); Mean Corpuscular Volume 77.8 fL (83.0-100.0); Mean Platelet Volume 9.4 fL (9.4-12.4); Nucleated Red Blood Cells 0.8 /100 WBC (0); Platelet Count 271 K/mcL (140-400); Red Blood Count 4.05 M/mcL (3.82-4.97); Red Cell Distribution Width 17.6 % (11.5-14.5)
[2017-08-07 04:08] LABS: BUN/Creatinine Ratio 43 (6-26); Blood Urea Nitrogen 29 mg/dL (8-23); Calcium 8.8 mg/dL (8.6-10.3); Carbon Dioxide 33 mEq/L (23-29); Chloride 95 mEq/L (98-107); Glucose 299 mg/dL (70-105); Magnesium 2.2 mg/dL (1.6-2.6); Osmolality,Calculated 295 (280-300); Phosphorous 3.5 mg/dL (2.7-4.5); Potassium 3.9 mEq/L (3.5-5.1); Sodium 134 mEq/L (136-145); eGFR For African Americans > 60 (> 60); eGFR For Non-African Americans > 60 (> 60)
[2017-08-07 04:25] LABS: Lymphocytes # 2.1 K/mcL (0.6-4.6); Monocytes # 0.3 K/mcL (0.0-1.3); Neutrophils # 10.5 K/mcL (1.6-8.9); Platelet Estimate Normal (Normal)
[2017-08-07 04:26] LABS: Anisocytosis 1+ (Not Present)
[2017-08-07] MEDS: *HR* Heparin 5,000 UNIT/ML VIAL SQ SCH ×2 (05:10→16:53)
[2017-08-07] MEDS: Famotidine 20 MG/2 ML VIAL IVP SCH ×2 (05:10→16:53)
[2017-08-07 06:29] LABS: ABG Base Excess 11 mEq/L (-2 to 3); ABG HCO3 36 mEq/L (21-27); ABG Oxygen Saturation 97 % (95-98); ABG PCO2 45 mmHg (35-45); ABG PH 7.51 pH Units (7.32-7.45); ABG PO2 88 mmHg (85-104); ABG TCO2 37 mEq/L (20-26); Blood Gas Modality ASSIST CONTROL; Blood Gas PEEP 5 cm H2O; Blood Gas Respiration Rate 14; Blood Gas VT 400 cc
[2017-08-07] MEDS: Budesonide/Formoterol 160/4.5 MDI IH SCH ×2 (07:28→20:53)
[2017-08-07] MEDS: Bumetanide 1 MG/4 ML VIAL IVP SCH (08:46)
[2017-08-07] MEDS: *HR* Amiodarone 200 MG TABLET PO SCH (08:46)
[2017-08-07] MEDS: Chlorhexidine Rinse 15 ML MOUTHWASH MM SCH ×2 (08:46→20:09)
[2017-08-07] MEDS: Isosorbide MONOnitrate (24 HR) 60 MG TAB.ER.24H PO SCH (08:47)
[2017-08-07] MEDS: Folic Acid 1 MG TABLET PO SCH (08:47)
[2017-08-07] MEDS: predniSONE 20 MG TABLET PO SCH (08:47)
[2017-08-07] MEDS: Baclofen 10 MG TABLET PO SCH ×4 (08:48→20:14)
[2017-08-07] MEDS: Loratadine 10 MG TABLET PO SCH (08:48)
[2017-08-07] MEDS: Cholecalciferol (D-3) 1,000 UNIT TABLET PO SCH (08:48)
[2017-08-07] MEDS: Verapamil ER (24 HR) 240 MG TABLET.ER PO SCH (08:48)
[2017-08-07] MEDS: Insulin DETEMIR 100 UNIT/ML X5UNITS SQ SCH (08:51)
[2017-08-07] MEDS: Cefepime HCl 2,000 MG in Water for inj. (sterile) 20 ML 20 ML IVP SCH ×2 (10:00→16:53)
[2017-08-07] MEDS ORDERED: Insulin DETEMIR 100 UNIT/ML X5UNITS SQ ONE (10:17)
--- NOTE | 2017-08-07 10:24 | Pulmonology Progress Note ---
<George Gracia - Last Filed: 08/07/17 10:21> Date of Encounter: 08/07/17 Time of Encounter: 08:15 Assessment and Plan (1) Acute respiratory failure with hypoxia and hypercapnia Current Visit: Yes Status: Acute Acute respiratory failure secondary to worsening decompensation of diastolic CHF with coexisting bacteremia 2/2 to strep pneumoniae, HCAP, COPD. Patient was transferred to the floor on 08/02 and required ET placement for decompensating respiratory status. Overnight: borderline febrile. BCs recollected. Temps normal this AM. Respiratory infection panel pending. Plan: - Continue respiratory support with bronchodilators and steroids (prednisone through 08/10) - Likely wean from ventilator today in which case she will need BiPAP for 4 hours and when sleeping - Sedation: stopped pending extubation attempt - Continue cefepime day 09/08 - Expand antibiotic coverage if needed; WBC this afternoon and watching temperatures for elevation above 100.5F - Prednisone 40 daily scheduled - ABG qAM; showing improvement overall thought slightly alkalotic this Am - Cont Bumex 1mg daily; significant 24h fluid balance approximately 2400mLs - Strict monitoring of I/O's (2) Acute exacerbation of CHF (congestive heart failure) Current Visit: Yes Status: Acute Pt did have elevated troponins on initial admission which have consistently downtrended; was initially on heparin GTT which has since been discontinued. -Troponins did plateau suggesting demand pattern; pt's respiratory status improving with continued negative fluid balance -Per cardio, no interventional modalities indicated and they have signed off. -Consider reconsult cardio if acute CHF course worsens or stops showing signs of improvement -Monitoring BPs closely and will titrate control as needed -All other plans as above Qualifiers: Heart failure type: diastolic Qualified Code(s): I50.33 - Acute on chronic diastolic (congestive) heart failure (3) HCAP (healthcare-associated pneumonia) Current Visit: Yes Status: Acute S. pneumoniae positive; on cefepime day 4 (4) COPD (chronic obstructive pulmonary disease) Current Visit: Yes Status: Acute as above Qualifiers: COPD type: unspecified COPD Qualified Code(s): J44.9 - Chronic obstructive pulmonary disease, unspecified (5) UTI (urinary tract infection) Current Visit: Yes Status: Suspected Inconclusive workup/culture -- currently on cefepime which will be continued for time being Qualifiers: Urinary tract infection type: acute cystitis Hematuria presence: without hematuria Qualified Code(s): N30.00 - Acute cystitis without hematuria (6) DM (diabetes mellitus), type 2 Current Visit: Yes Status: Chronic Beginning OG tube feeds, so will change glucometer checks to q4h -- Has been hyperglycemic into 300s; changing Detemir to 20U daily for time being -- Will have to watch FSBG closely as clinical status improves -- Change schedule when returns to PO diet Qualifiers: Diabetes mellitus assisted insulin use: with termite exterminator helper use Diabetes mellitus complication status: with unspecified complications Qualified Code(s) : E11.8 - Type 2 diabetes mellitus with unspecified complications (7) Liver lesion Current Visit: Yes Status: Acute MRI of abdomen shows predominantly involving the left hepatic lobe, there is extensive abnormal T2 signal and enhancement with suspected restricted diffusion suspicious for infiltrative hepatic malignancy, either cholangiocarcinoma or hepatocellular carcinoma. Oncology was consulted; awaiting and appreciate recommendations. (8) DVT prophylaxis Current Visit: No Status: Acute subcutaneous heparin Subjective Principal diagnosis: acute respiratory failure Interval history: Sedation weaned to Precedex only at low rate and she is on CPAP with no decompensation. Alert and cooperative able to answer questions in nods/shakes. Has had mild temperature increases. BP collected yesterday due to temp elevations and respiratory infection panel collected this AM; both are pending. Has had elevated FSBG peaking into the 300s. Increased Detemir to 20U daily. Checking WBC count this afternoon and may expand antibiotic coverage if signs of infection worsen, e.g., increased WBC and truly febrile temperatures. No other concerns at present. Attempting wean from vent and extubation this AM/ afternoon. Objective PUL Vital signs: Last Vital Signs Temp 98.7 F 08/07/17 08:05 Pulse 86 08/07/17 10:00 Resp 27 08/07/17 10:00 BP 136/70 08/07/17 10:00 Pulse Ox 94 08/07/17 10:00 General appearance: no acute distress, alert Eyes: nonicteric Neck: supple Effort: normal Auscultation: bilateral: wheezes, rhonchi Cardiovascular: regular rate and rhythm Gastrointestinal: soft, non-tender, non-distended Extremities: no cyanosis, edema (2-3+ pitting edema to b/l LE) other (moves all extremities to command, without facial asymmetry, and reponds to yes/no questions with nods/shakes) affect normal Ventilator Settings Ventilator Settings: Ventilator Settings, Last 8 Hours Ventilator Mode CPAP Ventilator Mode CPAP Ventilator Mode CPAP Ventilator Mode CPAP Ventilator Mode CPAP Ventilator Mode CPAP Ventilator Mode A/C Ventilator Mode VC+ Ventilator Mode VC+ Ventilator Mode VC+ Ventilator Mode VC+ Ventilator Mode VC+ Ventilator Tidal Volume 400 Setting Ventilator Tidal Volume 400 Setting Ventilator Tidal Volume 400 Setting Ventilator Tidal Volume 400 Setting Ventilator Tidal Volume 400 Setting Ventilator Tidal Volume 400 Setting Ventilator Respiratory Rate 14 Setting Ventilator Respiratory Rate 14 Setting Ventilator Respiratory Rate 14 Setting Ventilator Respiratory Rate 14 Setting Ventilator Respiratory Rate 14 Setting Ventilator Respiratory Rate 14 Setting Actual Respiratory Rate 22 Actual Respiratory Rate 31 Actual Respiratory Rate 18 Actual Respiratory Rate 21 Actual Respiratory Rate 20 Actual Respiratory Rate 17 Actual Respiratory Rate 20 Actual Respiratory Rate 21 Positive End Expiratory 5 Pressure Positive End Expiratory 5 Pressure Positive End Expiratory 5 Pressure Positive End Expiratory 5 Pressure Positive End Expiratory 5 Pressure Positive End Expiratory 5 Pressure Positive End Expiratory 5 Pressure Positive End Expiratory 5 Pressure Peak Inspiratory Airway 11 Pressure Peak Inspiratory Airway 12 Pressure Peak Inspiratory Airway 11 Pressure Peak Inspiratory Airway 12 Pressure Peak Inspiratory Airway 15 Pressure Peak Inspiratory Airway 12 Pressure Peak Inspiratory Airway 11 Pressure Results - Laboratory Findings CBC and BMP: 08/07/17 03:28 08/07/17 03:28 ABG ABG pH 7.51 pH Units (7.32-7.45) H 08/07/17 06:26 ABG pCO2 45 mmHg (35-45) 08/07/17 06:26 ABG pO2 88 mmHg (85-104) 08/07/17 06:26 ABG O2 Saturation 97 % (95-98) 08/07/17 06:26 PT/INR, D-dimer PT 16.7 Seconds (9.4-12.1) H 08/01/17 23:39 Abnormal lab findings: Abnormal lab results WBC 12.8 K/mcL (4.3-11.1) H 08/07/17 03:28 Hgb 9.6 g/dL (11.5-15.4) L 08/07/17 03:28 Hct 31.5 % (35.3-44.9) L 08/07/17 03:28 MCV 77.8 fL (83.0-100.0) L 08/07/17 03:28 MCH 23.7 pg (28.0-33.3) L 08/07/17 03:28 MCHC 30.5 g/dL (31.6-35.5) L 08/07/17 03:28 RDW 17.6 % (11.5-14.5) H 08/07/17 03:28 Immature Gran % 5.6 % (0-4) H 08/06/17 03:41 Neutrophils # 10.5 K/mcL (1.6-8.9) H 08/07/17 03:28 Nucleated RBCs/100 WBC 0.8 /100 WBC (0) H 08/07/17 03:28 Reactive Lymphocytes Present (Not Present) A 08/03/17 00:08 Toxic Granulation Present (Not Present) A 08/03/17 00:08 Polychromasia 1+ (Not Present) A 08/02/17 05:59 Hypochromasia Present (Not Present) A 08/05/17 12:32 Poikilocytosis 1+ (Not Present) A 08/02/17 05:59 Anisocytosis 1+ (Not Present) A 08/07/17 03:28 Microcytosis Present (Not Present) A 08/03/17 00:08 PT 16.7 Seconds (9.4-12.1) H 08/01/17 23:39 APTT 88.5 Seconds (26.0-36.0) H 08/03/17 21:01 Heparin Anti-Xa, Unfract 0.95 IU/mL (0.30-0.70) H 08/03/17 00:08 ABG pH 7.51 pH Units (7.32-7.45) H 08/07/17 06:26 ABG HCO3 36 mEq/L (21-27) H 08/07/17 06:26 ABG Total CO2 37 mEq/L (20-26) H 08/07/17 06:26 ABG Base Excess 11 mEq/L (-2 to 3) H 08/07/17 06:26 Sodium 134 mEq/L (136-145) L 08/07/17 03:28 Chloride 95 mEq/L (98-107) L 08/07/17 03:28 Carbon Dioxide 33 mEq/L (23-29) H 08/07/17 03:28 BUN 29 mg/dL (8-23) H 08/07/17 03:28 BUN/Creatinine Ratio 43 (6-26) H 08/07/17 03:28 Glucose 299 mg/dL (70-105) H 08/07/17 03:28 POC Glucose 321 mg/dL (70-99) H 08/07/17 07:15 Hemoglobin A1c 7.1 % (-5.6) H 08/02/17 05:59 Direct Bilirubin 0.5 mg/dL (0.0-0.2) H 08/01/17 23:39 Alkaline Phosphatase 118 Units/L (34-104) H 08/01/17 23:39 Troponin I 0.45 ng/mL (< 0.04) H* 08/07/17 00:00 B-Natriuretic Peptide 1560 pg/mL (Less than 100) H 08/05/17 10:58 Serum Total Protein 6.3 g/dL (6.4-8.9) L 08/01/17 23:39 Albumin 2.9 g/dL (3.5-5.7) L 08/01/17 23:39 Albumin/Globulin Ratio 0.9 (1.1-2.2) L 08/01/17 23:39 HDL Cholesterol 18 mg/dL (40-59) L 08/02/17 05:59 Urine Clarity Cloudy (Clear) A 08/02/17 00:32 Urine Protein 100 mg/dL (Neg-Trace) H 08/02/17 00:32 Urine Ketones 15 mg/dL (Negative) H 18 00:32 Urine Blood Moderate (Negative) H 08/02/17 00:32 Urine Nitrite Positive (Negative) A 08/02/17 00:32 Urine Bilirubin Small (Negative) H 08/02/17 00:32 Ur Leukocyte Esterase Moderate (Negative) H 08/02/17 00:32 Urine Microscopic RBC 5-15 per hpf (0-3) H 08/02/17 00:32 Urine Microscopic WBC TNTC per hpf (0-3) H 08/02/17 00:32 Ur Squamous Epith Cells Many per lpf (None-Few) H 08/02/17 00:32 Urine Bacteria Many per hpf (None-Few) H 08/02/17 00:32 Streptococcus sp PCR DETECTED (Not Detect) A 08/02/17 00:08 Strep pneumoniae (PCR) DETECTED (Not Detect) A 08/02/17 00:08 - Microbiology Findings Microbiology Findings: Microbiology, Last 48 Hours 08/05/17 12:32 Blood Culture - Preliminary Peripheral Venipuncture No growth. 08/07/17 05:07 Sputum Culture - Preliminary Sputum 08/06/17 02:01 Urine Culture - Preliminary Urine,[place] Yeast Species 08/06/17 02:00 Sputum Culture - Final Sputum - Clinical Findings Intake & Output: Intake & Output 08/06/17 08/07/17 08/07/17 23:59 07:59 15:59 Intake Total 657.0 / 657.0 433.2 / 433.2 Output Total 200 / 200 750 / 750 300 / 300 Balance 457.0 / 457.0 -316.8 / -316.8 -300 / -300 Weight 129.6 kg Consult Discharge Plan - Plan Referrals: Robb Perry MD [Primary Care Provider] - ([facility] [place]) <Jese Ashley W - Last Filed: 08/07/17 11:57> Date of Encounter: 08/07/17 Objective PUL Vital signs: Last Vital Signs Temp 98.7 F 08/07/17 08:05 Pulse 86 08/07/17 10:00 Resp 27 08/07/17 11:16 BP 162/71 08/07/17 11:16 Pulse Ox 93 08/07/17 11:16 Ventilator Settings Ventilator Settings: Ventilator Settings, Last 8 Hours Ventilator Mode CPAP Ventilator Mode CPAP Ventilator Mode CPAP Ventilator Mode CPAP Ventilator Mode CPAP Ventilator Mode CPAP Ventilator Mode A/C Ventilator Mode VC+ Ventilator Mode VC+ Ventilator Mode VC+ Ventilator Tidal Volume 400 Setting Ventilator Tidal Volume 400 Setting Ventilator Tidal Volume 400 Setting Ventilator Tidal Volume 400 Setting Ventilator Respiratory Rate 14 Setting Ventilator Respiratory Rate 14 Setting Ventilator Respiratory Rate 14 Setting Ventilator Respiratory Rate 14 Setting Actual Respiratory Rate 22 Actual Respiratory Rate 31 Actual Respiratory Rate 18 Actual Respiratory Rate 21 Actual Respiratory Rate 20 Actual Respiratory Rate 17 Positive End Expiratory 5 Pressure Positive End Expiratory 5 Pressure Positive End Expiratory 5 Pressure Positive End Expiratory 5 Pressure Positive End Expiratory 5 Pressure Positive End Expiratory 5 Pressure Peak Inspiratory Airway 11 Pressure Peak Inspiratory Airway 12 Pressure Peak Inspiratory Airway 11 Pressure Peak Inspiratory Airway 12 Pressure Peak Inspiratory Airway 15 Pressure Results - Laboratory Findings CBC and BMP: 08/07/17 03:28 08/07/17 03:28 ABG ABG pH 7.51 pH Units (7.32-7.45) H 08/07/17 06:26 ABG pCO2 45 mmHg (35-45) 08/07/17 06:26 ABG pO2 88 mmHg (85-104) 08/07/17 06:26 ABG O2 Saturation 97 % (95-98) 08/07/17 06:26 PT/INR, D-dimer PT 16.7 Seconds (9.4-12.1) H 08/01/17 23:39 Abnormal lab findings: Abnormal lab results WBC 12.8 K/mcL (4.3-11.1) H 08/07/17 03:28 Hgb 9.6 g/dL (11.5-15.4) L 08/07/17 03:28 Hct 31.5 % (35.3-44.9) L 08/07/17 03:28 MCV 77.8 fL (83.0-100.0) L 08/07/17 03:28 MCH 23.7 pg (28.0-33.3) L 08/07/17 03:28 MCHC 30.5 g/dL (31.6-35.5) L 08/07/17 03:28 RDW 17.6 % (11.5-14.5) H 08/07/17 03:28 Immature Gran % 5.6 % (0-4) H 08/06/17 03:41 Neutrophils # 10.5 K/mcL (1.6-8.9) H 08/07/17 03:28 Nucleated RBCs/100 WBC 0.8 /100 WBC (0) H 08/07/17 03:28 Reactive Lymphocytes Present (Not Present) A 08/03/17 00:08 Toxic Granulation Present (Not Present) A 08/03/17 00:08 Polychromasia 1+ (Not Present) A 08/02/17 05:59 Hypochromasia Present (Not Present) A 08/05/17 12:32 Poikilocytosis 1+ (Not Present) A 08/02/17 05:59 Anisocytosis 1+ (Not Present) A 08/07/17 03:28 Microcytosis Present (Not Present) A 08/03/17 00:08 PT 16.7 Seconds (9.4-12.1) H 08/01/17 23:39 APTT 88.5 Seconds (26.0-36.0) H 08/03/17 21:01 Heparin Anti-Xa, Unfract 0.95 IU/mL (0.30-0.70) H 08/03/17 00:08 ABG pH 7.51 pH Units (7.32-7.45) H 08/07/17 06:26 ABG HCO3 36 mEq/L (21-27) H 08/07/17 06:26 ABG Total CO2 37 mEq/L (20-26) H 08/07/17 06:26 ABG Base Excess 11 mEq/L (-2 to 3) H 08/07/17 06:26 Sodium 134 mEq/L (136-145) L 08/07/17 03:28 Chloride 95 mEq/L (98-107) L 08/07/17 03:28 Carbon Dioxide 33 mEq/L (23-29) H 08/07/17 03:28 BUN 29 mg/dL (8-23) H 08/07/17 03:28 BUN/Creatinine Ratio 43 (6-26) H 08/07/17 03:28 Glucose 299 mg/dL (70-105) H 08/07/17 03:28 POC Glucose 319 mg/dL (70-99) H 08/07/17 11:11 Hemoglobin A1c 7.1 % (-5.6) H 08/02/17 05:59 Direct Bilirubin 0.5 mg/dL (0.0-0.2) H 08/01/17 23:39 Alkaline Phosphatase 118 Units/L (34-104) H 08/01/17 23:39 Troponin I 0.45 ng/mL (< 0.04) H* 08/07/17 00:00 B-Natriuretic Peptide 1560 pg/mL (Less than 100) H 08/05/17 10:58 Serum Total Protein 6.3 g/dL (6.4-8.9) L 08/01/17 23:39 Albumin 2.9 g/dL (3.5-5.7) L 08/01/17 23:39 Albumin/Globulin Ratio 0.9 (1.1-2.2) L 08/01/17 23:39 HDL Cholesterol 18 mg/dL (40-59) L 08/02/17 05:59 Urine Clarity Cloudy (Clear) A 08/02/17 00:32 Urine Protein 100 mg/dL (Neg-Trace) H 08/02/17 00:32 Urine Ketones 15 mg/dL (Negative) H 08/02/17 00:32 Urine Blood Moderate (Negative) H 08/02/17 00:32 Urine Nitrite Positive (Negative) A 08/02/17 00:32 Urine Bilirubin Small (Negative) H 08/02/17 00:32 Ur Leukocyte Esterase Moderate (Negative) H 08/02/17 00:32 Urine Microscopic RBC 5-15 per hpf (0-3) H 08/02/17 00:32 Urine Microscopic WBC TNTC per hpf (0-3) H 08/02/17 00:32 Ur Squamous Epith Cells Many per lpf (None-Few) H 08/02/17 00:32 Urine Bacteria Many per hpf (None-Few) H 08/02/17 00:32 Streptococcus sp PCR DETECTED (Not Detect) A 08/02/17 00:08 Strep pneumoniae (PCR) DETECTED (Not Detect) A 08/02/17 00:08 - Microbiology Findings Microbiology Findings: Microbiology, Last 48 Hours 08/05/17 12:32 Blood Culture - Preliminary Peripheral Venipuncture No growth. 08/07/17 05:07 Sputum Culture - Preliminary Sputum 08/06/17 02:01 Urine Culture - Preliminary Urine,[place] Yeast Species 08/06/17 02:00 Sputum Culture - Final Sputum - Clinical Findings Intake & Output: Intake & Output 08/06/17 08/07/17 08/07/17 23:59 07:59 15:59 Intake Total 657.0 / 657.0 433.2 / 433.2 Output Total 200 / 200 750 / 750 300 / 300 Balance 457.0 / 457.0 -316.8 / -316.8 -300 / -300 Weight 129.6 kg - Attending Attestation I examined this patient and my medical decision-making was reviewed with the Resident Physician. I agree with the documented findings, disposition and treatment plan as described except to the extent set forth below. We independently had [id number] contact with the patient Patient seen and examined at bedside Labs, radiology, chart personally reviewed. Management was reviewed during multidisciplinary critical care rounds. METALS ANALYST: Awake and alert today following commands successfully passed spontaneously week trial continue to monitor for delirium Pulm: Acute hypoxic respiratory failure requiring intubation did well on spontaneous breathing trial today planted extubate to BiPAP Cards: Hyperstatic pulmonary edema secondary to heart failure with preserved ejection fraction continue diuresis continue blood pressure control continue heart rate control FEN-GI: Nothing by mouth for now continue GI prophylaxis while on vent Renal: Urine output monitored serum creatinine monitored continue monitoring of daily electrolytes ID: She is being treated for strep pneumoniae had a fever spike yesterday the cultures thus far negative low-grade fever ever since if spikes again or worsening leukocytosis this evening will broaden antimicrobials to include ESBL coverage. Otherwise no clear evidence of sepsis are not new nidus of infection Heme/Onc: DVT prophylaxis given Endo: Glucose Monitored Integ/MSK: Skin Care per routine ICU Nursing Protocol to prevent ulcers. Lines: All lines examined without evidence of infection : Dispo: Recommended ICU for vent need CODE: Full code
[2017-08-07 12:01] LABS: Adenovirus Not Detected (Not Detect); Bordetella Pertussis Not Detected (Not Detect); Chlamydophila pneumoniae Not Detected (Not Detect); Coronavirus 229E Not Detected (Not Detect); Coronavirus HKU1 Not Detected (Not Detect); Coronavirus NL63 Not Detected (Not Detect); Coronavirus OC43 Not Detected (Not Detect); Human Metapneumovirus Not Detected (Not Detect); Human Rhinovirus/Enterovirus Not Detected (Not Detect); Influenza A Subtype 2009 H1 Not Detected (Not Detect); Influenza A Untypeable Not Detected (Not Detect); Influenza B Not Detected (Not Detect); Mycoplasma pneumoniae Not Detected (Not Detect); Parainfluenza Virus 1 Not Detected (Not Detect); Parainfluenza Virus 2 Not Detected (Not Detect); Parainfluenza Virus 3 Not Detected (Not Detect); Parainfluenza Virus 4 Not Detected (Not Detect); Respiratory Syncytial Virus Not Detected (Not Detect)
[2017-08-07 14:11] LABS: Basophils # 0.1 K/mcL (0.0-0.2); Basophils % 0.7 %; Eosinophils # 0.1 K/mcL (0.0-0.6); Eosinophils % 0.3 %; Hematocrit 33.7 % (35.3-44.9); Hemoglobin 10.4 g/dL (11.5-15.4); Immature Granulocytes % 9.7 % (0-4); Lymphocytes # 1.4 K/mcL (0.6-4.6); Lymphocytes % 8.2 %; Mean Corpuscular HGB Conc 30.9 g/dL (31.6-35.5); Mean Corpuscular Hemoglobin 23.6 pg (28.0-33.3); Mean Corpuscular Volume 76.6 fL (83.0-100.0); Mean Platelet Volume 9.9 fL (9.4-12.4); Monocytes # 0.7 K/mcL (0.0-1.3); Monocytes % 3.9 %; Neutrophils # 13.4 K/mcL (1.6-8.9); Nucleated Red Blood Cells 0.7 /100 WBC (0); Platelet Count 351 K/mcL (140-400); Red Cell Distribution Width 17.5 % (11.5-14.5); Segmented Neutrophils % 77.2 %
[2017-08-07] MEDS: *HR* LORazepam 2 MG/ML VIAL IVP PRN (16:58)
[2017-08-07 17:53] LABS: BUN/Creatinine Ratio 44 (6-26); Blood Urea Nitrogen 24 mg/dL (8-23); Calcium 8.9 mg/dL (8.6-10.3); Carbon Dioxide 35 mEq/L (23-29); Chloride 90 mEq/L (98-107); Glucose 306 mg/dL (70-105); Osmolality,Calculated 292 (280-300); Potassium 3.9 mEq/L (3.5-5.1); Sodium 133 mEq/L (136-145); eGFR For African Americans > 60 (> 60); eGFR For Non-African Americans > 60 (> 60)
[2017-08-07] MEDS: rOPINIRole 1 MG TABLET PO SCH (20:14)
[2017-08-08] MEDS: Cefepime HCl 2,000 MG in Water for inj. (sterile) 20 ML 20 ML IVP SCH ×3 (00:03→17:40)
[2017-08-08] MEDS: Lacri-Lube 3.5 GM TUBE BOTH EYES SCH ×3 (00:03→21:20)
[2017-08-08] MEDS: Ipratropium/Albuterol Neb 3 ML IH SCH ×7 (00:09→23:17)
[2017-08-08] MEDS: Insulin LISPRO 300 UNITS/3 ML VIAL SQ SCH ×5 (00:09→21:29)
[2017-08-08 04:22] LABS: Basophils # 0.1 K/mcL (0.0-0.2); Basophils % 0.4 %; Eosinophils # 0.2 K/mcL (0.0-0.6); Eosinophils % 1.4 %; Hemoglobin 9.7 g/dL (11.5-15.4); Immature Granulocytes % 6.9 % (0-4); Lymphocytes # 2.2 K/mcL (0.6-4.6); Lymphocytes % 15.5 %; Mean Corpuscular HGB Conc 31.3 g/dL (31.6-35.5); Mean Corpuscular Hemoglobin 23.8 pg (28.0-33.3); Mean Corpuscular Volume 76.2 fL (83.0-100.0); Mean Platelet Volume 10.1 fL (9.4-12.4); Monocytes # 0.8 K/mcL (0.0-1.3); Monocytes % 5.8 %; Neutrophils # 9.7 K/mcL (1.6-8.9); Nucleated Red Blood Cells 0.5 /100 WBC (0); Platelet Count 330 K/mcL (140-400); Red Blood Count 4.07 M/mcL (3.82-4.97); Red Cell Distribution Width 17.5 % (11.5-14.5)
[2017-08-08 04:57] LABS: BUN/Creatinine Ratio 42 (6-26); Blood Urea Nitrogen 22 mg/dL (8-23); Calcium 9.1 mg/dL (8.6-10.3); Chloride 91 mEq/L (98-107); Glucose 153 mg/dL (70-105); Osmolality,Calculated 286 (280-300); Potassium 3.1 mEq/L (3.5-5.1); Sodium 135 mEq/L (136-145); eGFR For African Americans > 60 (> 60); eGFR For Non-African Americans > 60 (> 60)
[2017-08-08] MEDS: Dexmedetomidine HCl 400 MCG/100 ML MLS IVC SCH (05:06)
[2017-08-08] MEDS: Famotidine 20 MG/2 ML VIAL IVP SCH (05:46)
[2017-08-08] MEDS: *HR* Heparin 5,000 UNIT/ML VIAL SQ SCH ×2 (05:46→17:42)
[2017-08-08 05:55] LABS: Platelet Estimate Normal (Normal)
[2017-08-08 05:56] LABS: Anisocytosis 1+ (Not Present); Reactive Lymphocytes Present (Not Present)
--- NOTE | 2017-08-08 08:03 | Pulmonology Progress Note ---
<Rex Briggs - Last Filed: 08/08/17 11:43> Date of Encounter: 08/08/17 Time of Encounter: 09:00 Assessment and Plan (1) Acute respiratory failure with hypoxia and hypercapnia Current Visit: Yes Status: Acute Acute respiratory failure with hypoxia and hypercapnia, improved Patient was successfully extubated yesterday She has required BiPAP intermittently, however she remains well oxygenated There does not appear to be significant encephalopathy at this time The patient does continue to have fluid overload associated with CHF, and exacerbation of COPD We will continue to diuresis the patient, BiPAP as needed Transfer to stepdown unit (2) Acute exacerbation of CHF (congestive heart failure) Current Visit: Yes Status: Acute Acute exacerbation of CHF The patient continues to have significant volume overload, but is improving Fluid balance 9515/07781, P -[id number] We will continue to diuresis as kidneys tolerate Qualifiers: Heart failure type: diastolic Qualified Code(s): I50.33 - Acute on chronic diastolic (congestive) heart failure (3) HCAP (healthcare-associated pneumonia) Current Visit: Yes Status: Acute The patient does have a right multifocal pneumonia Although blood cultures to grow staph pneumo, sputum cultures are growing gram- negative rods At this time the patient is on Cefepime Day 5 Pending culture sensitivities, transition to Rocephin (4) COPD (chronic obstructive pulmonary disease) Current Visit: Yes Status: Acute COPD which is chronic Patient is currently on prednisone, DuoNeb PRN Qualifiers: COPD type: unspecified COPD Qualified Code(s): J44.9 - Chronic obstructive pulmonary disease, unspecified (5) Bacteremia due to Gram-positive bacteria Current Visit: No Status: Acute Strep pneumonia bacteremia Patient is on cefepime day 5 Continues to improve clinically white count is down (6) Chronic pain Current Visit: Yes Status: Acute Complains of significant chronic pain associated with sacral decubitus ulcers She has historically taken 40mg Oxycodone PO q6h and Fentanyl patch We will continue fentanyl patch, decrease dose of PO Oxycodone to avoid overdepression of respiratory drive Titrate back up as needed Qualifiers: Chronic pain type: other chronic pain Qualified Code(s): G89.29 - Other chronic pain (7) DM (diabetes mellitus), type 2 Current Visit: Yes Status: Chronic Qualifiers: Diabetes mellitus buttermaker insulin use: with buttermaker use Diabetes mellitus complication status: with unspecified complications Qualified Code(s) : E11.8 - Type 2 diabetes mellitus with unspecified complications (8) DVT prophylaxis Current Visit: No Status: Acute SQ Heparin Subjective Principal diagnosis: acute respiratory failure Interval history: The patient is resting in bed status post successful extubation, she is extremely uncomfortable and says that her back hurts very bad. She does usually take significant opioid pain medication at home, and she would like to restart these medications. She otherwise says that she is breathing well, she is having no chest pain or shortness of breath. Objective PUL Vital signs: Last Vital Signs Temp 99 F 08/08/17 05:00 Pulse 71 08/08/17 06:00 Resp 15 08/08/17 06:00 BP 150/59 08/08/17 06:00 Pulse Ox 96 08/08/17 06:00 General appearance: no acute distress, alert, appears uncomfortable Eyes: nonicteric ENT: oropharynx moist Neck: supple Effort: normal, mildly labored Auscultation: bilateral: clear (technically challenging exam secondary to patient's size) Cardiovascular: regular rate and rhythm Gastrointestinal: soft, non-tender, non-distended Integumentary: normal Extremities: no cyanosis, no clubbing, pink and warm (dry skin on lower extremities), no ischemia or petechiae, edema (1+) Musculoskeletal: no deformities normal mental status, non-focal exam anxious, tearful Results - Laboratory Findings CBC and BMP: 08/08/17 02:29 08/08/17 02:29 ABG ABG pH 7.51 pH Units (7.32-7.45) H 08/07/17 06:26 ABG pCO2 45 mmHg (35-45) 08/07/17 06:26 ABG pO2 88 mmHg (85-104) 08/07/17 06:26 ABG O2 Saturation 97 % (95-98) 08/07/17 06:26 PT/INR, D-dimer PT 16.7 Seconds (9.4-12.1) H 08/01/17 23:39 Abnormal lab findings: Abnormal lab results WBC 13.9 K/mcL (4.3-11.1) H 08/08/17 02:29 Hgb 9.7 g/dL (11.5-15.4) L 08/08/17 02:29 Hct 31.0 % (35.3-44.9) L 08/08/17 02:29 MCV 76.2 fL (83.0-100.0) L 08/08/17 02:29 MCH 23.8 pg (28.0-33.3) L 08/08/17 02:29 MCHC 31.3 g/dL (31.6-35.5) L 08/08/17 02: RDW 17.5 % (11.5-14.5) H 08/08/17 02:29 Immature Gran % 6.9 % (0-4) H 08/08/17 02:29 Neutrophils # 9.7 K/mcL (1.6-8.9) H 08/08/17 02:29 Nucleated RBCs/100 WBC 0.5 /100 WBC (0) H 08/08/17 02:29 Reactive Lymphocytes Present (Not Present) A 08/08/17 02:29 Toxic Granulation Present (Not Present) A 08/03/17 00:08 Polychromasia 1+ (Not Present) A 08/02/17 05:59 Hypochromasia Present (Not Present) A 08/05/17 12:32 Poikilocytosis 1+ (Not Present) A 08/02/17 05:59 Anisocytosis 1+ (Not Present) A 08/08/17 02:29 Microcytosis Present (Not Present) A 08/03/17 00:08 PT 16.7 Seconds (9.4-12.1) H 08/01/17 23:39 APTT 88.5 Seconds (26.0-36.0) H 08/03/17 21:01 Heparin Anti-Xa, Unfract 0.95 IU/mL (0.30-0.70) H 08/03/17 00:08 ABG pH 7.51 pH Units (7.32-7.45) H 08/07/17 06:26 ABG HCO3 36 mEq/L (21-27) H 08/07/17 06:26 ABG Total CO2 37 mEq/L (20-26) H 08/07/17 06:26 ABG Base Excess 11 mEq/L (-2 to 3) H 08/07/17 06:26 Sodium 135 mEq/L (136-145) L 08/08/17 02:29 Potassium 3.1 mEq/L (3.5-5.1) L 08/08/17 02:29 Chloride 91 mEq/L (98-107) L 08/08/17 02:29 Carbon Dioxide > 45 mEq/L (23-29) H* 08/08/17 02:29 Creatinine 0.53 mg/dL (0.60-1.20) L 08/08/17 02:29 BUN/Creatinine Ratio 42 (6-26) H 08/08/17 02:29 Glucose 153 mg/dL (70-105) H 08/08/17 02:29 POC Glucose 212 mg/dL (70-99) H 08/08/17 07:46 Hemoglobin A1c 7.1 % (-5.6) H 08/02/17 05:59 Direct Bilirubin 0.5 mg/dL (0.0-0.2) H 08/01/17 23:39 Alkaline Phosphatase 118 Units/L (34-104) H 08/01/17 23:39 Troponin I 0.45 ng/mL (< 0.04) H* 08/07/17 00:00 B-Natriuretic Peptide 1560 pg/mL (Less than 100) H 08/05/17 10:58 Serum Total Protein 6.3 g/dL (6.4-8.9) L 08/01/17 23:39 Albumin 2.9 g/dL (3.5-5.7) L 08/01/17 23:39 Albumin/Globulin Ratio 0.9 (1.1-2.2) L 08/01/17 23:39 HDL Cholesterol 18 mg/dL (40-59) L 08/02/17 05:59 Urine Clarity Cloudy (Clear) A 08/02/17 00:32 Urine Protein 100 mg/dL (Neg-Trace) H 08/02/17 00:32 Urine Ketones 15 mg/dL (Negative) H 08/02/17 00:32 Urine Blood Moderate (Negative) H 08/02/17 00:32 Urine Nitrite Positive (Negative) A 08/02/17 00:32 Urine Bilirubin Small (Negative) H 08/02/17 00:32 Ur Leukocyte Esterase Moderate (Negative) H 08/02/17 00:32 Urine Microscopic RBC 5-15 per hpf (0-3) H 08/02/17 00:32 Urine Microscopic WBC TNTC per hpf (0-3) H 08/02/17 00:32 Ur Squamous Epith Cells Many per lpf (None-Few) H 08/02/17 00:32 Urine Bacteria Many per hpf (None-Few) H 08/02/17 00:32 Streptococcus sp PCR DETECTED (Not Detect) A 08/02/17 00:08 Strep pneumoniae (PCR) DETECTED (Not Detect) A 08/02/17 00:08 - Microbiology Findings Microbiology Findings: Microbiology, Last 48 Hours 08/07/17 05:07 Sputum Culture - Preliminary Sputum Gram Negative Robe 08/05/17 12:32 Blood Culture - Preliminary Peripheral Venipuncture No growth. 08/06/17 02:01 Urine Culture - Preliminary Urine,[place] Yeast Species 08/06/17 02:00 Sputum Culture - Final Sputum - Diagnostic Findings Chest x-ray: image reviewed - Clinical Findings Intake & Output: Intake & Output 08/07/17 08/08/17 08/08/17 23:59 07:59 15:59 Intake Total 120 / 120 290 / 290 Output Total 300 / 300 500 / 500 Balance -180 / -180 -210 / -210 Weight 129.5 kg Consult Discharge Plan - Plan Referrals: Robb Perry MD [Primary Care Provider] - ([facility]) <Salina Hopper - Last Filed: 08/08/17 13:18> Date of Encounter: 08/08/17 Objective PUL Vital signs: Last Vital Signs Temp 97.9 F 08/08/17 08:00 Pulse 73 08/08/17 09:00 Resp 16 08/08/17 09:00 BP 135/80 08/08/17 09:00 Pulse Ox 94 08/08/17 09:00 Results - Laboratory Findings CBC and BMP: 08/08/17 02:29 08/08/17 02:29 ABG ABG pH 7.51 pH Units (7.32-7.45) H 08/07/17 06:26 ABG pCO2 45 mmHg (35-45) 08/07/17 06:26 ABG pO2 88 mmHg (85-104) 08/07/17 06:26 ABG O2 Saturation 97 % (95-98) 08/07/17 06:26 PT/INR, D-dimer PT 16.7 Seconds (9.4-12.1) H 08/01/17 23:39 Abnormal lab findings: Abnormal lab results WBC 13.9 K/mcL (4.3-11.1) H 08/08/17 02:29 Hgb 9.7 g/dL (11.5-15.4) L 08/08/17 02:29 Hct 31.0 % (35.3-44.9) L 08/08/17 02:29 MCV 76.2 fL (83.0-100.0) L 08/08/17 02:29 MCH 23.8 pg (28.0-33.3) L 08/08/17 02:29 MCHC 31.3 g/dL (31.6-35.5) L 08/08/17 02:29 RDW 17.5 % (11.5-14.5) H 08/08/17 02:29 Immature Gran % 6.9 % (0-4) H 08/08/17 02:29 Neutrophils # 9.7 K/mcL (1.6-8.9) H 08/08/17 02:29 Nucleated RBCs/100 WBC 0.5 /100 WBC (0) H 08/08/17 02:29 Reactive Lymphocytes Present (Not Present) A 08/08/17 02:29 Toxic Granulation Present (Not Present) A 08/03/17 00:08 Polychromasia 1+ (Not Present) A 08/02/17 05:59 Hypochromasia Present (Not Present) A 08/05/17 12:32 Poikilocytosis 1+ (Not Present) A 08/02/17 05:59 Anisocytosis 1+ (Not Present) A 08/08/17 02:29 Microcytosis Present (Not Present) A 08/03/17 00:08 PT 16.7 Seconds (9.4-12.1) H 08/01/17 23:39 APTT 88.5 Seconds (26.0-36.0) H 08/03/17 21:01 Heparin Anti-Xa, Unfract 0.95 IU/mL (0.30-0.70) H 08/03/17 00:08 ABG pH 7.51 pH Units (7.32-7.45) H 08/07/17 06:26 ABG HCO3 36 mEq/L (21-27) H 08/07/17 06:26 ABG Total CO2 37 mEq/L (20-26) H 08/07/17 06:26 ABG Base Excess 11 mEq/L (-2 to 3) H 08/07/17 06:26 Sodium 135 mEq/L (136-145) L 08/08/17 02:29 Potassium 3.1 mEq/L (3.5-5.1) L 08/08/17 02:29 Chloride 91 mEq/L (98-107) L 08/08/17 02:29 Carbon Dioxide > 45 mEq/L (23-29) H* 08/08/17 02:29 Creatinine 0.53 mg/dL (0.60-1.20) L 08/08/17 02:29 BUN/Creatinine Ratio 42 (6-26) H 08/08/17 02:29 Glucose 153 mg/dL (70-105) H 08/08/17 02:29 POC Glucose 212 mg/dL (70-99) H 08/08/17 07:46 Hemoglobin A1c 7.1 % (-5.6) H 08/02/17 05:59 Direct Bilirubin 0.5 mg/dL (0.0-0.2) H 08/01/17 23:39 Alkaline Phosphatase 118 Units/L (34-104) H 08/01/17 23:39 Troponin I 0.45 ng/mL (< 0.04) H* 08/07/17 00:00 B-Natriuretic Peptide 1560 pg/mL (Less than 100) H 08/05/17 10:58 Serum Total Protein 6.3 g/dL (6.4-8.9) L 08/01/17 23:39 Albumin 2.9 g/dL (3.5-5.7) L 08/01/17 23:39 Albumin/Globulin Ratio 0.9 (1.1-2.2) L 08/01/17 23:39 HDL Cholesterol 18 mg/dL (40-59) L 08/02/17 05:59 Urine Clarity Cloudy (Clear) A 08/02/17 00:32 Urine Protein 100 mg/dL (Neg-Trace) H 08/02/17 00:32 Urine Ketones 15 mg/dL (Negative) H 08/02/17 00:32 Urine Blood Moderate (Negative) H 08/02/17 00:32 Urine Nitrite Positive (Negative) A 08/02/17 00:32 Urine Bilirubin Small (Negative) H 08/02/17 00:32 Ur Leukocyte Esterase Moderate (Negative) H 08/02/17 00:32 Urine Microscopic RBC 5-15 per hpf (0-3) H 08/02/17 00:32 Urine Microscopic WBC TNTC per hpf (0-3) H 08/02/17 00:32 Ur Squamous Epith Cells Many per lpf (None-Few) H 08/02/17 00:32 Urine Bacteria Many per hpf (None-Few) H 08/02/17 00:32 Streptococcus sp PCR DETECTED (Not Detect) A 08/02/17 00:08 Strep pneumoniae (PCR) DETECTED (Not Detect) A 08/02/17 00:08 - Microbiology Findings Microbiology Findings: Microbiology, Last 48 Hours 08/06/17 12:40 Blood Culture - Preliminary Peripheral Venipuncture No growth. 08/06/17 12:37 Blood Culture - Preliminary Peripheral Venipuncture No growth. 08/07/17 05:07 Sputum Culture - Preliminary Sputum Gram Negative Robe 08/05/17 12:32 Blood Culture - Preliminary Peripheral Venipuncture No growth. 08/06/17 02:01 Urine Culture - Preliminary Urine,[place] Yeast Species - Clinical Findings Intake & Output: Intake & Output 08/07/17 08/08/17 08/08/17 23:59 07:59 15:59 Intake Total 120 / 120 290 / 290 20 / 20 Output Total 300 / 300 500 / 500 200 / 200 Balance -180 / -180 -210 / -210 -180 / -180 Weight 129.5 kg - Attending Attestation I examined this patient and my medical decision-making was reviewed with the Resident Physician. I agree with the documented findings, disposition and treatment plan as described except to the extent set forth below. Patient seen and examined. Labs, radiology, chart personally reviewed. 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 Pulmonary: Acceptable oxygenation and ventilation and patient is tolerating noninvasive ventilation to wean off Cardiovascular: stable GI: Nutrition per dietary and GI prophylaxis per routine Heme: DVT prophylaxis per routine ID: Continue antibiotics and plan to de-escalation Renal; urine out put and renal funtion reviewed Endorcine: blood glucose is monitored Lines: all lines checked and no evidence of infections Skin: skin care to prevent pressure ulcers per nursing routine care
[2017-08-08] MEDS: Verapamil ER (24 HR) 240 MG TABLET.ER PO SCH (08:20)
[2017-08-08] MEDS: predniSONE 20 MG TABLET PO SCH (08:20)
[2017-08-08] MEDS: *HR* Amiodarone 200 MG TABLET PO SCH (08:20)
[2017-08-08] MEDS: Cholecalciferol (D-3) 1,000 UNIT TABLET PO SCH (08:21)
[2017-08-08] MEDS: Baclofen 10 MG TABLET PO SCH ×4 (08:22→21:28)
[2017-08-08] MEDS: Loratadine 10 MG TABLET PO SCH (08:22)
[2017-08-08] MEDS: Folic Acid 1 MG TABLET PO SCH (08:22)
[2017-08-08] MEDS: Isosorbide MONOnitrate (24 HR) 60 MG TAB.ER.24H PO SCH (08:22)
[2017-08-08] MEDS: Bumetanide 1 MG/4 ML VIAL IVP SCH (08:23)
[2017-08-08] MEDS ORDERED: Potassium Chloride Elixir 20 MEQ/15 ML UDC PO PRN (08:47)
[2017-08-08] MEDS: Budesonide/Formoterol 160/4.5 MDI IH SCH ×2 (08:59→20:22)
[2017-08-08] MEDS: *HR* OxyCODONE Immed Rel 15 MG TABLET PO PRN ×3 (09:00→19:25)
[2017-08-08] MEDS ORDERED: Insulin DETEMIR 100 UNIT/ML X5UNITS SQ SCH (09:00)
[2017-08-08] MEDS ORDERED: *HR* FentaNYL PATCH 50 MCG PATCH TD SCH (10:45)
[2017-08-08] MEDS: *HR* LORazepam 2 MG/ML VIAL IVP PRN ×2 (11:23→21:29)
[2017-08-08] MEDS ORDERED: Insulin LISPRO 300 UNITS/3 ML VIAL SQ SCH ×2 (11:30→21:00)
[2017-08-08] MEDS ORDERED: *HR* OxyCODONE Immed Rel 5 MG TABLET PO ONE (12:41)
[2017-08-08] MEDS ORDERED: *HR* OxyCODONE Immed Rel 15 MG TABLET PO PRN (12:42)
[2017-08-08 13:18] LABS: % Iron Saturation 8 % (15-50); Ferritin 1339 ng/ml (10-120); Iron 18 mcg/dL (50-170); Transferrin 166 mg/dL (203-362)
[2017-08-08] MEDS ORDERED: D5% in Water 1,000 ML IVC PRN (13:22)
[2017-08-08] MEDS ORDERED: Fluticasone Propionate Nasal 50 MCG/SPRAY BOTTLE NS PRN (13:22)
[2017-08-08] MEDS ORDERED: Naloxone 0.4 MG/ML INJ IVP PRN (13:22)
[2017-08-08] MEDS ORDERED: Albuterol 2.5 MG/3 ML NEBULIZER IH PRN (13:22)
[2017-08-08] MEDS ORDERED: Dextrose Gel 15 GM/37.5 ML TUBE PO PRN ×2 (13:22)
[2017-08-08] MEDS ORDERED: *HR* Dextrose 50 % in Water (Syg) 50 ML SYRINGE IVP PRN (13:22)
[2017-08-08 13:28] LABS: Vitamin B12 1356 pg/mL (250-1100)
[2017-08-08 14:00] LABS: Folate > 22.3 ng/mL (3.0-16.0)
[2017-08-08 16:05] LABS: Carbon Dioxide 34 mEq/L (23-29)
--- NOTE | 2017-08-08 17:36 | Oncology Inp Progress Note ---
<Annette Colon L - Last Filed: 08/08/17 17:41> Date of Encounter: 08/08/17 Time of Encounter: 16:30 (1) Liver lesion Current Visit: Yes Status: Acute Assessment and plan: MRI abdomen reveals extensive signal abnormality and enhancement and probable restricted diffusion within the liver predominantly involving the left hepatic lobe but also within the posterior right hepatic lobe. Serology from 2015 nonreactive for hepatitis B/C. PT 16.7, INR 1.5, Direct bili 0.5, AST 15, ALT 7. AFP resulted at 2. Updated iron studies show iron level 18, 8% saturation, ferritin 1339 which is likely elevated as an acute phase reactant, B12 and folate studies are replete. Microytic, hypochromic anemia with hgb 9.9, WBC 14, platelet count 277. Dr. Olsen discussed MRI findings suggestive of malignancy at bedside with patient today. She is agreeable to liver biopsy and wishes to discuss treatment options further once final pathology is obtained. We will plan to likely include her daughter in these discussions. Patient is a resident of a senior living and appears to be in poor functional status with multiple comorbidities, will need to continue to assess functional status with the now improvement in her acute symptoms. IR consult with liver biopsy planned for tomorrow. Will check INR in am. Heparin placed on hold for tomorrow, SCD's ordered in place of this. NPO after midnight. Differentials may include cholangiocarcinoma or hepatocellular carcinoma, or metastatic lesion from potential GI primary given her iron deficiency anemia. She states she has had recent colonoscopy within the past few years, will request these records. She states she has never had an EGD. May consider further GI workup pending her final pathology report from liver biopsy. Please refer to Dr. Olsen's attestation below for additional details Oncology: Subj Interval history: Ms. Snyder is resting in bed, taking breathing treatment at moment. She was successfully extubated yesterday, currently on 3 liters NC and needing bipap at times. She is alert and oriented, she is conversant and asking questions regarding her results and next steps. - Constitutional Vitals: Vital Signs Temp Pulse Resp BP Pulse Ox 08/08/17 15:06 98.3 F 92 22 166/72 92 08/08/17 12:00 105 20 125/86 93 08/08/17 11:37 20 93 08/08/17 11:00 95 16 139/65 94 08/08/17 10:00 86 18 147/67 93 08/08/17 09:00 73 16 135/80 94 08/08/17 08:59 16 91 08/08/17 08:00 97.9 F 74 18 149/56 98 08/08/17 06:00 71 15 150/59 96 08/08/17 05:00 99 F 68 21 132/51 97 08/08/17 04:10 21 130/49 97 08/08/17 04:00 69 21 130/49 98 08/08/17 03:30 65 21 154/63 97 08/08/17 02:00 64 18 149/65 97 08/08/17 01:30 71 23 149/60 94 08/08/17 00:15 20 132/56 96 08/08/17 00:00 97.8 F 61 22 132/56 96 08/07/17 23:00 60 21 138/56 96 08/07/17 22:00 66 19 157/71 95 08/07/17 21:00 64 22 155/70 96 08/07/17 20:53 18 146/87 98 08/07/17 20:30 63 20 146/87 98 08/07/17 20:16 99.4 F 08/07/17 19:00 61 20 134/57 97 08/07/17 18:00 67 15 146/64 98 Intake and Output 08/08/17 08/08/17 08/08/17 07:59 15:59 23:59 Intake Total 290 / 290 408 / 408 Output Total 500 / 500 2100 / 2100 Balance -210 / -210 -1692 / -1692 Intake: IV Fluids 120 / 120 48 / 48 PRECEDEX Premix 400 mcg In 100 100 / 100 28 / 28 ml @ 0.2 MCG/KG/HR 6.54 mls/hr IVC .[id number] [facility] Rx#:[id number] FentaNYL (PF) 1,000 MCG In 0.9 0 / 0 % Sodium Chloride 80 ML @ 50 MCG/HR 5 mls/hr IVC CONT [facility] Rx #:[id number] Maxipime 2,000 MG In Water for 20 / 20 20 / 20 inj. (sterile) 20 ML @ 300 mls/ hr IVP Q8HR [facility] Rx#:[id number] Oral 170 / 170 360 / 360 Output: Catheter 500 / 500 2100 / 2100 Other: Weight 129.5 kg Blood Glucose* 174 221 Patient Weight 08/08/17 23:59 Weight 129.5 kg General appearance: morbidly obese, no acute distress, no febrile Exam: no acute distress but appears to be uncomfortably positioned in bed - Head Head exam: Present: atraumatic - Respiratory Respiratory exam: Present: CTAB. Absent: respiratory distress - Cardiovascular Cardiovascular exam: Present: RRR, +S1, +S2 - GI/Abdominal GI/Abdominal exam: Present: normal bowel sounds, soft. Absent: tenderness - Extremities Exam Extremities exam: Present: pedal edema. Absent: calf tenderness - Neurological Exam Neurological exam: Present: alert, oriented X3, no focal deficits, strengths equal and symetr throughout - Psychiatric Psychiatric exam: Present: normal affect, normal mood - Skin Skin exam: Present: dry, intact, pallor, warm Oncology: Obj Data - Labs CBC & Chem 7: 08/08/17 02:29 08/08/17 02:29 - ABG Interpretation ABG results: ABG ABG pH 7.51 pH Units (7.32-7.45) H 08/07/17 06:26 ABG pCO2 45 mmHg (35-45) 08/07/17 06:26 ABG pO2 88 mmHg (85-104) 08/07/17 06:26 ABG O2 Saturation 97 % (95-98) 08/07/17 06:26 PT/INR, D-dimer PT 16.7 Seconds (9.4-12.1) H 08/01/17 23:39 Consult Discharge Plan - Plan Referrals: Robb Perry MD [Primary Care Provider] - ([facility]) <Jose Olsen - Last Filed: 08/09/17 08:02> Date of Encounter: 08/09/17 - Constitutional Vitals: Vital Signs Temp Pulse Resp BP Pulse Ox 08/09/17 07:17 98.4 F 98 16 168/66 97 08/09/17 04:35 98.2 F 101 18 181/79 94 08/09/17 03:12 16 92 08/09/17 00:44 98.0 F 93 18 185/90 93 08/08/17 23:17 16 92 04/09/18 20:22 15 93 08/08/17 19:30 98.1 F 99 16 175/103 93 08/08/17 16:46 18 181/79 92 08/08/17 15:06 98.3 F 92 22 166/72 92 08/08/17 12:00 99.0 F 105 20 125/86 93 08/08/17 11:37 20 93 08/08/17 11:00 95 16 139/65 94 08/08/17 10:00 86 18 147/67 93 08/08/17 09:00 73 16 135/80 94 08/08/17 08:59 16 91 Intake and Output 08/08/17 08/09/17 08/09/17 16:59 00:59 08:59 Intake Total 360 / 360 160 / 160 200 / 200 Output Total 2300 / 2300 400 / 400 300 / 300 Balance -1940 / -1940 -240 / -240 -100 / -100 Intake: IV Fluids 40 / 40 Maxipime 2,000 MG In Water for 40 / 40 inj. (sterile) 20 ML @ 300 mls/ hr IVP Q8HR [facility] Rx#:[id number] Oral 360 / 360 120 / 120 200 / 200 Output: Urine 300 / 300 Catheter 2300 / 2300 400 / 400 0 / 0 Other: Meal Dinner Percent of Meal Consumed 90% Blood Glucose* 221 196 168 Oncology: Obj Data - Labs CBC & Chem 7: 08/08/17 02:29 08/08/17 02:29 Labs: Laboratory Results - last 24 hr 08/05/17 08/08/17 08/08/17 05:29 02:29 09:07 Carbon Dioxide 34 H POC Glucose Magnesium 1.6 Iron % Saturation Transferrin Ferritin Tumor Marker AFP 2 Vitamin B12 Folate 08/08/17 08/08/17 08/08/17 11:57 12:22 12:22 Carbon Dioxide POC Glucose 181 H Magnesium Iron 18 L % Saturation 8 L Transferrin 166 L Ferritin 1339 H Tumor Marker AFP Vitamin B12 1356 H Folate > 22.3 H 08/08/17 08/08/17 08/09/17 13:58 20:36 07:23 Carbon Dioxide POC Glucose 221 H 196 H 168 H Magnesium Iron % Saturation Transferrin Ferritin Tumor Marker AFP Vitamin B12 Folate - ABG Interpretation ABG results: ABG ABG pH 7.51 pH Units (7.32-7.45) H 08/07/17 06:26 ABG pCO2 45 mmHg (35-45) 08/07/17 06:26 ABG pO2 88 mmHg (85-104) 08/07/17 06:26 ABG O2 Saturation 97 % (95-98) 08/07/17 06:26 PT/INR, D-dimer PT 16.7 Seconds (9.4-12.1) H 08/01/17 23:39 - Attending Attestation I examined this patient and my medical decision-making was reviewed with the Advanced Practice Nurse. I agree with the documented findings, disposition and treatment plan as described except to the extent set forth below. Ms. Snyder has infiltrative liver mass concerning for hepatocellular carcinoma radiographically. Her AFP, however, is normal, and therefore biopsy is necessary for diagnosis. She is also noted to have iron deficiency making another source of a gastrointestinal malignancy a consideration as well. I recommended CT guided biopsy to further characterize this liver lesion. This was discussed with the patient today. She is willing to proceed. She also states she be willing to consider therapy if recommended for her cancer. This would be difficult that she lives in a halfway facility and has multiple medical comorbidities. Further decisions regarding treatment will be dependent upon the biopsy.
[2017-08-08] MEDS: Chlorhexidine Rinse 15 ML MOUTHWASH MM SCH (21:20)
[2017-08-08] MEDS: rOPINIRole 1 MG TABLET PO SCH (21:27)
[2017-08-09] MEDS: Cefepime HCl 2,000 MG in Water for inj. (sterile) 20 ML 20 ML IVP SCH ×2 (00:30→08:36)
[2017-08-09] MEDS: *HR* OxyCODONE Immed Rel 15 MG TABLET PO PRN ×4 (01:29→21:03)
[2017-08-09] MEDS: Ipratropium/Albuterol Neb 3 ML IH SCH ×5 (03:11→20:26)
[2017-08-09] MEDS: Budesonide/Formoterol 160/4.5 MDI IH SCH ×2 (07:33→20:26)
[2017-08-09] MEDS: Cholecalciferol (D-3) 1,000 UNIT TABLET PO SCH (08:33)
[2017-08-09] MEDS: Isosorbide MONOnitrate (24 HR) 60 MG TAB.ER.24H PO SCH (08:34)
[2017-08-09] MEDS: Folic Acid 1 MG TABLET PO SCH (08:34)
[2017-08-09] MEDS: Verapamil ER (24 HR) 240 MG TABLET.ER PO SCH (08:34)
[2017-08-09] MEDS: Baclofen 10 MG TABLET PO SCH ×4 (08:35→21:02)
[2017-08-09] MEDS: Loratadine 10 MG TABLET PO SCH (08:35)
[2017-08-09] MEDS: *HR* Amiodarone 200 MG TABLET PO SCH (08:35)
[2017-08-09] MEDS: Insulin LISPRO 300 UNITS/3 ML VIAL SQ SCH ×4 (08:36→20:59)
[2017-08-09] MEDS: Insulin DETEMIR 100 UNIT/ML X5UNITS SQ SCH (08:38)
[2017-08-09 08:47] LABS: Basophils % 0.2 %; Eosinophils # 0.4 K/mcL (0.0-0.6); Eosinophils % 2.1 %; Hematocrit 36.3 % (35.3-44.9); Hemoglobin 11.2 g/dL (11.5-15.4); Immature Granulocytes % 3.1 % (0-4); Lymphocytes # 1.4 K/mcL (0.6-4.6); Mean Corpuscular HGB Conc 30.9 g/dL (31.6-35.5); Mean Corpuscular Hemoglobin 23.7 pg (28.0-33.3); Mean Corpuscular Volume 76.9 fL (83.0-100.0); Mean Platelet Volume 10.1 fL (9.4-12.4); Monocytes % 5.9 %; Neutrophils # 13.5 K/mcL (1.6-8.9); Nucleated Red Blood Cells 0.2 /100 WBC (0); Platelet Count 396 K/mcL (140-400); Red Blood Count 4.72 M/mcL (3.82-4.97); Red Cell Distribution Width 18.1 % (11.5-14.5); Segmented Neutrophils % 80.7 %
[2017-08-09 09:00] LABS: BUN/Creatinine Ratio 35 (6-26); Blood Urea Nitrogen 17 mg/dL (8-23); Carbon Dioxide 31 mEq/L (23-29); Chloride 91 mEq/L (98-107); Potassium 3.5 mEq/L (3.5-5.1); Sodium 130 mEq/L (136-145)
[2017-08-09] MEDS ORDERED: *HR* Amiodarone 200 MG TABLET PO SCH (09:00)
[2017-08-09] MEDS ORDERED: Metoprolol XL (24 HR) Succ 50 MG TAB.ER.24H PO SCH (09:00)
[2017-08-09 09:01] LABS: Glucose 205 mg/dL (70-105); Magnesium 1.9 mg/dL (1.6-2.6); Osmolality,Calculated 277 (280-300); eGFR For African Americans > 60 (> 60); eGFR For Non-African Americans > 60 (> 60)
[2017-08-09 09:06] LABS: Phosphorous 3.4 mg/dL (2.7-4.5)
[2017-08-09 09:22] LABS: INR 1.2; Prothrombin Time 13.4 Seconds (9.4-12.1)
[2017-08-09] MEDS ORDERED: *HR* FentaNYL PATCH 75 MCG PATCH TD SCH (10:00)
--- NOTE | 2017-08-09 10:01 | Internal Med Progress Note ---
Date of Encounter: 08/09/17 Time of Encounter: 09:45 - Assessment and plan (1) CAD (coronary artery disease) Current Visit: Yes Status: Chronic Qualifiers: Coronary Disease-Associated Artery/Lesion type: bypass graft [place] vs. transplanted heart: [place] heart Associated angina: without angina Qualified Code(s): I25.810 - Atherosclerosis of coronary artery bypass graft(s) without angina pectoris (2) Insulin dependent diabetes mellitus Current Visit: No Status: Chronic (3) History of atrial fibrillation Current Visit: No Status: Chronic (4) CKD (chronic kidney disease), stage III Current Visit: No Status: Chronic (5) Hypertension Current Visit: No Status: Chronic Qualifiers: Hypertension type: essential hypertension Qualified Code(s): I10 - Essential (primary) hypertension (6) COPD (chronic obstructive pulmonary disease) Current Visit: No Status: Chronic Qualifiers: COPD type: emphysema Emphysema type: unspecified Qualified Code(s): J43.9 - Emphysema, unspecified (7) Sepsis Current Visit: Yes Status: Acute Qualifiers: Sepsis type: sepsis due to unspecified organism Qualified Code(s): A41.9 - Sepsis, unspecified organism (8) HCAP (healthcare-associated pneumonia) Current Visit: Yes Status: Acute (9) NSTEMI (non-ST elevated myocardial infarction) Current Visit: Yes Status: Acute (10) UTI (urinary tract infection) Current Visit: Yes Status: Acute Qualifiers: Urinary tract infection type: site unspecified Hematuria presence: without hematuria Qualified Code(s): N39.0 - Urinary tract infection, site not specified (11) Abnormal CT of the chest Current Visit: Yes Status: Acute (12) DVT prophylaxis Current Visit: Yes Status: Acute (13) Liver lesion Current Visit: Yes Status: Acute (14) Transaminitis Current Visit: Yes Status: Acute (15) Abdominal wall cellulitis Current Visit: Yes Status: Acute (16) Acute respiratory failure Current Visit: Yes Status: Acute Qualifiers: Respiratory failure complication: unspecified whether with hypoxia or hypercapnia Qualified Code(s): J96.00 - Acute respiratory failure, unspecified whether with hypoxia or hypercapnia - Time Spent With Patient Total time spent is greater than 50% in coordination of care (as documented) at patient's floor/unit and/or counseling patient: - Subjective Interval history: Patient seen and examined at bedside. Resting in bed and reports of severe cocyx pain which is chronic due to her bed bound status. Denies any chest pain, sob, or any other discomfort at this time. Pt was transferred from the ICU overnight after being treated for Acute respiratory failure secondary to CHF decompensation and HCAP. She was extubated on 08/07/17. She is currently saturating well on nasal cannula Noted to have nonspecific EKG changes, given history, will obtain serial TNI. Scheduled for liver biopsy today as the liver lesion was concerning for hepatocellular carcinoma and associated labs were not supportive of that diagnosis therefore need biopsy for definitive diagnosis Assessment and Plan (1) Acute respiratory failure with hypoxia and hypercapnia Current Visit: Yes Status: Acute Acute respiratory failure with hypoxia and hypercapnia, improved Patient was successfully extubated on 08/07/17 She has required BiPAP intermittently, however she remains well oxygenated, will continue O2 supplementation with nasal cannula and close monitoring of O2 saturation. Goal O2 sat: 88-92% Pt continues to have fluid overload associated with CHF and COPD exacerbation Will continue home dose of Bumex 2mg PO BID Prednisone 40mg PO qd (will start a long taper today 08/09/17) bipap support as needed continue to closely monitor respiratory status (2) Acute exacerbation of CHF (congestive heart failure) Current Visit: Yes Status: Acute Acute exacerbation of CHF continue Bumex at this time Qualifiers: Heart failure type: diastolic Qualified Code(s): I50.33 - Acute on chronic diastolic (congestive) heart failure (3) HCAP (healthcare-associated pneumonia) Current Visit: Yes Status: Acute Sputum culture positive for E.Coli ESBL, resistant to Cefepime worsening of leukocytosis noted (can be secondary to continous steroid dose, however given resistance reported on the culture panel, will change to Meropenem 1000mg IV q8h) will closely monitor repeat blood cultures reported no growth (4) COPD (chronic obstructive pulmonary disease) Current Visit: Yes Status: Acute continue long steroid taper of Prednisone Qualifiers: COPD type: unspecified COPD Qualified Code(s): J44.9 - Chronic obstructive pulmonary disease, unspecified (5) Bacteremia due to Gram-positive bacteria Current Visit: No Status: Acute Strep pneumonia bacteremia started on meropenem given sputum blood culture sensitivity report (6) Chronic pain Current Visit: Yes Status: Acute hx of sacral decubitus ulcers and pain currently not controlled with the current regimen Increase Fentanyl to 75mcg TD q72h and increase frequency of the oxycodone will closely monitor Qualifiers: Chronic pain type: other chronic pain Qualified Code(s): G89.29 - Other chronic pain (7) DM (diabetes mellitus), type 2 Current Visit: Yes Status: Chronic sliding scale insulin algorithm monitor FS and BG ADA diet Qualifiers: Diabetes mellitus fdc insulin use: with email production specialist use Diabetes mellitus complication status: with unspecified complications Qualified Code(s) : E11.8 - Type 2 diabetes mellitus with unspecified complications (8) DVT prophylaxis Current Visit: No Status: Acute SQ Heparin after liver biopsy is done SCD (9) Liver lesion Current Visit: Yes Status: Acute Oncology evaluation appreciated pt scheduled for liver biopsy today (08/09/17) (10) Morbid Obesity Current Visit: Yes Status: Chronic (11) UTI continue abx as listed above - Constitutional Vitals: Temp Pulse Resp BP Pulse Ox 98.4 F 98 24 168/66 95 08/09/17 07:17 08/09/17 07:17 08/09/17 07:32 08/09/17 07:17 08/09/17 07:32 General appearance: Present: A&O X 3, morbidly obese, no acute distress - Head Head exam: Present: atraumatic, normocephalic - Eye Eye exam: Present: conjuntiva pink, sclera anicteric - Respiratory Respiratory exam: Present: decreased breath sounds. Absent: respiratory distress, wheezes - Cardiovascular Cardiovascular exam: Present: RRR, +S1, +S2. Absent: diastolic murmur, gallop, rubs, systolic murmur - GI/Abdominal GI/Abdominal exam: Present: distended (obese), normal bowel sounds, soft, no peritoneal signs. Absent: tenderness - Extremities Exam Extremities exam: Present: warm, radial pulses palpable and symmetrical. Absent : calf tenderness - Neurological Exam Neurological exam: Present: oriented X3 Internal Medicine: Result - Labs CBC & Chem 7: 08/09/17 08:23 08/09/17 08:23 Labs: Short CBC 08/09/17 Range/Units 08:23 WBC 16.8 H (4.3-11.1) K/mcL Hgb 11.2 L D (11.5-15.4) g/dL Hct 36.3 (35.3-44.9) % Plt Count 396 (140-400) K/mcL Neutrophils # 13.5 H (1.6-8.9) K/mcL BMP 08/08/17 08/09/17 02:29 08:23 Sodium 130 L Potassium 3.5 Chloride 91 L Carbon Dioxide 34 H 31 H BUN 17 Creatinine 0.48 L Glucose 205 H Calcium 9.0 - ABG Interpretation ABG results: ABG ABG pH 7.51 pH Units (7.32-7.45) H 08/07/17 06:26 ABG pCO2 45 mmHg (35-45) 08/07/17 06:26 ABG pO2 88 mmHg (85-104) 08/07/17 06:26 ABG O2 Saturation 97 % (95-98) 08/07/17 06:26 PT/INR, D-dimer PT 13.4 Seconds (9.4-12.1) H 08/09/17 08:32 Consult Discharge Plan - Plan Referrals: Robb Perry MD [Primary Care Provider] - ([facility])
[2017-08-09] MEDS: Meropenem 1,000 MG in Water for inj. (sterile) 20 ML 10 ML IVP SCH ×2 (10:16→19:02)
[2017-08-09] MEDS ORDERED: Metoprolol XL (24 HR) Succ 50 MG TAB.ER.24H PO ONE (11:00)
[2017-08-09] MEDS: Aspirin 81 MG TAB.CHEW PO SCH (11:04)
[2017-08-09 12:17] LABS: Magnesium 1.8 mg/dL (1.6-2.6)
[2017-08-09] MEDS: predniSONE 20 MG TABLET PO SCH (12:32)
[2017-08-09] MEDS: Bumetanide 1 MG TABLET PO SCH ×2 (12:32→19:01)
--- NOTE | 2017-08-09 16:37 | Oncology Inp Progress Note ---
<Annette Colon L - Last Filed: 08/09/17 17:57> Date of Encounter: 08/09/17 Time of Encounter: 16:36 (1) Liver lesion Current Visit: Yes Status: Acute Assessment and plan: MRI abdomen reveals extensive signal abnormality and enhancement and probable restricted diffusion within the liver predominantly involving the left hepatic lobe but also within the posterior right hepatic lobe. AFP 2, biopsy needed to further characterize liver lesions which appear to be malignant Ms. Snyder was unable to undergo her biopsy today due to back pain and discomfort with prepping for her procedure. She also states she was upset due to the fact that she had to go so long without eating or drinking, this seems to be causing her the most stress regarding her procedure. Ms. Snyder is in very poor functional status, a resident of a alf and states she has not been out of bed in years. Her ability and desire to undergo aggressive treatment is of concern. At this time, we will hold on biopsy and plan to discuss logistics tomorrow with patient and her daughter Ivana who is planned to stop by early tomorrow morning as well. More definite plan to follow in the morning. Differentials may include cholangiocarcinoma or hepatocellular carcinoma, or metastatic lesion from potential GI primary given her iron deficiency anemia. She states she has had recent colonoscopy within the past few years, will request these records. She states she has never had an EGD. Please refer to Dr. Olsen's attestation below for additional details - Constitutional Vitals: Vital Signs Temp Pulse Resp BP Pulse Ox 08/09/17 15:22 16 94 08/09/17 15:18 97.9 F 88 17 136/71 94 08/09/17 11:24 138/69 08/09/17 11:10 20 94 08/09/17 10:09 98.4 F 98 16 188/102 93 08/09/17 07:32 24 95 08/09/17 07:17 98.4 F 98 16 168/66 97 08/09/17 04:35 98.2 F 101 18 181/79 94 08/09/17 03:12 16 92 08/09/17 00:44 98.0 F 93 18 185/90 93 08/08/17 23:17 16 92 08/08/17 20:22 15 93 08/08/17 19:30 98.1 F 99 16 175/103 93 08/08/17 16:46 18 181/79 92 Intake and Output 08/09/17 08/09/17 08/09/17 07:59 15:59 23:59 Intake Total 220 / 220 10 Output Total 300 / 300 400 / 400 Balance -80 / -80 -390 / -390 Intake: IV Fluids 20 Maxipime 2,000 MG In Water for inj. (sterile) 20 ML @ 300 mls/ hr IVP Q8HR RYDER Rx#:[id number] Merrem 1,000 MG In Water for inj. (sterile) 10 ML @ 200 mls/ hr IVP Q8H RYDER Rx#:[id number] Oral 200 / 200 0 / 0 Output: Urine 300 / 300 400 / 400 Catheter 0 / 0 Other: Meal npo lunch Blood Glucose* 168 179 241 Oncology: Obj Data - Labs CBC & Chem 7: 08/09/17 08:23 08/09/17 08:23 Labs: Laboratory Results - last 24 hr 08/08/17 08/08/17 08/09/17 02:29 20:36 05:32 WBC RBC Hgb Hct MCV MCH MCHC RDW Plt Count MPV Immature Gran % Seg Neutrophils % Lymphocytes % Monocytes % Eosinophils % Basophils % Neutrophils # Lymphocytes # Monocytes # Eosinophils # Basophils # Nucleated RBCs/100 WBC PT INR Sodium 135 L Potassium 3.1 L Chloride 91 L Carbon Dioxide 34 H BUN 22 Creatinine 0.53 L Est GFR ( Amer) > 60 Est GFR (Non-Af Amer) > 60 BUN/Creatinine Ratio 42 H Glucose 153 H POC Glucose 196 H Calculated Osmolality 286 Calcium 9.1 Phosphorus 4.0 Magnesium 1.8 Troponin I Specimen Rejected Miscellaneous 08/09/17 08/09/17 08/09/17 07:23 08:23 08:23 WBC 16.8 H RBC 4.72 Hgb 11.2 L D Hct 36.3 MCV 76.9 L MCH 23.7 L MCHC 30.9 L RDW 18.1 H Plt Count 396 MPV 10.1 Immature Gran % 3.1 Seg Neutrophils % 80.7 Lymphocytes % 8.0 Monocytes % 5.9 Eosinophils % 2.1 Basophils % 0.2 Neutrophils # 13.5 H Lymphocytes # 1.4 Monocytes # 1.0 Eosinophils # 0.4 Basophils # 0.0 Nucleated RBCs/100 WBC 0.2 H PT INR Sodium 130 L Potassium 3.5 Chloride 91 L Carbon Dioxide 31 H BUN 17 Creatinine 0.48 L Est GFR ( Amer) > 60 Est GFR (Non-Af Amer) > 60 BUN/Creatinine Ratio 35 H Glucose 205 H POC Glucose 168 H Calculated Osmolality 277 L Calcium 9.0 Phosphorus 3.4 Magnesium 1.9 Troponin I 0.20 H* Specimen Rejected 08/09/17 08/09/17 08:32 10:53 WBC RBC Hgb Hct MCV MCH MCHC RDW Plt Count MPV Immature Gran % Seg Neutrophils % Lymphocytes % Monocytes % Eosinophils % Basophils % Neutrophils # Lymphocytes # Monocytes # Eosinophils # Basophils # Nucleated RBCs/100 WBC PT 13.4 H INR 1.2 Sodium Potassium Chloride Carbon Dioxide BUN Creatinine Est GFR ( Amer) Est GFR (Non-Af Amer) BUN/Creatinine Ratio Glucose POC Glucose 179 H Calculated Osmolality Calcium Phosphorus Magnesium Troponin I Specimen Rejected - ABG Interpretation ABG results: ABG ABG pH 7.51 pH Units (7.32-7.45) H 08/07/17 06:26 ABG pCO2 45 mmHg (35-45) 08/07/17 06:26 ABG pO2 88 mmHg (85-104) 08/07/17 06:26 ABG O2 Saturation 97 % (95-98) 08/07/17 06:26 PT/INR, D-dimer PT 13.4 Seconds (9.4-12.1) H 08/09/17 08:32 Consult Discharge Plan - Plan Referrals: Robb Perry MD [Primary Care Provider] - ([facility]) <Jose Olsen - Last Filed: 08/09/17 18:08> Date of Encounter: 08/09/17 - Constitutional Vitals: Vital Signs Temp Pulse Resp BP Pulse Ox 08/09/17 15:22 16 94 08/09/17 15:18 97.9 F 88 17 136/71 94 08/09/17 11:24 138/69 08/09/17 11:10 20 94 08/09/17 10:09 98.4 F 98 16 188/102 93 08/09/17 07:32 24 95 08/09/17 07:17 98.4 F 98 16 168/66 97 08/09/17 04:35 98.2 F 101 18 181/79 94 08/09/17 03:12 16 92 08/09/17 00:44 98.0 F 93 18 185/90 93 08/08/17 23:17 16 92 08/08/17 20:22 15 93 08/08/17 19:30 98.1 F 99 16 175/103 93 Intake and Output 08/09/17 08/09/17 08/10/17 08:59 16:59 00:59 Intake Total 200 / 200 240 / 240 Output Total 300 / 300 400 / 400 Balance -100 / -100 -390 / -390 240 / 240 Intake: IV Fluids Merrem 1,000 MG In Water for inj. (sterile) 10 ML @ 200 mls/ hr IVP Q8H RYDER Rx#:[id number] Oral 200 / 200 0 / 0 240 / 240 Output: Urine 300 / 300 400 / 400 Catheter 0 / 0 Other: Meal npo lunch Dinner Percent of Meal Consumed 10% Blood Glucose* 168 241 Oncology: Obj Data - Labs CBC & Chem 7: 08/09/17 08:23 08/09/17 08:23 Labs: Laboratory Results - last 24 hr 08/08/17 08/08/17 08/09/17 02:29 20:36 05:32 WBC RBC Hgb Hct MCV MCH MCHC RDW Plt Count MPV Immature Gran % Seg Neutrophils % Lymphocytes % Monocytes % Eosinophils % Basophils % Neutrophils # Lymphocytes # Monocytes # Eosinophils # Basophils # Nucleated RBCs/100 WBC PT INR Sodium 135 L Potassium 3.1 L Chloride 91 L Carbon Dioxide 34 H BUN 22 Creatinine 0.53 L Est GFR ( Amer) > 60 Est GFR (Non-Af Amer) > 60 BUN/Creatinine Ratio 42 H Glucose 153 H POC Glucose 196 H Calculated Osmolality 286 Calcium 9.1 Phosphorus 4.0 Magnesium 1.8 Troponin I Specimen Rejected Miscellaneous 08/09/17 08/09/17 08/09/17 07:23 08:23 08:23 WBC 16.8 H RBC 4.72 Hgb 11.2 L D Hct 36.3 MCV 76.9 L MCH 23.7 L MCHC 30.9 L RDW 18.1 H Plt Count 396 MPV 10.1 Immature Gran % 3.1 Seg Neutrophils % 80.7 Lymphocytes % 8.0 Monocytes % 5.9 Eosinophils % 2.1 Basophils % 0.2 Neutrophils # 13.5 H Lymphocytes # 1.4 Monocytes # 1.0 Eosinophils # 0.4 Basophils # 0.0 Nucleated RBCs/100 WBC 0.2 H PT INR Sodium 130 L Potassium 3.5 Chloride 91 L Carbon Dioxide 31 H BUN 17 Creatinine 0.48 L Est GFR ( Amer) > 60 Est GFR (Non-Af Amer) > 60 BUN/Creatinine Ratio 35 H Glucose 205 H POC Glucose 168 H Calculated Osmolality 277 L Calcium 9.0 Phosphorus 3.4 Magnesium 1.9 Troponin I 0.20 H* Specimen Rejected 08/09/17 08/09/17 08/09/17 08:32 10:53 15:48 WBC RBC Hgb Hct MCV MCH MCHC RDW Plt Count MPV Immature Gran % Seg Neutrophils % Lymphocytes % Monocytes % Eosinophils % Basophils % Neutrophils # Lymphocytes # Monocytes # Eosinophils # Basophils # Nucleated RBCs/100 WBC PT 13.4 H INR 1.2 Sodium Potassium Chloride Carbon Dioxide BUN Creatinine Est GFR ( Amer) Est GFR (Non-Af Amer) BUN/Creatinine Ratio Glucose POC Glucose 179 H Calculated Osmolality Calcium Phosphorus Magnesium Troponin I 0.16 H* Specimen Rejected 08/09/17 16:33 WBC RBC Hgb Hct MCV MCH MCHC RDW Plt Count MPV Immature Gran % Seg Neutrophils % Lymphocytes % Monocytes % Eosinophils % Basophils % Neutrophils # Lymphocytes # Monocytes # Eosinophils # Basophils # Nucleated RBCs/100 WBC PT INR Sodium Potassium Chloride Carbon Dioxide BUN Creatinine Est GFR ( Amer) Est GFR (Non-Af Amer) BUN/Creatinine Ratio Glucose POC Glucose 241 H Calculated Osmolality Calcium Phosphorus Magnesium Troponin I Specimen Rejected - ABG Interpretation ABG results: ABG ABG pH 7.51 pH Units (7.32-7.45) H 08/07/17 06:26 ABG pCO2 45 mmHg (35-45) 08/07/17 06:26 ABG pO2 88 mmHg (85-104) 08/07/17 06:26 ABG O2 Saturation 97 % (95-98) 08/07/17 06:26 PT/INR, D-dimer PT 13.4 Seconds (9.4-12.1) H 08/09/17 08:32 - Attending Attestation I examined this patient and my medical decision-making was reviewed with the Advanced Practice Nurse. I agree with the documented findings, disposition and treatment plan as described except to the extent set forth below. Her biopsy today was aborted as she was "too hungry" to complete the procedure. She also had issues with getting comfortable. We will speak with the patient today, she still wants to have a biopsy but is not one "too hungry". There appears to be some cognitive deficits present complicating her decision making. She believes her daughter will be by first thing tomorrow morning and I will swing by or clinic to talk to her. If I am unable to meet with her tomorrow I will contact her by phone. We will hold on further procedures or biopsies pending this conversation. It is unclear if the patient is even a candidate for therapy as she is essentially bedbound alf resident who was unable to perform any self care.
[2017-08-09] MEDS: rOPINIRole 1 MG TABLET PO SCH (21:01)
--- NOTE | 2017-08-09 23:36 | Electrocardiograph Report ---
[place] [id number] Test Date: 2017-08-09 Pat Name: Dot Snyder Department: 115 Room: 3A44 Gender: F Case Management Director: : 1950 Requested By: Anny Gibson Order Number: [id number] Reading MD: Tena Aranda Measurements Intervals [place] Rate: 98 P: 72 [place]: 170 QRS: 140 QRSD: 115 T: 54 QT: 368 QTc: 423 Interpretive Statements SINUS RHYTHM WITH OCCASIONAL VENTRICULAR PREMATURE COMPLEXES WITH OCCASIONAL SUPRAVENTRICULAR PREMATURE COMPLEXES PATTERN CONSISTENT WITH PULMONARY DISEASE POSSIBLE RIGHT VENTRICULAR HYPERTROPHY Electronically Signed On 08-09-2017 23:35:25 EDT by Tena Aranda
[2017-08-10] MEDS: Ipratropium/Albuterol Neb 3 ML IH SCH ×7 (00:03→23:40)
--- NOTE | 2017-08-10 00:32 | Electrocardiograph Report ---
[address] [address] Test Date: 2017-08-06 Pat Name: Dot Snyder Department: 109 Room: 3A44 Gender: F [employer] Attendant: : 1950 Requested By: George Garcia Order Number: [id number] Reading MD: Tena Aranda Measurements Intervals [place] Rate: 78 P: 32 [place]: 161 QRS: 47 QRSD: 118 T: 138 QT: 420 QTc: 454 Interpretive Statements SINUS RHYTHM WITH OCCASIONAL VENTRICULAR PREMATURE COMPLEXES INDETERMINATE AXIS PATTERN CONSISTENT WITH PULMONARY DISEASE MODERATE INTRAVENTRICULAR CONDUCTION DELAY MODERATE ST DEPRESSION Electronically Signed On 08-10-2017 0:30:54 EDT by Tena Aranda
[2017-08-10] MEDS: Meropenem 1,000 MG in Water for inj. (sterile) 20 ML 10 ML IVP SCH ×3 (03:10→20:57)
[2017-08-10] MEDS: *HR* OxyCODONE Immed Rel 15 MG TABLET PO PRN ×4 (04:10→20:50)
[2017-08-10] MEDS: *HR* Heparin 5,000 UNIT/ML VIAL SQ SCH ×2 (05:17→17:17)
[2017-08-10 06:03] LABS: Red Cell Distribution Width 18.6 % (11.5-14.5)
[2017-08-10 06:04] LABS: Hematocrit 37.4 % (35.3-44.9); Hemoglobin 11.8 g/dL (11.5-15.4); Mean Corpuscular HGB Conc 31.6 g/dL (31.6-35.5); Mean Corpuscular Hemoglobin 24.1 pg (28.0-33.3); Mean Corpuscular Volume 76.3 fL (83.0-100.0); Mean Platelet Volume 9.6 fL (9.4-12.4); Nucleated Red Blood Cells 0.1 /100 WBC (0); Platelet Count 410 K/mcL (140-400)
[2017-08-10 07:30] LABS: BUN/Creatinine Ratio 34 (6-26); Blood Urea Nitrogen 20 mg/dL (8-23); Calcium 8.9 mg/dL (8.6-10.3); Carbon Dioxide 29 mEq/L (23-29); Chloride 88 mEq/L (98-107); Glucose 156 mg/dL (70-105); Magnesium 1.7 mg/dL (1.6-2.6); Osmolality,Calculated 274 (280-300); Phosphorous 3.2 mg/dL (2.7-4.5); Potassium 3.2 mEq/L (3.5-5.1); Sodium 129 mEq/L (136-145); eGFR For African Americans > 60 (> 60); eGFR For Non-African Americans > 60 (> 60)
[2017-08-10] MEDS: Budesonide/Formoterol 160/4.5 MDI IH SCH ×2 (08:05→20:37)
[2017-08-10] MEDS ORDERED: Metoprolol XL (24 HR) Succ 50 MG TAB.ER.24H PO SCH (09:00)
[2017-08-10] MEDS: *HR* Amiodarone 200 MG TABLET PO SCH (09:34)
[2017-08-10] MEDS: Baclofen 10 MG TABLET PO SCH ×4 (09:35→20:53)
[2017-08-10] MEDS: Loratadine 10 MG TABLET PO SCH (09:35)
[2017-08-10] MEDS: Isosorbide MONOnitrate (24 HR) 60 MG TAB.ER.24H PO SCH (09:35)
[2017-08-10] MEDS: Folic Acid 1 MG TABLET PO SCH (09:35)
[2017-08-10] MEDS: Aspirin 81 MG TAB.CHEW PO SCH (09:35)
[2017-08-10] MEDS: predniSONE 20 MG TABLET PO SCH (09:36)
[2017-08-10] MEDS: Metoprolol XL (24 HR) Succ 50 MG TAB.ER.24H PO SCH (09:37)
[2017-08-10] MEDS: Cholecalciferol (D-3) 1,000 UNIT TABLET PO SCH (09:37)
[2017-08-10] MEDS: Verapamil ER (24 HR) 240 MG TABLET.ER PO SCH (09:38)
[2017-08-10] MEDS: Insulin LISPRO 300 UNITS/3 ML VIAL SQ SCH ×4 (09:45→20:55)
[2017-08-10 10:04] LABS: Lymphocytes # 2.1 K/mcL (0.6-4.6); Neutrophils # 22.9 K/mcL (1.6-8.9)
[2017-08-10 10:12] LABS: Toxic Granulation Present (Not Present)
--- NOTE | 2017-08-10 11:28 | Oncology Inp Progress Note ---
<Tyson Olsenrey S - Last Filed: 08/11/17 07:18> Date of Encounter: 08/11/17 - Constitutional Vitals: Vital Signs Temp Pulse Resp BP Pulse Ox 08/11/17 07:00 98.1 F 85 18 186/73 94 08/11/17 04:07 16 96 08/11/17 03:22 98.7 F 77 15 142/64 96 08/10/17 23:41 18 95 08/10/17 20:39 18 96 08/10/17 19:23 98.5 F 77 15 129/65 97 08/10/17 16:27 16 97 08/10/17 14:39 97.8 F 78 16 111/66 94 08/10/17 12:03 16 95 08/10/17 10:44 98.2 F 97 16 145/71 93 Intake and Output 08/10/17 08/11/17 08/11/17 16:59 00:59 08:59 Intake Total 1045 / 1045 210 / 210 Output Total 500 / 500 0 / 0 500 / 500 Balance 545 / 545 -290 / -290 Intake: IV Fluids Merrem 1,000 MG In Water for inj. (sterile) 10 ML @ 200 mls/ hr IVP Q8H ON LICENSE OF [facility] Rx#:[id number] Oral 1045 / 1045 0 / 0 200 / 200 Output: Urine 0 / 0 Catheter 500 / 500 500 / 500 Other: Meal Lunch Percent of Meal Consumed 85% Weight 130.4 kg Blood Glucose* 289 329 182 Patient Weight 08/12/17 00:59 Weight 130.4 kg Oncology: Obj Data - Labs CBC & Chem 7: 08/11/17 05:30 08/11/17 05:30 Labs: Laboratory Results - last 24 hr 08/10/17 08/10/17 08/10/17 05:39 05:39 11:11 WBC RBC Hgb Hct MCV MCH MCHC RDW Plt Count MPV Seg Neutrophils % 82.0 Band Neutrophils % 6.0 H Lymphocytes % 8.0 Monocytes % 4.0 Neutrophils # 22.9 H Lymphocytes # 2.1 Monocytes # 1.0 Smudge Cells Toxic Granulation Present A Platelet Estimate Slight increase H Sodium 129 L Potassium 3.2 L Chloride 88 L Carbon Dioxide 29 BUN 20 Creatinine 0.59 L Est GFR ( Amer) > 60 Est GFR (Non-Af Amer) > 60 BUN/Creatinine Ratio 34 H Glucose 156 H POC Glucose 250 H Calculated Osmolality 274 L Calcium 8.9 Phosphorus 3.2 Magnesium 1.7 08/11/17 08/11/17 05:30 05:30 WBC 30.2 H* RBC 4.70 Hgb 11.2 L Hct 36.1 MCV 76.8 L MCH 23.8 L MCHC 31.0 L RDW 18.9 H Plt Count 393 MPV 9.6 Seg Neutrophils % 92.0 Band Neutrophils % Lymphocytes % 6.0 Monocytes % 2.0 Neutrophils # 27.8 H Lymphocytes # 1.8 Monocytes # 0.6 Smudge Cells Present A Toxic Granulation Platelet Estimate Normal Sodium 129 L Potassium 3.3 L Chloride 89 L Carbon Dioxide 31 H BUN 23 Creatinine 0.62 Est GFR ( Amer) > 60 Est GFR (Non-Af Amer) > 60 BUN/Creatinine Ratio 37 H Glucose 178 H POC Glucose Calculated Osmolality 276 L Calcium 9.1 Phosphorus 2.8 Magnesium 1.8 - ABG Interpretation ABG results: ABG ABG pH 7.51 pH Units (7.32-7.45) H 08/07/17 06:26 ABG pCO2 45 mmHg (35-45) 08/07/17 06:26 ABG pO2 88 mmHg (85-104) 08/07/17 06:26 ABG O2 Saturation 97 % (95-98) 08/07/17 06:26 PT/INR, D-dimer PT 13.4 Seconds (9.4-12.1) H 08/09/17 08:32 Consult Discharge Plan - Plan Referrals: Robb Perry MD [Primary Care Provider] - ([facility]) - Attending Attestation I examined this patient and my medical decision-making was reviewed with the Advanced Practice Nurse. I agree with the documented findings, disposition and treatment plan as described except to the extent set forth below. We discussed this case again with radiology today. There had another MRI physician review imaging and they feel this infiltrative region is consistent with fatty replacement of the liver. In addition to this, I discussed this case with the patient's daughter. They are certainly cognitive decline. She is bedbound. Taking into account that imaging appears to be consistent with a benign process and as the patient is not candidate for treatment, I recommended not pursuing biopsy. I will also recommend radiology addend the report to reflect this discussion. One could consider repeat MRI in 3-6 months time. We will defer this to the primary team. We will otherwise sign off <Annette Colon - Last Filed: 08/11/17 09:41> Date of Encounter: 08/10/17 Time of Encounter: 08:00 (1) Liver lesion Current Visit: Yes Status: Acute Assessment and plan: Upon further review of CT abdomen and MRI abdomen, radiology agrees that findings are more consistent with focal fatty infiltration within the liver and not consistent with malignancy. Addendum is planned to made to MRI impression following this further review. Her AFP is normal at 2, further supporting a benign process. Dr. Olsen notified patients daughter, Ivana, this morning to discuss findings as previously known. Patient appears to have difficulty mentally grasping the understanding of her radiographic findings, necessitating the need to discuss further with patients next of kin. I later met with patient and patients daughter at bedside and discussed the above findings which are business process representative of a benign process such as focal fatty infiltration of the liver. Ms. Snyder has no history of alcohol abuse. Her AST/ ALT are normal. INR 1.2. Prior serology for hepatitis was negative in 2015. We discussed recommendation dietary modifications and weight loss, along with risk for transition to liver cirrhosis. Patient and patients family verbalized understanding. All questions were answered to the best of my ability. Continued monitoring and management per primary team. No further oncologic workup warranted at this time. May consider re-imaging in about 3-6 months time to assess stability, will defer to primary team caring for patient. Oncology: Subj Interval history: Ms. Snyder is resting comfortably in bed. She continues to report chronic lower back pain, likely secondary to her bed bound status. She denies chest pain, SOB , nausea, vomiting or diarrhea. - Constitutional Vitals: Vital Signs Temp Pulse Resp BP Pulse Ox 08/10/17 10:44 98.2 F 97 16 145/71 93 08/10/17 06:33 98.2 F 87 18 121/78 92 08/10/17 04:24 17 94 08/10/17 04:06 98.0 F 84 18 178/65 94 08/10/17 00:04 18 97 08/09/17 20:59 98.1 F 86 18 146/78 96 08/09/17 20:26 17 93 08/09/17 15:22 16 94 08/09/17 15:18 97.9 F 88 17 136/71 94 Intake and Output 08/09/17 08/10/17 08/10/17 23:59 07:59 15:59 Intake Total 730 / 730 1010 / 1010 680 / 680 Output Total 400 / 400 1100 / 1100 300 / 300 Balance 330 / 330 -90 / -90 380 / 380 Intake: IV Fluids Merrem 1,000 MG In Water for inj. (sterile) 10 ML @ 200 mls/ hr IVP Q8H [facility] Rx#:[id number] Oral 720 / 720 1000 / 1000 680 / 680 Output: Urine 600 / 600 Catheter 400 / 400 500 / 500 300 / 300 Other: Meal Dinner Breakfast Percent of Meal Consumed 10% 5% Weight 130.011 kg Blood Glucose* 226 162 250 Patient Weight 08/10/17 23:59 Weight 130.011 kg General appearance: cooperative, morbidly obese, no acute distress, no febrile - Head Head exam: Present: atraumatic - ENT ENT exam: Present: mucous membranes moist - Respiratory Respiratory exam: Present: CTAB. Absent: respiratory distress - Cardiovascular Cardiovascular exam: Present: RRR, +S1, +S2 - Extremities Exam Extremities exam: Present: pedal edema. Absent: calf tenderness - Neurological Exam Neurological exam: Present: alert, oriented X3, no focal deficits, strengths equal and symetr throughout - Psychiatric Psychiatric exam: Present: normal affect, normal mood - Skin Skin exam: Present: dry, intact, normal color, warm Oncology: Obj Data - Labs CBC & Chem 7: 08/11/17 05:30 08/11/17 05:30 - ABG Interpretation ABG results: ABG ABG pH 7.51 pH Units (7.32-7.45) H 08/07/17 06:26 ABG pCO2 45 mmHg (35-45) 08/07/17 06:26 ABG pO2 88 mmHg (85-104) 08/07/17 06:26 ABG O2 Saturation 97 % (95-98) 08/07/17 06:26 PT/INR, D-dimer PT 13.4 Seconds (9.4-12.1) H 08/09/17 08:32
[2017-08-10] MEDS: Insulin DETEMIR 100 UNIT/ML X5UNITS SQ SCH (12:15)
--- NOTE | 2017-08-10 16:02 | Internal Med Progress Note ---
Date of Encounter: 08/10/17 Time of Encounter: 15:54 - Assessment and plan (1) CAD (coronary artery disease) Current Visit: Yes Status: Chronic Qualifiers: Coronary Disease-Associated Artery/Lesion type: bypass graft [place] vs. transplanted heart: [place] heart Associated angina: without angina Qualified Code(s): I25.810 - Atherosclerosis of coronary artery bypass graft(s) without angina pectoris (2) Insulin dependent diabetes mellitus Current Visit: No Status: Chronic (3) History of atrial fibrillation Current Visit: No Status: Chronic (4) CKD (chronic kidney disease), stage III Current Visit: No Status: Chronic (5) Hypertension Current Visit: No Status: Chronic Qualifiers: Hypertension type: essential hypertension Qualified Code(s): I10 - Essential (primary) hypertension (6) COPD (chronic obstructive pulmonary disease) Current Visit: No Status: Chronic Qualifiers: COPD type: emphysema Emphysema type: unspecified Qualified Code(s): J43.9 - Emphysema, unspecified (7) Sepsis Current Visit: Yes Status: Acute Qualifiers: Sepsis type: sepsis due to unspecified organism Qualified Code(s): A41.9 - Sepsis, unspecified organism (8) HCAP (healthcare-associated pneumonia) Current Visit: Yes Status: Acute (9) NSTEMI (non-ST elevated myocardial infarction) Current Visit: Yes Status: Acute (10) UTI (urinary tract infection) Current Visit: Yes Status: Acute Qualifiers: Urinary tract infection type: site unspecified Hematuria presence: without hematuria Qualified Code(s): N39.0 - Urinary tract infection, site not specified (11) Abnormal CT of the chest Current Visit: Yes Status: Acute (12) DVT prophylaxis Current Visit: Yes Status: Acute (13) Liver lesion Current Visit: Yes Status: Acute (14) Transaminitis Current Visit: Yes Status: Acute (15) Abdominal wall cellulitis Current Visit: Yes Status: Acute (16) Acute respiratory failure Current Visit: Yes Status: Acute Qualifiers: Respiratory failure complication: unspecified whether with hypoxia or hypercapnia Qualified Code(s): J96.00 - Acute respiratory failure, unspecified whether with hypoxia or hypercapnia - Time Spent With Patient Total time spent is greater than 50% in coordination of care (as documented) at patient's floor/unit and/or counseling patient: - Subjective Interval history: Patient seen and examined at bedside. Pt resting in bed and reports of cocyx region pain. Wound care evaluation requested for sacral decubitus and wound care. Pt refusing frequent turning and remains bed bound, refuses to get out of bed. She refused liver biopsy yesterday because she did not want to remain NPO. She lacks the cognition to understand her diagnosis. Oncology to communicate with patient's daughter for goals of care and treatment plan. Pt underwent liver biopsy today with findings consistent with focal fatty infiltration. Oncology to communicate with the daughter later today. Noted to have worsening leukocytosis however afebrile. Will continue current IV abx and initiate steroid taper. Assessment and Plan (1) Acute respiratory failure with hypoxia and hypercapnia Current Visit: Yes Status: Acute Acute respiratory failure with hypoxia and hypercapnia, improved bipap support as needed and at bedtime. Goal O2 sat: 88-92% Pt continues to have fluid overload associated with CHF and COPD exacerbation Bumex dose decreased to 1mg PO BID given hyponatremia Prednisone 20mg PO qd for three days, followed by 10mg x 3days continue to closely monitor respiratory status (2) Acute exacerbation of CHF (congestive heart failure) Current Visit: Yes Status: Acute Acute exacerbation of CHF pt not compliant with fluid restriction pt and family both educated about the need to be compliant with fluid restriction continue Bumex at this time Qualifiers: Heart failure type: diastolic Qualified Code(s): I50.33 - Acute on chronic diastolic (congestive) heart failure (3) HCAP (healthcare-associated pneumonia) Current Visit: Yes Status: Acute Sputum culture positive for E.Coli ESBL, resistant to Cefepime worsening of leukocytosis noted (can be secondary to continous steroid dose, however given resistance reported on the culture panel) continue Meropenem at this time will closely monitor repeat blood cultures reported no growth (4) COPD (chronic obstructive pulmonary disease) Current Visit: Yes Status: Acute continue long steroid taper of Prednisone Qualifiers: COPD type: unspecified COPD Qualified Code(s): J44.9 - Chronic obstructive pulmonary disease, unspecified (5) Bacteremia due to Gram-positive bacteria Current Visit: No Status: Acute Strep pneumonia bacteremia continue meropenem given sputum blood culture sensitivity report (6) Chronic pain Current Visit: Yes Status: Acute hx of sacral decubitus ulcers and pain currently not controlled with the current regimen Fentanyl to 75mcg TD q72h and increase frequency of the oxycodone will closely monitor Qualifiers: Chronic pain type: other chronic pain Qualified Code(s): G89.29 - Other chronic pain (7) DM (diabetes mellitus), type 2 Current Visit: Yes Status: Chronic sliding scale insulin algorithm monitor FS and BG ADA diet Qualifiers: Diabetes mellitus oil heaterman insulin use: with mcc use Diabetes mellitus complication status: with unspecified complications Qualified Code(s) : E11.8 - Type 2 diabetes mellitus with unspecified complications (8) DVT prophylaxis Current Visit: No Status: Acute heparin sQ (9) Liver lesion Current Visit: Yes Status: Acute Oncology evaluation appreciated pt is s/p liver biopsy today (08/10/17), findings consistent with fatty infiltration (10) Morbid Obesity Current Visit: Yes Status: Chronic (11) UTI continue abx as listed above - Constitutional Vitals: Temp Pulse Resp BP Pulse Ox 97.8 F 78 16 111/66 94 08/10/17 14:39 08/10/17 14:39 08/10/17 14:39 08/10/17 14:39 08/10/17 14:39 General appearance: Present: A&O X 3, morbidly obese, no acute distress - Head Head exam: Present: atraumatic, normocephalic - Eye Eye exam: Present: conjuntiva pink, sclera anicteric - Respiratory Respiratory exam: Present: decreased breath sounds. Absent: respiratory distress, wheezes - Cardiovascular Cardiovascular exam: Present: RRR, +S1, +S2 - GI/Abdominal GI/Abdominal exam: Present: distended (obese), normal bowel sounds, soft, no peritoneal signs. Absent: tenderness - Extremities Exam Extremities exam: Present: warm, radial pulses palpable and symmetrical. Absent : calf tenderness, tenderness - Neurological Exam Neurological exam: Present: oriented X3 Internal Medicine: Result - Labs CBC & Chem 7: 08/10/17 05:39 08/10/17 05:39 Labs: Short CBC 08/10/17 Range/Units 05:39 WBC 26.0 H D (4.3-11.1) K/mcL Hgb 11.8 (11.5-15.4) g/dL Hct 37.4 (35.3-44.9) % Plt Count 410 H (140-400) K/mcL Neutrophils # 22.9 H (1.6-8.9) K/mcL BMP 08/10/17 05:39 Sodium 129 L Potassium 3.2 L Chloride 88 L Carbon Dioxide 29 BUN 20 Creatinine 0.59 L Glucose 156 H Calcium 8.9 Cardiac Enzymes 08/09/17 08/09/17 Range/Units 15:48 21:45 Troponin I 0.16 H* 0.13 H* (< 0.04) ng/mL - ABG Interpretation ABG results: ABG ABG pH 7.51 pH Units (7.32-7.45) H 08/07/17 06:26 ABG pCO2 45 mmHg (35-45) 08/07/17 06:26 ABG pO2 88 mmHg (85-104) 08/07/17 06:26 ABG O2 Saturation 97 % (95-98) 08/07/17 06:26 PT/INR, D-dimer PT 13.4 Seconds (9.4-12.1) H 08/09/17 08:32 Consult Discharge Plan - Plan Referrals: Robb Perry MD [Primary Care Provider] - ([facility])
[2017-08-10] MEDS: Bumetanide 1 MG TABLET PO SCH (17:17)
[2017-08-10] MEDS: rOPINIRole 1 MG TABLET PO SCH (20:52)
[2017-08-10] MEDS: *HR* LORazepam 2 MG/ML VIAL IVP PRN (22:41)
[2017-08-11] MEDS: Ipratropium/Albuterol Neb 3 ML IH SCH ×6 (04:07→23:47)
[2017-08-11] MEDS: Meropenem 1,000 MG in Water for inj. (sterile) 20 ML 10 ML IVP SCH ×3 (04:13→21:09)
[2017-08-11] MEDS: *HR* Heparin 5,000 UNIT/ML VIAL SQ SCH ×2 (05:37→17:14)
[2017-08-11 05:55] LABS: Hematocrit 36.1 % (35.3-44.9); Hemoglobin 11.2 g/dL (11.5-15.4); Mean Corpuscular Hemoglobin 23.8 pg (28.0-33.3); Mean Corpuscular Volume 76.8 fL (83.0-100.0); Mean Platelet Volume 9.6 fL (9.4-12.4); Platelet Count 393 K/mcL (140-400); Red Cell Distribution Width 18.9 % (11.5-14.5)
[2017-08-11 06:15] LABS: Lymphocytes # 1.8 K/mcL (0.6-4.6); Monocytes # 0.6 K/mcL (0.0-1.3); Neutrophils # 27.8 K/mcL (1.6-8.9); Platelet Estimate Normal (Normal); Smudge Cells Present (Not Present)
[2017-08-11 06:18] LABS: BUN/Creatinine Ratio 37 (6-26); Blood Urea Nitrogen 23 mg/dL (8-23); Calcium 9.1 mg/dL (8.6-10.3); Carbon Dioxide 31 mEq/L (23-29); Chloride 89 mEq/L (98-107); Glucose 178 mg/dL (70-105); Magnesium 1.8 mg/dL (1.6-2.6); Osmolality,Calculated 276 (280-300); Phosphorous 2.8 mg/dL (2.7-4.5); Potassium 3.3 mEq/L (3.5-5.1); Sodium 129 mEq/L (136-145); eGFR For African Americans > 60 (> 60); eGFR For Non-African Americans > 60 (> 60)
[2017-08-11] MEDS: Budesonide/Formoterol 160/4.5 MDI IH SCH ×2 (07:24→19:36)
[2017-08-11] MEDS: Insulin LISPRO 300 UNITS/3 ML VIAL SQ SCH ×4 (09:47→21:09)
[2017-08-11] MEDS: Isosorbide MONOnitrate (24 HR) 60 MG TAB.ER.24H PO SCH (09:48)
[2017-08-11] MEDS: Cholecalciferol (D-3) 1,000 UNIT TABLET PO SCH (09:49)
[2017-08-11] MEDS: Bumetanide 1 MG TABLET PO SCH ×2 (09:49→16:08)
[2017-08-11] MEDS: Aspirin 81 MG TAB.CHEW PO SCH (09:49)
[2017-08-11] MEDS: *HR* Amiodarone 200 MG TABLET PO SCH (09:49)
[2017-08-11] MEDS: predniSONE 20 MG TABLET PO SCH (09:50)
[2017-08-11] MEDS: Verapamil ER (24 HR) 240 MG TABLET.ER PO SCH (09:50)
[2017-08-11] MEDS: Loratadine 10 MG TABLET PO SCH (09:52)
[2017-08-11] MEDS: Baclofen 10 MG TABLET PO SCH ×4 (09:52→21:10)
[2017-08-11] MEDS: Metoprolol XL (24 HR) Succ 50 MG TAB.ER.24H PO SCH (09:52)
[2017-08-11] MEDS: Folic Acid 1 MG TABLET PO SCH (09:52)
[2017-08-11] MEDS: Insulin DETEMIR 100 UNIT/ML X5UNITS SQ SCH (09:53)
[2017-08-11] MEDS ORDERED: *HR* FentaNYL PATCH 50 MCG PATCH TD SCH (10:45)
[2017-08-11] MEDS: *HR* OxyCODONE Immed Rel 15 MG TABLET PO PRN ×2 (12:36→21:10)
[2017-08-11] MEDS: *HR* FentaNYL PATCH 75 MCG PATCH TD SCH (16:07)
--- NOTE | 2017-08-11 16:29 | Internal Med Progress Note ---
Date of Encounter: 08/11/17 Time of Encounter: 16:25 - Assessment and plan (1) CAD (coronary artery disease) Current Visit: Yes Status: Chronic Qualifiers: Coronary Disease-Associated Artery/Lesion type: bypass graft [place] vs. transplanted heart: [place] heart Associated angina: without angina Qualified Code(s): I25.810 - Atherosclerosis of coronary artery bypass graft(s) without angina pectoris (2) Insulin dependent diabetes mellitus Current Visit: No Status: Chronic (3) History of atrial fibrillation Current Visit: No Status: Chronic (4) CKD (chronic kidney disease), stage III Current Visit: No Status: Chronic (5) Hypertension Current Visit: No Status: Chronic Qualifiers: Hypertension type: essential hypertension Qualified Code(s): I10 - Essential (primary) hypertension (6) COPD (chronic obstructive pulmonary disease) Current Visit: No Status: Chronic Qualifiers: COPD type: emphysema Emphysema type: unspecified Qualified Code(s): J43.9 - Emphysema, unspecified (7) Sepsis Current Visit: Yes Status: Acute Qualifiers: Sepsis type: sepsis due to unspecified organism Qualified Code(s): A41.9 - Sepsis, unspecified organism (8) HCAP (healthcare-associated pneumonia) Current Visit: Yes Status: Acute (9) NSTEMI (non-ST elevated myocardial infarction) Current Visit: Yes Status: Acute (10) UTI (urinary tract infection) Current Visit: Yes Status: Acute Qualifiers: Urinary tract infection type: site unspecified Hematuria presence: without hematuria Qualified Code(s): N39.0 - Urinary tract infection, site not specified (11) Abnormal CT of the chest Current Visit: Yes Status: Acute (12) DVT prophylaxis Current Visit: Yes Status: Acute (13) Liver lesion Current Visit: Yes Status: Acute (14) Transaminitis Current Visit: Yes Status: Acute (15) Abdominal wall cellulitis Current Visit: Yes Status: Acute (16) Acute respiratory failure Current Visit: Yes Status: Acute Qualifiers: Respiratory failure complication: unspecified whether with hypoxia or hypercapnia Qualified Code(s): J96.00 - Acute respiratory failure, unspecified whether with hypoxia or hypercapnia - Time Spent With Patient Total time spent is greater than 50% in coordination of care (as documented) at patient's floor/unit and/or counseling patient: - Subjective Interval history: Patient seen and examined at bedside. Resting in bed and denies any discomfort. currently saturating well on baseline nasal cannula. continues to have worsening leukocytosis however patient afebrile, blood cultures negative, concern if sacral decubitus could be a source of infection. Added vancomycin for MRSA coverage. Spoke with Dr. Hector Aragon from who reported that the liver biopsy was fatty infiltrate and an outpatient MRI is recommended. Assessment and Plan (1) Acute respiratory failure with hypoxia and hypercapnia Current Visit: Yes Status: Acute Acute respiratory failure with hypoxia and hypercapnia, improved bipap support as needed and at bedtime. Goal O2 sat: 88-92% continue Bumex [id number] PO BID given hyponatremia continue prednisone taper, Prednisone 20mg PO qd for three days, followed by 10mg x 3days continue to closely monitor respiratory status (2) Acute exacerbation of CHF (congestive heart failure) Current Visit: Yes Status: Acute Acute exacerbation of CHF pt not compliant with fluid restriction continue Bumex at this time Qualifiers: Heart failure type: diastolic Qualified Code(s): I50.33 - Acute on chronic diastolic (congestive) heart failure (3) HCAP (healthcare-associated pneumonia) Current Visit: Yes Status: Acute Sputum culture positive for E.Coli ESBL, resistant to Cefepime worsening of leukocytosis noted (concern for infected sacral decubitus, will obtain wound cultures) Added Vancomycin continue Meropenem at this time will closely monitor repeat blood cultures reported no growth (4) COPD (chronic obstructive pulmonary disease) Current Visit: Yes Status: Acute continue long steroid taper of Prednisone Qualifiers: COPD type: unspecified COPD Qualified Code(s): J44.9 - Chronic obstructive pulmonary disease, unspecified (5) Bacteremia due to Gram-positive bacteria Current Visit: No Status: Acute Strep pneumonia bacteremia continue meropenem given sputum blood culture sensitivity report (6) Chronic pain Current Visit: Yes Status: Acute hx of sacral decubitus ulcers and pain currently not controlled with the current regimen Fentanyl to 75mcg TD q72h and increase frequency of the oxycodone will closely monitor Qualifiers: Chronic pain type: other chronic pain Qualified Code(s): G89.29 - Other chronic pain (7) DM (diabetes mellitus), type 2 Current Visit: Yes Status: Chronic sliding scale insulin algorithm monitor FS and BG ADA diet Qualifiers: Diabetes mellitus superintendent container terminal insulin use: with superintendent container terminal use Diabetes mellitus complication status: with unspecified complications Qualified Code(s) : E11.8 - Type 2 diabetes mellitus with unspecified complications (8) DVT prophylaxis Current Visit: No Status: Acute heparin sQ (9) Liver lesion Current Visit: Yes Status: Acute Oncology evaluation appreciated pt is s/p liver biopsy today (08/10/17), findings consistent with fatty infiltration outpatient follow up recommended (10) Morbid Obesity Current Visit: Yes Status: Chronic (11) UTI continue abx as listed above (12) Hypokalemia K supplemented continue to monitor electrolytes and replace as needed - Constitutional Vitals: Temp Pulse Resp BP Pulse Ox 97.9 F 82 18 111/55 95 08/11/17 14:00 08/11/17 14:00 08/11/17 15:32 08/11/17 14:00 08/11/17 15:32 General appearance: Present: A&O X 3, morbidly obese, no acute distress - Head Head exam: Present: atraumatic, normocephalic - Eye Eye exam: Present: conjuntiva pink, sclera anicteric - Respiratory Respiratory exam: Present: decreased breath sounds. Absent: respiratory distress, wheezes - Cardiovascular Cardiovascular exam: Present: RRR, +S1, +S2. Absent: diastolic murmur, gallop, rubs, systolic murmur - GI/Abdominal GI/Abdominal exam: Present: normal bowel sounds, soft, no peritoneal signs - Extremities Exam Extremities exam: Present: warm, radial pulses palpable and symmetrical. Absent : calf tenderness - Neurological Exam Neurological exam: Present: oriented X3 Internal Medicine: Result - Labs CBC & Chem 7: 08/11/17 05:30 08/11/17 05:30 Labs: Short CBC 08/11/17 Range/Units 05:30 WBC 30.2 H* (4.3-11.1) K/mcL Hgb 11.2 L (11.5-15.4) g/dL Hct 36.1 (35.3-44.9) % Plt Count 393 (140-400) K/mcL Neutrophils # 27.8 H (1.6-8.9) K/mcL BMP 08/11/17 05:30 Sodium 129 L Potassium 3.3 L Chloride 89 L Carbon Dioxide 31 H BUN 23 Creatinine 0.62 Glucose 178 H Calcium 9.1 - ABG Interpretation ABG results: ABG ABG pH 7.51 pH Units (7.32-7.45) H 08/07/17 06:26 ABG pCO2 45 mmHg (35-45) 08/07/17 06:26 ABG pO2 88 mmHg (85-104) 08/07/17 06:26 ABG O2 Saturation 97 % (95-98) 08/07/17 06:26 PT/INR, D-dimer PT 13.4 Seconds (9.4-12.1) H 08/09/17 08:32 Consult Discharge Plan - Plan Referrals: Robb Perry MD [Primary Care Provider] - ([facility])
[2017-08-11] MEDS: *HR* LORazepam 2 MG/ML VIAL IVP PRN (17:14)
[2017-08-11] MEDS: rOPINIRole 1 MG TABLET PO SCH (21:10)
[2017-08-11] MEDS: Miconazole w/zinc oxide&karaya 92 APPL/92 GM TUBE TP SCH (21:11)
[2017-08-12] MEDS: *HR* LORazepam 2 MG/ML VIAL IVP PRN ×3 (00:32→14:41)
[2017-08-12] MEDS: *HR* OxyCODONE Immed Rel 15 MG TABLET PO PRN ×4 (04:06→22:19)
[2017-08-12] MEDS: Meropenem 1,000 MG in Water for inj. (sterile) 20 ML 10 ML IVP SCH ×3 (04:07→21:58)
[2017-08-12] MEDS: Ipratropium/Albuterol Neb 3 ML IH SCH ×5 (04:22→20:32)
[2017-08-12] MEDS: *HR* Heparin 5,000 UNIT/ML VIAL SQ SCH ×2 (05:40→17:49)
[2017-08-12 06:24] LABS: Basophils % 0.1 %; Eosinophils # 0.1 K/mcL (0.0-0.6); Eosinophils % 0.4 %; Immature Granulocytes % 1.1 % (0-4); Lymphocytes # 1.3 K/mcL (0.6-4.6); Lymphocytes % 5.2 %; Mean Corpuscular HGB Conc 30.3 g/dL (31.6-35.5); Mean Corpuscular Hemoglobin 23.6 pg (28.0-33.3); Mean Platelet Volume 10.2 fL (9.4-12.4); Monocytes # 1.3 K/mcL (0.0-1.3); Monocytes % 5.5 %; Neutrophils # 21.4 K/mcL (1.6-8.9); Platelet Count 376 K/mcL (140-400); Red Blood Count 4.23 M/mcL (3.82-4.97); Red Cell Distribution Width 18.6 % (11.5-14.5); Segmented Neutrophils % 87.7 %
[2017-08-12 06:41] LABS: Platelet Estimate Normal (Normal)
[2017-08-12 06:44] LABS: Anisocytosis 1+ (Not Present); BUN/Creatinine Ratio 36 (6-26); Blood Urea Nitrogen 23 mg/dL (8-23); Calcium 8.8 mg/dL (8.6-10.3); Carbon Dioxide 31 mEq/L (23-29); Chloride 92 mEq/L (98-107); Glucose 291 mg/dL (70-105); Magnesium 1.6 mg/dL (1.6-2.6); Osmolality,Calculated 282 (280-300); Phosphorous 2.4 mg/dL (2.7-4.5); Potassium 3.7 mEq/L (3.5-5.1); Sodium 129 mEq/L (136-145); eGFR For African Americans > 60 (> 60); eGFR For Non-African Americans > 60 (> 60)
[2017-08-12] MEDS: Budesonide/Formoterol 160/4.5 MDI IH SCH ×2 (07:32→20:32)
[2017-08-12] MEDS: Bumetanide 1 MG TABLET PO SCH ×2 (09:07→18:41)
[2017-08-12] MEDS: predniSONE 20 MG TABLET PO SCH (09:08)
[2017-08-12] MEDS: Metoprolol XL (24 HR) Succ 50 MG TAB.ER.24H PO SCH (09:08)
[2017-08-12] MEDS: Folic Acid 1 MG TABLET PO SCH (09:08)
[2017-08-12] MEDS: Cholecalciferol (D-3) 1,000 UNIT TABLET PO SCH (09:08)
[2017-08-12] MEDS: Isosorbide MONOnitrate (24 HR) 60 MG TAB.ER.24H PO SCH (09:08)
[2017-08-12] MEDS: Baclofen 10 MG TABLET PO SCH ×3 (09:08→17:49)
[2017-08-12] MEDS: Aspirin 81 MG TAB.CHEW PO SCH (09:08)
[2017-08-12] MEDS: *HR* Amiodarone 200 MG TABLET PO SCH (09:09)
[2017-08-12] MEDS: Verapamil ER (24 HR) 240 MG TABLET.ER PO SCH (09:09)
[2017-08-12] MEDS: Loratadine 10 MG TABLET PO SCH (09:09)
[2017-08-12] MEDS: Miconazole w/zinc oxide&karaya 92 APPL/92 GM TUBE TP SCH ×2 (09:15→22:27)
[2017-08-12] MEDS: Insulin DETEMIR 100 UNIT/ML X5UNITS SQ SCH (09:18)
[2017-08-12] MEDS: Insulin LISPRO 300 UNITS/3 ML VIAL SQ SCH ×4 (09:20→21:59)
--- NOTE | 2017-08-12 20:19 | Internal Med Progress Note ---
Date of Encounter: 08/12/17 Time of Encounter: 17:00 - Assessment and plan (1) CAD (coronary artery disease) Current Visit: Yes Status: Chronic Assessment and plan: Stable; continue IVETTE inhibitor, beta clarissa and aspirin Qualifiers: [place] vs. transplanted heart: [place] heart Associated angina: without angina Qualified Code(s): I25.10 - Atherosclerotic heart disease of [place] coronary artery without angina pectoris (2) Insulin dependent diabetes mellitus Current Visit: No Status: Chronic Assessment and plan: Controlled; continue sliding scale insulin and basal insulin (3) History of atrial fibrillation Current Visit: No Status: Chronic Assessment and plan: Continue rate control with beta clarissa; continue amiodarone (4) CKD (chronic kidney disease), stage III Current Visit: No Status: Chronic Assessment and plan: Stable; continue to monitor (5) Hypertension Current Visit: No Status: Chronic Assessment and plan: Controlled; continue beta clarissa Qualifiers: Hypertension type: essential hypertension Qualified Code(s): I10 - Essential (primary) hypertension (6) COPD (chronic obstructive pulmonary disease) Current Visit: No Status: Chronic Assessment and plan: Continue Symbicort and dual nebs Qualifiers: COPD type: emphysema Emphysema type: unspecified Qualified Code(s): J43.9 - Emphysema, unspecified (7) Sepsis Current Visit: Yes Status: Resolved Assessment and plan: Resolved; continue to monitor Qualifiers: Sepsis type: sepsis due to unspecified organism Qualified Code(s): A41.9 - Sepsis, unspecified organism (8) HCAP (healthcare-associated pneumonia) Current Visit: Yes Status: Acute Assessment and plan: Continue meropenem and vancomycin has been added with improvement in leukocytosis (9) NSTEMI (non-ST elevated myocardial infarction) Current Visit: Yes Status: Acute Assessment and plan: Cardiology consult and given the above ongoing issues, recommend medical management, not a candidate for cardiac rehab. Continue ASA, BB. Intolerant to statins. TTE EF is preserved--55-60%. Not all garcia visualized. (10) UTI (urinary tract infection) Current Visit: Yes Status: Acute Assessment and plan: Continue antibiotics as above Qualifiers: Urinary tract infection type: site unspecified Hematuria presence: without hematuria Qualified Code(s): N39.0 - Urinary tract infection, site not specified (11) DVT prophylaxis Current Visit: Yes Status: Acute Assessment and plan: Continue heparin - Time Spent With Patient Total time spent is greater than 50% in coordination of care (as documented) at patient's floor/unit and/or counseling patient: - Subjective Interval history: She reports of sacral discomfort Leukocytosis improving after addition of vancomycin to meropenem - Constitutional Vitals: Temp Pulse Resp BP Pulse Ox 97.8 F 84 17 135/71 92 08/12/17 20:13 08/12/17 20:13 08/12/17 20:13 08/12/17 20:13 08/12/17 20:13 General appearance: Present: A&O X 3, morbidly obese, no acute distress - Respiratory Respiratory exam: Present: CTAB. Absent: accessory muscle use, rales, rhonchi, wheezes - Cardiovascular Cardiovascular exam: Present: RRR, +S1, +S2. Absent: diastolic murmur, gallop, rubs, systolic murmur Internal Medicine: Result - Labs CBC & Chem 7: 08/12/17 05:50 08/12/17 05:50 Labs: Short CBC 08/12/17 Range/Units 05:50 WBC 24.4 H (4.3-11.1) K/mcL Hgb 10.0 L (11.5-15.4) g/dL Hct 33.0 L (35.3-44.9) % Plt Count 376 (140-400) K/mcL Neutrophils # 21.4 H (1.6-8.9) K/mcL BMP 08/12/17 05:50 Sodium 129 L Potassium 3.7 Chloride 92 L Carbon Dioxide 31 H BUN 23 Creatinine 0.64 Glucose 291 H Calcium 8.8 - ABG Interpretation ABG results: ABG ABG pH 7.51 pH Units (7.32-7.45) H 08/07/17 06:26 ABG pCO2 45 mmHg (35-45) 08/07/17 06:26 ABG pO2 88 mmHg (85-104) 08/07/17 06:26 ABG O2 Saturation 97 % (95-98) 08/07/17 06:26 PT/INR, D-dimer PT 13.4 Seconds (9.4-12.1) H 08/09/17 08:32 Consult Discharge Plan - Plan Referrals: Robb Perry MD [Primary Care Provider] - ([facility])
[2017-08-12] MEDS: rOPINIRole 1 MG TABLET PO SCH (21:59)
[2017-08-13] MEDS: Ipratropium/Albuterol Neb 3 ML IH SCH ×8 (00:13→23:42)
[2017-08-13] MEDS: *HR* LORazepam 2 MG/ML VIAL IVP PRN ×3 (01:17→16:31)
[2017-08-13] MEDS: Meropenem 1,000 MG in Water for inj. (sterile) 20 ML 10 ML IVP SCH ×3 (03:53→20:52)
[2017-08-13] MEDS: *HR* Heparin 5,000 UNIT/ML VIAL SQ SCH ×2 (05:22→18:35)
[2017-08-13] MEDS: Metoprolol XL (24 HR) Succ 50 MG TAB.ER.24H PO SCH (08:00)
[2017-08-13] MEDS: predniSONE 20 MG TABLET PO SCH (08:00)
[2017-08-13] MEDS: Isosorbide MONOnitrate (24 HR) 60 MG TAB.ER.24H PO SCH (08:00)
[2017-08-13] MEDS: Bumetanide 1 MG TABLET PO SCH ×2 (08:00→16:31)
[2017-08-13] MEDS: Aspirin 81 MG TAB.CHEW PO SCH (08:01)
[2017-08-13] MEDS: *HR* Amiodarone 200 MG TABLET PO SCH (08:01)
[2017-08-13] MEDS: Verapamil ER (24 HR) 240 MG TABLET.ER PO SCH (08:01)
[2017-08-13] MEDS: Folic Acid 1 MG TABLET PO SCH (08:01)
[2017-08-13] MEDS: *HR* OxyCODONE Immed Rel 15 MG TABLET PO PRN ×3 (08:02→20:55)
[2017-08-13] MEDS: Loratadine 10 MG TABLET PO SCH (08:02)
[2017-08-13] MEDS: Cholecalciferol (D-3) 1,000 UNIT TABLET PO SCH (08:02)
[2017-08-13] MEDS: Insulin LISPRO 300 UNITS/3 ML VIAL SQ SCH ×4 (08:03→20:56)
[2017-08-13] MEDS: Baclofen 10 MG TABLET PO SCH ×4 (08:04→20:55)
[2017-08-13] MEDS: Insulin DETEMIR 100 UNIT/ML X5UNITS SQ SCH (08:08)
[2017-08-13] MEDS: Miconazole w/zinc oxide&karaya 92 APPL/92 GM TUBE TP SCH ×2 (08:12→20:58)
[2017-08-13] MEDS: Budesonide/Formoterol 160/4.5 MDI IH SCH ×2 (08:17→20:22)
[2017-08-13 09:44] LABS: Vancomycin,Random 14 mcg/mL
[2017-08-13 10:18] LABS: Basophils % 0.2 %; Eosinophils # 0.1 K/mcL (0.0-0.6); Eosinophils % 0.5 %; Hematocrit 34.6 % (35.3-44.9); Hemoglobin 10.5 g/dL (11.5-15.4); Immature Granulocytes % 0.7 % (0-4); Lymphocytes # 1.3 K/mcL (0.6-4.6); Lymphocytes % 7.1 %; Mean Corpuscular HGB Conc 30.3 g/dL (31.6-35.5); Mean Corpuscular Volume 79.2 fL (83.0-100.0); Mean Platelet Volume 10.3 fL (9.4-12.4); Monocytes # 1.1 K/mcL (0.0-1.3); Monocytes % 6.1 %; Neutrophils # 15.6 K/mcL (1.6-8.9); Platelet Count 384 K/mcL (140-400); Red Blood Count 4.37 M/mcL (3.82-4.97); Red Cell Distribution Width 18.4 % (11.5-14.5); Segmented Neutrophils % 85.4 %
[2017-08-13 10:27] LABS: BUN/Creatinine Ratio 35 (6-26); Blood Urea Nitrogen 20 mg/dL (8-23); Calcium 8.8 mg/dL (8.6-10.3); Carbon Dioxide 30 mEq/L (23-29); Chloride 93 mEq/L (98-107); Glucose 337 mg/dL (70-105); Osmolality,Calculated 288 (280-300); Potassium 4.1 mEq/L (3.5-5.1); Sodium 131 mEq/L (136-145); eGFR For African Americans > 60 (> 60); eGFR For Non-African Americans > 60 (> 60)
--- NOTE | 2017-08-13 17:03 | Internal Med Progress Note ---
Date of Encounter: 08/13/17 Time of Encounter: 11:00 - Assessment and plan (1) Sacral decubitus ulcer Current Visit: Yes Status: Acute Assessment and plan: Patient's cultures on 08/11/17 positive for Acinetobacter Will consult infectious disease Wound care following an appreciate any additional recommendations Will start patient on tobramycin with pharmacy to dose Qualifiers: Pressure ulcer stage: stage 2 Qualified Code(s): L89.152 - Pressure ulcer of sacral region, stage 2 (2) HCAP (healthcare-associated pneumonia) Current Visit: Yes Status: Acute Assessment and plan: Sputum culture positive for E.Coli ESBL, resistant to Cefepime patient had been on for 5 days Cefepime was discontinued and meropenem started; vancomycin continued Repeat blood cultures negative Leukocytosis improving and patient afebrile Continue current management (3) Sepsis Current Visit: Yes Status: Resolved Assessment and plan: Resolved; secondary to the above Continue to monitor Qualifiers: Sepsis type: sepsis due to unspecified organism Qualified Code(s): A41.9 - Sepsis, unspecified organism (4) Bacteremia due to Gram-positive bacteria Current Visit: No Status: Acute Assessment and plan: Secondary to streptococcus pneumonia Repeat blood cultures on 08/06/17 negative Continue management as above (5) UTI (urinary tract infection) Current Visit: Yes Status: Acute Assessment and plan: Continue antibiotics as above Qualifiers: Urinary tract infection type: site unspecified Hematuria presence: without hematuria Qualified Code(s): N39.0 - Urinary tract infection, site not specified (6) CAD (coronary artery disease) Current Visit: Yes Status: Chronic Assessment and plan: Stable; continue IVETTE inhibitor, beta clarissa and aspirin Qualifiers: [place] vs. transplanted heart: [place] heart Associated angina: without angina Qualified Code(s): I25.10 - Atherosclerotic heart disease of [place] coronary artery without angina pectoris (7) Insulin dependent diabetes mellitus Current Visit: No Status: Chronic Assessment and plan: Controlled; continue sliding scale insulin and basal insulin (8) History of atrial fibrillation Current Visit: No Status: Chronic Assessment and plan: Continue rate control with beta clarissa; continue amiodarone (9) CKD (chronic kidney disease), stage III Current Visit: No Status: Chronic Assessment and plan: Stable; continue to monitor (10) Hypertension Current Visit: No Status: Chronic Assessment and plan: Controlled; continue beta clarissa Qualifiers: Hypertension type: essential hypertension Qualified Code(s): I10 - Essential (primary) hypertension (11) COPD (chronic obstructive pulmonary disease) Current Visit: No Status: Chronic Assessment and plan: Continue Symbicort and dual nebs Qualifiers: COPD type: emphysema Emphysema type: unspecified Qualified Code(s): J43.9 - Emphysema, unspecified (12) NSTEMI (non-ST elevated myocardial infarction) Current Visit: Yes Status: Acute Assessment and plan: Cardiology consult and given the above ongoing issues, recommend medical management, not a candidate for cardiac rehab. Continue ASA, BB. Intolerant to statins. TTE EF is preserved--55-60%. Not all garcia visualized. (13) Liver lesion Current Visit: Yes Status: Acute Assessment and plan: s/p liver biopsy today (08/10/17), findings consistent with fatty infiltration Hematology oncology consult with recommendations for outpatient follow up (14) DVT prophylaxis Current Visit: Yes Status: Acute Assessment and plan: Continue heparin - Time Spent With Patient Total time spent is greater than 50% in coordination of care (as documented) at patient's floor/unit and/or counseling patient: - Subjective Interval history: Patient continues to report of sacral discomfort Nursing staff reports that patient not being compliant when nurses roll her off her sacral coccyx Patient's wound culture on the sacral coccyx wound grew Acinetobacter Leukocytosis improving after addition of vancomycin to meropenem - Constitutional Vitals: Temp Pulse Resp BP Pulse Ox 97.8 F 89 16 155/74 95 08/13/17 13:59 08/13/17 13:59 08/13/17 13:59 08/13/17 13:59 08/13/17 13:59 General appearance: Present: A&O X 3, morbidly obese, no acute distress - Respiratory Respiratory exam: Present: CTAB. Absent: accessory muscle use, rales, rhonchi, wheezes - Cardiovascular Cardiovascular exam: Present: RRR, +S1, +S2. Absent: diastolic murmur, gallop, rubs, systolic murmur - Skin Skin exam: Present: erythema (Patient with ulcerated lesion on sacrococcyx region with surrounding erythema and drainage) Internal Medicine: Result - Labs CBC & Chem 7: 08/13/17 08:29 08/13/17 08:29 Labs: Short CBC 08/13/17 Range/Units 08:29 WBC 18.3 H (4.3-11.1) K/mcL Hgb 10.5 L (11.5-15.4) g/dL Hct 34.6 L (35.3-44.9) % Plt Count 384 (140-400) K/mcL Neutrophils # 15.6 H (1.6-8.9) K/mcL BMP 08/13/17 08:29 Sodium 131 L Potassium 4.1 Chloride 93 L Carbon Dioxide 30 H BUN 20 Creatinine 0.57 L Glucose 337 H Calcium 8.8 - ABG Interpretation ABG results: ABG ABG pH 7.51 pH Units (7.32-7.45) H 08/07/17 06:26 ABG pCO2 45 mmHg (35-45) 08/07/17 06:26 ABG pO2 88 mmHg (85-104) 08/07/17 06:26 ABG O2 Saturation 97 % (95-98) 08/07/17 06:26 PT/INR, D-dimer PT 13.4 Seconds (9.4-12.1) H 08/09/17 08:32 Consult Discharge Plan - Plan Referrals: Robb Perry MD [Primary Care Provider] - ([facility])
[2017-08-13] MEDS ORDERED: WATER IVPB SCH (18:00)
[2017-08-13] MEDS ORDERED: D5 IVPB SCH (18:00)
[2017-08-13] MEDS ORDERED: TOBRAMYCIN SULF IVPB SCH (18:00)
[2017-08-13] MEDS: rOPINIRole 1 MG TABLET PO SCH (20:55)
[2017-08-13] MEDS: WATER IVPB SCH (21:30)
[2017-08-13] MEDS: D5 IVPB SCH (21:30)
[2017-08-13] MEDS: TOBRAMYCIN SULF IVPB SCH (21:30)
[2017-08-14] MEDS: Meropenem 1,000 MG in Water for inj. (sterile) 20 ML 10 ML IVP SCH ×3 (03:45→20:16)
[2017-08-14] MEDS: *HR* LORazepam 2 MG/ML VIAL IVP PRN ×2 (04:01→16:56)
[2017-08-14] MEDS: *HR* OxyCODONE Immed Rel 15 MG TABLET PO PRN ×3 (04:01→16:56)
[2017-08-14] MEDS: Ipratropium/Albuterol Neb 3 ML IH SCH ×6 (04:18→23:25)
[2017-08-14 04:41] LABS: Basophils # 0.1 K/mcL (0.0-0.2); Basophils % 0.3 %; Eosinophils # 0.1 K/mcL (0.0-0.6); Eosinophils % 0.6 %; Hematocrit 33.5 % (35.3-44.9); Hemoglobin 10.3 g/dL (11.5-15.4); Immature Granulocytes % 1.2 % (0-4); Lymphocytes # 1.6 K/mcL (0.6-4.6); Lymphocytes % 10.3 %; Mean Corpuscular HGB Conc 30.7 g/dL (31.6-35.5); Mean Corpuscular Hemoglobin 24.2 pg (28.0-33.3); Mean Corpuscular Volume 78.6 fL (83.0-100.0); Mean Platelet Volume 9.2 fL (9.4-12.4); Monocytes # 1.3 K/mcL (0.0-1.3); Monocytes % 8.1 %; Neutrophils # 12.4 K/mcL (1.6-8.9); Platelet Count 375 K/mcL (140-400); Red Blood Count 4.26 M/mcL (3.82-4.97); Red Cell Distribution Width 18.3 % (11.5-14.5); Segmented Neutrophils % 79.5 %
[2017-08-14 05:07] LABS: BUN/Creatinine Ratio 39 (6-26); Blood Urea Nitrogen 16 mg/dL (8-23); Calcium 8.5 mg/dL (8.6-10.3); Carbon Dioxide 32 mEq/L (23-29); Chloride 92 mEq/L (98-107); Glucose 203 mg/dL (70-105); Osmolality,Calculated 281 (280-300); Potassium 3.4 mEq/L (3.5-5.1); Sodium 132 mEq/L (136-145); eGFR For African Americans > 60 (> 60); eGFR For Non-African Americans > 60 (> 60)
[2017-08-14] MEDS: *HR* Heparin 5,000 UNIT/ML VIAL SQ SCH ×2 (06:59→16:57)
[2017-08-14] MEDS: Budesonide/Formoterol 160/4.5 MDI IH SCH ×2 (07:56→20:01)
[2017-08-14] MEDS: Bumetanide 1 MG TABLET PO SCH ×2 (09:26→16:56)
[2017-08-14] MEDS: Baclofen 10 MG TABLET PO SCH ×4 (09:26→20:12)
[2017-08-14] MEDS: *HR* Amiodarone 200 MG TABLET PO SCH (09:26)
[2017-08-14] MEDS: predniSONE 10 MG TABLET PO SCH (09:26)
[2017-08-14] MEDS: Folic Acid 1 MG TABLET PO SCH (09:26)
[2017-08-14] MEDS: Aspirin 81 MG TAB.CHEW PO SCH (09:26)
[2017-08-14] MEDS: Metoprolol XL (24 HR) Succ 50 MG TAB.ER.24H PO SCH (09:26)
[2017-08-14] MEDS: Loratadine 10 MG TABLET PO SCH (09:27)
[2017-08-14] MEDS: Isosorbide MONOnitrate (24 HR) 60 MG TAB.ER.24H PO SCH (09:27)
[2017-08-14] MEDS: Verapamil ER (24 HR) 240 MG TABLET.ER PO SCH (09:27)
[2017-08-14] MEDS: Insulin DETEMIR 100 UNIT/ML X5UNITS SQ SCH (09:28)
[2017-08-14] MEDS: Cholecalciferol (D-3) 1,000 UNIT TABLET PO SCH (09:28)
[2017-08-14] MEDS: Miconazole w/zinc oxide&karaya 92 APPL/92 GM TUBE TP SCH ×2 (09:30→20:27)
[2017-08-14] MEDS: Insulin LISPRO 300 UNITS/3 ML VIAL SQ SCH ×4 (09:37→20:24)
[2017-08-14] MEDS: *HR* FentaNYL PATCH 75 MCG PATCH TD SCH (14:28)
--- NOTE | 2017-08-14 16:07 | Internal Med Progress Note ---
Date of Encounter: 08/14/17 Time of Encounter: 11:00 - Assessment and plan (1) Sacral decubitus ulcer Current Visit: Yes Status: Acute Assessment and plan: Patient's cultures on 08/11/17 positive for Acinetobacter which is sensitive for tobramycin which was started on 08/13/17 Will consult infectious disease for duration of treatment Wound care following an appreciate any additional recommendations Qualifiers: Pressure ulcer stage: stage 2 Qualified Code(s): L89.152 - Pressure ulcer of sacral region, stage 2 (2) HCAP (healthcare-associated pneumonia) Current Visit: Yes Status: Acute Assessment and plan: Sputum culture positive for E.Coli ESBL, resistant to Cefepime patient had been on for 5 days Cefepime was discontinued and meropenem started on 08/09/17; vancomycin continued Repeat blood cultures negative Leukocytosis improving and patient afebrile Continue current management (3) Sepsis Current Visit: Yes Status: Resolved Assessment and plan: Resolved; secondary to the above Continue to monitor Qualifiers: Sepsis type: sepsis due to unspecified organism Qualified Code(s): A41.9 - Sepsis, unspecified organism (4) Bacteremia due to Gram-positive bacteria Current Visit: No Status: Acute Assessment and plan: Secondary to streptococcus pneumonia Repeat blood cultures on 08/06/17 negative Continue management as above (5) UTI (urinary tract infection) Current Visit: Yes Status: Acute Assessment and plan: Continue antibiotics as above Qualifiers: Urinary tract infection type: site unspecified Hematuria presence: without hematuria Qualified Code(s): N39.0 - Urinary tract infection, site not specified (6) CAD (coronary artery disease) Current Visit: Yes Status: Chronic Assessment and plan: Stable; continue IVETTE inhibitor, beta clarissa and aspirin Qualifiers: [place] vs. transplanted heart: [place] heart Associated angina: without angina Qualified Code(s): I25.10 - Atherosclerotic heart disease of [place] coronary artery without angina pectoris (7) Insulin dependent diabetes mellitus Current Visit: No Status: Chronic Assessment and plan: Controlled; continue sliding scale insulin and basal insulin (8) History of atrial fibrillation Current Visit: No Status: Chronic Assessment and plan: Continue rate control with beta clarissa; continue amiodarone (9) CKD (chronic kidney disease), stage III Current Visit: No Status: Chronic Assessment and plan: Stable; continue to monitor (10) Hypertension Current Visit: No Status: Chronic Assessment and plan: Controlled; continue beta clarissa Qualifiers: Hypertension type: essential hypertension Qualified Code(s): I10 - Essential (primary) hypertension (11) COPD (chronic obstructive pulmonary disease) Current Visit: No Status: Chronic Assessment and plan: Continue Symbicort and dual nebs Qualifiers: COPD type: emphysema Emphysema type: unspecified Qualified Code(s): J43.9 - Emphysema, unspecified (12) NSTEMI (non-ST elevated myocardial infarction) Current Visit: Yes Status: Acute Assessment and plan: Cardiology consult and given the above ongoing issues, recommend medical management, not a candidate for cardiac rehab. Continue ASA, BB. Intolerant to statins. TTE EF is preserved--55-60%. Not all garcia visualized. (13) Liver lesion Current Visit: Yes Status: Acute Assessment and plan: s/p liver biopsy today (08/10/17), findings consistent with fatty infiltration Hematology oncology consult with recommendations for outpatient follow up (14) DVT prophylaxis Current Visit: Yes Status: Acute Assessment and plan: Continue heparin - Time Spent With Patient Total time spent is greater than 50% in coordination of care (as documented) at patient's floor/unit and/or counseling patient: - Subjective Interval history: Patient continues to report of sacral discomfort Leukocytosis improving after addition of tobramycin to vancomycin and meropenem Awaiting infectious disease consult for recommendations on duration of treatment - Constitutional Vitals: Temp Pulse Resp BP Pulse Ox 98.0 F 77 16 105/58 93 08/14/17 14:33 08/14/17 14:33 08/14/17 14:33 08/14/17 14:33 08/14/17 14:33 General appearance: Present: A&O X 3, morbidly obese, no acute distress - Respiratory Respiratory exam: Present: CTAB. Absent: accessory muscle use, rales, rhonchi, wheezes - Cardiovascular Cardiovascular exam: Present: RRR, +S1, +S2. Absent: diastolic murmur, gallop, rubs, systolic murmur - Skin Skin exam: Present: erythema (erythema (Patient with ulcerated lesion on sacrococcyx region with surrounding erythema and drainage)) Internal Medicine: Result - Labs CBC & Chem 7: 08/14/17 04:28 08/14/17 04:28 Labs: Short CBC 08/14/17 Range/Units 04:28 WBC 15.6 H (4.3-11.1) K/mcL Hgb 10.3 L (11.5-15.4) g/dL Hct 33.5 L (35.3-44.9) % Plt Count 375 (140-400) K/mcL Neutrophils # 12.4 H (1.6-8.9) K/mcL BMP 08/14/17 04:28 Sodium 132 L Potassium 3.4 L Chloride 92 L Carbon Dioxide 32 H BUN 16 Creatinine 0.41 L Glucose 203 H Calcium 8.5 L - ABG Interpretation ABG results: ABG ABG pH 7.51 pH Units (7.32-7.45) H 08/07/17 06:26 ABG pCO2 45 mmHg (35-45) 08/07/17 06:26 ABG pO2 88 mmHg (85-104) 08/07/17 06:26 ABG O2 Saturation 97 % (95-98) 08/07/17 06:26 PT/INR, D-dimer PT 13.4 Seconds (9.4-12.1) H 08/09/17 08:32 Consult Discharge Plan - Plan Referrals: Robb Perry MD [Primary Care Provider] - ([facility])
[2017-08-14] MEDS: rOPINIRole 1 MG TABLET PO SCH (20:13)
[2017-08-14] MEDS: D5 IVPB SCH (20:20)
[2017-08-14] MEDS: WATER IVPB SCH (20:20)
[2017-08-14] MEDS: TOBRAMYCIN SULF IVPB SCH (20:20)
[2017-08-15 00:23] LABS: Basophils % 0.2 %; Eosinophils # 0.1 K/mcL (0.0-0.6); Eosinophils % 0.9 %; Hematocrit 32.4 % (35.3-44.9); Hemoglobin 10.1 g/dL (11.5-15.4); Immature Granulocytes % 1.2 % (0-4); Lymphocytes # 1.7 K/mcL (0.6-4.6); Lymphocytes % 12.5 %; Mean Corpuscular HGB Conc 31.2 g/dL (31.6-35.5); Mean Corpuscular Hemoglobin 24.5 pg (28.0-33.3); Mean Corpuscular Volume 78.5 fL (83.0-100.0); Mean Platelet Volume 9.4 fL (9.4-12.4); Monocytes # 1.5 K/mcL (0.0-1.3); Monocytes % 11.1 %; Neutrophils # 10.3 K/mcL (1.6-8.9); Platelet Count 415 K/mcL (140-400); Red Blood Count 4.13 M/mcL (3.82-4.97); Red Cell Distribution Width 18.2 % (11.5-14.5); Segmented Neutrophils % 74.1 %
[2017-08-15 00:42] LABS: BUN/Creatinine Ratio 29 (6-26); Blood Urea Nitrogen 17 mg/dL (8-23); Calcium 8.5 mg/dL (8.6-10.3); Carbon Dioxide 34 mEq/L (23-29); Chloride 93 mEq/L (98-107); Glucose 214 mg/dL (70-105); Osmolality,Calculated 282 (280-300); Potassium 3.5 mEq/L (3.5-5.1); Sodium 132 mEq/L (136-145); eGFR For African Americans > 60 (> 60); eGFR For Non-African Americans > 60 (> 60)
[2017-08-15] MEDS: *HR* OxyCODONE Immed Rel 15 MG TABLET PO PRN ×4 (01:06→18:28)
[2017-08-15] MEDS: *HR* LORazepam 2 MG/ML VIAL IVP PRN ×2 (01:06→20:32)
[2017-08-15] MEDS: Meropenem 1,000 MG in Water for inj. (sterile) 20 ML 10 ML IVP SCH ×2 (03:08→11:43)
[2017-08-15] MEDS: Ipratropium/Albuterol Neb 3 ML IH SCH ×5 (03:50→20:37)
[2017-08-15] MEDS: *HR* Heparin 5,000 UNIT/ML VIAL SQ SCH ×2 (05:23→18:27)
[2017-08-15] MEDS: Budesonide/Formoterol 160/4.5 MDI IH SCH ×2 (07:46→20:37)
[2017-08-15] MEDS: Insulin LISPRO 300 UNITS/3 ML VIAL SQ SCH ×4 (08:12→20:08)
[2017-08-15] MEDS: *HR* Amiodarone 200 MG TABLET PO SCH (08:13)
[2017-08-15] MEDS: Aspirin 81 MG TAB.CHEW PO SCH (08:13)
[2017-08-15] MEDS: Bumetanide 1 MG TABLET PO SCH ×2 (08:14→17:01)
[2017-08-15] MEDS: predniSONE 10 MG TABLET PO SCH (08:16)
[2017-08-15] MEDS: Verapamil ER (24 HR) 240 MG TABLET.ER PO SCH (08:17)
[2017-08-15] MEDS: Isosorbide MONOnitrate (24 HR) 60 MG TAB.ER.24H PO SCH (08:17)
[2017-08-15] MEDS: Loratadine 10 MG TABLET PO SCH (08:17)
[2017-08-15] MEDS: Metoprolol XL (24 HR) Succ 50 MG TAB.ER.24H PO SCH (08:17)
[2017-08-15] MEDS: Folic Acid 1 MG TABLET PO SCH (08:17)
[2017-08-15] MEDS: Cholecalciferol (D-3) 1,000 UNIT TABLET PO SCH (08:17)
[2017-08-15] MEDS: Baclofen 10 MG TABLET PO SCH ×4 (08:23→20:07)
[2017-08-15] MEDS: Insulin DETEMIR 100 UNIT/ML X5UNITS SQ SCH ×2 (08:25→20:06)
[2017-08-15] MEDS: Miconazole w/zinc oxide&karaya 92 APPL/92 GM TUBE TP SCH ×2 (08:36→20:07)
--- NOTE | 2017-08-15 10:20 | Infectious Disease Consult ---
Date of Encounter: 08/15/17 Time of Encounter: 09:52 Assessment and Plan (1) Sepsis Status: Acute Assessment and plan: [facility] from [facility] meets sepsis criteria with tachycardia, tachypnea, WBC 30.2, Source of infection likely secondary to HCAP, sacral decubitus ulcer. lactic acid: 1.[address] from 08/02/17 showed lower lobe pneumonia, underlying obstructing mass could not be excluded, persistent media asked sternal adenopathy. Legionella antigen negative, Strep pneumo antigen positive. Blood cultures x2 from 08/02/17 positive for strep pneumo. urine culture from 08/02/17, mixed culture, unable to interpret. Blood culture from 08/05/17 showed no growth sputum sample from 08/06/17 did not meet criteria for culture urine culture from 08/06/17 positive for re blood culture x2 from 08/06/17 no growth sputum culture from 08/07/17 positive for E. coli, ESBL Sacral wond culture from 08/11/17 positive for Acinetobacter Baumannii-MDRO. Creatinine clearance 132 based on ideal body weight Etiology likely secondary to invasive strep bacteremia with high resistance. Plan: patient was started on cefepime on 08/05 and received 5 days vancomycin day 5. will likely need total of 14 days therapy. for ESBL she was started on meropenem on 08/09- day 7. changed to Ertapenem, day 1. for Acinetobacter Baumannii MDRO, on Tobramycin day 3. will check ESR/CRP- concern for osteomyelitis of cyccyx wound. recommend consult to wound care. Qualifiers: Sepsis type: Streptococcus, unspecified Qualified Code(s): A40.9 - Streptococcal sepsis, unspecified; A40 - Streptococcal sepsis (2) HCAP (healthcare-associated pneumonia) Status: Acute Assessment and plan: PLAN as above. Because possible underlying obstructive mass could not be will out, she will need follow-up CT in 4-6 weeks. (3) Sacral decubitus ulcer Status: Acute Assessment and plan: Plan as #1 above Qualifiers: Pressure ulcer stage: stage 2 Qualified Code(s): L89.152 - Pressure ulcer of sacral region, stage 2 (4) UTI (urinary tract infection) Status: Suspected Assessment and plan: Urine culture positive for re Qualifiers: Urinary tract infection type: acute cystitis Hematuria presence: without hematuria Qualified Code(s): N30.00 - Acute cystitis without hematuria (5) Liver lesion Status: Acute Assessment and plan: MRI of the abdomen on 08/04/17 that showed extensive signal abnormality and enhancement and probable restricted diffusion within the liver predominantly involving the left hepatic lobe but also within the posterior right hepatic lobe. Findings were suspicious for infiltrate of hepatic malignancy. She has been evaluated by oncology, they wanted to do a liver biopsy, but patient was unable to undergo biopsy because of back pain and discomfort. After her workup, Oncology team believe that this is likely more consistent with focal fatty infiltration within the liver and not consistent with malignancy. Patient was educated on weight loss and diet change in order to avoid development of cirrhosis. They deemed no further oncologic workup necessary-consider reimaging and about 3 to 6 months to assess stability. (6) Altered mental status Status: Resolved Assessment and plan: Resolved. Likely secondary to sepsis Qualifiers: Altered mental status type: somnolence Qualified Code(s): R40.0 - Somnolence (7) Acute exacerbation of CHF (congestive heart failure) Status: Acute Assessment and plan: Last echo on 08/02/17 showed EF 55-60%, not good study due to body habitus, not all segments well visualized, indeterminate diastolic function, RV not well visualized, mild tricuspid regurgitation, no pulmonary hypertension management per primary team Qualifiers: Heart failure type: diastolic Qualified Code(s): I50.33 - Acute on chronic diastolic (congestive) heart failure (8) DM (diabetes mellitus), type 2 Status: Chronic Assessment and plan: per primary Qualifiers: Diabetes mellitus [facility] insulin use: with rn long term care use Diabetes mellitus complication status: with unspecified complications Qualified Code(s) : E11.8 - Type 2 diabetes mellitus with unspecified complications (9) Morbid obesity with BMI of 45.0-49.9, adult Status: Chronic (10) Elevated troponin Status: Acute Assessment and plan: Elevated troponin's sense admission which have trended down patient seen and evaluated by cardiology. Likely demand ischemia and setting of sepsis versus NSTEMI Patient was on IV heparin gtt management per cardio and primary (11) History of atrial fibrillation Status: Chronic Assessment and plan: Continue rate control medication- per primary team. (12) COPD (chronic obstructive pulmonary disease) Status: Acute Assessment and plan: Exacerbation in setting of pneumonia management per primary team Qualifiers: COPD type: chronic bronchitis Chronic bronchitis type: simple Qualified Code(s): J41.0 - Simple chronic bronchitis (13) CAD (coronary artery disease) Status: Chronic Assessment and plan: History of CAD, s/P CABG management per primary team Qualifiers: Coronary Disease-Associated Artery/Lesion type: unspecified vessel or lesion type [place] vs. transplanted heart: [place] heart Associated angina: angina presence unspecified Qualified Code(s): I25.10 - Atherosclerotic heart disease of [place] coronary artery without angina pectoris Infectious Disease HPI - Data of Consult Patient: new to practice Consult date: 08/15/17 Requesting Physician: Lauro Jerez Primary Care Provider: Robb Perry MD - Consult Narrative Reason for consult: sacrococcyx wound culture positive for Acinetobacter History of present illness: Ms. Snyder is a 66 year old female who arrived to [place] on 08/02/17 after being sent from nursing facility for shortness of breath, decreased responsiveness, lethargy, fever. Infectious disease was consult it on 08/15/17 because her sacrococcyx wound culture was positive for Acinetobacter. She is a 66-year-old female with past medical history of Afib (not on anticoagulation), combined CHF CKD stage III, COPD, chronic respiratory failure on home oxygen, DVT, diabetes, hyperlipidemia, hypertension, pacemaker placement , morbid obesity, CAD s/p CABG with stent placement. [facility] was in a [facility] and was [facility] to [facility] on 08/02/17 for acute respiratory failure. Per records, her O2 saturation was 82% on room air upon arrival, requiring about 6 L nasal cannula oxygen. Patient is a poor historian at baseline. Upon arrival, vitals were: Temp: 98.7, HR: 118, Respirations: 20, BP: 134/73, O2 sat: 93% 6L. Pertinent labs: WBC: 30.2, H.2, MCV: 76.8, Seg neutrophils: 92%, smudge cells present. Sodium: 129, potassium 3.3. Lactic acid: 1.2. Chest x-ray showed stable cardiomegaly. Chest CT showed right lower lobe pneumonia, underlying obstructing mass could not be excluded, mediastinal adenopathy. CT of the abdomen and pelvis showed right lateral abdominal wall cellulitis. Urinalysis was positive for blood, nitrate, leukocyte esterase, microscopic WBCs. Head CT showed no acute abnormality. Serology positive for Strep. Patient was admitted for sepsis secondary to HCAP. She was started on broad-spectrum antibiotics of vancomycin, Zosyn. Should elevated troponin's upon admission that eventually trended down (1.65, 1.74, 1.01, .4). She was started on heparin drip and consult to cardiology was made. Echocardiogram on 08/02/17 showed EF 55-60%, all LV wall segments not well visuzlied, indeterminate diastolic function, no Pulmonary HTn. EKG showed no signs of ischemia. This is likely secondary to demand ischemia versus NSTEMI. She was continued on heparin gtt and medically managed, as she was not a candidate for catheterization. Patient was doing okay until 08/05/17, when she decompensated and was in respiratory distress requiring intubation, and transferred to the ICU thereafter, lactic acid increased to 4.4. Patient's blood cultures were positive for Strep pneumo. sacral wound culture positive for Acinetobacter baumannii, MDRO, sputum culture positive for E.Coli ESBL. repeat blood cultures from 08/06 were negative. Her hospitalization, patient had MRI of the abdomen on 08/04/17 that showed extensive signal abnormality and enhancement and probable restricted diffusion within the liver predominantly involving the left hepatic lobe but also within the posterior right hepatic lobe. Findings were suspicious for infiltrate of hepatic malignancy. Consult to oncology was made. They wanted to do a liver biopsy, but patient was unable to undergo biopsy because of back pain and discomfort. After her workup, Oncology team believe that this is likely more consistent with focal fatty infiltration within the liver and not consistent with malignancy. Patient was educated on weight loss and diet change in order to avoid development of cirrhosis. They deemed no further oncologic workup necessary-consider reimaging and about 3 to 6 months to assess stability. Today, patient denies nausea, vomiting, diarrhea, fever, chills, chest pain, shortness of breath. She denies hematuria, hematochezia, melena Her only complaint is pain in her coccyx area. She denies any new problems today. She is inquiring about when [facility]. CC: Lauro Jerez Past Med Surg Social Fam HX - Past Medical History Medical history: CHF, COPD, DVT, diabetes, hyperlipidemia, hypertension, myocardial infarction, other Psychiatric history: anxiety, depression - Past Surgical History Surgical History: angioplasty/stent, cholecystectomy, coronary bypass (CABG), hysterectomy, pacemaker/AICD, other - Social History Smoking Status: Former smoker Smokeless Tobacco Status: No Alcohol use: none Drug use: none - Family History Mother Adopted: No Living Status: Hx Family Cardiac Disorders: Yes Hx Family Respiratory Disorders: No Hx Family Cancer: No Hx Family GI Disorders: Yes Hx Family Endocrine Disorder: Yes Hx Family Neuromuscular Disorders: No Hx Family Neurologic Disorders: No Hx Family HEENT Disorders: No Hx Family Autoimmune Disorders: No Infectious Disease-CN:Meds Baclofen 10 mg PO QID 12/12/14 [History] Budesonide/Formoterol Fumarate [Symbicort 160-4.5 Mcg Inhaler] 2 puff IH BID [History] Cholecalciferol (Vitamin D3) [Vitamin D3] 2,000 unit PO DAILY 12/12/14 [History] Duloxetine HCl [Cymbalta] 60 mg PO DAILY 12/12/14 [History] Ferrous Sulfate 325 mg PO DAILY 12/12/14 [History] Fluticasone Propionate Nasal [Flonase] 1 spr NS DAILY PRN 12/12/14 [History] Folic Acid 1 mg PO QAM 12/12/14 [History] Isosorbide MONOnitrate [Isosorbide Mononitrate ER] 120 mg PO DAILY 12/12/14 [ History] Loratadine [Loradamed] 10 mg PO DAILY 12/12/14 [History] Montelukast Sodium [Singulair] 10 mg PO DAILY 12/12/14 [History] Sertraline HCl [Zoloft] 50 mg PO HS 12/12/14 [History] Theophylline Anhydrous [Theodur] 300 mg PO BID 12/12/14 [History] Trazodone HCl 300 mg PO HS 12/12/14 [History] Verapamil ER (24 HR) [Calan SR] 240 mg PO DAILY 12/12/14 [History] Meclizine [Antivert] 12.5 mg PO TID PRN 14 Days tablet 04/05/15 [Rx] Aspirin Enteric Coated [Aspirin EC] 325 mg PO DAILY #21 tablet. 06/08/15 [Rx] Bisacodyl [Dulcolax] 10 mg RC DAILY PRN 08/26/15 [History] Docusate [Colace] 100 mg PO DAILY 08/26/15 [History] Ipratropium/Albuterol Neb [Duoneb] 3 ml IH Q4HR PRN 08/26/15 [History] Polyethylene Glycol 3350 [Gavilax] 17 gm PO DAILY 08/26/15 [History] Acetaminophen [Tylenol] 650 mg PO Q4HR PRN 10/16/15 [History] Naloxone [Narcan] 0.4 mg IV Q2MIN PRN #0 inj 10/17/15 [Rx] Calcium Carbonate/Vitamin D3 [Calcium 600-Vit D3 400 Tablet] 1 tab PO BID [History] Losartan Potassium [Cozaar] 100 mg PO DAILY 06/08/16 [History] Ropinirole HCl [Requip] 2 mg PO HS 06/08/16 [History] Amiodarone [Cordarone] 100 mg PO DAILY 08/08/17 [History] Bumetanide [Bumetanide] 2 mg PO BID 08/08/17 [History] Ezetimibe [Ezetimibe] 10 mg PO DAILY 08/08/17 [History] Glucagon,Human Recombinant [Glucagen] 1 mg IM PRN PRN 08/08/17 [History] Hydroxychloroquine [Plaquenuil] 200 mg PO BID 08/08/17 [History] Ibuprofen [Motrin Ib] 600 mg PO BID 08/08/17 [History] Insulin DETEMIR [Levemir] 70 units SQ BID 08/08/17 [History] Insulin LISPRO [HumaLOG] 4 - 12 units SQ AD 08/08/17 [History] Lactulose 20 gm PO DAILY PRN 08/08/17 [History] Mag Hydrox/Al Hydrox/Simeth [Maalox] 30 ml PO TIDAC 08/08/17 [History] Metoprolol Succinate [Toprol Xl] 50 mg PO DAILY 08/08/17 [History] Mucinex Dm 1 tab PO BID 08/08/17 [History] OxyCODONE Immed Rel [Roxicodone 10 MG] 10 mg PO Q6H 08/08/17 [History] OxyCODONE Immed Rel [Roxicodone 30 MG] 30 mg PO Q6H 08/08/17 [History] Oxybutynin Chloride [Ditropan Xl] 15 mg PO DAILY 08/08/17 [History] Pantoprazole Sodium 40 mg PO BID 08/08/17 [History] Ranitidine HCl [Zantac] 150 mg PO HS 08/08/17 [History] cloNIDine HCl [CloNIDine HCl] 0.1 mg PO BID PRN 08/08/17 [History] fentaNYL [Fentanyl] 50 mcg TD Q72H 08/08/17 [History] hydrOXYzine pamoate [HydrOXYzine Pamoate] 25 mg PO TID 08/08/17 [History] 3 Allergy/AdvReac Type Severity Reaction Status Date / Time tuberculin, purified protein Allergy Mild Hives Verified 12/12/14 11:15 deriva [tuberculin,purif.prot.deriv.] carvedilol [From Coreg] AdvReac Intermediate Anxiety Verified 12/12/14 11:15 ranolazine [From Ranexa] AdvReac Intermediate nausea, Verified 12/12/14 11:15 vomiting Ziqowkq-Yaw-Mhr Reductase AdvReac Intermediate muscle Verified 12/12/14 11:15 Inhibitor dysfunction [Statins] All systems: reviewed and no additional remarkable complaints except as stated Exam - Constitutional Vitals: Temp Pulse Resp BP Pulse Ox 98.9 F 86 14 144/61 96 08/15/17 07:57 08/15/17 07:57 08/15/17 07:57 08/15/17 07:57 08/15/17 07:57 General appearance: morbidly obese, no acute distress Exam: Alert and oriented x3, no acute distress, morbidly obese - Head Head exam: Present: atraumatic, normocephalic - Respiratory Respiratory exam: Present: decreased breath sounds - Cardiovascular Cardiovascular exam: Present: RRR, +S1, +S2, systolic murmur (+1 stolid murmur heard best at the left upper sternal border) - GI/Abdominal Additional comments: Distended, obese, nontender to palpation - Extremities Exam Additional comments: Heel Pads present on bilateral lower extremities, venous stasis present on bilateral lower extremities bruising present on bilateral upper extremities. - Neurological Exam Neurological exam: Present: alert, oriented X3 - Psychiatric Psychiatric exam: Present: normal affect, normal mood Infectious Disease CN: Results - Labs CBC & Chem 7: 08/15/17 00:14 08/15/17 00:14 Cultures: Cultures 08/11/17 17:20 Wound Culture - Final Buttock Acinetobacter baumannii MDRO 08/06/17 12:40 Blood Culture - Final Peripheral Venipuncture No growth. 08/06/17 12:37 Blood Culture - Final Peripheral Venipuncture No growth. 08/05/17 12:32 Blood Culture - Final Peripheral Venipuncture No growth. 08/06/17 02:01 Urine Culture - Final Urine,[place] Re albicans 08/07/17 05:07 Sputum Culture - Final Sputum Escherichia coli ESBL 08/06/17 02:00 Sputum Culture - Final Sputum 08/02/17 09:07 Urine Culture - Final Urine,[place] Culture is grossly mixed, unable to properly interpret. Please repeat if indicated. 08/02/17 04:56 Legionella Antigen - Final Urine,Clean Catch Streptococcus pneumoniae Antigen (M - Final Serology: Serology 08/07/17 08/02/17 Range/Units 10:12 06:47 Chlamy pneumoniae PCR Not Detected Not Detected (Not Detect) Adenovirus (PCR) Not Detected Not Detected (Not Detect) B. pertussis DNA (PCR) Not Detected Not Detected (Not Detect) B.parapertussis DNA PCR Not Detected Not Detected (Not Detect) Coronavirus OC43 (PCR) Not Detected Not Detected (Not Detect) Coronavirus HKU1 (PCR) Not Detected Not Detected (Not Detect) Coronavirus 229E (PCR) Not Detected Not Detected (Not Detect) Coronavirus NL63 (PCR) Not Detected Not Detected (Not Detect) Human Metapneumovir PCR Not Detected Not Detected (Not Detect) Influenza A (H1) PCR Not Detected Not Detected (Not Detect) Influ A (H1N1/09) PCR Not Detected Not Detected (Not Detect) Influenza A (H3) PCR Not Detected Not Detected (Not Detect) Influenza A Untype (PCR) Not Detected Not Detected (Not Detect) Influenza Type B (PCR) Not Detected Not Detected (Not Detect) M.pneumoniae DNA (PCR) Not Detected Not Detected (Not Detect) Parainfluenza 1 (PCR) Not Detected Not Detected (Not Detect) Parainfluenza 2 (PCR) Not Detected Not Detected (Not Detect) Parainfluenza 3 (PCR) Not Detected Not Detected (Not Detect) Parainfluenza 4 (PCR) Not Detected Not Detected (Not Detect) RSV (PCR) Not Detected Not Detected (Not Detect) Entero/Rhino (PCR) Not Detected Not Detected (Not Detect) Consult Discharge Plan - Plan Referrals: Juschka,Dirk N, MD [Primary Care Provider] - ([facility]) - Attending Attestation I examined this patient and my medical decision-making was reviewed with the Resident Physician. I agree with the documented findings, disposition and treatment plan as described except to the extent set forth below. This is an addendum to original report dictated by resident physician. Please refer to residents note for full detail. Patient is a 66-year-old woman who has severe peripheral neuropathy unable to walk is a [facility] who came in with symptoms of pneumonia. Patient was noted to have invasive Streptococcus pneumoniae with bacteremia and also had a decubitus ulcer that has been present for about 6 months and sputum culture was also positive for ESBL Escherichia coli patient also had some liver lesions that was relevant on the MRI but then patient was seen by heme on and no further recommendations. We were asked to evaluate the patient and make further recommendations. Patient tells me that she is weak and tired and has not been able to move for a few months because of her peripheral neuropathy. Patient tells me that she has had this decubitus ulcer for 6 months and she states that wound care is not even following. Patient denies any drainage from the wound care, it says it hurts and she bleeds from it. On physical exam the decubitus ulcer is probably stage IV and there is some necrosis around the skin. Wound care did evaluate and they recommended dressing and antifungal powder. There is no surrounding cellulitis or signs of infection currently. At this point I am not sure if the Acinetobacter is a contaminant versus a true infection. I believe it is a contaminant based on the clinical picture and aggressive debridement and maybe topical antibiotics might suffice. Weighing risks versus benefits of using IV tobramycin, I think we should stop the IV tobramycin and do topical care only. Continue and carboplatinum but I think the patient will do just was fine with ertapenem. DC meropenem and start ertapenem. Recent continue vancomycin for invasive Streptococcus pneumoniae that is resistant to Rocephin and penicillin. Duration of treatment with the vancomycin is 5 more days, with the ertapenem is 5 more days and the tobramycin we will stop. Monitor labs and for drug toxicity. Discussed with pharmacy staff.
[2017-08-15] MEDS: Ertapenem 1,000 MG in 0.9 % Sodium Chloride Mini Bag 100 ML IVPB SCH (18:26)
--- NOTE | 2017-08-15 18:35 | Internal Med Progress Note ---
Date of Encounter: 08/15/17 Time of Encounter: 11:00 - Assessment and plan (1) Sacral decubitus ulcer Current Visit: Yes Status: Acute Assessment and plan: Patient's cultures on 08/11/17 positive for Acinetobacter which is sensitive for tobramycin which was started on 08/13/17 Will consult infectious disease for duration of treatment Wound care following an appreciate any additional recommendations Qualifiers: Pressure ulcer stage: stage 2 Qualified Code(s): L89.152 - Pressure ulcer of sacral region, stage 2 (2) HCAP (healthcare-associated pneumonia) Current Visit: Yes Status: Acute Assessment and plan: Sputum culture positive for E.Coli ESBL, resistant to Cefepime patient had been on for 5 days Cefepime was discontinued and meropenem started on 08/09/17; vancomycin continued Repeat blood cultures negative Leukocytosis improving and patient afebrile Infectious disease following with recommendations to discontinue meropenem and start patient on ertapenem (3) Sepsis Current Visit: Yes Status: Resolved Qualifiers: Sepsis type: sepsis due to unspecified organism Qualified Code(s): A41.9 - Sepsis, unspecified organism (4) Bacteremia due to Gram-positive bacteria Current Visit: No Status: Acute Assessment and plan: Secondary to streptococcus pneumonia Repeat blood cultures on 08/06/17 negative Continue management as above (5) UTI (urinary tract infection) Current Visit: Yes Status: Acute Assessment and plan: Continue antibiotics as above Qualifiers: Urinary tract infection type: site unspecified Hematuria presence: without hematuria Qualified Code(s): N39.0 - Urinary tract infection, site not specified (6) CAD (coronary artery disease) Current Visit: Yes Status: Chronic Assessment and plan: Stable; continue IVETTE inhibitor, beta clarissa and aspirin Qualifiers: [place] vs. transplanted heart: [place] heart Associated angina: without angina Qualified Code(s): I25.10 - Atherosclerotic heart disease of [place] coronary artery without angina pectoris (7) Insulin dependent diabetes mellitus Current Visit: No Status: Chronic (8) History of atrial fibrillation Current Visit: No Status: Chronic Assessment and plan: Continue rate control with beta clarissa; continue amiodarone (9) CKD (chronic kidney disease), stage III Current Visit: No Status: Chronic Assessment and plan: Stable; continue to monitor (10) Hypertension Current Visit: No Status: Chronic Assessment and plan: Controlled; continue beta clarissa Qualifiers: Hypertension type: essential hypertension Qualified Code(s): I10 - Essential (primary) hypertension (11) COPD (chronic obstructive pulmonary disease) Current Visit: No Status: Chronic Assessment and plan: Continue Symbicort and dual nebs Qualifiers: COPD type: emphysema Emphysema type: unspecified Qualified Code(s): J43.9 - Emphysema, unspecified (12) NSTEMI (non-ST elevated myocardial infarction) Current Visit: Yes Status: Acute Assessment and plan: Cardiology consult and given the above ongoing issues, recommend medical management, not a candidate for cardiac rehab. Continue ASA, BB. Intolerant to statins. TTE EF is preserved--55-60%. Not all garcia visualized. (13) Liver lesion Current Visit: Yes Status: Acute Assessment and plan: s/p liver biopsy today (08/10/17), findings consistent with fatty infiltration Hematology oncology consult with recommendations for outpatient follow up (14) DVT prophylaxis Current Visit: Yes Status: Acute - Time Spent With Patient Total time spent is greater than 50% in coordination of care (as documented) at patient's floor/unit and/or counseling patient: - Subjective Interval history: Patient with sepsis secondary to bacteremia due to Streptococcus pneumonia in addition to HCAP with sputum cultures that grew Escherichia coli ESBL also with sacral decubitus ulcer which has grown Acinetobacter Patient reports improvement of sacral discomfort Leukocytosis now also improving on ertapenem and tobramycin; infectious disease following - Constitutional Vitals: Temp Pulse Resp BP Pulse Ox 98.9 F 73 17 135/64 96 08/15/17 15:21 08/15/17 15:21 08/15/17 15:21 08/15/17 15:21 08/15/17 15:21 General appearance: Present: A&O X 3, morbidly obese, no acute distress - Respiratory Respiratory exam: Present: CTAB. Absent: accessory muscle use, rales, rhonchi, wheezes - Cardiovascular Cardiovascular exam: Present: RRR, +S1, +S2. Absent: diastolic murmur, gallop, rubs, systolic murmur - Skin Skin exam: Present: erythema (erythema (erythema (Patient with ulcerated lesion on sacrococcyx region with surrounding erythema and drainage)) Internal Medicine: Result - Labs CBC & Chem 7: 08/15/17 00:14 08/15/17 00:14 Labs: Short CBC 08/15/17 Range/Units 00:14 WBC 13.9 H (4.3-11.1) K/mcL Hgb 10.1 L (11.5-15.4) g/dL Hct 32.4 L (35.3-44.9) % Plt Count 415 H (140-400) K/mcL Neutrophils # 10.3 H (1.6-8.9) K/mcL BMP 08/15/17 00:14 Sodium 132 L Potassium 3.5 Chloride 93 L Carbon Dioxide 34 H BUN 17 Creatinine 0.59 L Glucose 214 H Calcium 8.5 L - ABG Interpretation ABG results: ABG ABG pH 7.51 pH Units (7.32-7.45) H 08/07/17 06:26 ABG pCO2 45 mmHg (35-45) 08/07/17 06:26 ABG pO2 88 mmHg (85-104) 08/07/17 06:26 ABG O2 Saturation 97 % (95-98) 08/07/17 06:26 PT/INR, D-dimer PT 13.4 Seconds (9.4-12.1) H 08/09/17 08:32 Consult Discharge Plan - Plan Referrals: Robb Perry MD [Primary Care Provider] - ([facility])
[2017-08-15] MEDS: WATER IVPB SCH (20:06)
[2017-08-15] MEDS: TOBRAMYCIN SULF IVPB SCH (20:06)
[2017-08-15] MEDS: D5 IVPB SCH (20:06)
[2017-08-15] MEDS: rOPINIRole 1 MG TABLET PO SCH (20:07)
[2017-08-16] MEDS: Ipratropium/Albuterol Neb 3 ML IH SCH ×6 (00:04→20:09)
[2017-08-16] MEDS: *HR* Heparin 5,000 UNIT/ML VIAL SQ SCH ×2 (04:47→17:23)
[2017-08-16 04:58] LABS: Basophils % 0.4 %; Eosinophils # 0.1 K/mcL (0.0-0.6); Eosinophils % 0.8 %; Hematocrit 32.5 % (35.3-44.9); Hemoglobin 9.7 g/dL (11.5-15.4); Immature Granulocytes % 1.3 % (0-4); Lymphocytes # 1.5 K/mcL (0.6-4.6); Lymphocytes % 14.6 %; Mean Corpuscular HGB Conc 29.8 g/dL (31.6-35.5); Mean Corpuscular Hemoglobin 23.7 pg (28.0-33.3); Mean Corpuscular Volume 79.5 fL (83.0-100.0); Mean Platelet Volume 9.2 fL (9.4-12.4); Monocytes # 1.2 K/mcL (0.0-1.3); Monocytes % 11.5 %; Neutrophils # 7.3 K/mcL (1.6-8.9); Platelet Count 357 K/mcL (140-400); Red Blood Count 4.09 M/mcL (3.82-4.97); Red Cell Distribution Width 18.5 % (11.5-14.5); Segmented Neutrophils % 71.4 %
[2017-08-16 05:11] LABS: BUN/Creatinine Ratio 36 (6-26); Blood Urea Nitrogen 20 mg/dL (8-23); Calcium 8.8 mg/dL (8.6-10.3); Carbon Dioxide 33 mEq/L (23-29); Chloride 94 mEq/L (98-107); Glucose 194 mg/dL (70-105); Osmolality,Calculated 284 (280-300); Potassium 3.5 mEq/L (3.5-5.1); Sodium 133 mEq/L (136-145); eGFR For African Americans > 60 (> 60); eGFR For Non-African Americans > 60 (> 60)
[2017-08-16] MEDS: Budesonide/Formoterol 160/4.5 MDI IH SCH ×2 (07:32→20:09)
--- NOTE | 2017-08-16 08:19 | Infectious Disease Progress No ---
Date of Encounter: 08/16/17 Time of Encounter: 08:18 - Assessment and Plan (1) Sepsis Current Visit: No Status: Acute Patient comes from [facility]. meets sepsis criteria with tachycardia, tachypnea, WBC 30.2, Source of infection likely secondary to HCAP, sacral decubitus ulcer. lactic acid: 1.[address] from 08/02/17 showed lower lobe pneumonia, underlying obstructing mass could not be excluded, persistent mediastinal adenopathy. Legionella antigen negative, Strep pneumo antigen positive. Blood cultures x2 from 08/02/17 positive for strep pneumo. urine culture from 08/02/17, mixed culture, unable to interpret. Blood culture from 08/05/17 showed no growth sputum sample from 08/06/17 did not meet criteria for culture urine culture from 08/06/17 positive for re blood culture x2 from 08/06/17 no growth sputum culture from 08/07/17 positive for E. coli, ESBL Sacral wond culture from 08/11/17 positive for Acinetobacter Baumannii-MDRO. Creatinine clearance 132 based on ideal body weight ESR: 122 CRP: 123 Etiology likely secondary to invasive strep bacteremia with high resistance. Plan: patient was started on cefepime on 08/05 and received 5 days vancomycin day 6. will likely need total of 14 days therapy. for ESBL she was started on meropenem on 08/09 and received 7 days received 4 days tobramycin- stopped 08/15: likely that Acenitobacter is a contaminant. Ertapenem Day 2- likely will need 4 more days. in setting of sacral wound and elevated ESR/CRP, concern for osteomyelitis. recommend consult to surgery- may need aggressive debridement. continue dressing changes per wound care recommendations. Qualifiers: Sepsis type: Streptococcus, unspecified Qualified Code(s): A40.9 - Streptococcal sepsis, unspecified; A40 - Streptococcal sepsis (2) HCAP (healthcare-associated pneumonia) Current Visit: Yes Status: Acute PLAN as above. Because possible underlying obstructive mass could not be will out, she will need follow-up CT in 4-6 weeks. (3) Sacral decubitus ulcer Current Visit: Yes Status: Acute Plan as #1 above Qualifiers: Pressure ulcer stage: stage 2 Qualified Code(s): L89.152 - Pressure ulcer of sacral region, stage 2 (4) UTI (urinary tract infection) Current Visit: Yes Status: Suspected Urine culture positive for re-likely contaminant Qualifiers: Urinary tract infection type: acute cystitis Hematuria presence: without hematuria Qualified Code(s): N30.00 - Acute cystitis without hematuria (5) Liver lesion Current Visit: Yes Status: Acute MRI of the abdomen on 08/04/17 that showed extensive signal abnormality and enhancement and probable restricted diffusion within the liver predominantly involving the left hepatic lobe but also within the posterior right hepatic lobe. Findings were suspicious for infiltrate of hepatic malignancy. She has been evaluated by oncology, they wanted to do a liver biopsy, but patient was unable to undergo biopsy because of back pain and discomfort. After her workup, Oncology team believe that this is likely more consistent with focal fatty infiltration within the liver and not consistent with malignancy. Patient was educated on weight loss and diet change in order to avoid development of cirrhosis. They deemed no further oncologic workup necessary-consider reimaging and about 3 to 6 months to assess stability. (6) Acute exacerbation of CHF (congestive heart failure) Current Visit: Yes Status: Acute Last echo on 08/02/17 showed EF 55-60%, not good study due to body habitus, not all segments well visualized, indeterminate diastolic function, RV not well visualized, mild tricuspid regurgitation, no pulmonary hypertension management per primary team Qualifiers: Heart failure type: diastolic Qualified Code(s): I50.33 - Acute on chronic diastolic (congestive) heart failure (7) DM (diabetes mellitus), type 2 Current Visit: Yes Status: Chronic per primary Qualifiers: Diabetes mellitus usp insulin use: with usp use Diabetes mellitus complication status: with unspecified complications Qualified Code(s) : E11.8 - Type 2 diabetes mellitus with unspecified complications (8) Morbid obesity with BMI of 45.0-49.9, adult Current Visit: No Status: Chronic (9) Elevated troponin Current Visit: Yes Status: Acute Elevated troponins since admission which have trended down patient seen and evaluated by cardiology. Likely demand ischemia and setting of sepsis versus NSTEMI Patient was on IV heparin gtt currently chest pain free management per cardio and primary (10) History of atrial fibrillation Current Visit: Yes Status: Chronic Continue rate control medication- per primary team (11) COPD (chronic obstructive pulmonary disease) Current Visit: No Status: Acute Exacerbation in setting of pneumonia management per primary team Qualifiers: COPD type: chronic bronchitis Chronic bronchitis type: simple Qualified Code(s): J41.0 - Simple chronic bronchitis (12) CAD (coronary artery disease) Current Visit: No Status: Chronic History of CAD, s/P CABG management per primary team Qualifiers: Coronary Disease-Associated Artery/Lesion type: unspecified vessel or lesion type [place] vs. transplanted heart: [place] heart Associated angina: angina presence unspecified Qualified Code(s): I25.10 - Atherosclerotic heart disease of [place] coronary artery without angina pectoris - Subjective Interval history: 66-year-old female evaluated at bedside. Reports constipation. She denies nausea, vomiting, fever, chills, chest pain, shortness of breath. She reports pain in her sacral area and denies any new problems today. Infect Dis PN-Objective Data - Labs CBC & Chem 7: 08/17/17 05:13 08/17/17 05:13 Labs: Laboratory Results - last 24 hr 08/15/17 08/15/17 08/15/17 07:57 11:29 16:55 WBC RBC Hgb Hct MCV MCH MCHC RDW Plt Count MPV Immature Gran % Seg Neutrophils % Lymphocytes % Monocytes % Eosinophils % Basophils % Neutrophils # Lymphocytes # Monocytes # Eosinophils # Basophils # ESR 122 H Sodium Potassium Chloride Carbon Dioxide BUN Creatinine Est GFR ( Amer) Est GFR (Non-Af Amer) BUN/Creatinine Ratio Glucose POC Glucose 290 H 308 H Calculated Osmolality Calcium C-Reactive Protein 08/15/17 08/15/17 08/16/17 16:55 20:20 04:41 WBC 10.2 RBC 4.09 Hgb 9.7 L Hct 32.5 L MCV 79.5 L MCH 23.7 L MCHC 29.8 L RDW 18.5 H Plt Count 357 MPV 9.2 L Immature Gran % 1.3 Seg Neutrophils % 71.4 Lymphocytes % 14.6 Monocytes % 11.5 Eosinophils % 0.8 Basophils % 0.4 Neutrophils # 7.3 Lymphocytes # 1.5 Monocytes # 1.2 Eosinophils # 0.1 Basophils # 0.0 ESR Sodium Potassium Chloride Carbon Dioxide BUN Creatinine Est GFR ( Amer) Est GFR (Non-Af Amer) BUN/Creatinine Ratio Glucose POC Glucose 327 H Calculated Osmolality Calcium C-Reactive Protein 123 H 08/16/17 04:41 WBC RBC Hgb Hct MCV MCH MCHC RDW Plt Count MPV Immature Gran % Seg Neutrophils % Lymphocytes % Monocytes % Eosinophils % Basophils % Neutrophils # Lymphocytes # Monocytes # Eosinophils # Basophils # ESR Sodium 133 L Potassium 3.5 Chloride 94 L Carbon Dioxide 33 H BUN 20 Creatinine 0.56 L Est GFR ( Amer) > 60 Est GFR (Non-Af Amer) > 60 BUN/Creatinine Ratio 36 H Glucose 194 H POC Glucose Calculated Osmolality 284 Calcium 8.8 C-Reactive Protein Cultures: Cultures 08/11/17 17:20 Wound Culture - Final Buttock Acinetobacter baumannii MDRO 08/06/17 12:40 Blood Culture - Final Peripheral Venipuncture No growth. 08/06/17 12:37 Blood Culture - Final Peripheral Venipuncture No growth. 08/05/17 12:32 Blood Culture - Final Peripheral Venipuncture No growth. 08/06/17 02:01 Urine Culture - Final Urine,[place] Re albicans 08/07/17 05:07 Sputum Culture - Final Sputum Escherichia coli ESBL 08/06/17 02:00 Sputum Culture - Final Sputum 08/02/17 09:07 Urine Culture - Final Urine,[place] Culture is grossly mixed, unable to properly interpret. Please repeat if indicated. 08/02/17 04:56 Legionella Antigen - Final Urine,Clean Catch Streptococcus pneumoniae Antigen (M - Final Serology 08/07/17 08/02/17 Range/Units 10:12 06:47 Chlamy pneumoniae PCR Not Detected Not Detected (Not Detect) Adenovirus (PCR) Not Detected Not Detected (Not Detect) B. pertussis DNA (PCR) Not Detected Not Detected (Not Detect) B.parapertussis DNA PCR Not Detected Not Detected (Not Detect) Coronavirus OC43 (PCR) Not Detected Not Detected (Not Detect) Coronavirus HKU1 (PCR) Not Detected Not Detected (Not Detect) Coronavirus 229E (PCR) Not Detected Not Detected (Not Detect) Coronavirus NL63 (PCR) Not Detected Not Detected (Not Detect) Human Metapneumovir PCR Not Detected Not Detected (Not Detect) Influenza A (H1) PCR Not Detected Not Detected (Not Detect) Influ A (H1N1/09) PCR Not Detected Not Detected (Not Detect) Influenza A (H3) PCR Not Detected Not Detected (Not Detect) Influenza A Untype (PCR) Not Detected Not Detected (Not Detect) Influenza Type B (PCR) Not Detected Not Detected (Not Detect) M.pneumoniae DNA (PCR) Not Detected Not Detected (Not Detect) Parainfluenza 1 (PCR) Not Detected Not Detected (Not Detect) Parainfluenza 2 (PCR) Not Detected Not Detected (Not Detect) Parainfluenza 3 (PCR) Not Detected Not Detected (Not Detect) Parainfluenza 4 (PCR) Not Detected Not Detected (Not Detect) RSV (PCR) Not Detected Not Detected (Not Detect) Entero/Rhino (PCR) Not Detected Not Detected (Not Detect) Exam - Constitutional Vitals: Temp Pulse Resp BP Pulse Ox 98.4 F 75 16 142/63 97 08/16/17 05:29 08/16/17 05:29 08/16/17 07:33 08/16/17 05:29 08/16/17 07:33 General appearance: morbidly obese, no acute distress - Head Head exam: Present: atraumatic, normocephalic - Respiratory Respiratory exam: Present: CTAB - Cardiovascular Cardiovascular exam: Present: RRR, +S1, +S2, systolic murmur (+1 systolic murmur heard best at the left upper sternal border) - GI/Abdominal Additional comments: Abdomen is distended, obese, hypoactive bowel sounds present, mild tenderness to palpation in the left upper quadrant. - Extremities Exam Additional comments: +1 bilateral lower extremity pitting edema - Neurological Exam Neurological exam: Present: alert, oriented X3 Additional comments: Significantly decreased muscle strength in bilateral lower extremities. - Psychiatric Psychiatric exam: Present: flat affect, normal affect, normal mood - Skin Additional comments: Approximately 7 cm x 4 cm sacral decubitus ulcer present, stage II, with area of necrotic skin present. Consult Discharge Plan - Plan Referrals: Robb Perry MD [Primary Care Provider] - ([facility]) - Attending Attestation I examined this patient and my medical decision-making was reviewed with the Resident Physician. I agree with the documented findings, disposition and treatment plan as described except to the extent set forth below. I called and spoke with radiology, they stated that the MRI of the abdomen does not reveal images of the lumbosacral area. Patient will need a CT pelvis to rule out cellulitis versus abscess versus osteomyelitis. Agree with surgery's recommendation.
--- NOTE | 2017-08-16 09:34 | Internal Med Progress Note ---
<PippaCorey nieves - Last Filed: 08/16/17 11:27> Date of Encounter: 08/16/17 Time of Encounter: 09:29 - Assessment and plan (1) HCAP (healthcare-associated pneumonia) Current Visit: Yes Status: Acute Assessment and plan: - Sputum culture positive for E.Coli ESBL, resistant to Cefepime patient had been on for 5 days - Cefepime was discontinued and meropenem started on 08/09/17; vancomycin continued - Repeat blood cultures negative 08/06/17 - Leukocytosis improving to 10.2 and patient afebrile - Sputum culture growing ESBL E.coli, sensitive to carbapanems. - Infectious disease following with recommendations to discontinue meropenem and start patient on ertapenem on 08/15 - Patient is asymptomatic at this time with no fevers, cough, shortness of breath Plan - Continue ertapenem day #2 - Continue vancomycin day #6/14 - Continue tobramycin day 4 for wound. - ID consulted (2) Bacteremia due to Gram-positive bacteria Current Visit: Yes Status: Resolved Assessment and plan: Secondary to streptococcus pneumonia with positive blood cultures on 08/01 and 3 Repeat blood cultures on 08/06/17 negative Urine legionella Ag positive. Continue management as above (3) CAD (coronary artery disease) Current Visit: Yes Status: Chronic Assessment and plan: Stable; continue IVETTE inhibitor, beta clarissa and aspirin Qualifiers: Coronary Disease-Associated Artery/Lesion type: [place] artery [place] vs. transplanted heart: [place] heart Associated angina: without angina Qualified Code(s): I25.10 - Atherosclerotic heart disease of [place] coronary artery without angina pectoris (4) Insulin dependent diabetes mellitus Current Visit: Yes Status: Chronic Assessment and plan: Controlled; continue sliding scale insulin and basal insulin BS this morning of 194. Likely elevated in the setting of infection. (5) History of atrial fibrillation Current Visit: Yes Status: Chronic Assessment and plan: Continue rate control with beta clarissa; continue amiodarone HR 70s. Not on anticoagulation (6) CKD (chronic kidney disease), stage III Current Visit: No Status: Chronic Assessment and plan: BUN/Cr of 20/0.56, GFR >60. No documented CKD on this admission Stable; continue to monitor (7) Hypertension Current Visit: Yes Status: Chronic Assessment and plan: Most recent BP of 142/63 Controlled; continue beta clarissa Qualifiers: Hypertension type: essential hypertension Qualified Code(s): I10 - Essential (primary) hypertension (8) COPD (chronic obstructive pulmonary disease) Current Visit: Yes Status: Chronic Assessment and plan: Continue Symbicort and duo nebs No complaints of SOB. At home oxygen requirement of 3L Qualifiers: COPD type: emphysema Emphysema type: unspecified Qualified Code(s): J43.9 - Emphysema, unspecified (9) Sepsis Current Visit: Yes Status: Resolved Assessment and plan: Resolved; secondary to the above Continue to monitor Qualifiers: Sepsis type: Streptococcus, other Qualified Code(s): A40.8 - Other streptococcal sepsis (10) NSTEMI (non-ST elevated myocardial infarction) Current Visit: Yes Status: Acute Assessment and plan: - Cardiology consult and given the above ongoing issues, recommend medical management, not a candidate for cardiac rehab. - TTE EF is [id number]%. Not all garcia visualized. - Troponin elevated on admission with a peak of 2.70 which was trended - No complaints of chest pain Plan - Continue ASA, BB. Intolerant to statins. (11) UTI (urinary tract infection) Current Visit: Yes Status: Acute Assessment and plan: Continue antibiotics as above Qualifiers: Urinary tract infection type: site unspecified Hematuria presence: without hematuria Qualified Code(s): N39.0 - Urinary tract infection, site not specified (12) Liver lesion Current Visit: Yes Status: Acute Assessment and plan: s/p liver biopsy 08/10/17, findings consistent with fatty infiltration Hematology oncology consult with recommendations for outpatient follow up (13) DVT prophylaxis Current Visit: Yes Status: Acute Assessment and plan: Continue heparin (14) Sacral decubitus ulcer Current Visit: Yes Status: Acute Assessment and plan: - Patient's cultures on 08/11/17 positive for Acinetobacter which is sensitive for tobramycin which was started on 08/13/17 - Infectious disease following, appreciate recommendations - Wound care following an appreciate any additional recommendations - Patient has been afebrile, WBC of 10.2 which is stable from previous - Upon examination this morning, area is necrotic but no obvious source of bony involvement. - There is concern for possible osteomyelitis given elevation of CRP at 123, ESR of 122 - patient did have an MRI of the abdomen to evaluate for possible liver lesion which did not comment on sacrum. We will consult surgery and see if they want a additional radiation risk for osteomyelitis Plan - Continue tobramycin, day #4 - Defer to infectious disease recommendations - Consult to surgery placed for possible debridement, appreciate recommendations - Wound care, frequent turns Qualifiers: Pressure ulcer stage: stage 2 Qualified Code(s): L89.152 - Pressure ulcer of sacral region, stage 2 - Time Spent With Patient Total time spent is greater than 50% in coordination of care (as documented) at patient's floor/unit and/or counseling patient: 25 - 35 minutes - Subjective Interval history: Patient seen and examined this morning. She states that she feels about the same as yesterday with her only complaint being that her butt hurts. She denies symptoms of fevers, chills, nausea, vomiting, chest pain, SOB, cough. Reports a good appetite but has not had a bowel movement since Tuesday. She does report this pain has been ongoing for the past 6 months. She does live in a skilled nursing and states that she frequently leaves her bed or chair. - Constitutional Vitals: Temp Pulse Resp BP Pulse Ox 98.4 F 75 16 142/63 97 08/16/17 05:29 08/16/17 05:29 08/16/17 07:33 08/16/17 05:29 08/16/17 07:33 General appearance: Present: A&O X 3, morbidly obese, no acute distress Exam: Gen.: Vitals noted. No acute distress. AAOx3 HEENT: PERRL/EOMI, oropharynx clear, Normocephalic, atraumatic, MMM Cardiac: RRR, systolic murmur, +S1/S2 Pulmonary: CTA bilaterally, no wheezes, rales or rhonchi, equal chest expansion Abdomen: soft, nontender, BS noted, no guarding, no rebound. MSK: Bilateral LE weakess. Limited ROM in hip flexion. Reports chronic. Extremities: no BLE edema, tenderness to palpation of anterior leg, chronic. , no cyanosis or clubbing Skin: erythema in distal legs bilaterally likely venous stasis. Stage II sacral decubitus ulcer with no obvious mary presentation Neuro: A&Ox3, moves all extremities, no focal deficits Psych: Appropriate mood and behavior Internal Medicine: Result - Labs CBC & Chem 7: 08/16/17 04:41 08/16/17 04:41 Labs: Short CBC 08/16/17 Range/Units 04:41 WBC 10.2 (4.3-11.1) K/mcL Hgb 9.7 L (11.5-15.4) g/dL Hct 32.5 L (35.3-44.9) % Plt Count 357 (140-400) K/mcL Neutrophils # 7.3 (1.6-8.9) K/mcL BMP 08/16/17 04:41 Sodium 133 L Potassium 3.5 Chloride 94 L Carbon Dioxide 33 H BUN 20 Creatinine 0.56 L Glucose 194 H Calcium 8.8 - ABG Interpretation ABG results: ABG ABG pH 7.51 pH Units (7.32-7.45) H 08/07/17 06:26 ABG pCO2 45 mmHg (35-45) 08/07/17 06:26 ABG pO2 88 mmHg (85-104) 08/07/17 06:26 ABG O2 Saturation 97 % (95-98) 08/07/17 06:26 PT/INR, D-dimer PT 13.4 Seconds (9.4-12.1) H 08/09/17 08:32 Consult Discharge Plan - Plan Referrals: Robb Perry MD [Primary Care Provider] - ([facility]) <Sharon Medina - Last Filed: 08/16/17 19:32> Date of Encounter: 08/16/17 - Assessment and plan (1) CAD (coronary artery disease) Current Visit: Yes Status: Chronic Qualifiers: Coronary Disease-Associated Artery/Lesion type: [place] artery [place] vs. transplanted heart: [place] heart Associated angina: without angina Qualified Code(s): I25.10 - Atherosclerotic heart disease of [place] coronary artery without angina pectoris (2) Insulin dependent diabetes mellitus Current Visit: Yes Status: Chronic (3) History of atrial fibrillation Current Visit: Yes Status: Chronic (4) CKD (chronic kidney disease), stage III Current Visit: No Status: Chronic (5) Bacteremia due to Gram-positive bacteria Current Visit: Yes Status: Resolved (6) Hypertension Current Visit: Yes Status: Chronic Qualifiers: Hypertension type: essential hypertension Qualified Code(s): I10 - Essential (primary) hypertension (7) COPD (chronic obstructive pulmonary disease) Current Visit: Yes Status: Chronic Qualifiers: COPD type: emphysema Emphysema type: unspecified Qualified Code(s): J43.9 - Emphysema, unspecified (8) Sepsis Current Visit: Yes Status: Resolved Qualifiers: Sepsis type: Streptococcus, other Qualified Code(s): A40.8 - Other streptococcal sepsis (9) HCAP (healthcare-associated pneumonia) Current Visit: Yes Status: Acute (10) NSTEMI (non-ST elevated myocardial infarction) Current Visit: Yes Status: Acute (11) UTI (urinary tract infection) Current Visit: Yes Status: Acute Qualifiers: Urinary tract infection type: site unspecified Hematuria presence: without hematuria Qualified Code(s): N39.0 - Urinary tract infection, site not specified (12) DVT prophylaxis Current Visit: Yes Status: Acute (13) Liver lesion Current Visit: Yes Status: Acute (14) Sacral decubitus ulcer Current Visit: Yes Status: Acute Qualifiers: Pressure ulcer stage: stage 2 Qualified Code(s): L89.152 - Pressure ulcer of sacral region, stage 2 - Time Spent With Patient Total time spent is greater than 50% in coordination of care (as documented) at patient's floor/unit and/or counseling patient: - Constitutional Vitals: Temp Pulse Resp BP Pulse Ox 98.3 F 78 15 142/71 98 08/16/17 12:45 08/16/17 12:45 08/16/17 15:43 08/16/17 12:45 08/16/17 15:43 Internal Medicine: Result - Labs CBC & Chem 7: 08/16/17 04:41 08/16/17 04:41 Labs: Short CBC 08/16/17 Range/Units 04:41 WBC 10.2 (4.3-11.1) K/mcL Hgb 9.7 L (11.5-15.4) g/dL Hct 32.5 L (35.3-44.9) % Plt Count 357 (140-400) K/mcL Neutrophils # 7.3 (1.6-8.9) K/mcL BMP 08/16/17 04:41 Sodium 133 L Potassium 3.5 Chloride 94 L Carbon Dioxide 33 H BUN 20 Creatinine 0.56 L Glucose 194 H Calcium 8.8 - ABG Interpretation ABG results: ABG ABG pH 7.51 pH Units (7.32-7.45) H 08/07/17 06:26 ABG pCO2 45 mmHg (35-45) 08/07/17 06:26 ABG pO2 88 mmHg (85-104) 08/07/17 06:26 ABG O2 Saturation 97 % (95-98) 08/07/17 06:26 PT/INR, D-dimer PT 13.4 Seconds (9.4-12.1) H 08/09/17 08:32 - Impressions Impressions Abdomen/Pelvis CT 08/16/17 10:11 IMPRESSION: Mild skin thickening overlying the distal sacrum and coccyx, however no underlying osseous erosion or destruction to suggest osteomyelitis. No substantial interval change in low-attenuation areas of the liver, possibly areas of geographic fatty infiltration although indeterminate. As mentioned previously, recommend further evaluation with liver protocol CT or MRI. Unchanged ventral abdominal wall inflammatory changes. No soft tissue abscess. Mild increase in size of small right pleural effusion. Persistent right basilar airspace disease. D/ / Enmanuel Cooley / Enmanuel Cooley Interpreting Provider: Enmanuel Cooley - Attending Attestation I examined this patient and my medical decision-making was reviewed with the Resident Physician Dr. Lua. I agree with the documented findings, disposition and treatment plan as described except to the extent set forth below. Ms. Snyder is a 66 y/o F chronic bed bound pt admitted here for HCAP and Sacral ulcer. 1. Sacral stage 2 necrotizing ulcer concerning for osteomyelitis empirical abx ID consulted surgery for possible debridement
[2017-08-16] MEDS: *HR* Amiodarone 200 MG TABLET PO SCH (09:45)
[2017-08-16] MEDS: Miconazole w/zinc oxide&karaya 92 APPL/92 GM TUBE TP SCH ×2 (09:45→21:25)
[2017-08-16] MEDS: Bumetanide 1 MG TABLET PO SCH ×2 (09:45→17:23)
[2017-08-16] MEDS: Insulin LISPRO 300 UNITS/3 ML VIAL SQ SCH ×4 (09:45→21:15)
[2017-08-16] MEDS: Baclofen 10 MG TABLET PO SCH ×4 (09:46→21:25)
[2017-08-16] MEDS: Aspirin 81 MG TAB.CHEW PO SCH (09:46)
[2017-08-16] MEDS: Loratadine 10 MG TABLET PO SCH (09:46)
[2017-08-16] MEDS: predniSONE 10 MG TABLET PO SCH (09:46)
[2017-08-16] MEDS: Metoprolol XL (24 HR) Succ 50 MG TAB.ER.24H PO SCH (09:47)
[2017-08-16] MEDS: *HR* OxyCODONE Immed Rel 15 MG TABLET PO PRN ×3 (09:47→23:16)
[2017-08-16] MEDS: Cholecalciferol (D-3) 1,000 UNIT TABLET PO SCH (09:48)
[2017-08-16] MEDS: Verapamil ER (24 HR) 240 MG TABLET.ER PO SCH (09:48)
[2017-08-16] MEDS: Folic Acid 1 MG TABLET PO SCH (09:48)
[2017-08-16] MEDS: Isosorbide MONOnitrate (24 HR) 60 MG TAB.ER.24H PO SCH (09:48)
[2017-08-16] MEDS: Ertapenem 1,000 MG in 0.9 % Sodium Chloride Mini Bag 100 ML IVPB SCH (09:49)
--- NOTE | 2017-08-16 10:05 | General Surgery Consult Note ---
<Abel Velasco - Last Filed: 08/16/17 11:16> Date of Encounter: 08/16/17 Time of Encounter: 10:05 Assessment and Plan (1) Sacral decubitus ulcer Current Visit: Yes Status: Acute snf resident, often bed-bound, very limited ability to roll self Would involves sacrum and coccyx, sanguineous weeping on dressing There is a 4cm by 2cm area of necrotic tissue This is bordered by a wider area of healthier granulation tissue Plan: Likely stage 2 with dermis involvement, unclear adipose layer penetrance, will order CT abd/pelvis w/o contrast to assess for gaseous/osseous involvement Pt to be NPO in anticipation of debridement Qualifiers: Pressure ulcer stage: stage 2 Qualified Code(s): L89.152 - Pressure ulcer of sacral region, stage 2 (2) Bacteremia due to Gram-positive bacteria Current Visit: Yes Status: Resolved Pt afebrile, no wt ct, vss Sepsis and Bacteremia resolved, blood cultures having had grown Gram positive bacteria, repeat blood culture 08/06 negative Source of initial bacteremia possibly lung, sputum sample growing strep pneumo Wound culture grew gram negative acinetobacter baumanni on tobramycin per ID (3) Insulin dependent diabetes mellitus Current Visit: Yes Status: Chronic On high dose sliding scale insulin + detemir 20, POC 194 History of Present Illness Consult date: 08/16/17 Reason for consult: wound care (sacral decubitous ulcer evaluation) Requesting physician: Corey Lua History of present illness: Interval history: Ms. Snyder is a 66 year old female sent from her nursing facility 08/02 with dyspnea , AMS, fever/malaise. Surgery was consulted on 08/16 to evaluate her sacral decubitous ulcer. Her medical history impacting wound formation and healing is signficant for senior living residence, increasingly becoming more bedbound, diabetes, HLD, HTN , morbid obesity, CAD s/p CABG with stent placement. Patient met sepsis criteria on admission, blood cultures growing strep pneumo. Her bacteremia has since resolved. Wound culture has grown acinetobacter baumannii MDRO, pt given tobramycin per ID. Today patient endorses pain in her sacrum, difficulty moving herself in bed; she denies fevers/chills, shortness of breath, chest discomfort, or abdominal pain. Past Med Surg Social Fam HX - Past Medical History Medical history: CHF, COPD, DVT, diabetes, hyperlipidemia, hypertension, myocardial infarction, other Psychiatric history: anxiety, depression - Past Surgical History Surgical History: angioplasty/stent, cholecystectomy, coronary bypass (CABG), hysterectomy, pacemaker/AICD, other - Social History Smoking Status: Former smoker Smokeless Tobacco Status: No Alcohol use: none Drug use: none - Family History Mother Adopted: No Living Status: Hx Family Cardiac Disorders: Yes Hx Family Respiratory Disorders: No Hx Family Cancer: No Hx Family GI Disorders: Yes Hx Family Endocrine Disorder: Yes Hx Family Neuromuscular Disorders: No Hx Family Neurologic Disorders: No Hx Family HEENT Disorders: No Hx Family Autoimmune Disorders: No Medications and Allergies Baclofen 10 mg PO QID 12/12/14 [History] Budesonide/Formoterol Fumarate [Symbicort 160-4.5 Mcg Inhaler] 2 puff IH BID [History] Cholecalciferol (Vitamin D3) [Vitamin D3] 2,000 unit PO DAILY 12/12/14 [History] Duloxetine HCl [Cymbalta] 60 mg PO DAILY 12/12/14 [History] Ferrous Sulfate 325 mg PO DAILY 12/12/14 [History] Fluticasone Propionate Nasal [Flonase] 1 spr NS DAILY PRN 12/12/14 [History] Folic Acid 1 mg PO QAM 12/12/14 [History] Isosorbide MONOnitrate [Isosorbide Mononitrate ER] 120 mg PO DAILY 12/12/14 [ History] Loratadine [Loradamed] 10 mg PO DAILY 12/12/14 [History] Montelukast Sodium [Singulair] 10 mg PO DAILY 12/12/14 [History] Sertraline HCl [Zoloft] 50 mg PO HS 12/12/14 [History] Theophylline Anhydrous [Theodur] 300 mg PO BID 12/12/14 [History] Trazodone HCl 300 mg PO HS 12/12/14 [History] Verapamil ER (24 HR) [Calan SR] 240 mg PO DAILY 12/12/14 [History] Meclizine [Antivert] 12.5 mg PO TID PRN 14 Days tablet 04/05/15 [Rx] Aspirin Enteric Coated [Aspirin EC] 325 mg PO DAILY #21 tablet 06/08/15 [Rx] Bisacodyl [Dulcolax] 10 mg RC DAILY PRN 08/26/15 [History] Docusate [Colace] 100 mg PO DAILY 08/26/15 [History] Ipratropium/Albuterol Neb [Duoneb] 3 ml IH Q4HR PRN 08/26/15 [History] Polyethylene Glycol 3350 [Gavilax] 17 gm PO DAILY 08/26/15 [History] Acetaminophen [Tylenol] 650 mg PO Q4HR PRN 10/16/15 [History] Naloxone [Narcan] 0.4 mg IV Q2MIN PRN #0 inj 10/17/15 [Rx] Calcium Carbonate/Vitamin D3 [Calcium 600-Vit D3 400 Tablet] 1 tab PO BID [History] Losartan Potassium [Cozaar] 100 mg PO DAILY 06/08/16 [History] Ropinirole HCl [Requip] 2 mg PO HS 06/08/16 [History] Amiodarone [Cordarone] 100 mg PO DAILY 08/08/17 [History] Bumetanide [Bumetanide] 2 mg PO BID 08/08/17 [History] Ezetimibe [Ezetimibe] 10 mg PO DAILY 08/08/17 [History] Glucagon,Human Recombinant [Glucagen] 1 mg IM PRN PRN 08/08/17 [History] Hydroxychloroquine [Plaquenuil] 200 mg PO BID 08/08/17 [History] Ibuprofen [Motrin Ib] 600 mg PO BID 08/08/17 [History] Insulin DETEMIR [Levemir] 70 units SQ BID 08/08/17 [History] Insulin LISPRO [HumaLOG] 4 - 12 units SQ AD 08/08/17 [History] Lactulose 20 gm PO DAILY PRN 08/08/17 [History] Mag Hydrox/Al Hydrox/Simeth [Maalox] 30 ml PO TIDAC 08/08/17 [History] Metoprolol Succinate [Toprol Xl] 50 mg PO DAILY 08/08/17 [History] Mucinex Dm 1 tab PO BID 08/08/17 [History] OxyCODONE Immed Rel [Roxicodone 10 MG] 10 mg PO Q6H 08/08/17 [History] OxyCODONE Immed Rel [Roxicodone 30 MG] 30 mg PO Q6H 08/08/17 [History] Oxybutynin Chloride [Ditropan Xl] 15 mg PO DAILY 08/08/17 [History] Pantoprazole Sodium 40 mg PO BID 08/08/17 [History] Ranitidine HCl [Zantac] 150 mg PO HS 08/08/17 [History] cloNIDine HCl [CloNIDine HCl] 0.1 mg PO BID PRN 08/08/17 [History] fentaNYL [Fentanyl] 50 mcg TD Q72H 08/08/17 [History] hydrOXYzine pamoate [HydrOXYzine Pamoate] 25 mg PO TID 08/08/17 [History] 3 Allergy/AdvReac Type Severity Reaction Status Date / Time tuberculin, purified protein Allergy Mild Hives Verified 12/12/14 11:15 deriva [tuberculin,purif.prot.deriv.] carvedilol [From Coreg] AdvReac Intermediate Anxiety Verified 12/12/14 11:15 ranolazine [From Ranexa] AdvReac Intermediate nausea, Verified 12/12/14 11:15 vomiting Ijmgyax-Exr-Eox Reductase AdvReac Intermediate muscle Verified 12/12/14 11:15 Inhibitor dysfunction [Statins] Review of Systems All systems PM: reviewed and no additional remarkable complaints except as stated All systems PM: The remainder of the systems were reviewed and are negative - Constitutional lethargy, no chills, no malaise - Cardiovascular no chest pain - Respiratory no cough, no dyspnea - Gastrointestinal no abdominal pain, no nausea, no vomiting - Musculoskeletal limited range of motion - Integumentary skin ulcer - Neurological no behavioral changes - Psychiatric no anxiety General Surgery Exam Initial Vital Signs Temp Pulse Resp BP Pulse Ox 98.7 F 118 20 134/73 93 08/01/17 22:47 08/01/17 22:47 08/01/17 22:47 08/01/17 22:47 08/01/17 22:47 - General physical appearance well nourished, no distress - ENT normal mucosa - Respiratory normal expansion, clear to auscultation - Cardiovascular Cardiovascular exam: Present: RRR, no murmurs/rubs/gallops - Abdomen Abdomen general surgery: Present: soft, non tender - Integumentary Integumentary general surgery: Present: other (sacral decubitous ulcer; 4x2cm area of necrosis, surrounded by wider area of granulation tissue, sanguinous weeping) - Neurologic Present: normal sensation - Musculoskeletal Present: normal posture (gait not assessed, patient demonstrates limited ability to roll herself) - Psychiatric Psychiatric general surgery: Present: A&Ox3, speech is normal, memory intact Exam Initial Vital Signs Temp Pulse Resp BP Pulse Ox 98.7 F 118 20 134/73 93 08/01/17 22:47 08/01/17 22:47 08/01/17 22:47 08/01/17 22:47 08/01/17 22:47 Results - Labs 08/16/17 04:41 08/16/17 04:41 Abnormal lab results Hgb 9.7 g/dL (11.5-15.4) L 08/16/17 04:41 Hct 32.5 % (35.3-44.9) L 08/16/17 04:41 MCV 79.5 fL (83.0-100.0) L 08/16/17 04:41 MCH 23.7 pg (28.0-33.3) L 08/16/17 04:41 MCHC 29.8 g/dL (31.6-35.5) L 08/16/17 04:41 RDW 18.5 % (11.5-14.5) H 08/16/17 04:41 MPV 9.2 fL (9.4-12.4) L 08/16/17 04:41 Band Neutrophils % 6.0 % (0-4) H 08/10/17 05:39 Nucleated RBCs/100 WBC 0.1 /100 WBC (0) H 08/10/17 05:39 Reactive Lymphocytes Present (Not Present) A 08/08/17 02:29 Smudge Cells Present (Not Present) A 08/11/17 05:30 Toxic Granulation Present (Not Present) A 08/10/17 05:39 Polychromasia 1+ (Not Present) A 08/02/17 05:59 Hypochromasia Present (Not Present) A 08/05/17 12:32 Poikilocytosis 1+ (Not Present) A 08/02/17 05:59 Anisocytosis 1+ (Not Present) A 08/12/17 05:50 Microcytosis Present (Not Present) A 08/03/17 00:08 ESR 122 mm/hr (0-15) H 08/15/17 16:55 PT 13.4 Seconds (9.4-12.1) H 08/09/17 08:32 APTT 88.5 Seconds (26.0-36.0) H 08/03/17 21:01 Heparin Anti-Xa, Unfract 0.95 IU/mL (0.30-0.70) H 08/03/17 00:08 ABG pH 7.51 pH Units (7.32-7.45) H 08/07/17 06:26 ABG HCO3 36 mEq/L (21-27) H 08/07/17 06:26 ABG Total CO2 37 mEq/L (20-26) H 08/07/17 06:26 ABG Base Excess 11 mEq/L (-2 to 3) H 08/07/17 06:26 Sodium 133 mEq/L (136-145) L 08/16/17 04:41 Chloride 94 mEq/L (98-107) L 08/16/17 04:41 Carbon Dioxide 33 mEq/L (23-29) H 08/16/17 04:41 Creatinine 0.56 mg/dL (0.60-1.20) L 08/16/17 04:41 BUN/Creatinine Ratio 36 (6-26) H 08/16/17 04:41 Glucose 194 mg/dL (70-105) H 08/16/17 04:41 POC Glucose 259 mg/dL (70-99) H 08/16/17 08:31 Hemoglobin A1c 7.1 % (-5.6) H 08/02/17 05:59 Phosphorus 2.4 mg/dL (2.7-4.5) L 08/12/17 05:50 Iron 18 mcg/dL (50-170) L 08/08/17 12:22 % Saturation 8 % (15-50) L 08/08/17 12:22 Transferrin 166 mg/dL (203-362) L 08/08/17 12:22 Ferritin 1339 ng/ml (10-120) H 08/08/17 12:22 Direct Bilirubin 0.5 mg/dL (0.0-0.2) H 08/01/17 23:39 Alkaline Phosphatase 118 Units/L (34-104) H 08/01/17 23:39 Troponin I 0.13 ng/mL (< 0.04) H* 08/09/17 21:45 C-Reactive Protein 123 mg/L (Less than 10) H 08/15/17 16:55 B-Natriuretic Peptide 1560 pg/mL (Less than 100) H 08/05/17 10:58 Serum Total Protein 6.3 g/dL (6.4-8.9) L 08/01/17 23:39 Albumin 2.9 g/dL (3.5-5.7) L 08/01/17 23:39 Albumin/Globulin Ratio 0.9 (1.1-2.2) L 08/01/17 23:39 HDL Cholesterol 18 mg/dL (40-59) L 08/02/17 05:59 Vitamin B12 1356 pg/mL (250-1100) H 08/08/17 12:22 Folate > 22.3 ng/mL (3.0-16.0) H 08/08/17 12:22 Urine Clarity Cloudy (Clear) A 08/02/17 00:32 Urine Protein 100 mg/dL (Neg-Trace) H 08/02/17 00:32 Urine Ketones 15 mg/dL (Negative) H 08/02/17 00:32 Urine Blood Moderate (Negative) H 08/02/17 00:32 Urine Nitrite Positive (Negative) A 08/02/17 00:32 Urine Bilirubin Small (Negative) H 08/02/17 00:32 Ur Leukocyte Esterase Moderate (Negative) H 08/02/17 00:32 Urine Microscopic RBC 5-15 per hpf (0-3) H 08/02/17 00:32 Urine Microscopic WBC TNTC per hpf (0-3) H 08/02/17 00:32 Ur Squamous Epith Cells Many per lpf (None-Few) H 08/02/17 00:32 Urine Bacteria Many per hpf (None-Few) H 08/02/17 00:32 Vancomycin Trough 17 mcg/mL (5-10) H 08/15/17 00:14 Streptococcus sp PCR DETECTED (Not Detect) A 08/02/17 00:08 Strep pneumoniae (PCR) DETECTED (Not Detect) A 08/02/17 00:08 Diabetes panel 08/16/17 Range/Units 04:41 Sodium 133 L (136-145) mEq/L Potassium 3.5 (3.5-5.1) mEq/L Chloride 94 L (98-107) mEq/L Carbon Dioxide 33 H (23-29) mEq/L BUN 20 (8-23) mg/dL Creatinine 0.56 L (0.60-1.20) mg/dL Glucose 194 H (70-105) mg/dL Calcium 8.8 (8.6-10.3) mg/dL Calcium panel 08/16/17 Range/Units 04:41 Calcium 8.8 (8.6-10.3) mg/dL Pituitary panel 08/16/17 Range/Units 04:41 Sodium 133 L (136-145) mEq/L Potassium 3.5 (3.5-5.1) mEq/L Chloride 94 L (98-107) mEq/L Carbon Dioxide 33 H (23-29) mEq/L BUN 20 (8-23) mg/dL Creatinine 0.56 L (0.60-1.20) mg/dL Glucose 194 H (70-105) mg/dL Calcium 8.8 (8.6-10.3) mg/dL Adrenal panel 08/16/17 Range/Units 04:41 Sodium 133 L (136-145) mEq/L Potassium 3.5 (3.5-5.1) mEq/L Chloride 94 L (98-107) mEq/L Carbon Dioxide 33 H (23-29) mEq/L BUN 20 (8-23) mg/dL Creatinine 0.56 L (0.60-1.20) mg/dL Glucose 194 H (70-105) mg/dL Calcium 8.8 (8.6-10.3) mg/dL All other labs normal. Consult Discharge Plan - Plan Referrals: Robb Perry MD [Primary Care Provider] - ([facility]) <Froy Toscano - Last Filed: 08/16/17 13:47> Date of Encounter: 08/16/17 Review of Systems All systems PM: The remainder of the systems were reviewed and are negative General Surgery Exam Initial Vital Signs Temp Pulse Resp BP Pulse Ox 98.7 F 118 20 134/73 93 08/01/17 22:47 08/01/17 22:47 08/01/17 22:47 08/01/17 22:47 08/01/17 22:47 Exam Initial Vital Signs Temp Pulse Resp BP Pulse Ox 98.7 F 118 20 134/73 93 08/01/17 22:47 08/01/17 22:47 08/01/17 22:47 08/01/17 22:47 08/01/17 22:47 Results - Labs 08/16/17 04:41 08/16/17 04:41 Abnormal lab results Hgb 9.7 g/dL (11.5-15.4) L 08/16/17 04:41 Hct 32.5 % (35.3-44.9) L 08/16/17 04:41 MCV 79.5 fL (83.0-100.0) L 08/16/17 04:41 MCH 23.7 pg (28.0-33.3) L 08/16/17 04:41 MCHC 29.8 g/dL (31.6-35.5) L 08/16/17 04:41 RDW 18.5 % (11.5-14.5) H 08/16/17 04:41 MPV 9.2 fL (9.4-12.4) L 08/16/17 04:41 Band Neutrophils % 6.0 % (0-4) H 08/10/17 05:39 Nucleated RBCs/100 WBC 0.1 /100 WBC (0) H 08/10/17 05:39 Reactive Lymphocytes Present (Not Present) A 08/08/17 02:29 Smudge Cells Present (Not Present) A 08/11/17 05:30 Toxic Granulation Present (Not Present) A 08/10/17 05:39 Polychromasia 1+ (Not Present) A 08/02/17 05:59 Hypochromasia Present (Not Present) A 08/05/17 12:32 Poikilocytosis 1+ (Not Present) A 08/02/17 05:59 Anisocytosis 1+ (Not Present) A 08/12/17 05:50 Microcytosis Present (Not Present) A 08/03/17 00:08 ESR 122 mm/hr (0-15) H 08/15/17 16:55 PT 13.4 Seconds (9.4-12.1) H 08/09/17 08:32 APTT 88.5 Seconds (26.0-36.0) H 08/03/17 21:01 Heparin Anti-Xa, Unfract 0.95 IU/mL (0.30-0.70) H 08/03/17 00:08 ABG pH 7.51 pH Units (7.32-7.45) H 08/07/17 06:26 ABG HCO3 36 mEq/L (21-27) H 08/07/17 06:26 ABG Total CO2 37 mEq/L (20-26) H 08/07/17 06:26 ABG Base Excess 11 mEq/L (-2 to 3) H 08/07/17 06:26 Sodium 133 mEq/L (136-145) L 08/16/17 04:41 Chloride 94 mEq/L (98-107) L 08/16/17 04:41 Carbon Dioxide 33 mEq/L (23-29) H 08/16/17 04:41 Creatinine 0.56 mg/dL (0.60-1.20) L 08/16/17 04:41 BUN/Creatinine Ratio 36 (6-26) H 08/16/17 04:41 Glucose 194 mg/dL (70-105) H 08/16/17 04:41 POC Glucose 280 mg/dL (70-99) H 08/16/17 12:43 Hemoglobin A1c 7.1 % (-5.6) H 08/02/17 05:59 Phosphorus 2.4 mg/dL (2.7-4.5) L 08/12/17 05:50 Iron 18 mcg/dL (50-170) L 08/08/17 12:22 % Saturation 8 % (15-50) L 08/08/17 12:22 Transferrin 166 mg/dL (203-362) L 08/08/17 12:22 Ferritin 1339 ng/ml (10-120) H 08/08/17 12:22 Direct Bilirubin 0.5 mg/dL (0.0-0.2) H 08/01/17 23:39 Alkaline Phosphatase 118 Units/L (34-104) H 08/01/17 23:39 Troponin I 0.13 ng/mL (< 0.04) H* 08/09/17 21:45 C-Reactive Protein 123 mg/L (Less than 10) H 08/15/17 16:55 B-Natriuretic Peptide 1560 pg/mL (Less than 100) H 08/05/17 10:58 Serum Total Protein 6.3 g/dL (6.4-8.9) L 08/01/17 23:39 Albumin 2.9 g/dL (3.5-5.7) L 08/01/17 23:39 Albumin/Globulin Ratio 0.9 (1.1-2.2) L 08/01/17 23:39 HDL Cholesterol 18 mg/dL (40-59) L 08/02/17 05:59 Vitamin B12 1356 pg/mL (250-1100) H 08/08/17 12:22 Folate > 22.3 ng/mL (3.0-16.0) H 08/08/17 12:22 Urine Clarity Cloudy (Clear) A 08/02/17 00:32 Urine Protein 100 mg/dL (Neg-Trace) H 08/02/17 00:32 Urine Ketones 15 mg/dL (Negative) H 08/02/17 00:32 Urine Blood Moderate (Negative) H 08/02/17 00:32 Urine Nitrite Positive (Negative) A 08/02/17 00:32 Urine Bilirubin Small (Negative) H 08/02/17 00:32 Ur Leukocyte Esterase Moderate (Negative) H 08/02/17 00:32 Urine Microscopic RBC 5-15 per hpf (0-3) H 08/02/17 00:32 Urine Microscopic WBC TNTC per hpf (0-3) H 08/02/17 00:32 Ur Squamous Epith Cells Many per lpf (None-Few) H 08/02/17 00:32 Urine Bacteria Many per hpf (None-Few) H 08/02/17 00:32 Vancomycin Trough 17 mcg/mL (5-10) H 08/15/17 00:14 Streptococcus sp PCR DETECTED (Not Detect) A 08/02/17 00:08 Strep pneumoniae (PCR) DETECTED (Not Detect) A 08/02/17 00:08 Diabetes panel 08/16/17 Range/Units 04:41 Sodium 133 L (136-145) mEq/L Potassium 3.5 (3.5-5.1) mEq/L Chloride 94 L (98-107) mEq/L Carbon Dioxide 33 H (23-29) mEq/L BUN 20 (8-23) mg/dL Creatinine 0.56 L (0.60-1.20) mg/dL Glucose 194 H (70-105) mg/dL Calcium 8.8 (8.6-10.3) mg/dL Calcium panel 08/16/17 Range/Units 04:41 Calcium 8.8 (8.6-10.3) mg/dL Pituitary panel 08/16/17 Range/Units 04:41 Sodium 133 L (136-145) mEq/L Potassium 3.5 (3.5-5.1) mEq/L Chloride 94 L (98-107) mEq/L Carbon Dioxide 33 H (23-29) mEq/L BUN 20 (8-23) mg/dL Creatinine 0.56 L (0.60-1.20) mg/dL Glucose 194 H (70-105) mg/dL Calcium 8.8 (8.6-10.3) mg/dL Adrenal panel 08/16/17 Range/Units 04:41 Sodium 133 L (136-145) mEq/L Potassium 3.5 (3.5-5.1) mEq/L Chloride 94 L (98-107) mEq/L Carbon Dioxide 33 H (23-29) mEq/L BUN 20 (8-23) mg/dL Creatinine 0.56 L (0.60-1.20) mg/dL Glucose 194 H (70-105) mg/dL Calcium 8.8 (8.6-10.3) mg/dL All other labs normal. - Attending Attestation Patient seen and examined. I have reviewed all pertinent labs, vitals, imaging , and notes, including this one. I wish to add the following... 66F with multiple comorbidities being treated for bactermia believed to be of lung origin; currently has a sacral wound that has been ongoing and painful for about 6 months per the patient. measuring about 4cm x 2cm; appears to penetrate to subcutaneous tissue, but is actually unstageable due to eschar. no need for surgery; patient can recover from this physiological insult; in the meantime recommend q2hr turns for pressure off loading, changing to low air loss mattress; santyl:gentamicin 50:50 mix applied daily (cover with guaze, ABD pad and tape);
[2017-08-16] MEDS: Insulin DETEMIR 100 UNIT/ML X5UNITS SQ SCH ×2 (12:07→21:13)
[2017-08-16] MEDS: rOPINIRole 1 MG TABLET PO SCH (21:13)
[2017-08-17] MEDS: Ipratropium/Albuterol Neb 3 ML IH SCH ×7 (00:17→23:57)
[2017-08-17] MEDS: *HR* LORazepam 2 MG/ML VIAL IVP PRN ×2 (02:44→20:15)
[2017-08-17] MEDS: *HR* OxyCODONE Immed Rel 15 MG TABLET PO PRN ×2 (04:13→16:22)
[2017-08-17 05:42] LABS: Basophils % 0.4 %; Eosinophils # 0.4 K/mcL (0.0-0.6); Eosinophils % 4.3 %; Hematocrit 33.7 % (35.3-44.9); Hemoglobin 9.9 g/dL (11.5-15.4); Immature Granulocytes % 1.6 % (0-4); Lymphocytes # 1.6 K/mcL (0.6-4.6); Lymphocytes % 16.3 %; Mean Corpuscular HGB Conc 29.4 g/dL (31.6-35.5); Mean Corpuscular Hemoglobin 23.7 pg (28.0-33.3); Mean Corpuscular Volume 80.6 fL (83.0-100.0); Mean Platelet Volume 9.1 fL (9.4-12.4); Monocytes # 1.2 K/mcL (0.0-1.3); Monocytes % 11.9 %; Neutrophils # 6.4 K/mcL (1.6-8.9); Platelet Count 386 K/mcL (140-400); Red Blood Count 4.18 M/mcL (3.82-4.97); Red Cell Distribution Width 18.2 % (11.5-14.5); Segmented Neutrophils % 65.5 %
[2017-08-17 05:57] LABS: BUN/Creatinine Ratio 37 (6-26); Blood Urea Nitrogen 18 mg/dL (8-23); Calcium 9.1 mg/dL (8.6-10.3); Carbon Dioxide 34 mEq/L (23-29); Chloride 95 mEq/L (98-107); Glucose 175 mg/dL (70-105); Osmolality,Calculated 284 (280-300); Potassium 3.5 mEq/L (3.5-5.1); Sodium 134 mEq/L (136-145); eGFR For African Americans > 60 (> 60); eGFR For Non-African Americans > 60 (> 60)
[2017-08-17] MEDS: *HR* Heparin 5,000 UNIT/ML VIAL SQ SCH ×2 (06:08→17:42)
[2017-08-17] MEDS: Miconazole w/zinc oxide&karaya 92 APPL/92 GM TUBE TP SCH ×2 (07:20→20:14)
[2017-08-17] MEDS: Budesonide/Formoterol 160/4.5 MDI IH SCH ×2 (07:48→20:01)
[2017-08-17] MEDS: Insulin LISPRO 300 UNITS/3 ML VIAL SQ SCH ×4 (09:06→20:15)
[2017-08-17] MEDS: Aspirin 81 MG TAB.CHEW PO SCH (09:07)
[2017-08-17] MEDS: Cholecalciferol (D-3) 1,000 UNIT TABLET PO SCH (09:07)
[2017-08-17] MEDS: Loratadine 10 MG TABLET PO SCH (09:07)
[2017-08-17] MEDS: Verapamil ER (24 HR) 240 MG TABLET.ER PO SCH (09:08)
[2017-08-17] MEDS: Metoprolol XL (24 HR) Succ 50 MG TAB.ER.24H PO SCH (09:08)
[2017-08-17] MEDS: Isosorbide MONOnitrate (24 HR) 60 MG TAB.ER.24H PO SCH (09:08)
[2017-08-17] MEDS: *HR* Amiodarone 200 MG TABLET PO SCH (09:08)
[2017-08-17] MEDS: Ertapenem 1,000 MG in 0.9 % Sodium Chloride Mini Bag 100 ML IVPB SCH (09:10)
[2017-08-17] MEDS: Folic Acid 1 MG TABLET PO SCH (09:10)
[2017-08-17] MEDS: Bumetanide 1 MG TABLET PO SCH ×2 (09:28→16:22)
[2017-08-17] MEDS: Insulin DETEMIR 100 UNIT/ML X5UNITS SQ SCH ×2 (09:28→22:12)
[2017-08-17] MEDS: Baclofen 10 MG TABLET PO SCH ×4 (09:29→20:12)
--- NOTE | 2017-08-17 10:32 | Event Note ---
<Abel Velasco - Last Filed: 08/17/17 10:33> Date of Encounter: 08/17/17 Time of Encounter: 07:30 Orders placed per recommendation by Dr. Toscano; no plan for surgery/debridement at this time, patient to have q2hr turns for pressure off loading, recommend change to low air loss mattress; santyl:gentamicin 50:50 mix applied daily ( cover with guaze, ABD pad and tape). Follow with wound care in 2 weeks. Thank you for the consult, please contact if needed. <Froy Toscano - Last Filed: 08/17/17 15:25> Date of Encounter: 08/17/17 I have personally seen and examined the patient. I have reviewed pertinent labs , imaging, progress notes, including this one. I agree with the above assessment and plan.
--- NOTE | 2017-08-17 11:19 | Infectious Disease Progress No ---
Date of Encounter: 08/17/17 Time of Encounter: 11:17 - Assessment and Plan (1) Sepsis Current Visit: Yes Status: Resolved The patient had three SIRS criteria on admission. Likely secondary to bacteremia, HCAP, and sacral wound infection. Improved. Leukocytosis, tachycardia, and tachypnea have resolved. Blood cultures drawn 08/01/17 x1 set and 08/02/17 x 1 set were positive for S. pneumoniae. Repeat blood cultures drawn 08/05/17 x 1 set and 08/06/17 x 2 sets are negative. Qualifiers: Sepsis type: Streptococcus, other Qualified Code(s): A40.8 - Other streptococcal sepsis (2) Bacteremia due to Gram-positive bacteria Current Visit: Yes Status: Resolved Causative organism: S. pneumoniae. Source unclear, but likely PNA. Blood cultures drawn 08/01/17 x1 set and 08/02/17 x 1 set were positive for S. pneumoniae. Repeat blood cultures drawn 08/05/17 x 1 set and 08/06/17 x 2 sets are negative. Complicated due to Pacer/AICD and bilateral knee hardware. No evidence of endocarditis. TTE negative for vegetations. Continue Vancomycin IV. Pharmacy to dose. Goal trough ~15. Duration of treatment depends on the clinical picture, but recommend a total of 14 days from the first set of negative blood cultures. Treat through 08/20/17. Monitor renal function and for drug toxicity and dose-adjust antibiotics. (3) HCAP (healthcare-associated pneumonia) Current Visit: Yes Status: Acute Causative organism: E. coli ESBL per sputum culture and possible S. pneumo given bacteremia. CXR negative, but CT chest showed RLL pneumonia. Clinically improved. Continue Ertapenem 1 gram IV daily. Continue Vancomycin IV. Pharmacy to dose. Goal trough ~15. Duration of treatment depends on the clinical picture. Will need 14 days of Vancomycin for bacteremia as above. Continue Ertapenem to complete a 10 day course. Continue Ertapenem through 08/18/17, then discontinue. Monitor renal function and for drug toxicity and dose-adjust antibiotics. (4) Sacral decubitus ulcer Current Visit: Yes Status: Acute Location: Sacrum. Likely secondary to poor offloading. CT of the abdomen and pelvis are negative for OM, but ESR and CRP are very elevated. General surgery consulted. No plans for surgery at this time. Wound culture positive for Acinetobacter: contaminant vs. colonization. Unlikely the source of the patient's sepsis since clinically she improved without appropriate antibiotic coverage. Qualifiers: Pressure ulcer stage: stage 2 Qualified Code(s): L89.152 - Pressure ulcer of sacral region, stage 2 (5) UTI (urinary tract infection) Current Visit: Yes Status: Acute The patient has a chronic indwelling david catheter. Urinalysis positive for pyuria, but culture grew Re. No indication to treat. Continue antibiotics as above. Qualifiers: Urinary tract infection type: site unspecified Hematuria presence: without hematuria Qualified Code(s): N39.0 - Urinary tract infection, site not specified (6) Acute respiratory failure with hypoxia and hypercapnia Current Visit: Yes Status: Acute Likely multifactorial: PNA + AECHF. Improved. Management per the primary team. (7) CKD (chronic kidney disease), stage III Current Visit: Yes Status: Acute Serum creatinine normal. Continue to trend. Strict I's and O's. Dose-adjust medications based on CrCl. Avoid nephrotoxins as able. (8) Elevated troponin Current Visit: Yes Status: Acute Elevated troponins since admission which have trended down. Patient seen and evaluated by cardiology. Likely demand ischemia and setting of sepsis versus NSTEMI. Patient was on IV heparin gtt. Currently chest pain free. Management per cardio and primary. (9) Diastolic congestive heart failure Current Visit: Yes Status: Acute Last echo on 08/02/17 showed EF 55-60%, not good study due to body habitus, not all segments well visualized, indeterminate diastolic function, RV not well visualized, mild tricuspid regurgitation, no pulmonary hypertension. Qualifiers: Heart failure chronicity: acute Qualified Code(s): I50.31 - Acute diastolic (congestive) heart failure (10) DM (diabetes mellitus), type 2 Current Visit: Yes Status: Chronic Blood sugars continue to run high. Hgb A1C 7.3%. Recommend aggressive glucose monitoring and control to promote wound healing and prevent infection. Management per the primary team. Qualifiers: Diabetes mellitus emt intermediate insulin use: with nursing home use Diabetes mellitus complication status: with unspecified complications Qualified Code(s) : E11.8 - Type 2 diabetes mellitus with unspecified complications (11) Anemia Current Visit: No Status: Chronic Chronic. No acute bleeding noted on exam. Continue to trend. Further workup and management per the primary team. Qualifiers: Anemia type: unspecified type Qualified Code(s): D64.9 - Anemia, unspecified (12) CAD (coronary artery disease) Current Visit: Yes Status: Chronic Qualifiers: Coronary Disease-Associated Artery/Lesion type: [place] artery [place] vs. transplanted heart: [place] heart Associated angina: without angina Qualified Code(s): I25.10 - Atherosclerotic heart disease of [place] coronary artery without angina pectoris (13) COPD (chronic obstructive pulmonary disease) Current Visit: Yes Status: Chronic Qualifiers: COPD type: unspecified COPD Qualified Code(s): J44.9 - Chronic obstructive pulmonary disease, unspecified (14) History of atrial fibrillation Current Visit: Yes Status: Chronic Continue rate control medication- per primary team. - Subjective Interval history: Patient seen and examined. No acute events noted overnight. Status post CT of the abdomen and pelvis that shows no evidence of osteomyelitis. Patient states that overall she feels well. She wants to know when she is standing at the back to [facility]. She denies any fevers or chills or rigors. She reports some orthopnea, but otherwise denies shortness of breath. She denies any chest pain or cough. She denies any nausea or vomiting or diarrhea. States she is unsure when the last time she had a bowel movement this. She has a chronic David catheter that remains patent. She complains of pain at the site of her decubitus ulcer. She states her appetite is good and she breakfast this morning. She denies abdominal pain. She denies any oral thrush or new skin lesions. Infect Dis PN-Objective Data - Labs CBC & Chem 7: 08/17/17 05:13 08/17/17 05:13 Labs: Laboratory Results - last 24 hr 08/15/17 08/16/17 08/16/17 15:21 11:57 12:43 WBC RBC Hgb Hct MCV MCH MCHC RDW Plt Count MPV Immature Gran % Seg Neutrophils % Lymphocytes % Monocytes % Eosinophils % Basophils % Neutrophils # Lymphocytes # Monocytes # Eosinophils # Basophils # Sodium Potassium Chloride Carbon Dioxide BUN Creatinine Est GFR ( Amer) Est GFR (Non-Af Amer) BUN/Creatinine Ratio Glucose POC Glucose 307 H 280 H Calculated Osmolality Calcium Vancomycin Trough 18 H 08/16/17 08/17/17 08/17/17 16:29 05:13 05:13 WBC 9.8 RBC 4.18 Hgb 9.9 L Hct 33.7 L MCV 80.6 L MCH 23.7 L MCHC 29.4 L RDW 18.2 H Plt Count 386 MPV 9.1 L Immature Gran % 1.6 Seg Neutrophils % 65.5 Lymphocytes % 16.3 Monocytes % 11.9 Eosinophils % 4.3 Basophils % 0.4 Neutrophils # 6.4 Lymphocytes # 1.6 Monocytes # 1.2 Eosinophils # 0.4 Basophils # 0.0 Sodium 134 L Potassium 3.5 Chloride 95 L Carbon Dioxide 34 H BUN 18 Creatinine 0.49 L Est GFR ( Amer) > 60 Est GFR (Non-Af Amer) > 60 BUN/Creatinine Ratio 37 H Glucose 175 H POC Glucose 303 H Calculated Osmolality 284 Calcium 9.1 Vancomycin Trough Cultures: Cultures 08/11/17 17:20 Wound Culture - Final Buttock Acinetobacter baumannii MDRO 08/06/17 12:40 Blood Culture - Final Peripheral Venipuncture No growth. 08/06/17 12:37 Blood Culture - Final Peripheral Venipuncture No growth. 08/05/17 12:32 Blood Culture - Final Peripheral Venipuncture No growth. 08/06/17 02:01 Urine Culture - Final Urine,[place] Re albicans 08/07/17 05:07 Sputum Culture - Final Sputum Escherichia coli ESBL 08/06/17 02:00 Sputum Culture - Final Sputum 08/02/17 09:07 Urine Culture - Final Urine,David [place] Culture is grossly mixed, unable to properly interpret. Please repeat if indicated. 08/02/17 04:56 Legionella Antigen - Final Urine,Clean Catch Streptococcus pneumoniae Antigen (M - Final Serology 08/07/17 08/02/17 Range/Units 10:12 06:47 Chlamy pneumoniae PCR Not Detected Not Detected (Not Detect) Adenovirus (PCR) Not Detected Not Detected (Not Detect) B. pertussis DNA (PCR) Not Detected Not Detected (Not Detect) B.parapertussis DNA PCR Not Detected Not Detected (Not Detect) Coronavirus OC43 (PCR) Not Detected Not Detected (Not Detect) Coronavirus HKU1 (PCR) Not Detected Not Detected (Not Detect) Coronavirus 229E (PCR) Not Detected Not Detected (Not Detect) Coronavirus NL63 (PCR) Not Detected Not Detected (Not Detect) Human Metapneumovir PCR Not Detected Not Detected (Not Detect) Influenza A (H1) PCR Not Detected Not Detected (Not Detect) Influ A (H1N1/09) PCR Not Detected Not Detected (Not Detect) Influenza A (H3) PCR Not Detected Not Detected (Not Detect) Influenza A Untype (PCR) Not Detected Not Detected (Not Detect) Influenza Type B (PCR) Not Detected Not Detected (Not Detect) M.pneumoniae DNA (PCR) Not Detected Not Detected (Not Detect) Parainfluenza 1 (PCR) Not Detected Not Detected (Not Detect) Parainfluenza 2 (PCR) Not Detected Not Detected (Not Detect) Parainfluenza 3 (PCR) Not Detected Not Detected (Not Detect) Parainfluenza 4 (PCR) Not Detected Not Detected (Not Detect) RSV (PCR) Not Detected Not Detected (Not Detect) Entero/Rhino (PCR) Not Detected Not Detected (Not Detect) - Impressions Impressions Abdomen/Pelvis CT 08/16/17 10:11 IMPRESSION: Mild skin thickening overlying the distal sacrum and coccyx, however no underlying osseous erosion or destruction to suggest osteomyelitis. No substantial interval change in low-attenuation areas of the liver, possibly areas of geographic fatty infiltration although indeterminate. As mentioned previously, recommend further evaluation with liver protocol CT or MRI. Unchanged ventral abdominal wall inflammatory changes. No soft tissue abscess. Mild increase in size of small right pleural effusion. Persistent right basilar airspace disease. D/ / Enmanuel Cooley / Enmanuel Cooley Interpreting Provider: Enmanuel Cooley Exam - Constitutional Vitals: Temp Pulse Resp BP Pulse Ox 98.2 F 80 16 135/52 97 08/17/17 06:30 08/17/17 06:30 08/17/17 11:13 08/17/17 06:30 08/17/17 11:13 General appearance: cooperative, no acute distress, obese - Head Head exam: Present: atraumatic, normal inspection, normocephalic - Eye Eye exam: Present: EOMI, normal appearance, PERRL Pupils: Present: normal accommodation - ENT ENT exam: Present: mucous membranes moist - Neck Neck exam: Present: normal inspection - Respiratory Respiratory exam: Present: CTAB. Absent: rales, respiratory distress, rhonchi, wheezes - Cardiovascular Cardiovascular exam: Present: RRR, +S1, +S2 - GI/Abdominal GI/Abdominal exam: Present: distended (obese), normal bowel sounds, soft. Absent: tenderness - Extremities Exam Extremities exam: Present: normal inspection. Absent: joint swelling, pedal edema, tenderness - Back Exam Additional comments: Decubitus ulcer dressing noted to be C/D/I. - Neurological Exam Neurological exam: Present: alert, oriented X3, no focal deficits - Psychiatric Psychiatric exam: Present: normal affect, normal mood - Skin Skin exam: Present: dry, intact, normal color, warm Consult Discharge Plan - Plan Referrals: Robb Perry MD [Primary Care Provider] - ([facility]) - Attending Attestation I examined this patient and my medical decision-making was reviewed with the Resident Physician. I agree with the documented findings, disposition and treatment plan as described except to the extent set forth below.
--- NOTE | 2017-08-17 14:01 | Internal Med Progress Note ---
<GastonCorey cantrell - Last Filed: 08/17/17 13:55> Date of Encounter: 08/17/17 Time of Encounter: 13:55 - Assessment and plan (1) HCAP (healthcare-associated pneumonia) Current Visit: Yes Status: Acute Assessment and plan: - Sputum culture positive for E.Coli ESBL, resistant to Cefepime patient had been on for 5 days - Cefepime was discontinued and meropenem started on 08/09/17; vancomycin continued - Repeat blood cultures negative 08/05/17 and 08/06/17 - Leukocytosis improving to 9.8 and patient afebrile - Sputum culture growing ESBL E.coli, sensitive to carbapanems. - Infectious disease following with recommendations to discontinue meropenem and start patient on ertapenem on 08/15 - Patient is asymptomatic at this time with no fevers, cough, shortness of breath Plan - Continue ertapenem day #3, can discontinue after 08/18/17 per ID. - Continue vancomycin day #11/12. Goal stop date of 08/20/17 - Tobramycin discontinued as it was felt it may be a contaminant and patient was improving without treatment. - ID consulted, appreciate recommendations. - Will speak to case managers regarding availability of IV antibiotics at [facility] for possible discharge in next couple days. (2) Bacteremia due to Gram-positive bacteria Current Visit: Yes Status: Resolved Assessment and plan: Secondary to streptococcus pneumonia with positive blood cultures on 08/01 and 08/02 Repeat blood cultures on 08/06/17 negative Urine legionella Ag positive. Continue management as above (3) CAD (coronary artery disease) Current Visit: Yes Status: Chronic Assessment and plan: Stable; continue IVETTE inhibitor, beta clarissa and aspirin Qualifiers: Coronary Disease-Associated Artery/Lesion type: [place] artery [place] vs. transplanted heart: [place] heart Associated angina: without angina Qualified Code(s): I25.10 - Atherosclerotic heart disease of [place] coronary artery without angina pectoris (4) Insulin dependent diabetes mellitus Current Visit: Yes Status: Chronic Assessment and plan: Controlled; continue sliding scale insulin and basal insulin BS this morning of 175. Likely elevated in the setting of infection. (5) History of atrial fibrillation Current Visit: Yes Status: Chronic Assessment and plan: Continue rate control with beta clarissa; continue amiodarone HR 80-90s. Not on anticoagulation (6) CKD (chronic kidney disease), stage III Current Visit: No Status: Chronic Assessment and plan: BUN/Cr of 18/0.49, GFR >60. No documented CKD on this admission, however stage III in history Stable; continue to monitor (7) Hypertension Current Visit: Yes Status: Chronic Assessment and plan: Most recent BP of 120/50 Controlled; continue beta clarissa Qualifiers: Hypertension type: essential hypertension Qualified Code(s): I10 - Essential (primary) hypertension (8) COPD (chronic obstructive pulmonary disease) Current Visit: Yes Status: Chronic Assessment and plan: Continue Symbicort and duo nebs No complaints of SOB. At home oxygen requirement of 3L Qualifiers: COPD type: emphysema Emphysema type: unspecified Qualified Code(s): J43.9 - Emphysema, unspecified (9) Sepsis Current Visit: Yes Status: Resolved Assessment and plan: Resolved; secondary to the above Continue to monitor Qualifiers: Sepsis type: Streptococcus, other Qualified Code(s): A40.8 - Other streptococcal sepsis (10) NSTEMI (non-ST elevated myocardial infarction) Current Visit: Yes Status: Acute Assessment and plan: - Cardiology consult and given the above ongoing issues, recommend medical management, not a candidate for cardiac rehab. - TTE EF is [id number]%. Not all garcia visualized. - Troponin elevated on admission with a peak of 2.70 which was trended - No complaints of chest pain Plan - Continue ASA, BB. Intolerant to statins. (11) UTI (urinary tract infection) Current Visit: Yes Status: Acute Assessment and plan: Continue antibiotics as above Qualifiers: Urinary tract infection type: site unspecified Hematuria presence: without hematuria Qualified Code(s): N39.0 - Urinary tract infection, site not specified (12) Liver lesion Current Visit: Yes Status: Acute Assessment and plan: s/p liver biopsy 08/10/17, findings consistent with fatty infiltration Hematology oncology consult with recommendations for outpatient follow up (13) DVT prophylaxis Current Visit: Yes Status: Acute Assessment and plan: Continue heparin (14) Sacral decubitus ulcer Current Visit: Yes Status: Acute Assessment and plan: - Patient's cultures on 08/11/17 positive for Acinetobacter which is sensitive for tobramycin which was started on 08/13/17 - Infectious disease following, appreciate recommendations - Wound care following an appreciate any additional recommendations - Patient has been afebrile, WBC of 9.8 which is stable from previous - Upon examination yesterday, area is necrotic but no obvious source of bony involvement. - There is concern for possible osteomyelitis given elevation of CRP at 123, ESR of 122, however CT does not suggest mary involvement - Surgery consulted, appreciate recommendations. Recommend dressing changes and follow up outpatient to wound care. No immediate surgical intervention planned. Plan - Continue antibiotics as above. - Bed turns, dressing changes, wound care. - Defer to infectious disease recommendations - Pain control Qualifiers: Pressure ulcer stage: stage 2 Qualified Code(s): L89.152 - Pressure ulcer of sacral region, stage 2 - Time Spent With Patient Total time spent is greater than 50% in coordination of care (as documented) at patient's floor/unit and/or counseling patient: 25 - 35 minutes - Subjective Interval history: Patient seen and examined this morning. She states that she feels about the same as yesterday with her only complaint being that her butt hurts. She denies symptoms of fevers, chills, nausea, vomiting, chest pain, SOB, cough. Continues todeny any bowel movements. - Constitutional Vitals: Temp Pulse Resp BP Pulse Ox 98.8 F 97 16 120/50 97 08/17/17 11:37 08/17/17 11:37 08/17/17 11:37 08/17/17 11:37 08/17/17 11:37 General appearance: Present: A&O X 3, morbidly obese, no acute distress Exam: Gen.: Vitals noted. No acute distress. AAOx3 HEENT: PERRL/EOMI, oropharynx clear, Normocephalic, atraumatic, MMM Cardiac: RRR, no murmur, +S1/S2 Pulmonary: CTA bilaterally, no wheezes, rales or rhonchi, equal chest expansion Abdomen: soft, nontender, BS noted, no guarding, no rebound. : Cristobal in place, yellow urine. Extremities: no BLE edema, nontender calf, no cyanosis or clubbing Neuro: A&Ox3, moves all extremities, no focal deficits. Diffuse weakness in Lower extremities. Psych: Appropriate mood and behavior Internal Medicine: Result - Labs CBC & Chem 7: 08/17/17 05:13 08/17/17 05:13 Labs: Short CBC 08/17/17 Range/Units 05:13 WBC 9.8 (4.3-11.1) K/mcL Hgb 9.9 L (11.5-15.4) g/dL Hct 33.7 L (35.3-44.9) % Plt Count 386 (140-400) K/mcL Neutrophils # 6.4 (1.6-8.9) K/mcL BMP 08/17/17 05:13 Sodium 134 L Potassium 3.5 Chloride 95 L Carbon Dioxide 34 H BUN 18 Creatinine 0.49 L Glucose 175 H Calcium 9.1 - ABG Interpretation ABG results: ABG ABG pH 7.51 pH Units (7.32-7.45) H 08/07/17 06:26 ABG pCO2 45 mmHg (35-45) 08/07/17 06:26 ABG pO2 88 mmHg (85-104) 08/07/17 06:26 ABG O2 Saturation 97 % (95-98) 08/07/17 06:26 PT/INR, D-dimer PT 13.4 Seconds (9.4-12.1) H 08/09/17 08:32 Consult Discharge Plan - Plan Referrals: WoundCare,Clinic [Other] - 08/23/17 11:15 am (Patient will see Dr. Toscano.) Robb Perry MD [Primary Care Provider] - ([facility]) <Sharon Medina - Last Filed: 08/17/17 16:28> Date of Encounter: 08/17/17 - Assessment and plan (1) CAD (coronary artery disease) Current Visit: Yes Status: Chronic Qualifiers: Coronary Disease-Associated Artery/Lesion type: [place] artery [place] vs. transplanted heart: [place] heart Associated angina: without angina Qualified Code(s): I25.10 - Atherosclerotic heart disease of [place] coronary artery without angina pectoris (2) Insulin dependent diabetes mellitus Current Visit: Yes Status: Chronic (3) History of atrial fibrillation Current Visit: Yes Status: Chronic (4) CKD (chronic kidney disease), stage III Current Visit: No Status: Chronic (5) Bacteremia due to Gram-positive bacteria Current Visit: Yes Status: Resolved (6) Hypertension Current Visit: Yes Status: Chronic Qualifiers: Hypertension type: essential hypertension Qualified Code(s): I10 - Essential (primary) hypertension (7) COPD (chronic obstructive pulmonary disease) Current Visit: Yes Status: Chronic Qualifiers: COPD type: emphysema Emphysema type: unspecified Qualified Code(s): J43.9 - Emphysema, unspecified (8) Sepsis Current Visit: Yes Status: Resolved Qualifiers: Sepsis type: Streptococcus, other Qualified Code(s): A40.8 - Other streptococcal sepsis (9) HCAP (healthcare-associated pneumonia) Current Visit: Yes Status: Acute (10) NSTEMI (non-ST elevated myocardial infarction) Current Visit: Yes Status: Acute (11) UTI (urinary tract infection) Current Visit: Yes Status: Acute Qualifiers: Urinary tract infection type: site unspecified Hematuria presence: without hematuria Qualified Code(s): N39.0 - Urinary tract infection, site not specified (12) DVT prophylaxis Current Visit: Yes Status: Acute (13) Liver lesion Current Visit: Yes Status: Acute (14) Sacral decubitus ulcer Current Visit: Yes Status: Acute Qualifiers: Pressure ulcer stage: stage 2 Qualified Code(s): L89.152 - Pressure ulcer of sacral region, stage 2 - Time Spent With Patient Total time spent is greater than 50% in coordination of care (as documented) at patient's floor/unit and/or counseling patient: - Constitutional Vitals: Temp Pulse Resp BP Pulse Ox 98.8 F 97 16 120/50 97 08/17/17 11:37 08/17/17 11:37 08/17/17 11:37 08/17/17 11:37 08/17/17 11:37 Internal Medicine: Result - Labs CBC & Chem 7: 08/17/17 05:13 08/17/17 05:13 Labs: Short CBC 08/17/17 Range/Units 05:13 WBC 9.8 (4.3-11.1) K/mcL Hgb 9.9 L (11.5-15.4) g/dL Hct 33.7 L (35.3-44.9) % Plt Count 386 (140-400) K/mcL Neutrophils # 6.4 (1.6-8.9) K/mcL BMP 08/17/17 05:13 Sodium 134 L Potassium 3.5 Chloride 95 L Carbon Dioxide 34 H BUN 18 Creatinine 0.49 L Glucose 175 H Calcium 9.1 - ABG Interpretation ABG results: ABG ABG pH 7.51 pH Units (7.32-7.45) H 08/07/17 06:26 ABG pCO2 45 mmHg (35-45) 08/07/17 06:26 ABG pO2 88 mmHg (85-104) 08/07/17 06:26 ABG O2 Saturation 97 % (95-98) 08/07/17 06:26 PT/INR, D-dimer PT 13.4 Seconds (9.4-12.1) H 08/09/17 08:32 - Attending Attestation I examined this patient and my medical decision-making was reviewed with the Resident Physician Dr. Lua. I agree with the documented findings, disposition and treatment plan as described except to the extent set forth below. Ms. Snyder is a 66 y/o F chronic bed bound pt admitted here for HCAP and Sacral ulcer. Pt also have ESBL positive and Strep Pneumonia. Gen: A, A, O x3 Chest: Diminished BS b/l Heart: S1S2+ RRR No murmurs Back: Sacral ulcer+ stage 2 ulcer. mild necrosed tissue in the middle. 1. Sacral stage [address] of Abd did not show any osteomyelitis / No fluid collection Surgery did not suggest debridement for now need out pt f/u with surgery ID recommend topical abx 2. HCAP with ESBL and Strep 3. Bacteremia with Strep Improving ID recommend total 14 days of Vancomycin # 02/12 total 7 days of Ertapenem # 07/06
[2017-08-17] MEDS: *HR* FentaNYL PATCH 75 MCG PATCH TD SCH (14:39)
[2017-08-17] MEDS: Gentamicin Oint 15 GM TUBE TP SCH (18:30)
[2017-08-17] MEDS: rOPINIRole 1 MG TABLET PO SCH (20:11)
[2017-08-18] MEDS: *HR* OxyCODONE Immed Rel 15 MG TABLET PO PRN ×4 (01:02→20:39)
[2017-08-18] MEDS: Ipratropium/Albuterol Neb 3 ML IH SCH ×5 (03:38→19:39)
[2017-08-18] MEDS: *HR* Heparin 5,000 UNIT/ML VIAL SQ SCH ×2 (05:23→17:42)
[2017-08-18 05:37] LABS: Basophils # 0.1 K/mcL (0.0-0.2); Basophils % 0.6 %; Eosinophils # 0.5 K/mcL (0.0-0.6); Eosinophils % 5.6 %; Hematocrit 29.3 % (35.3-44.9); Immature Granulocytes % 1.7 % (0-4); Lymphocytes # 1.4 K/mcL (0.6-4.6); Mean Corpuscular HGB Conc 30.7 g/dL (31.6-35.5); Mean Corpuscular Hemoglobin 24.3 pg (28.0-33.3); Mean Corpuscular Volume 79.2 fL (83.0-100.0); Mean Platelet Volume 9.5 fL (9.4-12.4); Monocytes # 0.9 K/mcL (0.0-1.3); Monocytes % 10.6 %; Neutrophils # 5.3 K/mcL (1.6-8.9); Platelet Count 355 K/mcL (140-400); Red Cell Distribution Width 18.4 % (11.5-14.5); Segmented Neutrophils % 64.5 %
[2017-08-18 05:48] LABS: BUN/Creatinine Ratio 35 (6-26); Blood Urea Nitrogen 14 mg/dL (8-23); Calcium 8.3 mg/dL (8.6-10.3); Carbon Dioxide 31 mEq/L (23-29); Chloride 97 mEq/L (98-107); Glucose 153 mg/dL (70-105); Osmolality,Calculated 286 (280-300); Potassium 3.1 mEq/L (3.5-5.1); Sodium 136 mEq/L (136-145); eGFR For African Americans > 60 (> 60); eGFR For Non-African Americans > 60 (> 60)
[2017-08-18] MEDS: Budesonide/Formoterol 160/4.5 MDI IH SCH ×2 (07:46→19:39)
[2017-08-18] MEDS: Metoprolol XL (24 HR) Succ 50 MG TAB.ER.24H PO SCH (09:27)
[2017-08-18] MEDS: Isosorbide MONOnitrate (24 HR) 60 MG TAB.ER.24H PO SCH (09:27)
[2017-08-18] MEDS: Bumetanide 1 MG TABLET PO SCH ×2 (09:27→17:43)
[2017-08-18] MEDS: *HR* Amiodarone 200 MG TABLET PO SCH (09:30)
[2017-08-18] MEDS: Aspirin 81 MG TAB.CHEW PO SCH (09:30)
[2017-08-18] MEDS: Cholecalciferol (D-3) 1,000 UNIT TABLET PO SCH (09:31)
[2017-08-18] MEDS: Folic Acid 1 MG TABLET PO SCH (09:31)
[2017-08-18] MEDS: Verapamil ER (24 HR) 240 MG TABLET.ER PO SCH (09:31)
[2017-08-18] MEDS: Baclofen 10 MG TABLET PO SCH ×4 (09:31→20:39)
[2017-08-18] MEDS: Loratadine 10 MG TABLET PO SCH (09:32)
[2017-08-18] MEDS: Ertapenem 1,000 MG in 0.9 % Sodium Chloride Mini Bag 100 ML IVPB SCH (09:32)
[2017-08-18] MEDS: Insulin LISPRO 300 UNITS/3 ML VIAL SQ SCH ×5 (10:05→20:37)
[2017-08-18] MEDS: Insulin DETEMIR 100 UNIT/ML X5UNITS SQ SCH ×2 (10:06→20:39)
--- NOTE | 2017-08-18 10:19 | Discharge Summary ---
<Corey Lua - Last Filed: 08/18/17 13:57> Date of Encounter: 08/18/17 Time of Encounter: 10:15 - Discharge Diagnosis (1) HCAP (healthcare-associated pneumonia) Priority: Secondary Status: Acute (2) Bacteremia due to Gram-positive bacteria Priority: Secondary Status: Resolved (3) CAD (coronary artery disease) Priority: Secondary Status: Chronic Qualifiers: Coronary Disease-Associated Artery/Lesion type: [place] artery [place] vs. transplanted heart: [place] heart Associated angina: without angina Qualified Code(s): I25.10 - Atherosclerotic heart disease of [place] coronary artery without angina pectoris (4) Insulin dependent diabetes mellitus Priority: Secondary Status: Chronic (5) History of atrial fibrillation Priority: Secondary Status: Chronic (6) CKD (chronic kidney disease), stage III Priority: Secondary Status: Chronic (7) Hypertension Priority: Secondary Status: Chronic Qualifiers: Hypertension type: essential hypertension Qualified Code(s): I10 - Essential (primary) hypertension (8) COPD (chronic obstructive pulmonary disease) Priority: Secondary Status: Chronic Qualifiers: COPD type: emphysema Emphysema type: unspecified Qualified Code(s): J43.9 - Emphysema, unspecified (9) Sepsis Priority: Primary Status: Resolved Qualifiers: Sepsis type: Streptococcus, other Qualified Code(s): A40.8 - Other streptococcal sepsis (10) NSTEMI (non-ST elevated myocardial infarction) Priority: Secondary Status: Acute (11) UTI (urinary tract infection) Priority: Secondary Status: Acute Qualifiers: Urinary tract infection type: site unspecified Hematuria presence: without hematuria Qualified Code(s): N39.0 - Urinary tract infection, site not specified (12) Liver lesion Priority: Secondary Status: Acute (13) DVT prophylaxis Priority: Secondary Status: Acute (14) Sacral decubitus ulcer Priority: Secondary Status: Chronic Qualifiers: Pressure ulcer stage: stage 2 Qualified Code(s): L89.152 - Pressure ulcer of sacral region, stage 2 Hospital course: Ms. Snyder is a 66 year old female with past medical history of CHF, COPD, diabetes, hyperlipidemia, hypertension, CAD presented to the emergency department from nursing facility with complaint of shortness of breath, decreased responsiveness, fever. She is noticeably saturating option 82% on room air upon arrival with improvement with 5 L of nasal cannula. Initial workup in the emergency room did reveal it to be WBC of 38, baseline anemia, potassium 3.0 hour troponin of 1.65. EKG performed at the time showed no ST or T-wave abnormalities. CT of the abdomen and pelvis, CT chest were significant for a right lateral abdominal wall cellulitis as well as a right lower lobe pneumonia. She was admitted to intensive care unit for further evaluation and management of sepsis secondary to healthcare associated pneumonia, urinary tract infection, non-ST segment elevated myocardial infarction. Patient was started on vancomycin, Zosyn, cefepime. She was started on heparin drip and cardiology was consult for elevated troponin recommended noninvasive management this time and continuing heparin drip. Unfortunately during hospital stay, patients respiratory status did continue to decline and she was intubated on 08/05/17. Antibiotic regimen was continued at this time and she did gradually improve. She also received doses of furosemide for possible fluid overload. Patient was successfully extubated on 08/07/17 after spontaneous breathing trial. Respiratory panel did come back negative for viral infection. Labs were trended and improved back to baseline. Urine strep coccus pnemo antigen was positive as well as blood cultures drawn on 08/01 as well as 08/02 for strep pneumo. Sputum culture drawn on 08/07/17 did grow ESBL Escherichia coli which was sensitive only to carbapanems and a stage II sacral decubitus ulcer was also present upon admission and wound culture grew Acinetobacter multi-drug- resistant. Infectious disease was consulted and patient antibiotic regimen was changed to ertapenem, vancomycin, tobramycin due to sensitivities. Repeat blood cultures drawn on 08/06 showing final no growth. Per infectious disease, she will require a 14 day course of vancomycin from that 08/06 date. She will have completed her course of ertapenem on 08/18 with a total of 6 days. General surgery was also consulted during admission for possible debridement of sacral decubitus ulcer and conservative management was determined the course of action at this time. She will be see outpatient wound care and have dressing changes with gentamicin ointment. Infectious disease also determined that Acinetobacter on wound culture was likely contaminant as she was improving without treatment initially. Tobramycin will be discontinued. On day of discharge, patient was afebrile, vital signs the normal limits, lab results returned based on levels. She will be discharged to nursing facility in stable condition with remainder of antibiotics as above. She has an appointment scheduled for wound care. - Time Spent with Patient Total time spent providing and/or coordinating discharge services: - Discharge Medications Prescriptions: Collagenase Oint [Santyl] 1 appl TP DAILY #3 tube Gentamicin Oint [Garamycin] 1 appl TP DAILY #3 tube Miconazole w/zinc oxide&karaya [Antifungal Extra Thick] 1 appl TP BID #3 tube Vancomycin [Vancocin] 750 mg IV BID #6 vial Home Medications: Baclofen 10 mg PO QID 12/12/14 [History] Budesonide/Formoterol Fumarate [Symbicort 160-4.5 Mcg Inhaler] 2 puff IH BID [History] Cholecalciferol (Vitamin D3) [Vitamin D3] 2,000 unit PO DAILY 12/12/14 [History] Duloxetine HCl [Cymbalta] 60 mg PO DAILY 12/12/14 [History] Ferrous Sulfate 325 mg PO DAILY 12/12/14 [History] Fluticasone Propionate Nasal [Flonase] 1 spr NS DAILY PRN 12/12/14 [History] Folic Acid 1 mg PO QAM 12/12/14 [History] Isosorbide MONOnitrate [Isosorbide Mononitrate ER] 120 mg PO DAILY 12/12/14 [ History] Loratadine [Loradamed] 10 mg PO DAILY 12/12/14 [History] Montelukast Sodium [Singulair] 10 mg PO DAILY 12/12/14 [History] Sertraline HCl [Zoloft] 50 mg PO HS 12/12/14 [History] Theophylline Anhydrous [Theodur] 300 mg PO BID 12/12/14 [History] Trazodone HCl 300 mg PO HS 12/12/14 [History] Verapamil ER (24 HR) [Calan SR] 240 mg PO DAILY 12/12/14 [History] Meclizine [Antivert] 12.5 mg PO TID PRN 14 Days tablet 04/05/15 [Rx] Bisacodyl [Dulcolax] 10 mg RC DAILY PRN 08/26/15 [History] Docusate [Colace] 100 mg PO DAILY 08/26/15 [History] Ipratropium/Albuterol Neb [Duoneb] 3 ml IH Q4HR PRN 08/26/15 [History] Polyethylene Glycol 3350 [Gavilax] 17 gm PO DAILY 08/26/15 [History] Acetaminophen [Tylenol] 650 mg PO Q4HR PRN 10/16/15 [History] Naloxone [Narcan] 0.4 mg IV Q2MIN PRN #0 inj 10/17/15 [Rx] Calcium Carbonate/Vitamin D3 [Calcium 600-Vit D3 400 Tablet] 1 tab PO BID [History] Losartan Potassium [Cozaar] 100 mg PO DAILY 06/08/16 [History] Ropinirole HCl [Requip] 2 mg PO HS 06/08/16 [History] Amiodarone [Cordarone] 100 mg PO DAILY 08/08/17 [History] Bumetanide 2 mg PO BID 08/08/17 [History] Ezetimibe 10 mg PO DAILY 08/08/17 [History] Glucagon,Human Recombinant [Glucagen] 1 mg IM PRN PRN 08/08/17 [History] Hydroxychloroquine [Plaquenuil] 200 mg PO BID 08/08/17 [History] Ibuprofen [Motrin Ib] 600 mg PO BID 08/08/17 [History] Insulin DETEMIR [Levemir] 70 units SQ BID 08/08/17 [History] Insulin LISPRO [HumaLOG] 4 - 12 units SQ AD 08/08/17 [History] Lactulose 20 gm PO DAILY PRN 08/08/17 [History] Mag Hydrox/Al Hydrox/Simeth [Maalox] 30 ml PO TIDAC 08/08/17 [History] Metoprolol Succinate [Toprol Xl] 50 mg PO DAILY 08/08/17 [History] Mucinex Dm 1 tab PO BID 08/08/17 [History] OxyCODONE Immed Rel [Roxicodone 10 MG] 10 mg PO Q6H 08/08/17 [History] OxyCODONE Immed Rel [Roxicodone 30 MG] 30 mg PO Q6H 08/08/17 [History] Oxybutynin Chloride [Ditropan Xl] 15 mg PO DAILY 08/08/17 [History] Pantoprazole Sodium 40 mg PO BID 08/08/17 [History] Ranitidine HCl [Zantac] 150 mg PO HS 08/08/17 [History] cloNIDine HCl [CloNIDine HCl] 0.1 mg PO BID PRN 08/08/17 [History] fentaNYL [Fentanyl] 50 mcg TD Q72H 08/08/17 [History] hydrOXYzine pamoate [HydrOXYzine Pamoate] 25 mg PO TID 08/08/17 [History] Aspirin 81 mg PO DAILY tab.chew 08/18/17 [Rx] Collagenase Oint [Santyl] 1 appl TP DAILY #3 tube 08/18/17 [Rx] Gentamicin Oint [Garamycin] 1 appl TP DAILY #3 tube 08/18/17 [Rx] Miconazole w/zinc oxide&karaya [Antifungal Extra Thick] 1 appl TP BID #3 tube [Rx] Vancomycin [Vancocin] 750 mg IV BID #6 vial 08/18/17 [Rx] Allergies/Adverse Reactions: 3 Allergy/AdvReac Type Severity Reaction Status Date / Time tuberculin, purified protein Allergy Mild Hives Verified 12/12/14 11:15 deriva [tuberculin,purif.prot.deriv.] carvedilol [From Coreg] AdvReac Intermediate Anxiety Verified 12/12/14 11:15 ranolazine [From Ranexa] AdvReac Intermediate nausea, Verified 12/12/14 11:15 vomiting Izwcadz-Xhn-Yys Reductase AdvReac Intermediate muscle Verified 12/12/14 11:15 Inhibitor dysfunction [Statins] Date of admission: 08/02/17 03:30 Primary care physician: Robb Perry MD Consults: 08/03/17 09:02 Consult to Lead Teacher [CONS] Routine Reason for SW Consult: RETURN TO [facility] 08/04/17 16:22 Consult to Oncology [CONS] Routine Consulting Provider: [facility] Reason for Consult: new diagnosis of malignancy Call Completed: Yes 08/05/17 11:37 Consult to Critical Care [CONS] Stat Consulting Provider: [facility] Reason for Consult: acute respiratory failure Call Completed: Yes 08/06/17 10:07 consult to water resource consultant [Consult to Nutrition] [CONS] Routine Comment: Consulting Provider: NUTRITION Reason for Dietary Consult: Tube Feed Start & Manage 08/10/17 15:14 Consult to Wound Care [CONS] Routine Reason for Consult: pressure ulcer to coccyx Call Completed: Yes 08/13/17 17:18 Consult to Infectious Diseases [CONS] Routine Consulting Provider: [facility] [place] Reason for Consult: Sacrococcyx wound culture positive for Acinetobacter Call Completed: No 08/16/17 08:20 Consult to Surgery [CONS] Routine Consulting Provider: [facility] Reason for Consult: Sacral decubitus ulcer Call Completed: Yes Discharging clinician: Corey Lua Anticipated date of discharge: 08/18/17 - Constitutional Vitals: Temp Pulse Resp BP Pulse Ox 98.1 F 93 20 143/56 94 08/18/17 07:28 08/18/17 07:28 08/18/17 07:47 08/18/17 07:28 08/18/17 07:47 General appearance: Present: A&O X 3, morbidly obese, no acute distress Exam: Gen.: Vitals noted. No acute distress. AAOx3. Bedbound patient resting comfortably. HEENT: PERRL/EOMI, oropharynx clear, Normocephalic, atraumatic, MMM Cardiac: RRR, no murmur, +S1/S2 Pulmonary: CTA bilaterally, no wheezes, rales or rhonchi, equal chest expansion Abdomen: soft, nontender, BS noted, no guarding, no rebound. Extremities: no BLE edema, nontender calf, no cyanosis or clubbing Neuro: A&Ox3, moves all extremities, no focal deficits Psych: Appropriate mood and behavior - Patient Status Disposition: Transfer SNF Condition: Fair Functional capacity at discharge: uses cane/walker Overall status at discharge: patient is progressing back to baseline - Discharge Instructions Follow Up With: WoundCare,Clinic [Other] - 08/23/17 11:15 am (Patient will see Dr. Toscano.) Robb Perry MD [Primary Care Provider] - (ECF) Additional Instructions: PLease follow up with PCP, wound care after discharge. Take all meds as prescribed. Return to hospital if symptoms return. - Diet and Activity Activity: increase activity as tolerated, resume usual activities as tolerated Diet: advance to your usual diet <Sharon Medina - Last Filed: 08/18/17 15:18> Date of Encounter: 08/18/17 - Discharge Diagnosis (1) CAD (coronary artery disease) Status: Chronic Qualifiers: Coronary Disease-Associated Artery/Lesion type: [place] artery [place] vs. transplanted heart: [place] heart Associated angina: without angina Qualified Code(s): I25.10 - Atherosclerotic heart disease of [place] coronary artery without angina pectoris (2) Insulin dependent diabetes mellitus Status: Chronic (3) History of atrial fibrillation Status: Chronic (4) CKD (chronic kidney disease), stage III Status: Chronic (5) Bacteremia due to Gram-positive bacteria Status: Resolved (6) Hypertension Status: Chronic Qualifiers: Hypertension type: essential hypertension Qualified Code(s): I10 - Essential (primary) hypertension (7) COPD (chronic obstructive pulmonary disease) Status: Chronic Qualifiers: COPD type: emphysema Emphysema type: unspecified Qualified Code(s): J43.9 - Emphysema, unspecified (8) Sepsis Status: Resolved Qualifiers: Sepsis type: Streptococcus, other Qualified Code(s): A40.8 - Other streptococcal sepsis (9) HCAP (healthcare-associated pneumonia) Status: Acute (10) NSTEMI (non-ST elevated myocardial infarction) Status: Acute (11) UTI (urinary tract infection) Status: Acute Qualifiers: Urinary tract infection type: site unspecified Hematuria presence: without hematuria Qualified Code(s): N39.0 - Urinary tract infection, site not specified (12) DVT prophylaxis Status: Acute (13) Liver lesion Status: Acute (14) Sacral decubitus ulcer Status: Chronic Qualifiers: Pressure ulcer stage: stage 2 Qualified Code(s): L89.152 - Pressure ulcer of sacral region, stage 2 Hospital course: Ms. Snyder is a 66 year old female - Time Spent with Patient Total time spent providing and/or coordinating discharge services: Date of admission: 08/02/17 03:30 Primary care physician: Robb Perry MD Consults: 08/03/17 09:02 Consult to Lead Teacher [CONS] Routine Reason for SW Consult: RETURN TO [facility] 08/04/17 16:22 Consult to Oncology [CONS] Routine Consulting Provider: [facility] Reason for Consult: new diagnosis of malignancy Call Completed: Yes 08/05/17 11:37 Consult to Critical Care [CONS] Stat Consulting Provider: [facility] Reason for Consult: acute respiratory failure Call Completed: Yes 08/06/17 10:07 consult to water resource consultant [Consult to Nutrition] [CONS] Routine Comment: Consulting Provider: NUTRITION Reason for Dietary Consult: Tube Feed Start & Manage 08/10/17 15:14 Consult to Wound Care [CONS] Routine Reason for Consult: pressure ulcer to coccyx Call Completed: Yes 08/13/17 17:18 Consult to Infectious Diseases [CONS] Routine Consulting Provider: [facility] Reason for Consult: Sacrococcyx wound culture positive for Acinetobacter Call Completed: No 08/16/17 08:20 Consult to Surgery [CONS] Routine Consulting Provider: [facility] Reason for Consult: Sacral decubitus ulcer Call Completed: Yes - Constitutional Vitals: Temp Pulse Resp BP Pulse Ox 98.4 F 87 20 129/46 96 08/18/17 11:01 08/18/17 11:01 08/18/17 11:01 08/18/17 11:01 08/18/17 11:01 - Attending Attestation I examined this patient and my medical decision-making was reviewed with the Resident Physician Dr. Lua. I agree with the documented findings, disposition and treatment plan as described except to the extent set forth below. Ms. Snyder is a 66 y/o F chronic bed bound pt admitted here for HCAP and Sacral ulcer. Pt also have ESBL positive and Strep Pneumonia. Gen: A, A, O x3 Chest: Diminished BS b/l Heart: S1S2+ RRR No murmurs Back: Sacral ulcer+ stage 2 ulcer. mild necrosed tissue in the middle. 1. Sacral stage [address] of Abd did not show any osteomyelitis / No fluid collection Surgery did not suggest debridement for now need out pt f/u with surgery ID recommend topical abx 2. HCAP with ESBL and Strep 3. Bacteremia with Strep Improving Medically stable to d/c to ECF with IV abx
--- NOTE | 2017-08-18 10:32 | Physician Discharge Referral ---
ExtendedCare Referral Info Provider in Charge after Transfer: PCP Institutional Level of Care: Skilled - Diagnosis (1) HCAP (healthcare-associated pneumonia) Priority: Secondary Status: Acute (2) Sacral decubitus ulcer Priority: Secondary Status: Chronic (3) Bacteremia due to Gram-positive bacteria Priority: Secondary Status: Resolved (4) CAD (coronary artery disease) Priority: Secondary Status: Chronic (5) Insulin dependent diabetes mellitus Priority: Secondary Status: Chronic (6) History of atrial fibrillation Priority: Secondary Status: Chronic (7) CKD (chronic kidney disease), stage III Priority: Secondary Status: Chronic (8) Hypertension Priority: Secondary Status: Chronic (9) COPD (chronic obstructive pulmonary disease) Priority: Secondary Status: Chronic (10) Sepsis Priority: Primary Status: Resolved (11) NSTEMI (non-ST elevated myocardial infarction) Priority: Secondary Status: Acute (12) UTI (urinary tract infection) Priority: Secondary Status: Acute (13) Liver lesion Priority: Secondary Status: Acute (14) DVT prophylaxis Priority: Secondary Status: Acute Prognosis: Fair Aware of Diagnosis: Patient Aware of Prognosis: Patient - Transfer Medications Prescriptions: Collagenase Oint [Santyl] 1 appl TP DAILY #3 tube Gentamicin Oint [Garamycin] 1 appl TP DAILY #3 tube Miconazole w/zinc oxide&karaya [Antifungal Extra Thick] 1 appl TP BID #3 tube Vancomycin [Vancocin] 750 mg IV BID #6 vial Home Medications: Baclofen 10 mg PO QID 12/12/14 [History] Budesonide/Formoterol Fumarate [Symbicort 160-4.5 Mcg Inhaler] 2 puff IH BID [History] Cholecalciferol (Vitamin D3) [Vitamin D3] 2,000 unit PO DAILY 12/12/14 [History] Duloxetine HCl [Cymbalta] 60 mg PO DAILY 12/12/14 [History] Ferrous Sulfate 325 mg PO DAILY 12/12/14 [History] Fluticasone Propionate Nasal [Flonase] 1 spr NS DAILY PRN 12/12/14 [History] Folic Acid 1 mg PO QAM 12/12/14 [History] Isosorbide MONOnitrate [Isosorbide Mononitrate ER] 120 mg PO DAILY 12/12/14 [ History] Loratadine [Loradamed] 10 mg PO DAILY 12/12/14 [History] Montelukast Sodium [Singulair] 10 mg PO DAILY 12/12/14 [History] Sertraline HCl [Zoloft] 50 mg PO HS 12/12/14 [History] Theophylline Anhydrous [Theodur] 300 mg PO BID 12/12/14 [History] Trazodone HCl 300 mg PO HS 12/12/14 [History] Verapamil ER (24 HR) [Calan SR] 240 mg PO DAILY 12/12/14 [History] Meclizine [Antivert] 12.5 mg PO TID PRN 14 Days tablet 04/05/15 [Rx] Bisacodyl [Dulcolax] 10 mg RC DAILY PRN 08/26/15 [History] Docusate [Colace] 100 mg PO DAILY 08/26/15 [History] Ipratropium/Albuterol Neb [Duoneb] 3 ml IH Q4HR PRN 08/26/15 [History] Polyethylene Glycol 3350 [Gavilax] 17 gm PO DAILY 08/26/15 [History] Acetaminophen [Tylenol] 650 mg PO Q4HR PRN 10/16/15 [History] Naloxone [Narcan] 0.4 mg IV Q2MIN PRN #0 inj 10/17/15 [Rx] Calcium Carbonate/Vitamin D3 [Calcium 600-Vit D3 400 Tablet] 1 tab PO BID [History] Losartan Potassium [Cozaar] 100 mg PO DAILY 06/08/16 [History] Ropinirole HCl [Requip] 2 mg PO HS 06/08/16 [History] Amiodarone [Cordarone] 100 mg PO DAILY 08/08/17 [History] Bumetanide 2 mg PO BID 08/08/17 [History] Ezetimibe 10 mg PO DAILY 08/08/17 [History] Glucagon,Human Recombinant [Glucagen] 1 mg IM PRN PRN 08/08/17 [History] Hydroxychloroquine [Plaquenuil] 200 mg PO BID 08/08/17 [History] Ibuprofen [Motrin Ib] 600 mg PO BID 08/08/17 [History] Insulin DETEMIR [Levemir] 70 units SQ BID 08/08/17 [History] Insulin LISPRO [HumaLOG] 4 - 12 units SQ AD 08/08/17 [History] Lactulose 20 gm PO DAILY PRN 08/08/17 [History] Mag Hydrox/Al Hydrox/Simeth [Maalox] 30 ml PO TIDAC 08/08/17 [History] Metoprolol Succinate [Toprol Xl] 50 mg PO DAILY 08/08/17 [History] Mucinex Dm 1 tab PO BID 08/08/17 [History] OxyCODONE Immed Rel [Roxicodone 10 MG] 10 mg PO Q6H 08/08/17 [History] OxyCODONE Immed Rel [Roxicodone 30 MG] 30 mg PO Q6H 08/08/17 [History] Oxybutynin Chloride [Ditropan Xl] 15 mg PO DAILY 08/08/17 [History] Pantoprazole Sodium 40 mg PO BID 08/08/17 [History] Ranitidine HCl [Zantac] 150 mg PO HS 08/08/17 [History] cloNIDine HCl [CloNIDine HCl] 0.1 mg PO BID PRN 08/08/17 [History] fentaNYL [Fentanyl] 50 mcg TD Q72H 08/08/17 [History] hydrOXYzine pamoate [HydrOXYzine Pamoate] 25 mg PO TID 08/08/17 [History] Aspirin 81 mg PO DAILY tab.chew 08/18/17 [Rx] Collagenase Oint [Santyl] 1 appl TP DAILY #3 tube 08/18/17 [Rx] Gentamicin Oint [Garamycin] 1 appl TP DAILY #3 tube 08/18/17 [Rx] Miconazole w/zinc oxide&karaya [Antifungal Extra Thick] 1 appl TP BID #3 tube [Rx] Vancomycin [Vancocin] 750 mg IV BID #6 vial 08/18/17 [Rx] Allergies/Adverse Reactions: 3 Allergy/AdvReac Type Severity Reaction Status Date / Time tuberculin, purified protein Allergy Mild Hives Verified 12/12/14 11:15 deriva [tuberculin,purif.prot.deriv.] carvedilol [From Coreg] AdvReac Intermediate Anxiety Verified 12/12/14 11:15 ranolazine [From Ranexa] AdvReac Intermediate nausea, Verified 12/12/14 11:15 vomiting Ezgcymf-Wca-Sow Reductase AdvReac Intermediate muscle Verified 12/12/14 11:15 Inhibitor dysfunction [Statins] - Respiratory Orders Smoking Cessation: Smoking cessation has been advised. For more information, call the [place] Tobacco Quit Line at 4-781-OPKE-NOW. - Treatments Skin tear care topically daily PRN per policy - Diet Orders Regular CERTIFICATION: I certify that the transfer of the above named patient to an Extended Care Facility is necessary for the continuing treatment of the diagnosis listed. The above information is true and accurate reflection of patient's current condition. Confidential - Redisclosure prohibited without a patient's written consent.
[2017-08-18] MEDS: Miconazole w/zinc oxide&karaya 92 APPL/92 GM TUBE TP SCH ×2 (11:37→20:50)
--- NOTE | 2017-08-18 11:52 | Infectious Disease Progress No ---
Date of Encounter: 08/18/17 Time of Encounter: 10:55 - Assessment and Plan (1) Sepsis Current Visit: Yes Status: Resolved The patient had three SIRS criteria on admission. Likely secondary to bacteremia, HCAP, and sacral wound infection. Improved. Leukocytosis, tachycardia, and tachypnea have resolved. Blood cultures drawn 08/01/17 x1 set and 08/02/17 x 1 set were positive for S. pneumoniae. Repeat blood cultures drawn 08/05/17 x 1 set and 08/06/17 x 2 sets are negative. Qualifiers: Sepsis type: Streptococcus, other Qualified Code(s): A40.8 - Other streptococcal sepsis (2) Bacteremia due to Gram-positive bacteria Current Visit: Yes Status: Resolved Causative organism: S. pneumoniae. Source unclear, but likely PNA. Blood cultures drawn 08/01/17 x1 set and 08/02/17 x 1 set were positive for S. pneumoniae. Repeat blood cultures drawn 08/05/17 x 1 set and 08/06/17 x 2 sets are negative. Complicated due to Pacer/AICD and bilateral knee hardware. No evidence of endocarditis. TTE negative for vegetations. Continue Vancomycin IV. Pharmacy to dose. Goal trough ~15. Duration of treatment depends on the clinical picture, but recommend a total of 14 days from the first set of negative blood cultures. Treat through 08/24/17. Monitor renal function and for drug toxicity and dose-adjust antibiotics. Will need PICC line placement prior to discharge. Okay to consult VAT for line placement. Will need weekly CBC, BUN/Cr, and Vanc trough every Tuesday. Will need weekly PICC care per protocol. (3) HCAP (healthcare-associated pneumonia) Current Visit: Yes Status: Acute Causative organism: E. coli ESBL per sputum culture and possible S. pneumo given bacteremia. CXR negative, but CT chest showed RLL pneumonia. Clinically improved. Continue Ertapenem 1 gram IV daily. Continue Vancomycin IV. Pharmacy to dose. Goal trough ~15. Duration of treatment depends on the clinical picture. Will need 14 days of Vancomycin for bacteremia as above. Continue Ertapenem to complete a 10 day course. Continue Ertapenem through 08/18/17, then discontinue. Monitor renal function and for drug toxicity and dose-adjust antibiotics. (4) Sacral decubitus ulcer Current Visit: Yes Status: Chronic Location: Sacrum. Likely secondary to poor offloading. CT of the abdomen and pelvis are negative for OM, but ESR and CRP are very elevated. General surgery consulted. No plans for surgery at this time. Wound culture positive for Acinetobacter: contaminant vs. colonization. Unlikely the source of the patient's sepsis since clinically she improved without appropriate antibiotic coverage. Qualifiers: Pressure ulcer stage: stage 2 Qualified Code(s): L89.152 - Pressure ulcer of sacral region, stage 2 (5) UTI (urinary tract infection) Current Visit: Yes Status: Acute The patient has a chronic indwelling david catheter. Urinalysis positive for pyuria, but culture grew Re. No indication to treat. Continue antibiotics as above. Qualifiers: Urinary tract infection type: site unspecified Hematuria presence: without hematuria Qualified Code(s): N39.0 - Urinary tract infection, site not specified (6) Acute respiratory failure with hypoxia and hypercapnia Current Visit: Yes Status: Resolved Likely multifactorial: PNA + AECHF. Improved. Management per the primary team. (7) CKD (chronic kidney disease), stage III Current Visit: Yes Status: Acute Serum creatinine normal. Continue to trend. Strict I's and O's. Dose-adjust medications based on CrCl. Avoid nephrotoxins as able. (8) Elevated troponin Current Visit: Yes Status: Acute Elevated troponins since admission which have trended down. Patient seen and evaluated by cardiology. Likely demand ischemia and setting of sepsis versus NSTEMI. Patient was on IV heparin gtt. Currently chest pain free. Management per cardio and primary. (9) Diastolic congestive heart failure Current Visit: Yes Status: Acute Last echo on 08/02/17 showed EF 55-60%, not good study due to body habitus, not all segments well visualized, indeterminate diastolic function, RV not well visualized, mild tricuspid regurgitation, no pulmonary hypertension. Qualifiers: Heart failure chronicity: acute Qualified Code(s): I50.31 - Acute diastolic (congestive) heart failure (10) DM (diabetes mellitus), type 2 Current Visit: Yes Status: Chronic Blood sugars continue to run high. Hgb A1C 7.3%. Recommend aggressive glucose monitoring and control to promote wound healing and prevent infection. Management per the primary team. Qualifiers: Diabetes mellitus long-term insulin use: with long-term use Diabetes mellitus complication status: with unspecified complications Qualified Code(s) : E11.8 - Type 2 diabetes mellitus with unspecified complications (11) Anemia Current Visit: No Status: Chronic Chronic. No acute bleeding noted on exam. Continue to trend. Further workup and management per the primary team. Qualifiers: Anemia type: unspecified type Qualified Code(s): D64.9 - Anemia, unspecified (12) CAD (coronary artery disease) Current Visit: Yes Status: Chronic Qualifiers: Coronary Disease-Associated Artery/Lesion type: [place] artery [place] vs. transplanted heart: [place] heart Associated angina: without angina Qualified Code(s): I25.10 - Atherosclerotic heart disease of [place] coronary artery without angina pectoris (13) COPD (chronic obstructive pulmonary disease) Current Visit: Yes Status: Chronic Qualifiers: COPD type: unspecified COPD Qualified Code(s): J44.9 - Chronic obstructive pulmonary disease, unspecified (14) History of atrial fibrillation Current Visit: Yes Status: Chronic Continue rate control medication- per primary team. - Subjective Interval history: Patient seen and examined. No acute events noted overnight. Patient states that overall she feels well. She denies any fevers or chills or rigors. She reports some orthopnea, but otherwise denies shortness of breath. She denies any chest pain or cough. She denies any nausea or vomiting or diarrhea. States she is unsure when the last time she had a bowel movement this. She has a chronic David catheter that remains patent. She complains of pain at the site of her decubitus ulcer. She states her appetite is good and she breakfast this morning. She denies abdominal pain. She denies any oral thrush or new skin lesions. Infect Dis PN-Objective Data - Labs CBC & Chem 7: 08/18/17 04:52 08/18/17 04:52 Labs: Laboratory Results - last 24 hr 08/16/17 08/17/17 08/17/17 21:07 08:11 17:22 WBC RBC Hgb Hct MCV MCH MCHC RDW Plt Count MPV Immature Gran % Seg Neutrophils % Lymphocytes % Monocytes % Eosinophils % Basophils % Neutrophils # Lymphocytes # Monocytes # Eosinophils # Basophils # Sodium Potassium Chloride Carbon Dioxide BUN Creatinine Est GFR ( Amer) Est GFR (Non-Af Amer) BUN/Creatinine Ratio Glucose POC Glucose 235 H 184 H 209 H Calculated Osmolality Calcium 08/17/17 08/18/17 08/18/17 19:18 04:52 04:52 WBC 8.2 RBC 3.70 L Hgb 9.0 L Hct 29.3 L MCV 79.2 L MCH 24.3 L MCHC 30.7 L RDW 18.4 H Plt Count 355 MPV 9.5 Immature Gran % 1.7 Seg Neutrophils % 64.5 Lymphocytes % 17.0 Monocytes % 10.6 Eosinophils % 5.6 Basophils % 0.6 Neutrophils # 5.3 Lymphocytes # 1.4 Monocytes # 0.9 Eosinophils # 0.5 Basophils # 0.1 Sodium 136 Potassium 3.1 L Chloride 97 L Carbon Dioxide 31 H BUN 14 Creatinine 0.40 L Est GFR ( Amer) > 60 Est GFR (Non-Af Amer) > 60 BUN/Creatinine Ratio 35 H Glucose 153 H POC Glucose 212 H Calculated Osmolality 286 Calcium 8.3 L 08/18/17 08/18/17 08/18/17 07:31 09:55 10:53 WBC RBC Hgb Hct MCV MCH MCHC RDW Plt Count MPV Immature Gran % Seg Neutrophils % Lymphocytes % Monocytes % Eosinophils % Basophils % Neutrophils # Lymphocytes # Monocytes # Eosinophils # Basophils # Sodium Potassium Chloride Carbon Dioxide BUN Creatinine Est GFR ( Amer) Est GFR (Non-Af Amer) BUN/Creatinine Ratio Glucose POC Glucose 159 H 219 H 228 H Calculated Osmolality Calcium Cultures: Cultures 08/11/17 17:20 Wound Culture - Final Buttock Acinetobacter baumannii MDRO 08/06/17 12:40 Blood Culture - Final Peripheral Venipuncture No growth. 08/06/17 12:37 Blood Culture - Final Peripheral Venipuncture No growth. 08/05/17 12:32 Blood Culture - Final Peripheral Venipuncture No growth. 08/06/17 02:01 Urine Culture - Final Urine,[place] Re albicans 08/07/17 05:07 Sputum Culture - Final Sputum Escherichia coli ESBL 08/06/17 02:00 Sputum Culture - Final Sputum 08/02/17 09:07 Urine Culture - Final Urine,[place] Culture is grossly mixed, unable to properly interpret. Please repeat if indicated. 08/02/17 04:56 Legionella Antigen - Final Urine,Clean Catch Streptococcus pneumoniae Antigen (M - Final Serology 08/07/17 08/02/17 Range/Units 10:12 06:47 Chlamy pneumoniae PCR Not Detected Not Detected (Not Detect) Adenovirus (PCR) Not Detected Not Detected (Not Detect) B. pertussis DNA (PCR) Not Detected Not Detected (Not Detect) B.parapertussis DNA PCR Not Detected Not Detected (Not Detect) Coronavirus OC43 (PCR) Not Detected Not Detected (Not Detect) Coronavirus HKU1 (PCR) Not Detected Not Detected (Not Detect) Coronavirus 229E (PCR) Not Detected Not Detected (Not Detect) Coronavirus NL63 (PCR) Not Detected Not Detected (Not Detect) Human Metapneumovir PCR Not Detected Not Detected (Not Detect) Influenza A (H1) PCR Not Detected Not Detected (Not Detect) Influ A (H1N1/09) PCR Not Detected Not Detected (Not Detect) Influenza A (H3) PCR Not Detected Not Detected (Not Detect) Influenza A Untype (PCR) Not Detected Not Detected (Not Detect) Influenza Type B (PCR) Not Detected Not Detected (Not Detect) M.pneumoniae DNA (PCR) Not Detected Not Detected (Not Detect) Parainfluenza 1 (PCR) Not Detected Not Detected (Not Detect) Parainfluenza 2 (PCR) Not Detected Not Detected (Not Detect) Parainfluenza 3 (PCR) Not Detected Not Detected (Not Detect) Parainfluenza 4 (PCR) Not Detected Not Detected (Not Detect) RSV (PCR) Not Detected Not Detected (Not Detect) Entero/Rhino (PCR) Not Detected Not Detected (Not Detect) Exam - Constitutional Vitals: Temp Pulse Resp BP Pulse Ox 98.4 F 87 20 129/46 96 08/18/17 11:01 08/18/17 11:01 08/18/17 11:01 08/18/17 11:01 08/18/17 11:01 General appearance: cooperative, no acute distress, obese - Head Head exam: Present: atraumatic, normal inspection, normocephalic - Eye Eye exam: Present: EOMI, normal appearance, PERRL Pupils: Present: normal accommodation - ENT ENT exam: Present: mucous membranes moist - Neck Neck exam: Present: normal inspection - Respiratory Respiratory exam: Present: CTAB. Absent: rales, respiratory distress, rhonchi, wheezes - Cardiovascular Cardiovascular exam: Present: RRR, +S1, +S2 - GI/Abdominal GI/Abdominal exam: Present: distended (obese), normal bowel sounds, soft. Absent: tenderness Additional comments: David catheter noted to be draining clear yellow urine. - Extremities Exam Extremities exam: Present: normal inspection. Absent: joint swelling, pedal edema, tenderness - Back Exam Additional comments: Sacral wound dressing C/D/I. - Neurological Exam Neurological exam: Present: alert, oriented X3, no focal deficits - Psychiatric Psychiatric exam: Present: normal affect, normal mood - Skin Skin exam: Present: dry, intact, normal color, warm Consult Discharge Plan - Plan Additional Instructions: PLease follow up with PCP, wound care after discharge. Take all meds as prescribed. Return to hospital if symptoms return. Referrals: WoundCare,Clinic [Other] - 08/23/17 11:15 am (Patient will see Dr. Toscano.) Robb Perry MD [Primary Care Provider] - ([facility]) Prescriptions: Collagenase Oint [Santyl] 1 appl TP DAILY #3 tube Gentamicin Oint [Garamycin] 1 appl TP DAILY #3 tube Miconazole w/zinc oxide&karaya [Antifungal Extra Thick] 1 appl TP BID #3 tube Vancomycin [Vancocin] 750 mg IV BID #6 vial - Attending Attestation I examined this patient and my medical decision-making was reviewed with the Resident Physician. I agree with the documented findings, disposition and treatment plan as described except to the extent set forth below.
[2017-08-18] MEDS: *HR* LORazepam 2 MG/ML VIAL IVP PRN ×2 (13:01→20:39)
[2017-08-18] MEDS: Gentamicin Oint 15 GM TUBE TP SCH (15:44)
[2017-08-18] MEDS: rOPINIRole 1 MG TABLET PO SCH (20:39)
[2017-08-19] MEDS: Ipratropium/Albuterol Neb 3 ML IH SCH ×6 (00:13→20:17)
[2017-08-19] MEDS: *HR* OxyCODONE Immed Rel 15 MG TABLET PO PRN ×3 (00:51→17:00)
[2017-08-19] MEDS: *HR* Heparin 5,000 UNIT/ML VIAL SQ SCH ×2 (06:06→17:01)
[2017-08-19] MEDS: Budesonide/Formoterol 160/4.5 MDI IH SCH ×2 (07:18→20:17)
--- NOTE | 2017-08-19 10:55 | Infectious Disease Progress No ---
Date of Encounter: 08/19/17 Time of Encounter: 10:53 - Assessment and Plan (1) Sepsis Current Visit: Yes Status: Resolved The patient had three SIRS criteria on admission. Likely secondary to bacteremia, HCAP, and sacral wound infection. Improved. Leukocytosis, tachycardia, and tachypnea have resolved. Blood cultures drawn 08/01/17 x1 set and 08/02/17 x 1 set were positive for S. pneumoniae. Repeat blood cultures drawn 08/05/17 x 1 set and 08/06/17 x 2 sets are negative. Qualifiers: Sepsis type: Streptococcus, other Qualified Code(s): A40.8 - Other streptococcal sepsis (2) Bacteremia due to Gram-positive bacteria Current Visit: Yes Status: Resolved Causative organism: S. pneumoniae. Source unclear, but likely PNA. Blood cultures drawn 08/01/17 x1 set and 08/02/17 x 1 set were positive for S. pneumoniae. Repeat blood cultures drawn 08/05/17 x 1 set and 08/06/17 x 2 sets are negative. Complicated due to Pacer/AICD and bilateral knee hardware. No evidence of endocarditis. TTE negative for vegetations. Continue Vancomycin IV. Pharmacy to dose. Goal trough ~15. Duration of treatment depends on the clinical picture, but recommend a total of 14 days from the first set of negative blood cultures. Treat through 08/24/17. Monitor renal function and for drug toxicity and dose-adjust antibiotics. Will need PICC line placement prior to discharge if antibiotic therapy not complete prior to discharge. Okay to consult VAT for line placement. Will need weekly CBC, BUN/Cr, and Vanc trough every Tuesday. Will need weekly PICC care per protocol. (3) HCAP (healthcare-associated pneumonia) Current Visit: Yes Status: Acute Causative organism: E. coli ESBL per sputum culture and possible S. pneumo given bacteremia. CXR negative, but CT chest showed RLL pneumonia. Clinically improved. Has completed 7 days of IV Ertapenem. Discontinue Ertapenem. Continue Vancomycin IV. Pharmacy to dose. Goal trough ~15. Duration of treatment depends on the clinical picture. Will need 14 days of Vancomycin for bacteremia as above. Continue Ertapenem to complete a 10 day course. Monitor renal function and for drug toxicity and dose-adjust antibiotics. (4) Sacral decubitus ulcer Current Visit: Yes Status: Chronic Location: Sacrum. Likely secondary to poor offloading. CT of the abdomen and pelvis are negative for OM, but ESR and CRP are very elevated. General surgery consulted. No plans for surgery at this time. Wound culture positive for Acinetobacter: contaminant vs. colonization. Unlikely the source of the patient's sepsis since clinically she improved without appropriate antibiotic coverage. Recommend topical Gentamicin. Qualifiers: Pressure ulcer stage: stage 2 Qualified Code(s): L89.152 - Pressure ulcer of sacral region, stage 2 (5) UTI (urinary tract infection) Current Visit: Yes Status: Acute The patient has a chronic indwelling david catheter. Urinalysis positive for pyuria, but culture grew Re. No indication to treat. Continue antibiotics as above. Qualifiers: Urinary tract infection type: site unspecified Hematuria presence: without hematuria Qualified Code(s): N39.0 - Urinary tract infection, site not specified (6) Acute respiratory failure with hypoxia and hypercapnia Current Visit: Yes Status: Resolved Likely multifactorial: PNA + AECHF. Improved. Management per the primary team. (7) CKD (chronic kidney disease), stage III Current Visit: Yes Status: Acute Serum creatinine normal. Continue to trend. Strict I's and O's. Dose-adjust medications based on CrCl. Avoid nephrotoxins as able. (8) Elevated troponin Current Visit: Yes Status: Acute Elevated troponins since admission which have trended down. Patient seen and evaluated by cardiology. Likely demand ischemia and setting of sepsis versus NSTEMI. Patient was on IV heparin gtt. Currently chest pain free. Management per cardio and primary. (9) Diastolic congestive heart failure Current Visit: Yes Status: Acute Last echo on 08/02/17 showed EF 55-60%, not good study due to body habitus, not all segments well visualized, indeterminate diastolic function, RV not well visualized, mild tricuspid regurgitation, no pulmonary hypertension. Qualifiers: Heart failure chronicity: acute Qualified Code(s): I50.31 - Acute diastolic (congestive) heart failure (10) DM (diabetes mellitus), type 2 Current Visit: Yes Status: Chronic Blood sugars continue to run high. Hgb A1C 7.3%. Recommend aggressive glucose monitoring and control to promote wound healing and prevent infection. Management per the primary team. Qualifiers: Diabetes mellitus detention insulin use: with detention use Diabetes mellitus complication status: with unspecified complications Qualified Code(s) : E11.8 - Type 2 diabetes mellitus with unspecified complications (11) Anemia Current Visit: No Status: Chronic Chronic. No acute bleeding noted on exam. Continue to trend. Further workup and management per the primary team. Qualifiers: Anemia type: unspecified type Qualified Code(s): D64.9 - Anemia, unspecified (12) CAD (coronary artery disease) Current Visit: Yes Status: Chronic Qualifiers: Coronary Disease-Associated Artery/Lesion type: [place] artery [place] vs. transplanted heart: [place] heart Associated angina: without angina Qualified Code(s): I25.10 - Atherosclerotic heart disease of [place] coronary artery without angina pectoris (13) COPD (chronic obstructive pulmonary disease) Current Visit: Yes Status: Chronic Qualifiers: COPD type: unspecified COPD Qualified Code(s): J44.9 - Chronic obstructive pulmonary disease, unspecified (14) History of atrial fibrillation Current Visit: Yes Status: Chronic Continue rate control medication- per primary team. - Subjective Interval history: Patient seen and examined. No acute events noted overnight. Patient states that overall she feels well. She complains of pain at the site of her decubitus ulcer. She denies any fevers or chills or rigors. Denies shortness of breath. She denies any chest pain or cough. She denies any nausea or vomiting or diarrhea. States she is unsure when the last time she had a bowel movement was. She has a chronic David catheter that remains patent. She states her appetite is good and she breakfast this morning. She denies abdominal pain. She denies any oral thrush or new skin lesions. Awaiting private room at [facility] for discharge. Infect Dis PN-Objective Data - Labs CBC & Chem 7: 08/18/17 04:52 08/18/17 04:52 Labs: Laboratory Results - last 24 hr 08/18/17 08/18/17 08/18/17 10:53 15:28 18:25 POC Glucose 228 H 147 H 161 H 08/18/17 08/19/17 20:12 08:35 POC Glucose 161 H 164 H Cultures: Cultures 08/11/17 17:20 Wound Culture - Final Buttock Acinetobacter baumannii MDRO 08/06/17 12:40 Blood Culture - Final Peripheral Venipuncture No growth. 08/06/17 12:37 Blood Culture - Final Peripheral Venipuncture No growth. 08/05/17 12:32 Blood Culture - Final Peripheral Venipuncture No growth. 08/06/17 02:01 Urine Culture - Final Urine,[place] Re albicans 08/07/17 05:07 Sputum Culture - Final Sputum Escherichia coli ESBL 08/06/17 02:00 Sputum Culture - Final Sputum 08/02/17 09:07 Urine Culture - Final Urine,[place] Culture is grossly mixed, unable to properly interpret. Please repeat if indicated. 08/02/17 04:56 Legionella Antigen - Final Urine,Clean Catch Streptococcus pneumoniae Antigen (M - Final Serology 08/07/17 08/02/17 Range/Units 10:12 06:47 Chlamy pneumoniae PCR Not Detected Not Detected (Not Detect) Adenovirus (PCR) Not Detected Not Detected (Not Detect) B. pertussis DNA (PCR) Not Detected Not Detected (Not Detect) B.parapertussis DNA PCR Not Detected Not Detected (Not Detect) Coronavirus OC43 (PCR) Not Detected Not Detected (Not Detect) Coronavirus HKU1 (PCR) Not Detected Not Detected (Not Detect) Coronavirus 229E (PCR) Not Detected Not Detected (Not Detect) Coronavirus NL63 (PCR) Not Detected Not Detected (Not Detect) Human Metapneumovir PCR Not Detected Not Detected (Not Detect) Influenza A (H1) PCR Not Detected Not Detected (Not Detect) Influ A (H1N1/09) PCR Not Detected Not Detected (Not Detect) Influenza A (H3) PCR Not Detected Not Detected (Not Detect) Influenza A Untype (PCR) Not Detected Not Detected (Not Detect) Influenza Type B (PCR) Not Detected Not Detected (Not Detect) M.pneumoniae DNA (PCR) Not Detected Not Detected (Not Detect) Parainfluenza 1 (PCR) Not Detected Not Detected (Not Detect) Parainfluenza 2 (PCR) Not Detected Not Detected (Not Detect) Parainfluenza 3 (PCR) Not Detected Not Detected (Not Detect) Parainfluenza 4 (PCR) Not Detected Not Detected (Not Detect) RSV (PCR) Not Detected Not Detected (Not Detect) Entero/Rhino (PCR) Not Detected Not Detected (Not Detect) Exam - Constitutional Vitals: Temp Pulse Resp BP Pulse Ox 98.6 F 95 16 120/72 97 08/19/17 08:40 08/19/17 08:40 08/19/17 08:40 08/19/17 08:40 08/19/17 08:40 General appearance: cooperative, no acute distress, obese - Head Head exam: Present: atraumatic, normal inspection, normocephalic - Eye Eye exam: Present: EOMI, normal appearance, PERRL Pupils: Present: normal accommodation - ENT ENT exam: Present: mucous membranes moist - Neck Neck exam: Present: normal inspection - Respiratory Respiratory exam: Present: CTAB. Absent: rales, respiratory distress, rhonchi, wheezes - Cardiovascular Cardiovascular exam: Present: RRR, +S1, +S2 - GI/Abdominal GI/Abdominal exam: Present: distended (obese), normal bowel sounds, soft. Absent: tenderness Additional comments: David catheter noted to be draining clear yellow urine. - Extremities Exam Extremities exam: Absent: joint swelling, normal inspection (Venous stasis dermatitis noted to the BLE.), pedal edema, tenderness - Back Exam Additional comments: Decubitus ulcer noted to the sacral area C/D/I. - Neurological Exam Neurological exam: Present: alert, oriented X3, no focal deficits - Psychiatric Psychiatric exam: Present: normal affect, normal mood - Skin Skin exam: Present: dry, intact, normal color, warm Consult Discharge Plan - Plan Additional Instructions: PLease follow up with PCP, wound care after discharge. Take all meds as prescribed. Return to hospital if symptoms return. Referrals: WoundCare,Clinic [Other] - 08/23/17 11:15 am (Patient will see Dr. Toscano.) Robb Perry MD [Primary Care Provider] - (ECF) Prescriptions: Collagenase Oint [Santyl] 1 appl TP DAILY #3 tube Gentamicin Oint [Garamycin] 1 appl TP DAILY #3 tube Miconazole w/zinc oxide&karaya [Antifungal Extra Thick] 1 appl TP BID #3 tube Vancomycin [Vancocin] 750 mg IV BID #6 vial - Attending Attestation I examined this patient and my medical decision-making was reviewed with the Resident Physician. I agree with the documented findings, disposition and treatment plan as described except to the extent set forth below.
[2017-08-19] MEDS: Insulin LISPRO 300 UNITS/3 ML VIAL SQ SCH ×4 (11:09→21:10)
[2017-08-19] MEDS: Metoprolol XL (24 HR) Succ 50 MG TAB.ER.24H PO SCH (11:24)
[2017-08-19] MEDS: Aspirin 81 MG TAB.CHEW PO SCH (11:24)
[2017-08-19] MEDS: Cholecalciferol (D-3) 1,000 UNIT TABLET PO SCH (11:24)
[2017-08-19] MEDS: Loratadine 10 MG TABLET PO SCH (11:24)
[2017-08-19] MEDS: Bumetanide 1 MG TABLET PO SCH ×2 (11:25→17:00)
[2017-08-19] MEDS: Folic Acid 1 MG TABLET PO SCH (11:25)
[2017-08-19] MEDS: Verapamil ER (24 HR) 240 MG TABLET.ER PO SCH (11:25)
[2017-08-19] MEDS: *HR* Amiodarone 200 MG TABLET PO SCH (11:25)
[2017-08-19] MEDS: Gentamicin Oint 15 GM TUBE TP SCH (11:26)
[2017-08-19] MEDS: Baclofen 10 MG TABLET PO SCH ×4 (11:26→21:09)
[2017-08-19] MEDS: Miconazole w/zinc oxide&karaya 92 APPL/92 GM TUBE TP SCH ×2 (11:26→21:11)
[2017-08-19] MEDS: Isosorbide MONOnitrate (24 HR) 60 MG TAB.ER.24H PO SCH (11:26)
[2017-08-19] MEDS: Insulin DETEMIR 100 UNIT/ML X5UNITS SQ SCH ×2 (11:26→21:10)
--- NOTE | 2017-08-19 14:22 | Internal Med Progress Note ---
<GastonCorey cantrell - Last Filed: 08/19/17 14:18> Date of Encounter: 08/19/17 Time of Encounter: 14:18 - Assessment and plan (1) HCAP (healthcare-associated pneumonia) Current Visit: Yes Status: Acute Assessment and plan: - Sputum culture positive for E.Coli ESBL, resistant to Cefepime patient had been on for 5 days - Cefepime was discontinued and meropenem started on 08/09/17; vancomycin continued - Repeat blood cultures negative 08/05/17 and 08/06/17 - Leukocytosis resolved and patient afebrile - Sputum culture growing ESBL E.coli, sensitive to carbapanems. - Infectious disease following with recommendations to discontinue meropenem and start patient on ertapenem on 08/15 - Patient is asymptomatic at this time with no fevers, cough, shortness of breath Plan - Completed course of ertapanem 4 days per ID. - Continue vancomycin day #8. Goal stop date of 08/24/17 - Tobramycin discontinued as it was felt it may be a contaminant and patient was improving without treatment. - ID consulted, appreciate recommendations. - [facility] able to accommodate IV abx, however pending placement for isolation bed. (2) Bacteremia due to Gram-positive bacteria Current Visit: Yes Status: Resolved Assessment and plan: Secondary to streptococcus pneumonia with positive blood cultures on 08/01 and 08/02 Repeat blood cultures on 08/06/17 negative Urine legionella Ag positive. Continue management as above (3) CAD (coronary artery disease) Current Visit: Yes Status: Chronic Assessment and plan: Stable; continue IVETTE inhibitor, beta clarissa and aspirin Qualifiers: Coronary Disease-Associated Artery/Lesion type: [place] artery [place] vs. transplanted heart: [place] heart Associated angina: without angina Qualified Code(s): I25.10 - Atherosclerotic heart disease of [place] coronary artery without angina pectoris (4) Insulin dependent diabetes mellitus Current Visit: Yes Status: Chronic Assessment and plan: Controlled; continue sliding scale insulin and basal insulin BS this morning of 209. Likely elevated in the setting of infection. (5) History of atrial fibrillation Current Visit: Yes Status: Chronic Assessment and plan: Continue rate control with beta clarissa; continue amiodarone HR 80-90s. Not on anticoagulation (6) CKD (chronic kidney disease), stage III Current Visit: Yes Status: Chronic Assessment and plan: BUN/Cr of 18/0.49, GFR >60. No documented CKD on this admission, however stage III in history Stable; continue to monitor (7) Hypertension Current Visit: Yes Status: Chronic Assessment and plan: Most recent BP of 120/80 Controlled; continue beta clarissa. Hold other HTN medications as BP allows. Qualifiers: Hypertension type: essential hypertension Qualified Code(s): I10 - Essential (primary) hypertension (8) COPD (chronic obstructive pulmonary disease) Current Visit: Yes Status: Chronic Assessment and plan: Continue Symbicort and duo nebs No complaints of SOB. At home oxygen requirement of 3L Qualifiers: COPD type: emphysema Emphysema type: unspecified Qualified Code(s): J43.9 - Emphysema, unspecified (9) Sepsis Current Visit: Yes Status: Resolved Assessment and plan: Resolved; secondary to the above Continue to monitor Qualifiers: Sepsis type: Streptococcus, other Qualified Code(s): A40.8 - Other streptococcal sepsis (10) NSTEMI (non-ST elevated myocardial infarction) Current Visit: Yes Status: Acute Assessment and plan: - Cardiology consult and given the above ongoing issues, recommend medical management, not a candidate for cardiac rehab. - TTE EF is crbzdmqog-07-20%. Not all garcia visualized. - Troponin elevated on admission with a peak of 2.70 which was trended - No complaints of chest pain Plan - Continue ASA, BB. Intolerant to statins. (11) UTI (urinary tract infection) Current Visit: Yes Status: Acute Assessment and plan: Continue antibiotics as above Qualifiers: Urinary tract infection type: site unspecified Hematuria presence: without hematuria Qualified Code(s): N39.0 - Urinary tract infection, site not specified (12) Liver lesion Current Visit: Yes Status: Acute Assessment and plan: s/p liver biopsy 08/10/17, findings consistent with fatty infiltration Hematology oncology consult with recommendations for outpatient follow up (13) DVT prophylaxis Current Visit: Yes Status: Acute Assessment and plan: Continue heparin (14) Sacral decubitus ulcer Current Visit: Yes Status: Chronic Assessment and plan: - Patient's cultures on 08/11/17 positive for Acinetobacter which is sensitive for tobramycin which was started on 08/13/17, discontinued 08/17 - Infectious disease following, appreciate recommendations - Wound care following an appreciate any additional recommendations - Patient has been afebrile, WBC resolved - Upon examination, area is necrotic but no obvious source of bony involvement. - There is concern for possible osteomyelitis given elevation of CRP at 123, ESR of 122, however CT does not suggest mary involvement - Surgery consulted, appreciate recommendations. Recommend dressing changes and follow up outpatient to wound care. No immediate surgical intervention planned. Plan - Continue antibiotics as above. - Bed turns, dressing changes, wound care. - Defer to infectious disease recommendations - Pain control Qualifiers: Pressure ulcer stage: stage 2 Qualified Code(s): L89.152 - Pressure ulcer of sacral region, stage 2 - Time Spent With Patient Total time spent is greater than 50% in coordination of care (as documented) at patient's floor/unit and/or counseling patient: 25 - 35 minutes - Subjective Interval history: Patient seen and examined this morning. Patient was scheduled for discharge yesterday however was not Able to due to lack of bed availability at nursing facility as she will require isolation. Overall she is feeling well without any new complaints. No complaints of fevers, chills, nausea, pain outside of normal. - Constitutional Vitals: Temp Pulse Resp BP Pulse Ox 98.6 F 88 16 134/54 96 08/19/17 10:20 08/19/17 10:20 08/19/17 11:00 08/19/17 10:20 08/19/17 11:00 General appearance: Present: A&O X 3, morbidly obese, no acute distress Exam: Gen.: Vitals noted. No acute distress. AAOx3. Resting comfortably. HEENT: PERRL/EOMI, oropharynx clear, Normocephalic, atraumatic, MMM Cardiac: RRR, no murmur, +S1/S2 Pulmonary: CTA bilaterally, no wheezes, rales or rhonchi, equal chest expansion Abdomen: soft, nontender, BS noted, no guarding MSK: Diffuse lower extremity weakness consistent with previous. Extremities: no BLE edema, nontender calf, no cyanosis or clubbing Skin: Sacral decubitus ulcer present on admission, stage II Neuro: A&Ox3, moves all extremities, no focal deficits Psych: Appropriate mood and behavior Internal Medicine: Result - Labs CBC & Chem 7: 08/18/17 04:52 08/18/17 04:52 - ABG Interpretation ABG results: ABG ABG pH 7.51 pH Units (7.32-7.45) H 08/07/17 06:26 ABG pCO2 45 mmHg (35-45) 08/07/17 06:26 ABG pO2 88 mmHg (85-104) 08/07/17 06:26 ABG O2 Saturation 97 % (95-98) 08/07/17 06:26 PT/INR, D-dimer PT 13.4 Seconds (9.4-12.1) H 08/09/17 08:32 Consult Discharge Plan - Plan Additional Instructions: PLease follow up with PCP, wound care after discharge. Take all meds as prescribed. Return to hospital if symptoms return. Referrals: WoundCare,Clinic [Other] - 08/23/17 11:15 am (Patient will see Dr. Toscano.) Robb Perry MD [Primary Care Provider] - ([facility]) Prescriptions: Collagenase Oint [Santyl] 1 appl TP DAILY #3 tube Gentamicin Oint [Garamycin] 1 appl TP DAILY #3 tube Miconazole w/zinc oxide&karaya [Antifungal Extra Thick] 1 appl TP BID #3 tube Vancomycin [Vancocin] 750 mg IV BID #6 vial <Sharon Medina - Last Filed: 08/19/17 14:59> Date of Encounter: 08/19/17 - Assessment and plan (1) CAD (coronary artery disease) Current Visit: Yes Status: Chronic Qualifiers: Coronary Disease-Associated Artery/Lesion type: [place] artery [place] vs. transplanted heart: [place] heart Associated angina: without angina Qualified Code(s): I25.10 - Atherosclerotic heart disease of [place] coronary artery without angina pectoris (2) Insulin dependent diabetes mellitus Current Visit: Yes Status: Chronic (3) History of atrial fibrillation Current Visit: Yes Status: Chronic (4) CKD (chronic kidney disease), stage III Current Visit: Yes Status: Chronic (5) Bacteremia due to Gram-positive bacteria Current Visit: Yes Status: Resolved (6) Hypertension Current Visit: Yes Status: Chronic Qualifiers: Hypertension type: essential hypertension Qualified Code(s): I10 - Essential (primary) hypertension (7) COPD (chronic obstructive pulmonary disease) Current Visit: Yes Status: Chronic Qualifiers: COPD type: emphysema Emphysema type: unspecified Qualified Code(s): J43.9 - Emphysema, unspecified (8) Sepsis Current Visit: Yes Status: Resolved Qualifiers: Sepsis type: Streptococcus, other Qualified Code(s): A40.8 - Other streptococcal sepsis (9) HCAP (healthcare-associated pneumonia) Current Visit: Yes Status: Acute (10) NSTEMI (non-ST elevated myocardial infarction) Current Visit: Yes Status: Acute (11) UTI (urinary tract infection) Current Visit: Yes Status: Acute Qualifiers: Urinary tract infection type: site unspecified Hematuria presence: without hematuria Qualified Code(s): N39.0 - Urinary tract infection, site not specified (12) DVT prophylaxis Current Visit: Yes Status: Acute (13) Liver lesion Current Visit: Yes Status: Acute (14) Sacral decubitus ulcer Current Visit: Yes Status: Chronic Qualifiers: Pressure ulcer stage: stage 2 Qualified Code(s): L89.152 - Pressure ulcer of sacral region, stage 2 - Time Spent With Patient Total time spent is greater than 50% in coordination of care (as documented) at patient's floor/unit and/or counseling patient: - Constitutional Vitals: Temp Pulse Resp BP Pulse Ox 98.6 F 88 16 134/54 96 08/19/17 10:20 08/19/17 10:20 08/19/17 11:00 08/19/17 10:20 08/19/17 11:00 Internal Medicine: Result - Labs CBC & Chem 7: 08/18/17 04:52 08/18/17 04:52 - ABG Interpretation ABG results: ABG ABG pH 7.51 pH Units (7.32-7.45) H 08/07/17 06:26 ABG pCO2 45 mmHg (35-45) 08/07/17 06:26 ABG pO2 88 mmHg (85-104) 08/07/17 06:26 ABG O2 Saturation 97 % (95-98) 08/07/17 06:26 PT/INR, D-dimer PT 13.4 Seconds (9.4-12.1) H 08/09/17 08:32 - Attending Attestation I examined this patient and my medical decision-making was reviewed with the Resident Physician Dr. Lua. I agree with the documented findings, disposition and treatment plan as described except to the extent set forth below. Ms. Snyder is a 66 y/o F chronic bed bound pt admitted here for HCAP and Sacral ulcer. Pt also have ESBL positive and Strep Pneumonia. Gen: A, A, O x3 Chest: Diminished BS b/l Heart: S1S2+ RRR No murmurs Back: Sacral ulcer+ stage 2 ulcer. mild necrosed tissue in the middle. 1. Sacral stage [address] of Abd did not show any osteomyelitis / No fluid collection Surgery did not suggest debridement for now need out pt f/u with surgery ID recommend topical abx 2. HCAP with ESBL and Strep 3. Bacteremia with Strep Improving Finished Ertapenem, Another day for Vancomycin Since pt has ESBL PNA, at her current SNF they do not have any isolated rooms, so SW working on transferring the pt to another SNF. Waiting for placement Medically stable to d/c any time.
[2017-08-19] MEDS: rOPINIRole 1 MG TABLET PO SCH (21:09)
[2017-08-19] MEDS: *HR* LORazepam 2 MG/ML VIAL IVP PRN (21:13)
[2017-08-20] MEDS: Ipratropium/Albuterol Neb 3 ML IH SCH ×7 (00:32→23:13)
[2017-08-20] MEDS: *HR* Heparin 5,000 UNIT/ML VIAL SQ SCH ×2 (05:11→17:24)
[2017-08-20 05:23] LABS: Basophils # 0.1 K/mcL (0.0-0.2); Basophils % 0.7 %; Eosinophils # 0.4 K/mcL (0.0-0.6); Eosinophils % 5.9 %; Hematocrit 29.9 % (35.3-44.9); Hemoglobin 9.1 g/dL (11.5-15.4); Immature Granulocytes % 1.7 % (0-4); Lymphocytes # 1.1 K/mcL (0.6-4.6); Lymphocytes % 14.2 %; Mean Corpuscular HGB Conc 30.4 g/dL (31.6-35.5); Mean Corpuscular Hemoglobin 23.9 pg (28.0-33.3); Mean Corpuscular Volume 78.7 fL (83.0-100.0); Mean Platelet Volume 8.9 fL (9.4-12.4); Monocytes # 0.7 K/mcL (0.0-1.3); Monocytes % 8.9 %; Neutrophils # 5.2 K/mcL (1.6-8.9); Nucleated Red Blood Cells 0.3 /100 WBC (0); Platelet Count 276 K/mcL (140-400); Red Cell Distribution Width 18.3 % (11.5-14.5); Segmented Neutrophils % 68.6 %
[2017-08-20 05:35] LABS: BUN/Creatinine Ratio 23 (6-26); Blood Urea Nitrogen 12 mg/dL (8-23); Calcium 8.1 mg/dL (8.6-10.3); Carbon Dioxide 29 mEq/L (23-29); Chloride 100 mEq/L (98-107); Glucose 178 mg/dL (70-105); Osmolality,Calculated 290 (280-300); Potassium 3.4 mEq/L (3.5-5.1); Sodium 138 mEq/L (136-145); eGFR For African Americans > 60 (> 60); eGFR For Non-African Americans > 60 (> 60)
[2017-08-20] MEDS: Budesonide/Formoterol 160/4.5 MDI IH SCH ×2 (08:23→20:18)
[2017-08-20] MEDS: Isosorbide MONOnitrate (24 HR) 60 MG TAB.ER.24H PO SCH (09:03)
[2017-08-20] MEDS: Bumetanide 1 MG TABLET PO SCH ×2 (09:04→17:23)
[2017-08-20] MEDS: Aspirin 81 MG TAB.CHEW PO SCH (09:04)
[2017-08-20] MEDS: *HR* Amiodarone 200 MG TABLET PO SCH (09:04)
[2017-08-20] MEDS: Cholecalciferol (D-3) 1,000 UNIT TABLET PO SCH (09:05)
[2017-08-20] MEDS: Baclofen 10 MG TABLET PO SCH ×4 (09:05→20:58)
[2017-08-20] MEDS: Verapamil ER (24 HR) 240 MG TABLET.ER PO SCH (09:05)
[2017-08-20] MEDS: Folic Acid 1 MG TABLET PO SCH (09:05)
[2017-08-20] MEDS: Metoprolol XL (24 HR) Succ 50 MG TAB.ER.24H PO SCH (09:05)
[2017-08-20] MEDS: Loratadine 10 MG TABLET PO SCH (09:05)
[2017-08-20] MEDS: Insulin LISPRO 300 UNITS/3 ML VIAL SQ SCH ×4 (09:07→20:59)
[2017-08-20] MEDS: Insulin DETEMIR 100 UNIT/ML X5UNITS SQ SCH ×2 (09:12→20:59)
[2017-08-20] MEDS: Gentamicin Oint 15 GM TUBE TP SCH (11:42)
[2017-08-20] MEDS: Miconazole w/zinc oxide&karaya 92 APPL/92 GM TUBE TP SCH ×2 (11:43→21:13)
[2017-08-20] MEDS: *HR* OxyCODONE Immed Rel 15 MG TABLET PO PRN ×3 (13:01→22:45)
--- NOTE | 2017-08-20 15:02 | Internal Med Progress Note ---
Date of Encounter: 08/20/17 Time of Encounter: 13:00 - Assessment and plan (1) HCAP (healthcare-associated pneumonia) Current Visit: Yes Status: Acute Assessment and plan: Sputum culture positive for E.Coli ESBL sensitive to carbapanems. Infectious disease recommendations to start patient on ertapenem on 08/15 finished full course as recommended by ID Patient is asymptomatic at this time with no fevers, cough, shortness of breath Finished full course of Vancomycin too Since pt has ESBL PNA, at her current SNF they do not have any isolated rooms, so SW working on transferring the pt to another SNF. Waiting for placement Medically stable to d/c any time. (2) Sepsis Current Visit: Yes Status: Resolved Assessment and plan: Resolved; secondary to the above Continue to monitor Qualifiers: Sepsis type: Streptococcus, other Qualified Code(s): A40.8 - Other streptococcal sepsis (3) UTI (urinary tract infection) Current Visit: Yes Status: Acute Assessment and plan: Continue antibiotics as above Qualifiers: Urinary tract infection type: site unspecified Hematuria presence: without hematuria Qualified Code(s): N39.0 - Urinary tract infection, site not specified (4) Sacral decubitus ulcer Current Visit: Yes Status: Chronic Assessment and plan: Wound cx - Acinetobacter which is sensitive for tobramycin ID recommend topical gentamycin cream cont local wound care. Qualifiers: Pressure ulcer stage: stage 2 Qualified Code(s): L89.152 - Pressure ulcer of sacral region, stage 2 (5) Bacteremia due to Gram-positive bacteria Current Visit: Yes Status: Resolved Assessment and plan: Secondary to streptococcus pneumonia with positive blood cultures on 08/01 and 08/02 Repeat blood cultures on 08/06/17 negative Urine legionella Ag positive. Finished ful course of Abx (6) CAD (coronary artery disease) Current Visit: Yes Status: Chronic Assessment and plan: Stable; continue IVETTE inhibitor, beta clarissa and aspirin Qualifiers: Coronary Disease-Associated Artery/Lesion type: [place] artery [place] vs. transplanted heart: [place] heart Associated angina: without angina Qualified Code(s): I25.10 - Atherosclerotic heart disease of [place] coronary artery without angina pectoris (7) Insulin dependent diabetes mellitus Current Visit: Yes Status: Chronic Assessment and plan: on ISS + Levemir (8) History of atrial fibrillation Current Visit: Yes Status: Chronic Assessment and plan: Continue rate control with beta clarissa; continue amiodarone HR 80-90s. Not on anticoagulation (9) CKD (chronic kidney disease), stage III Current Visit: Yes Status: Chronic Assessment and plan: CKD-3 Cr at baseline (10) Hypertension Current Visit: Yes Status: Chronic Assessment and plan: Most recent BP of 120/80 Controlled; continue beta clarissa Qualifiers: Hypertension type: essential hypertension Qualified Code(s): I10 - Essential (primary) hypertension (11) COPD (chronic obstructive pulmonary disease) Current Visit: Yes Status: Chronic Assessment and plan: Continue Symbicort and duo nebs No complaints of SOB. At home oxygen requirement of 3L Qualifiers: COPD type: emphysema Emphysema type: unspecified Qualified Code(s): J43.9 - Emphysema, unspecified (12) NSTEMI (non-ST elevated myocardial infarction) Current Visit: Yes Status: Acute Assessment and plan: TTE EF is jkkaxihsg-97-29%. Not all garcia visualized. Demand ischemia Continue ASA, BB (13) Liver lesion Current Visit: Yes Status: Acute Assessment and plan: s/p liver biopsy 08/10/17, findings consistent with fatty infiltration Hematology oncology consult with recommendations for outpatient follow up (14) DVT prophylaxis Current Visit: Yes Status: Acute Assessment and plan: Continue heparin - Time Spent With Patient Total time spent is greater than 50% in coordination of care (as documented) at patient's floor/unit and/or counseling patient: - Subjective Interval history: Ms. Snyder is a 66 y/o F from [email or web address]] with a past medical history of systolic and diastolic congestive heart failure, COPD, diabetes, history of DVT, CAD status post CABG, hypertension and pacemaker, chronic bed bound pt admitted here for HCAP and UTI. Eventullay pt went into severe respiratory failure, got intubated and transferred to ICU. Pt does have ESBL positive and Strep Pneumonia. Started on Ertapenem and Vancomycin abx as per ID recommendations. Pt was extubated and moved to regular floor further care. She does have chronic sacral stage 2 ulcer. Pt was seen and examined at bed side. She is A,A, O x 3. Denied any new complaints. - Constitutional Vitals: Temp Pulse Resp BP Pulse Ox 99 F 75 16 138/58 97 08/20/17 11:16 08/20/17 11:16 08/20/17 11:58 08/20/17 11:16 08/20/17 11:58 General appearance: Present: A&O X 3, morbidly obese, no acute distress - Head Head exam: Present: atraumatic, normal inspection - Neck Neck exam general surgery: Present: supple - Respiratory Respiratory exam: Present: decreased breath sounds, wheezes (mild). Absent: rales, respiratory distress, rhonchi - Cardiovascular Cardiovascular exam: Present: RRR, +S1, +S2. Absent: tachycardia - GI/Abdominal GI/Abdominal exam: Present: normal bowel sounds, soft. Absent: rebound, rigid, tenderness - Extremities Exam Extremities exam: Present: pedal edema. Absent: calf tenderness, tenderness - Back Exam Additional comments: pressure ulcer over sacral area - Neurological Exam Neurological exam: Present: alert, oriented X3 - Psychiatric Psychiatric exam: Present: normal affect, normal mood Internal Medicine: Result - Labs CBC & Chem 7: 08/20/17 05:08 08/20/17 05:08 Labs: Short CBC 08/20/17 Range/Units 05:08 WBC 7.5 (4.3-11.1) K/mcL Hgb 9.1 L (11.5-15.4) g/dL Hct 29.9 L (35.3-44.9) % Plt Count 276 (140-400) K/mcL Neutrophils # 5.2 (1.6-8.9) K/mcL BMP 08/20/17 05:08 Sodium 138 Potassium 3.4 L Chloride 100 Carbon Dioxide 29 BUN 12 Creatinine 0.53 L Glucose 178 H Calcium 8.1 L - ABG Interpretation ABG results: ABG ABG pH 7.51 pH Units (7.32-7.45) H 08/07/17 06:26 ABG pCO2 45 mmHg (35-45) 08/07/17 06:26 ABG pO2 88 mmHg (85-104) 08/07/17 06:26 ABG O2 Saturation 97 % (95-98) 08/07/17 06:26 PT/INR, D-dimer PT 13.4 Seconds (9.4-12.1) H 08/09/17 08:32 Consult Discharge Plan - Plan Additional Instructions: PLease follow up with PCP, wound care after discharge. Take all meds as prescribed. Return to hospital if symptoms return. Referrals: WoundCare,Clinic [Other] - 08/23/17 11:15 am (Patient will see Dr. Toscano.) Robb Perry MD [Primary Care Provider] - (ECF) Prescriptions: Collagenase Oint [Santyl] 1 appl TP DAILY #3 tube Gentamicin Oint [Garamycin] 1 appl TP DAILY #3 tube Miconazole w/zinc oxide&karaya [Antifungal Extra Thick] 1 appl TP BID #3 tube Vancomycin [Vancocin] 750 mg IV BID #6 vial
[2017-08-20] MEDS: *HR* FentaNYL PATCH 75 MCG PATCH TD SCH (15:19)
[2017-08-20] MEDS ORDERED: Bisacodyl 10 MG RECTAL SUPPOSITORY RC PRN (18:36)
[2017-08-20] MEDS: *HR* LORazepam 0.5 MG TABLET PO PRN (20:58)
[2017-08-20] MEDS: rOPINIRole 1 MG TABLET PO SCH (20:59)
[2017-08-21] MEDS: Ipratropium/Albuterol Neb 3 ML IH SCH ×6 (03:48→23:52)
[2017-08-21] MEDS: *HR* OxyCODONE Immed Rel 15 MG TABLET PO PRN ×3 (05:15→17:02)
[2017-08-21] MEDS: *HR* Heparin 5,000 UNIT/ML VIAL SQ SCH ×2 (05:15→17:03)
[2017-08-21] MEDS: Budesonide/Formoterol 160/4.5 MDI IH SCH ×2 (07:40→19:49)
[2017-08-21] MEDS: Isosorbide MONOnitrate (24 HR) 60 MG TAB.ER.24H PO SCH (08:51)
[2017-08-21] MEDS: Folic Acid 1 MG TABLET PO SCH (08:51)
[2017-08-21] MEDS: Verapamil ER (24 HR) 240 MG TABLET.ER PO SCH (08:51)
[2017-08-21] MEDS: Metoprolol XL (24 HR) Succ 50 MG TAB.ER.24H PO SCH (08:51)
[2017-08-21] MEDS: Bumetanide 1 MG TABLET PO SCH ×2 (08:51→17:02)
[2017-08-21] MEDS: Aspirin 81 MG TAB.CHEW PO SCH (08:52)
[2017-08-21] MEDS: Loratadine 10 MG TABLET PO SCH (08:52)
[2017-08-21] MEDS: *HR* Amiodarone 200 MG TABLET PO SCH (08:52)
[2017-08-21] MEDS: Baclofen 10 MG TABLET PO SCH ×4 (08:53→20:38)
[2017-08-21] MEDS: Cholecalciferol (D-3) 1,000 UNIT TABLET PO SCH (08:53)
[2017-08-21] MEDS: Gentamicin Oint 15 GM TUBE TP SCH (08:54)
[2017-08-21] MEDS: Miconazole w/zinc oxide&karaya 92 APPL/92 GM TUBE TP SCH ×2 (08:56→20:48)
[2017-08-21] MEDS: Insulin LISPRO 300 UNITS/3 ML VIAL SQ SCH ×4 (08:56→20:38)
[2017-08-21] MEDS: Insulin DETEMIR 100 UNIT/ML X5UNITS SQ SCH ×2 (08:57→20:38)
--- NOTE | 2017-08-21 14:34 | Internal Med Progress Note ---
Date of Encounter: 08/21/17 Time of Encounter: 14:42 - Assessment and plan (1) HCAP (healthcare-associated pneumonia) Current Visit: Yes Status: Acute Assessment and plan: Sputum culture positive for E.Coli ESBL sensitive to carbapanems. Infectious disease recommendations to start patient on ertapenem on 08/15 finished full course as recommended by ID Patient is asymptomatic at this time with no fevers, cough, shortness of breath Finished full course of Vancomycin too Since pt has ESBL PNA, at her current SNF they do not have any isolated rooms, so SW working on transferring the pt to another SNF. Waiting for placement Medically stable to d/c any time (2) Sepsis Current Visit: Yes Status: Resolved Assessment and plan: Resolved secondary to the above Continue to monitor Qualifiers: Sepsis type: Streptococcus, other Qualified Code(s): A40.8 - Other streptococcal sepsis (3) UTI (urinary tract infection) Current Visit: Yes Status: Acute Assessment and plan: Finished full course abx Qualifiers: Urinary tract infection type: site unspecified Hematuria presence: without hematuria Qualified Code(s): N39.0 - Urinary tract infection, site not specified (4) Sacral decubitus ulcer Current Visit: Yes Status: Chronic Assessment and plan: Wound cx - Acinetobacter which is sensitive for tobramycin ID recommend topical gentamycin cream cont local wound care. Qualifiers: Pressure ulcer stage: stage 2 Qualified Code(s): L89.152 - Pressure ulcer of sacral region, stage 2 (5) Bacteremia due to Gram-positive bacteria Current Visit: Yes Status: Resolved Assessment and plan: Secondary to streptococcus pneumonia with positive blood cultures on 08/01 and 08/02 Repeat blood cultures on 08/06/17 negative Urine legionella Ag positive. Finished full course of Abx (6) CAD (coronary artery disease) Current Visit: Yes Status: Chronic Assessment and plan: Stable; continue IVETTE inhibitor, beta clarissa and aspirin Qualifiers: Coronary Disease-Associated Artery/Lesion type: [place] artery [place] vs. transplanted heart: [place] heart Associated angina: without angina Qualified Code(s): I25.10 - Atherosclerotic heart disease of [place] coronary artery without angina pectoris (7) Insulin dependent diabetes mellitus Current Visit: Yes Status: Chronic Assessment and plan: on ISS + Levemir (8) History of atrial fibrillation Current Visit: Yes Status: Chronic Assessment and plan: Continue rate control with beta clarissa; continue amiodarone HR 80-90s. Not on anticoagulation (9) CKD (chronic kidney disease), stage III Current Visit: Yes Status: Chronic Assessment and plan: CKD-3 Cr at baseline (10) Hypertension Current Visit: Yes Status: Chronic Assessment and plan: Most recent BP of 120/80 Controlled; continue beta clarissa Qualifiers: Hypertension type: essential hypertension Qualified Code(s): I10 - Essential (primary) hypertension (11) COPD (chronic obstructive pulmonary disease) Current Visit: Yes Status: Chronic Assessment and plan: Continue Symbicort and duo nebs No complaints of SOB. At home oxygen requirement of 3L Qualifiers: COPD type: emphysema Emphysema type: unspecified Qualified Code(s): J43.9 - Emphysema, unspecified (12) NSTEMI (non-ST elevated myocardial infarction) Current Visit: Yes Status: Acute Assessment and plan: TTE EF is [id number]%. Not all garcia visualized. Demand ischemia Continue ASA, BB (13) Liver lesion Current Visit: Yes Status: Acute Assessment and plan: s/p liver biopsy 08/10/17, findings consistent with fatty infiltration Hematology oncology consult with recommendations for outpatient follow up (14) DVT prophylaxis Current Visit: Yes Status: Acute Assessment and plan: Continue heparin - Time Spent With Patient Total time spent is greater than 50% in coordination of care (as documented) at patient's floor/unit and/or counseling patient: - Subjective Interval history: Ms. Snyder is a 66 y/o F from [facility] with a past medical history of systolic and diastolic congestive heart failure, COPD, diabetes, history of DVT, CAD status post CABG, hypertension and pacemaker, chronic bed bound pt admitted here for HCAP and UTI. Eventually pt went into severe respiratory failure, got intubated and transferred to ICU. Pt does have ESBL positive and Strep Pneumonia. Started on Ertapenem and Vancomycin abx as per ID recommendations. Pt was extubated and moved to regular floor further care. She does have chronic sacral stage 2 ulcer. Pt was seen and examined at bed side. She is A,A, O x 3. Denied any new complaints. - Constitutional Vitals: Temp Pulse Resp BP Pulse Ox 98 F 90 16 130/74 95 08/21/17 11:52 08/21/17 11:52 08/21/17 11:52 08/21/17 11:52 08/21/17 11:52 General appearance: Present: A&O X 3, morbidly obese, no acute distress - Head Head exam: Present: atraumatic, normal inspection - Neck Neck exam general surgery: Present: supple - Respiratory Respiratory exam: Present: decreased breath sounds, respiratory distress. Absent: rales, rhonchi, wheezes - Cardiovascular Cardiovascular exam: Present: RRR, +S1, +S2 - GI/Abdominal GI/Abdominal exam: Present: normal bowel sounds, soft. Absent: rebound, rigid, tenderness - Extremities Exam Extremities exam: Absent: calf tenderness, pedal edema, tenderness - Back Exam Back exam: Absent: CVA tenderness (L), CVA tenderness (R) - Psychiatric Psychiatric exam: Present: normal affect, normal mood Internal Medicine: Result - Labs CBC & Chem 7: 08/20/17 05:08 08/20/17 05:08 - ABG Interpretation ABG results: ABG ABG pH 7.51 pH Units (7.32-7.45) H 08/07/17 06:26 ABG pCO2 45 mmHg (35-45) 08/07/17 06:26 ABG pO2 88 mmHg (85-104) 08/07/17 06:26 ABG O2 Saturation 97 % (95-98) 08/07/17 06:26 PT/INR, D-dimer PT 13.4 Seconds (9.4-12.1) H 08/09/17 08:32 Consult Discharge Plan - Plan Additional Instructions: PLease follow up with PCP, wound care after discharge. Take all meds as prescribed. Return to hospital if symptoms return. Referrals: WoundCare,Clinic [Other] - 08/23/17 11:15 am (Patient will see Dr. Toscano.) Robb Perry MD [Primary Care Provider] - ([facility]F) Prescriptions: Collagenase Oint [Santyl] 1 appl TP DAILY #3 tube Gentamicin Oint [Garamycin] 1 appl TP DAILY #3 tube Miconazole w/zinc oxide&karaya [Antifungal Extra Thick] 1 appl TP BID #3 tube Vancomycin [Vancocin] 750 mg IV BID #6 vial
[2017-08-21] MEDS ORDERED: Aminoglycoside Consult 1 EACH MC ONE (17:26)
[2017-08-21] MEDS: *HR* LORazepam 0.5 MG TABLET PO PRN (20:37)
[2017-08-21] MEDS: rOPINIRole 1 MG TABLET PO SCH (20:38)
[2017-08-22] MEDS: Ipratropium/Albuterol Neb 3 ML IH SCH ×4 (03:12→15:31)
[2017-08-22] MEDS: *HR* OxyCODONE Immed Rel 15 MG TABLET PO PRN ×3 (05:04→14:02)
[2017-08-22] MEDS: *HR* Heparin 5,000 UNIT/ML VIAL SQ SCH (05:04)
[2017-08-22] MEDS: Budesonide/Formoterol 160/4.5 MDI IH SCH (07:20)
[2017-08-22] MEDS: Insulin DETEMIR 100 UNIT/ML X5UNITS SQ SCH (08:52)
[2017-08-22] MEDS: *HR* Amiodarone 200 MG TABLET PO SCH (08:53)
[2017-08-22] MEDS: Cholecalciferol (D-3) 1,000 UNIT TABLET PO SCH (08:53)
[2017-08-22] MEDS: Baclofen 10 MG TABLET PO SCH ×2 (08:53→12:02)
[2017-08-22] MEDS: Insulin LISPRO 300 UNITS/3 ML VIAL SQ SCH ×2 (08:53→12:02)
[2017-08-22] MEDS: Aspirin 81 MG TAB.CHEW PO SCH (08:54)
[2017-08-22] MEDS: Isosorbide MONOnitrate (24 HR) 60 MG TAB.ER.24H PO SCH (08:54)
[2017-08-22] MEDS: Loratadine 10 MG TABLET PO SCH (08:54)
[2017-08-22] MEDS: Verapamil ER (24 HR) 240 MG TABLET.ER PO SCH (08:54)
[2017-08-22] MEDS: Folic Acid 1 MG TABLET PO SCH (08:54)
[2017-08-22] MEDS: Metoprolol XL (24 HR) Succ 50 MG TAB.ER.24H PO SCH (08:55)
[2017-08-22] MEDS: Bumetanide 1 MG TABLET PO SCH (08:55)
--- NOTE | 2017-08-22 09:22 | Infectious Disease Progress No ---
Date of Encounter: 08/22/17 Time of Encounter: 09:19 - Assessment and Plan (1) Sepsis Current Visit: No Status: Acute Patient comes from senior living. meets sepsis criteria with tachycardia, tachypnea, WBC 30.2, Source of infection likely secondary to HCAP, sacral decubitus ulcer. lactic acid: 1.[address] from 08/02/17 showed lower lobe pneumonia, underlying obstructing mass could not be excluded, persistent mediastinal adenopathy. CT of the abdomen and pelvis from 08/16/17 showed mild skin thickening overlying the distal sacrum and coccyx, no underlying poshest erosion or destruction Legionella antigen negative, Strep pneumo antigen positive. Blood cultures x2 from 08/02/17 positive for strep pneumo. urine culture from 08/02/17, mixed culture, unable to interpret. Blood culture from 08/05/17 showed no growth sputum sample from 08/06/17 did not meet criteria for culture urine culture from 08/06/17 positive for re blood culture x2 from 08/06/17 no growth sputum culture from 08/07/17 positive for E. coli, ESBL Sacral wound culture from 08/11/17 positive for Acinetobacter Baumannii-MDRO. Creatinine clearance 132 based on ideal body weight ESR: 122 CRP: 123 Etiology likely secondary to invasive strep bacteremia with high resistance. Plan: for ESBL she was started on meropenem on 08/09 and received 7 days patient was started on cefepime on 08/05 and received 5 days received 4 days tobramycin- stopped 08/15: likely that Acenitobacter is a contaminant. vancomycin therapy completed. she was treated for for a total of 14 days from negative cultures on 08/06- stopped on 08/20. completed ertapenem therapy last week- received 4 days. continue dressing changes per wound care recommendations. awaiting placement. Qualifiers: Sepsis type: Streptococcus, unspecified Qualified Code(s): A40.9 - Streptococcal sepsis, unspecified; A40 - Streptococcal sepsis (2) HCAP (healthcare-associated pneumonia) Current Visit: Yes Status: Acute PLAN as above. Because possible underlying obstructive mass could not be will out, she will need follow-up CT in 4-6 weeks. (3) Sacral decubitus ulcer Current Visit: Yes Status: Chronic Location: Sacrum. CT of the abdomen and pelvis are negative for OM, but ESR and CRP are elevated. General surgery consulted. No plans for surgery at this time. Wound culture positive for Acinetobacter: contaminant vs. colonization. Unlikely the source of the patient's sepsis since clinically she improved without appropriate antibiotic coverage. Recommend topical Gentamicin. Qualifiers: Pressure ulcer stage: stage 2 Qualified Code(s): L89.152 - Pressure ulcer of sacral region, stage 2 (4) UTI (urinary tract infection) Current Visit: Yes Status: Suspected Urine culture positive for re-likely contaminant Qualifiers: Urinary tract infection type: acute cystitis Hematuria presence: without hematuria Qualified Code(s): N30.00 - Acute cystitis without hematuria (5) Liver lesion Current Visit: Yes Status: Acute MRI of the abdomen on 08/04/17 that showed extensive signal abnormality and enhancement and probable restricted diffusion within the liver predominantly involving the left hepatic lobe but also within the posterior right hepatic lobe. Findings were suspicious for infiltrate of hepatic malignancy. She has been evaluated by oncology, they wanted to do a liver biopsy, but patient was unable to undergo biopsy because of back pain and discomfort. After her workup, Oncology team believe that this is likely more consistent with focal fatty infiltration within the liver and not consistent with malignancy. Patient was educated on weight loss and diet change in order to avoid development of cirrhosis. They deemed no further oncologic workup necessary-consider reimaging and about 3 to 6 months to assess stability. (6) Acute exacerbation of CHF (congestive heart failure) Current Visit: Yes Status: Acute Last echo on 08/02/17 showed EF 55-60%, not good study due to body habitus, not all segments well visualized, indeterminate diastolic function, RV not well visualized, mild tricuspid regurgitation, no pulmonary hypertension management per primary team Qualifiers: Heart failure type: diastolic Qualified Code(s): I50.33 - Acute on chronic diastolic (congestive) heart failure (7) DM (diabetes mellitus), type 2 Current Visit: Yes Status: Chronic Hgb A1C 7.3%. Recommend aggressive glucose monitoring and control to promote wound healing and prevent infection. Management per the primary team. Qualifiers: Diabetes mellitus prison insulin use: with long term care pharmacist use Diabetes mellitus complication status: with unspecified complications Qualified Code(s) : E11.8 - Type 2 diabetes mellitus with unspecified complications (8) Morbid obesity with BMI of 45.0-49.9, adult Current Visit: No Status: Chronic (9) Elevated troponin Current Visit: Yes Status: Acute Elevated troponins since admission which have trended down. Patient seen and evaluated by cardiology. Likely demand ischemia and setting of sepsis versus NSTEMI. Patient was on IV heparin gtt. Currently chest pain free. Management per cardio and primary. (10) History of atrial fibrillation Current Visit: Yes Status: Chronic Continue rate control medication- per primary team. (11) COPD (chronic obstructive pulmonary disease) Current Visit: No Status: Acute Exacerbation in setting of pneumonia management per primary team Qualifiers: COPD type: chronic bronchitis Chronic bronchitis type: simple Qualified Code(s): J41.0 - Simple chronic bronchitis (12) CAD (coronary artery disease) Current Visit: No Status: Chronic History of CAD, s/P CABG management per primary team Qualifiers: Coronary Disease-Associated Artery/Lesion type: unspecified vessel or lesion type [place] vs. transplanted heart: [place] heart Associated angina: angina presence unspecified Qualified Code(s): I25.10 - Atherosclerotic heart disease of [place] coronary artery without angina pectoris - Subjective Interval history: 66-year-old female evaluated at bedside. Patient reports chills. She denies nausea, vomiting, diarrhea, fever, chest pain, shortness of breath. Eyes any pain. Infect Dis PN-Objective Data - Labs CBC & Chem 7: 08/20/17 05:08 08/20/17 05:08 Labs: Laboratory Results - last 24 hr 08/21/17 08/21/17 08/21/17 11:36 16:33 20:34 POC Glucose 231 H 260 H 228 H 08/22/17 07:05 POC Glucose 142 H Cultures: Cultures 08/11/17 17:20 Wound Culture - Final Buttock Acinetobacter baumannii MDRO 08/06/17 12:40 Blood Culture - Final Peripheral Venipuncture No growth. 08/06/17 12:37 Blood Culture - Final Peripheral Venipuncture No growth. 08/05/17 12:32 Blood Culture - Final Peripheral Venipuncture No growth. 08/06/17 02:01 Urine Culture - Final Urine,[place] Re albicans 08/07/17 05:07 Sputum Culture - Final Sputum Escherichia coli ESBL 08/06/17 02:00 Sputum Culture - Final Sputum 08/02/17 09:07 Urine Culture - Final Urine,[place] Culture is grossly mixed, unable to properly interpret. Please repeat if indicated. 08/02/17 04:56 Legionella Antigen - Final Urine,Clean Catch Streptococcus pneumoniae Antigen (M - Final Serology 08/07/17 08/02/17 Range/Units 10:12 06:47 Chlamy pneumoniae PCR Not Detected Not Detected (Not Detect) Adenovirus (PCR) Not Detected Not Detected (Not Detect) B. pertussis DNA (PCR) Not Detected Not Detected (Not Detect) B.parapertussis DNA PCR Not Detected Not Detected (Not Detect) Coronavirus OC43 (PCR) Not Detected Not Detected (Not Detect) Coronavirus HKU1 (PCR) Not Detected Not Detected (Not Detect) Coronavirus 229E (PCR) Not Detected Not Detected (Not Detect) Coronavirus NL63 (PCR) Not Detected Not Detected (Not Detect) Human Metapneumovir PCR Not Detected Not Detected (Not Detect) Influenza A (H1) PCR Not Detected Not Detected (Not Detect) Influ A (H1N1/09) PCR Not Detected Not Detected (Not Detect) Influenza A (H3) PCR Not Detected Not Detected (Not Detect) Influenza A Untype (PCR) Not Detected Not Detected (Not Detect) Influenza Type B (PCR) Not Detected Not Detected (Not Detect) M.pneumoniae DNA (PCR) Not Detected Not Detected (Not Detect) Parainfluenza 1 (PCR) Not Detected Not Detected (Not Detect) Parainfluenza 2 (PCR) Not Detected Not Detected (Not Detect) Parainfluenza 3 (PCR) Not Detected Not Detected (Not Detect) Parainfluenza 4 (PCR) Not Detected Not Detected (Not Detect) RSV (PCR) Not Detected Not Detected (Not Detect) Entero/Rhino (PCR) Not Detected Not Detected (Not Detect) Exam - Constitutional Vitals: Temp Pulse Resp BP Pulse Ox 98.2 F 84 18 140/68 97 08/22/17 06:59 08/22/17 06:59 08/22/17 07:20 08/22/17 06:59 08/22/17 07:20 General appearance: morbidly obese, no acute distress - Respiratory Respiratory exam: Present: CTAB - Cardiovascular Cardiovascular exam: Present: RRR, +S1, +S2, systolic murmur (+2 systolic murmur heard best at the left upper sternal border) - GI/Abdominal GI/Abdominal exam: Present: distended, normal bowel sounds, soft. Absent: tenderness - Extremities Exam Additional comments: Post 2 bilateral lower extremity pitting edema present. Bilateral lower extremity wrapped. Bilateral lower extremity venous stasis present. - Neurological Exam Neurological exam: Present: alert, oriented X3 - Psychiatric Psychiatric exam: Present: normal affect, normal mood Consult Discharge Plan - Plan Additional Instructions: PLease follow up with PCP, wound care after discharge. Take all meds as prescribed. Return to hospital if symptoms return. Referrals: WoundCare,Clinic [Other] - 08/23/17 11:15 am (Patient will see Dr. Toscano.) Robb Perry MD [Primary Care Provider] - (ECF) Prescriptions: Collagenase Oint [Santyl] 1 appl TP DAILY #3 tube Gentamicin Oint [Garamycin] 1 appl TP DAILY #3 tube Miconazole w/zinc oxide&karaya [Antifungal Extra Thick] 1 appl TP BID #3 tube Vancomycin [Vancocin] 750 mg IV BID #6 vial - Attending Attestation I examined this patient and my medical decision-making was reviewed with the Resident Physician. I agree with the documented findings, disposition and treatment plan as described except to the extent set forth below.
[2017-08-22] MEDS: Miconazole w/zinc oxide&karaya 92 APPL/92 GM TUBE TP SCH (11:15)
[2017-08-22] MEDS: Gentamicin Oint 15 GM TUBE TP SCH (11:16)
--- NOTE | 2017-08-22 11:55 | Internal Med Progress Note ---
<PippaCorey nieves - Last Filed: 08/22/17 14:10> Date of Encounter: 08/22/17 Time of Encounter: 10:22 - Assessment and plan (1) HCAP (healthcare-associated pneumonia) Status: Acute Assessment and plan: Sputum culture positive for E.Coli ESBL sensitive to carbapanems. Infectious disease recommendations to start patient on ertapenem on 08/15 finished full course as recommended by ID Patient is asymptomatic at this time with no fevers, cough, shortness of breath Finished full course of Vancomycin too Since pt has ESBL PNA, completed courses of carboplatin and vancomycin. Stable for discharge today and [facility] (2) Bacteremia due to Gram-positive bacteria Status: Resolved Assessment and plan: Secondary to streptococcus pneumonia with positive blood cultures on 08/01 and 08/02 Repeat blood cultures on 08/06/17 negative Urine legionella Ag positive. Finished full course of Abx (3) CAD (coronary artery disease) Status: Chronic Assessment and plan: Stable; continue IVETTE inhibitor, beta clarissa and aspirin Qualifiers: Coronary Disease-Associated Artery/Lesion type: [place] artery [place] vs. transplanted heart: [place] heart Associated angina: without angina Qualified Code(s): I25.10 - Atherosclerotic heart disease of [place] coronary artery without angina pectoris (4) Insulin dependent diabetes mellitus Status: Chronic Assessment and plan: on ISS + Levemir Continue home medications on discharge (5) History of atrial fibrillation Status: Chronic Assessment and plan: Continue rate control with beta clarissa; continue amiodarone HR 80-90s. Not on anticoagulation (6) CKD (chronic kidney disease), stage III Status: Chronic Assessment and plan: CKD-3 Cr at baseline (7) Hypertension Status: Chronic Assessment and plan: Most recent BP of 124/52 Controlled; continue beta clarissa Qualifiers: Hypertension type: essential hypertension Qualified Code(s): I10 - Essential (primary) hypertension (8) COPD (chronic obstructive pulmonary disease) Status: Chronic Assessment and plan: Continue Symbicort and duo nebs No complaints of SOB. At home oxygen requirement of 3L Qualifiers: COPD type: emphysema Emphysema type: unspecified Qualified Code(s): J43.9 - Emphysema, unspecified (9) Sepsis Status: Resolved Assessment and plan: Resolved secondary to the above Continue to monitor Qualifiers: Sepsis type: Streptococcus, other Qualified Code(s): A40.8 - Other streptococcal sepsis (10) NSTEMI (non-ST elevated myocardial infarction) Status: Acute Assessment and plan: TTE EF is [id number]%. Not all garcia visualized. Demand ischemia Continue ASA, BB (11) UTI (urinary tract infection) Status: Acute Assessment and plan: Finished full course abx Asymptomatic Qualifiers: Urinary tract infection type: site unspecified Hematuria presence: without hematuria Qualified Code(s): N39.0 - Urinary tract infection, site not specified (12) Liver lesion Status: Acute Assessment and plan: s/p liver biopsy 08/10/17, findings consistent with fatty infiltration Hematology oncology consult with recommendations for outpatient follow up (13) DVT prophylaxis Status: Acute Assessment and plan: Continue heparin (14) Sacral decubitus ulcer Status: Chronic Assessment and plan: Wound cx - Acinetobacter which is sensitive for tobramycin ID recommend topical gentamycin cream cont local wound care. Surgical evaluation recommends wound care upon discharge Qualifiers: Pressure ulcer stage: stage 2 Qualified Code(s): L89.152 - Pressure ulcer of sacral region, stage 2 - Time Spent With Patient Total time spent is greater than 50% in coordination of care (as documented) at patient's floor/unit and/or counseling patient: - Subjective Interval history: Patient seen and examined this morning. Patient was scheduled for discharge yesterday however was not Able to due to lack of bed availability at nursing facility as she will require isolation. Overall she is feeling well without any new complaints. No complaints of fevers, chills, nausea, pain outside of normal. Nursing facility contacted this morning and agreed to accept the patient. She has completed a course of antibiotics and will go longer be in isolation. She will be discharged today pending any further complications. - Constitutional Vitals: Temp Pulse Resp BP Pulse Ox 98.5 F 81 18 124/52 95 08/22/17 10:56 08/22/17 10:56 08/22/17 11:36 08/22/17 10:56 08/22/17 11:36 General appearance: Present: A&O X 3, morbidly obese, no acute distress Exam: Gen.: Vitals noted. No acute distress. AAOx3. Morbidly obese, lying down in bed HEENT: PERRL/EOMI, oropharynx clear, Normocephalic, atraumatic, MMM Cardiac: RRR, no murmur, +S1/S2 Pulmonary: CTA bilaterally, no wheezes, rales or rhonchi, equal chest expansion Abdomen: soft, nontender, BS noted, no guarding, no rebound. Back: Sacral decubitus ulcer stage II, no appreciated bony involvement and noninfected appearing. Extremities: Mild BLE edema, nontender calf, no cyanosis or clubbing Neuro: A&Ox3, moves all extremities, no focal deficits Psych: Appropriate mood and behavior Internal Medicine: Result - Labs CBC & Chem 7: 08/20/17 05:08 08/20/17 05:08 - ABG Interpretation ABG results: ABG ABG pH 7.51 pH Units (7.32-7.45) H 08/07/17 06:26 ABG pCO2 45 mmHg (35-45) 08/07/17 06:26 ABG pO2 88 mmHg (85-104) 08/07/17 06:26 ABG O2 Saturation 97 % (95-98) 08/07/17 06:26 PT/INR, D-dimer PT 13.4 Seconds (9.4-12.1) H 08/09/17 08:32 Consult Discharge Plan - Plan Additional Instructions: PLease follow up with PCP, wound care after discharge. Take all meds as prescribed. Return to hospital if symptoms return. Referrals: [facility] [Other] - 08/23/17 11:15 am (Patient will see Dr. Toscano.) Robb Perry MD [Primary Care Provider] - ([facility]) Prescriptions: Collagenase Oint [Santyl] 1 appl TP DAILY #3 tube Gentamicin Oint [Garamycin] 1 appl TP DAILY #3 tube Miconazole w/zinc oxide&karaya [Antifungal Extra Thick] 1 appl TP BID #3 tube Vancomycin [Vancocin] 750 mg IV BID #6 vial <Sharon Medina - Last Filed: 08/22/17 17:49> Date of Encounter: 08/22/17 - Assessment and plan (1) CAD (coronary artery disease) Status: Chronic Qualifiers: Coronary Disease-Associated Artery/Lesion type: [place] artery [place] vs. transplanted heart: [place] heart Associated angina: without angina Qualified Code(s): I25.10 - Atherosclerotic heart disease of [place] coronary artery without angina pectoris (2) Insulin dependent diabetes mellitus Status: Chronic (3) History of atrial fibrillation Status: Chronic (4) CKD (chronic kidney disease), stage III Status: Chronic (5) Bacteremia due to Gram-positive bacteria Status: Resolved (6) Hypertension Status: Chronic Qualifiers: Hypertension type: essential hypertension Qualified Code(s): I10 - Essential (primary) hypertension (7) COPD (chronic obstructive pulmonary disease) Status: Chronic Qualifiers: COPD type: emphysema Emphysema type: unspecified Qualified Code(s): J43.9 - Emphysema, unspecified (8) Sepsis Status: Resolved Qualifiers: Sepsis type: Streptococcus, other Qualified Code(s): A40.8 - Other streptococcal sepsis (9) HCAP (healthcare-associated pneumonia) Status: Acute (10) NSTEMI (non-ST elevated myocardial infarction) Status: Acute (11) UTI (urinary tract infection) Status: Acute Qualifiers: Urinary tract infection type: site unspecified Hematuria presence: without hematuria Qualified Code(s): N39.0 - Urinary tract infection, site not specified (12) DVT prophylaxis Status: Acute (13) Liver lesion Status: Acute (14) Sacral decubitus ulcer Status: Chronic Qualifiers: Pressure ulcer stage: stage 2 Qualified Code(s): L89.152 - Pressure ulcer of sacral region, stage 2 - Time Spent With Patient Total time spent is greater than 50% in coordination of care (as documented) at patient's floor/unit and/or counseling patient: - Constitutional Vitals: Temp Pulse Resp BP Pulse Ox 98.3 F 71 18 123/45 92 08/22/17 14:25 08/22/17 14:25 08/22/17 15:31 08/22/17 14:25 08/22/17 15:31 Internal Medicine: Result - Labs CBC & Chem 7: 08/20/17 05:08 08/20/17 05:08 - ABG Interpretation ABG results: ABG ABG pH 7.51 pH Units (7.32-7.45) H 08/07/17 06:26 ABG pCO2 45 mmHg (35-45) 08/07/17 06:26 ABG pO2 88 mmHg (85-104) 08/07/17 06:26 ABG O2 Saturation 97 % (95-98) 08/07/17 06:26 PT/INR, D-dimer PT 13.4 Seconds (9.4-12.1) H 08/09/17 08:32 - Attending Attestation I examined this patient and my medical decision-making was reviewed with the Resident Physician Dr. Lua. I agree with the documented findings, disposition and treatment plan as described except to the extent set forth below. Ms. Snyder is a 66 y/o F chronic bed bound pt admitted here for HCAP and Sacral ulcer. Pt also have ESBL positive and Strep Pneumonia. Gen: A, A, O x3 Chest: Diminished BS b/l Heart: S1S2+ RRR No murmurs Back: Sacral ulcer+ stage 2 ulcer. mild necrosed tissue in the middle. 1. Sacral stage [address] of Abd did not show any osteomyelitis / No fluid collection Surgery did not suggest debridement for now need out pt f/u with surgery ID recommend topical abx 2. HCAP with ESBL and Strep 3. Bacteremia with Strep Improved Finished full course of Ertapenem, and Vancomycin Medically stable to d/c to ECF today
[2017-08-22 14:32] VITALS: BP 123/45
== END 2017-08-22 17:27 | DRG 871 ==
LOC: ICNU 22:32 → EMEROO 22:32 → SUATTDRO 08-02 03:30 → ICNU 08-02 03:50 → 2ANU 08-02 14:23 → ICNU 08-05 11:16 → 3ANU 08-08 14:48
PROVIDERS: ADMIT Internal Medicine; ATTEND Hospitalist